=== PATIENT | male | born 1970 | race Caucasian/White ===

== ENCOUNTER 2017-09-30 17:05 | Emergency (ER) | payer BC, SELFPAY ==
--- NOTE | 2017-09-30 11:28 | EKG12_ITS ---
Test Reason : Blood Pressure : / mmHG Vent. Rate : 060 BPM Atrial Rate : 060 BPM P-R Int : 142 ms QRS Dur : 078 ms QT Int : 396 ms P-R-T Axes : 020 042 045 degrees QTc Int : 396 ms Normal sinus rhythm Normal ECG Confirmed by JUAN RAMON CRISTINA, GABRIELLE ([id number]), assistant film editor DELORIS HERNDON ([id number]) on 10/08/2017 6:18:41 PM Referred By: Tomeka Prasad Confirmed By:GABRIELLE DELATORRE MD
--- NOTE | 2017-09-30 13:28 | RAD_ITS ---
STUDY: X-RAY - ABDOMEN/PELVIS REASON FOR EXAM: Male, 47 years old. Epigastric pain TECHNIQUE: 6 views COMPARISON: None. FINDINGS: Normal visualized lung bases. There is an unremarkable bowel gas pattern. There is no demonstrated free abdominal air. The visualized liver, spleen and kidneys are grossly normal in size and morphology. Normal soft tissue structures. Degenerative vertebral changes. RAD/Abd Inc Decub and/or Erect IMPRESSION: Normal x-ray examination of the abdomen and pelvis. Electronically Signed: Davian Mosquera DO at 23:00 EDT Tel [phone], Service support ,
--- NOTE | 2017-09-30 17:05 | DT_ITS ---
This patient was seen during an EMR downtime September 29, 2017 - October 06, 2017. This patient may have a combination of paper and electronic documentation or all paper documentation. All documentation is viewable within the e-chart portion of [facility] for each patient visit.
--- NOTE | 2017-09-30 19:55 | CT_ITS ---
STUDY: CT ABDOMEN AND PELVIS WITHOUT CONTRAST REASON FOR EXAM: Male, 47 years old. Right upper quadrant pain radiating to back RADIATION DOSAGE (If Supplied By Facility): CTDIvol = ( 23.45 ) mGy, DLP = ( 1329.91 ) mGycm TECHNIQUE: Transaxial images were obtained from the dome of the diaphragm to the symphysis pubis without oral contrast, and without intravenous contrast. Sagittal and coronal images were reconstructed. Individualized dose optimization techniques were used for this CT. COMPARISON: None. FINDINGS: The study is technically limited, being performed without oral and intravenous contrast. The visualized lung bases are unremarkable. The visualized portions of the heart are within normal limits. Normal liver. The gallbladder is mildly distended. Gallstones and calcified gravel are seen in the gallbladder. Normal spleen. Normal pancreas. Normal bilateral adrenal glands. Normal right kidney. Normal left kidney. Normal visualized stomach. Normal small intestine. There are scattered colonic diverticuli with no evidence of diverticulitis. The appendix is visualized and appears normal. There are calcified plaques of the abdominal aorta. Normal inferior vena cava. Normal retroperitoneum. Normal urinary bladder. The prostate, seminal vesicles, and seminal vesicle angles appear normal. There is a small umbilical hernia containing fat. There are diffuse degenerative changes of the visualized thoracolumbar spine. CT/Abdomen/Pelvis without Cont IMPRESSION: Cholelithiasis. The gallbladder is mildly distended. Gallbladder ultrasound may be helpful for further evaluation at this time. Scattered colonic diverticuli with no evidence of diverticulitis. Diffuse degenerative changes of the visualized thoracolumbar spine. There is no evidence of free intra-abdominal or intrapelvic air or fluid. Electronically Signed: Germán Todd MD at 21:41 EDT , Service support ,
--- NOTE | 2017-09-30 21:10 | US_ITS ---
STUDY: ABDOMINAL ULTRASOUND - RIGHT UPPER QUADRANT REASON FOR VISIT: Male, 47 years old. Epigastric pain TECHNIQUE: Ultrasound evaluation of the right upper quadrant was performed with real-time and static painter-scale imaging. TECHNICAL QUALITY: Adequate. COMPARISON: None. FINDINGS: Liver: The liver measures 18.3 cm. There is fatty echogenicity of the liver. The bile ducts are within normal limits. There is hepatic color flow. The direction of portal flow is hepatopetal. There is no demonstrated mass lesion. Gallbladder: Normal distended gallbladder. The gallbladder wall measures 3 mm. There is a negative sonographic Mota's sign. There is trace pericholecystic fluid. There are multiple gallstones. Common Bile Duct (C.B.D.): The common bile duct measures 4 mm. Pancreas: Limited visualization of the pancreas. Right Kidney: Normal size of the right kidney. The right kidney measures 11.8 x 5.7 x 4.9 cm. Normal renal cortex. The right cortex measures 1.3 cm. There is no demonstrated renal mass or cyst. There is no right hydronephrosis. US/Abdomen Limited IMPRESSION: Fatty liver. Cholelithiasis with borderline gallbladder wall thickness. Trace pericholecystic fluid. Electronically Signed: Davian Mosquera DO at 18:57 EDT Tel [phone], Service support ,
[2017-10-05 09:53] LABS: Absolute Lymphocyte Count 2.41 X10^3/ul (0.83-4.51); Absolute Neutrophil Count 3.3 X10^3/uL (2.0-7.7); Basophil# 0.03 X10^3/uL; Basophil% 0.5 % (0-1); Eosinophil# 0.12 X10^3/uL; Eosinophils% 1.9 % (0-5); Hemoglobin 13.8 g/dl (13.0-16.5); Lymphocyte # 2.41 X10^3/ul (4.0); Mean Corp Hgb Conc 33.7 g/gl (32-36); Mean Corpuscular Hgb 29.4 pg (27.0-32.0); Mean Corpuscular Volume 87.4 fL (80-94); Mean Platelet Vol. 9.4 fl (6.2-12.0); Monocyte% 7.9 % (0-10); Neutrophil # 3.26 X10^3/uL (2.7-7.7); Neutrophil % 51.4 % (47-70); POSITIVE COUNT NO; POSITIVE DIFFERENTIAL NO; POSITIVE MORPHOLOGY NO; Platelet Count 369 K/mm3 (150-450); RBC Distribution Width CV 13.6 % (11.6-14.6); Red Blood Count 4.69 M/mm3 (4.6-6.2); White Blood Count 6.3 K/mm3 (4.4-11.0)
[2017-10-05 09:54] LABS: BUN 13 mg/dL (7-18); BUN/Creat Ratio 11.7 RATIO (10-20); Creatinine, Serum 1.11 mg/dL (0.70-1.30); EST Glomerular Filtration Rate 75 mL/min (>60); Est Glom Filt Rate - Afr Amer 91 mL/min (>60); Glucose 110 mg/dL (74-106)
[2017-10-05 09:55] LABS: ALB/GLOB Ratio 1.1 RATIO (0.9-2.4); AST(SGOT) 41 U/L (15-37); Alanine Aminotransfer ALT/SGPT 77 U/L (16-61); Albumin, Serum 4.1 g/dL (3.2-5.0); Alkaline Phosphatase 62 U/L (45-117); Amylase 50 U/L (25-115); Anion Gap 9 (5-15); Calcium,Total 11.3 mg/dL (8.5-10.1); Chloride 102 mmol/L (98-107); Globulin 3.6 g/dL (2.2-4.2); Lipase 184 U/L (73-393); Potassium 4.1 mmol/L (3.5-5.1); Protein, Total 7.7 g/dL (6.4-8.2); Sodium Level 140 mmol/L (136-145)
== END 2017-09-30 22:45 | disposition home or self-care (01) ==
LOC: ED 10-02 08:31
PROVIDERS: Emergency Provider Emergency Medicine; Family Provider Family Medicine; PCP Family Medicine
DX: K80.80 Other cholelithiasis without obstruction (principal); K76.0 Fatty (change of) liver, not elsewhere classified; K42.9 Umbilical hernia without obstruction or gangrene
CPT/HCPCS: 36415; 74019; 74176; 76705; 80053; 82150; 83690; 84484; 85025; 93005; 96361; 96374; 96375; 96376; 99284; J7030; A4216; J2405

== ENCOUNTER 2017-10-02 05:56 | Day surgery (SDC) | payer BC, SELFPAY ==
--- NOTE | 2017-10-02 05:56 | DT_ITS ---
This patient was seen during an EMR downtime September 29, 2017 - October 06, 2017. This patient may have a combination of paper and electronic documentation or all paper documentation. All documentation is viewable within the e-chart portion of [facility] for each patient visit.
--- NOTE | 2017-10-02 07:38 | GALL_PTH ---
PATIENT: KENYA GORE LOC: [facility] – [place] U#:[id number] AGE/SX: 47/M ROOM: RE10/02/[address]: Dr. Sedrick Espinoza MD : 1970 BED: DIS: 10/02/2017 SPEC #: [id number] RECD: 10/02/17 11:04 STATUS: LUIZ LATANYA #: [id number] SHELBY: 10/02/17 07:[address]: Sedrick Espinoza DEPT: SURGICAL PATHOLOGY RECD BY: Cristian Cruz ENTERED: 10/03/17 08:50 SP TYPE: YESENIA GRANADOS DR: Dr. Scooter Ramirez MD Tissues: Gallbladder, NOS Procedures: Surgery Specimen Level III HEADER OPERATION: Laparoscopic cholecystectomy with intraoperative cholangiograms PRE-OP DIAGNOSIS: Acute cholecystitis TISSUE SUBMITTED: Gallbladder MICROSCOPIC DIAGNOSIS Gallbladder: Acute and chronic, ulcerated and hemorrhagic cholecystitis and cholelithiasis. SJ:yaron 6/8/18 MICROSCOPIC DESCRIPTION Slides are reviewed. GROSS DESCRIPTION Received is one container labeled with the patient's name and designated gallbladder. The specimen consists of a gallbladder measuring 10 cm in length and 4 cm in diameter. The external surface is pink-chowdhury, smooth and glistening for the most part. Focally it is granular, hemorrhagic and contains cautery artifact. The gallbladder contains multiple, multifaceted to irregular bile and stones measuring in aggregate 6 x 6 x 2 cm and 0.2 to 0.5 cm in greatest dimension. Bile is not present. The mucosa shows extensive ulceration and is congested. The gallbladder wall measures up to 1 cm in thickness. Increased segment of submucosal fat is noted. Clerical Adjuster sections from the gallbladder and the cystic duct are submitted in two cassettes. / SJ:yaron 10/02/17 TC:2 [facility]: [id number]
--- NOTE | 2017-10-02 12:02 | EKG12_ITS ---
Test Reason : PRE OP Blood Pressure : / mmHG Vent. Rate : 058 BPM Atrial Rate : 058 BPM P-R Int : 134 ms QRS Dur : 076 ms QT Int : 408 ms P-R-T Axes : 015 005 034 degrees QTc Int : 400 ms Sinus bradycardia Otherwise normal ECG No previous ECGs available Confirmed by JUAN RAMON CRISTINA, GABRIELLE ([id number]), desk editor DELORIS HERNDON ([id number]) on 10/09/2017 4:35:14 PM Referred By: Sedrick Espinoza Confirmed By:GABRIELLE DELATORRE MD
[2017-10-04 13:42] LABS: Anion Gap 8 (5-15); BUN 14 mg/dL (7-18); BUN/Creat Ratio 11.7 RATIO (10-20); Calcium,Total 8.7 mg/dL (8.5-10.1); Chloride 102 mmol/L (98-107); EST Glomerular Filtration Rate 69 mL/min (>60); Est Glom Filt Rate - Afr Amer 84 mL/min (>60); Glucose 155 mg/dL (74-106); Potassium 3.9 mmol/L (3.5-5.1); Sodium Level 138 mmol/L (136-145)
[2017-10-04 15:17] LABS: Hematocrit 40.8 % (40-54); Hemoglobin 13.7 g/dl (13.0-16.5); Mean Corp Hgb Conc 33.6 g/gl (32-36); Mean Corpuscular Hgb 29.4 pg (27.0-32.0); Mean Corpuscular Volume 87.6 fL (80-94); Mean Platelet Vol. 9.5 fl (6.2-12.0); Platelet Count 237 K/mm3 (150-450); RBC Distribution Width CV 13.7 % (11.6-14.6); RBC Distribution Width SD 43.9 fl (35.1-43.9); Red Blood Count 4.66 M/mm3 (4.6-6.2); Scan Indicated on CBC? Y/N NO; White Blood Count 8.2 K/mm3 (4.4-11.0)
--- NOTE | 2017-12-22 14:25 | PCM.OPRPT ---
Problem List (1) Acute cholecystitis Status: Acute Report of Operation Date of Procedure: 10/02/17 Pre-Operative Diagnosis: Acute cholecystitis Post-Operative Diagnosis: Same Surgery/Procedure Performed:: Laparoscopic cholecystectomy Type of Anesthesia:: General Anesthesiologist: Jayro Monet Description of Procedure: Patient was brought into the operating room placed in the supine position. Under excellent general endotracheal summation the abdomen was sterilely prepped and draped in the usual fashion. Local was injected infraumbilically. Dissection was carried down to the fascia. Fascia was grasped with Demond. Varies needle was placed inside the abdomen. The abdomen was insufflated to 15 torr. A 10/12 trocar was placed without difficulty. A subxiphoid #5 trocar was placed, inferior to this another #5 trocar was placed, laterally a #5 trocar was placed. All of these under direct visualization without injury to underlying structures. Fundus of the gallbladder was grasped and retracted in cephalad direction. I dissected out the cystic duct grabbing the infundibulum retracting it laterally. I placed hemoclips proximally and distally on the duct. I ligated the duct. Identified the cystic artery placed hemoclips proximally distally and ligated the artery. I deliver the gallbladder from the gallbladder bed with use of electrocautery. Placed a specimen a specimen bag and delivered through the umbilical port. Reinflated the abdomen inspected the gallbladder bed. Use electrocautery for good hemostasis. Once this was achieved I removed the trochars under direct visualization good hemostasis was noted. Close the fascia the umbilical port with [id number] stitch of 0 Vicryl. Skin incisions were closed with subtalar stitches of 4-0 Monocryl. Steri-Strips are applied. Sterile dressings were applied. The patient tolerated the procedure well. - Admit VTE Documentation VTE Present on Admission: No VTE Mechan Device Prophylaxis: SCD's VTE Pharm Prophylaxis ordered?: No Reason prophylaxis not ordered:: Treatment Not Indicated
== END 2017-10-02 10:50 | disposition home or self-care (01) ==
LOC: SDC 05:57 → AC 06:00
PROVIDERS: Family Provider Family Medicine; PCP Family Medicine; Visit Provider Surgery
PROC: (CPT 47610; principal; 2017-10-02 07:10)
DX: K80.12 Calculus of gallbladder with acute and chronic cholecystitis without obstruction (principal); G47.30 Sleep apnea, unspecified
CPT/HCPCS: 47562; 36415; 80048; 85027; 88304; 93005; J7120; J1610; J2405

== ENCOUNTER → 2018-07-16 08:03 | Outpatient (CLI) | payer BC, SELFPAY ==
[2018-07-16 10:09] LABS: ALB/GLOB Ratio 1.4 RATIO (0.9-2.4); AST(SGOT) 38 U/L (15-37); Alanine Aminotransfer ALT/SGPT 83 U/L (16-61); Albumin, Serum 4.2 g/dL (3.2-5.0); Alkaline Phosphatase 63 U/L (45-117); Anion Gap 6 (5-15); BUN 17 mg/dL (7-18); BUN/Creat Ratio 15.7 RATIO (10-20); Calcium,Total 8.6 mg/dL (8.5-10.1); Chloride 106 mmol/L (98-107); Cholesterol 212 mg/dL (200); Creatinine, Serum 1.08 mg/dL (0.70-1.30); EST Glomerular Filtration Rate 78 mL/min (>60); Est Glom Filt Rate - Afr Amer 94 mL/min (>60); Glucose 154 mg/dL (74-106); High Density Lipoprotein 38 mg/dL; Potassium 4.4 mmol/L (3.5-5.1); Protein, Total 7.2 g/dL (6.4-8.2); Sodium Level 137 mmol/L (136-145); Triglycerides 210 mg/dL; Very Low Density Lipoprotein 42 mg/dL (5-40)
== END ==
PROVIDERS: Family Provider Family Medicine; PCP Family Medicine; Referring Provider Family Medicine; Visit Provider Family Medicine
DX: R07.9 Chest pain, unspecified (principal)
CPT/HCPCS: 36415; 80053; 80061

== ENCOUNTER → 2018-07-28 06:04 | Outpatient (CLI) | payer BC, SELFPAY ==
--- NOTE | 2018-07-28 09:46 | STRESSREP_ITS ---
Stress Test Report Date: 07-28-18 Procedure: Exercise tolerance test/imaging study Indications: Chest pain; diaphoresis Consent: Per the patient Procedure: The patient exercised on a Derick protocol for 9 minutes completing Stage III achieving a peak heart rate of 150 bpm (86 % predicted maximal heart rate) with a peak blood pressure 190/80 mmHg and a peak MET capacity of 10 METs. The baseline ECG demonstrated sinus bradycardia. The peak exercise ECG demonstrated no obvious ECG changes. There were no cardiac dysrhythmias pretest, during exercise, or recovery. The functional capacity was considered good. There was no complaint of chest discomfort during exercise or recovery. The examination was discontinued secondary to dyspnea. Impression: 1. Technically adequate (percent predicted maximal heart rate greater than 85%) exercise tolerance test 2. Peak exercise ECG with no obvious ECG changes 3. There were no cardiac dysrhythmias pretest, during exercise, or recovery 4. Nuclear images pending Myocardial perfusion imaging study: Technique: The patient was injected with 14.8 mCi of technetium 99m Cardiolite and subsequently rest SPECT Cardiolite nuclear imaging was obtained in the horizontal long, vertical long, and short axis views. The patient exercised on a Derick protocol for 9 minutes completing Stage III achieving a peak heart rate of 150 bpm (86 % predicted maximal heart rate) with a peak blood pressure 190/80 mmHg and a peak MET capacity of 10 METs. The patient was injected with 45 mCi of technetium 99m Cardiolite and subsequently stress SPECT Cardiolite nuclear imaging was obtained in the horizontal long, vertical long, and short axis views. A gated Cardiolite study at peak stress was obtained. Interpretation: Rest and stress SPECT Cardiolite nuclear imaging status post realignment, normalization, and attenuation correction, demonstrates at rest the appearance of subtle decreased tracer uptake in portions of the basal lateral and mid to distal lateral/lateral apical and inferior apical segments which appeared to improve and/or normalize following stress. There is end systolic thickening and brightening. The gated Cardiolite study demonstrates myocardial thickening and inward wall motion. The reported LVEF is 53 %. Impression: 1. Rest and stress SPECT Cardiolite nuclear imaging demonstrate resting myocardial perfusion changes which appear to improve and/or normalize following stress appearing compatible with a combination of shifting soft tissue attenuation/artifact be more prominent at rest as opposed to stress as well as potentially an area compatible with physiologic apical thinning with no myocardial perfusion changes considered diagnostic for stress-induced myocardial ischemia. 2. The gated Cardiolite study reports an LVEF of 53 %. This note was generated with [employer] software. It may contain incorrect words, spelling, and punctuation that were not noted in checking the note before signing.
== END ==
PROVIDERS: Family Provider Family Medicine; PCP Family Medicine; Referring Provider Family Medicine; Visit Provider Family Medicine
DX: R07.9 Chest pain, unspecified (principal)
CPT/HCPCS: 78452; 93017; A9500; A4216

== ENCOUNTER → 2018-09-15 13:59 | Outpatient (CLI) | payer BC, SELFPAY ==
--- NOTE | 2018-09-15 14:03 | RAD_ITS ---
STUDY: X-RAY - CERVICAL SPINE REASON FOR EXAM: Male, 48 years old. Neck pain. Numbness and tingling right arm when patient turns head to right. TECHNIQUE: 6 view(s) of the cervical spine were obtained. COMPARISON: None FINDINGS: Normal anterior atlantoaxial articulation. Normal odontoid process. Normal cervical lordosis compatible with muscle spasm or patient positioning. No fracture identified. Normal vertebral bodies. Disc space narrowing with small marginal osteophytes C5-C6. Neural foraminal narrowing bilaterally at C5-6 and C6-7. The soft tissue structures are unremarkable. RAD/Cerv Spine 4 or 5 Views IMPRESSION: Degenerative changes C5-C6. Bilateral neural foraminal narrowing C5-6 and C6-7. Straightening of normal cervical lordosis. Electronically Signed: Flaco Murillo MD at 7:44 EDT , Service support ,
== END ==
PROVIDERS: Family Provider Family Medicine; PCP Family Medicine; Referring Provider Family Medicine; Visit Provider Family Medicine
DX: M54.2 Cervicalgia (principal)
CPT/HCPCS: 72050

== ENCOUNTER 2018-10-12 08:00 | Outpatient (RCR) | payer BC, SELFPAY ==
--- NOTE | 2018-09-28 08:02 | HP.PTEVAL_ITS ---
Patient's Visit Information KENYA GORE is a 48 year old M referred to Physical Therapy by Georges Ramirez MD with a diagnosis of cervicalgia. Date of Evaluation: 09/28/18 Physical Therapist: Jayro Montaño, RAMONT, OCS, CSCS - Visit Plan Frequency: 3x /Week Duration: 4-6 Weeks Plan: 3x/week for 3-6 weeks: c/s ret and ext mobs adn ROM progression of forces, ICT as needed, Postural correction, pec stretches, focus lower cervical ext adn eveuntual postural strength. MH as needed. - Subjective Findings: My stupid neck hurts. Woke up about 6 weeks ago and felt like he slept wrong. Got worse and radiate into R shoulder . Prednisone did not help. Did x rays and may be c5/6 problem. Sometimes arm tingles. Sitting slumped is worse. Back and to the right sets off R shoulder. Up and about not bad. Worsening at home not improving. 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 Worse at end of day. Can't focus end of day. Readjustments don't seem to help. R arm is out on mouse all day. sleep was not great at firt but Ok now flat with towel under neck. Hobbies: Plays darts competitively but throwing can hurt. Basic ADLs are OK, just does things with pain. - Pain R necka dn arm Pain Intensity (Out of 10): 3 Pain Intensity Range: 0, 6 Comment: sitting in car is worse - Objective Obvious forward head flexed lower cervical posture adn tightness in pecs when tryin to correct. L rotation 60, R rotation 55 and pinful, retraction is painful, ext hurts adn 29. reflexes B bi and tri 2/3. Sensation UE WNL to gross light touch B. Strength 4+/5 B without myotomal problems. Baseline 2/10 R UT. Tingling to hand. c/s protruision.: B arm , NE. c/s retraction: W neck during, Worse 4/10 neck. c/s retraction ext: deviates R and produces more pain during. After 410 neck, slight tingling. B motion afte rmovement, less tingling. + c/s compression test. - Goals Goal 1:: Full c/s AROM without pain70 rotationa dn 50 ext Goal Time Frame: 4-6 Weeks Goal 2:: Patient feel arm symptoms abolished and neck pain 1/10 at worst and 90% improved. Goal Time Frame: 4-6 Weeks Goal 3:: Patient sit at desk without increasing pain. Goal Time Frame: 2-4 Weeks Goal 4:: Pt I in approp ex to minimize future problems. Goal Time Frame: 4-6 Weeks - Rehabilitation Potential Physical Therapy Diagnosis: cervical pain and radiculopathy likely discal in nature. Rehabilitation Potential: Fair - Anticipated Interventions Patient/Client Instruction: Educate patient on: Condition, Plan of Care For the Purpose of:: To decrease pain, To increase ROM Therapeutic Exercise to Include: Strength training, Postural training, Flexibilty training, Passive ROM, Active ROM, Dorys Exercises For the Purpose of:: To decrease pain, To increase ROM, To improve gait and locomotor functions Manual Therapy Techniques to Include: Mobilization For the Purpose of:: To decrease pain, To increase tolerance to activity/condition/position, To improve ability of physical actions for home/community/work/leisure Thermo therapy (hot pack): Yes For the Purpose of:: To decrease pain, To increase ROM Thank you for the opportunity to evaluate your patient. For Medicare and Medicare HMO plans, please review the plan of care and approve it. It will need to be FAXED BACK to us at [phone] for Medicare purposes. For Medicare only, by signing this I certify the plan of care. Please let me know if there are questions or concerns regarding this plan of care. Physician Signature: Date:
--- NOTE | 2018-10-12 08:43 | HP.PTDCSUM ---
HP - PT D/C Summary It has been my pleasure to treat KENYA GORE under orders from Georges Ramirez MD, for the diagnosis of cervicalgia for a total of 8 visit(s). Discharge Date: 10/12/18 Please see the following information for a summary of their discharge status. - Subjective Subjective: Tingling a little bit R UE but pain is way down. Pain over weekend was slight if he manages his posture. Activities at home and work are pretty normal. HEP daily. No f/u with doctor James right now. Tingling will go away with change of head position/posture. - Pain R necka dn arm Pain Intensity (Out of 10): 0 - Overall Improvement % Improvement: 75 - Objective Objective/Function: 55 ext c/s , 70 B rotation only slight transient pain with L rotation. 5/5 strength UE without myotomal problems. Posture is good with focus but tends toward forward head. - Goals Goal 1:: Full c/s AROM without pain70 rotationa dn 50 ext Goal Progress: Goal Met Goal 2:: Patient feel arm symptoms abolished and neck pain 1/10 at worst and 90% improved. Goal Progress: Progressing Goal 3:: Patient sit at desk without increasing pain. Goal Progress: with good posture. Goal 4:: Pt I in approp ex to minimize future problems. Goal Progress: Goal Met - Plan Plan: D/C - D/C Information Discharge Comments: Will cotninue via HEP and contact doctor if symptoms return. Doing very well right now with minimal symptoms manageable with postural focus and head position. If there are questions or concerns regarding this patient's physical therapy, please feel free to call me at [phone]. Thank you for the referral of this patient. Sincerely, Jayro Montaño, DPT, OCS, CSCS
== END 2018-10-12 19:00 | disposition home or self-care (01) ==
LOC: PT 08:00
PROVIDERS: Family Provider Family Medicine; PCP Family Medicine; Visit Provider Family Medicine
DX: M54.2 Cervicalgia (principal); M25.511 Pain in right shoulder
CPT/HCPCS: 97012; 97110; 97124; 97140; 97162; 97530

== ENCOUNTER → 2018-12-10 14:17 | Outpatient (CLI) | payer BC, SELFPAY ==
[2018-12-10 08:32] VITALS: BMI 37.0
== END ==
PROVIDERS: Family Provider Family Medicine; PCP Family Medicine; Referring Provider Physician Assistant; Visit Provider Physician Assistant
DX: J02.9 Acute pharyngitis, unspecified (principal)
CPT/HCPCS: 87081

== ENCOUNTER → 2020-06-26 14:23 | Outpatient (CLI) | payer BC, SELFPAY ==
[2018-12-10 08:32] VITALS: BMI 37.0
--- NOTE | 2020-06-26 14:28 | RAD_ITS ---
STUDY: X-RAY CHEST REASON FOR EXAM: Male, 49 years old. Atypical chest pain intermittently since January. Pain is becoming more frequent. TECHNIQUE: PA and lateral views of the chest. COMPARISON: None. FINDINGS: The lungs are clear and expanded. There is no demonstrated pleural abnormality. Normal size heart. Normal mediastinum and madonna. Normal visualized pulmonary arteries. Normal visualized aortic arch and descending thoracic aorta. There are diffuse degenerative changes of the visualized thoracic spine. Normal visualized ribs, clavicles, and shoulders. There is no demonstrated abnormality of the visualized soft tissue structures of the upper abdomen. RAD/Chest PA and Lateral IMPRESSION: No acute cardiopulmonary disease. Electronically Signed: Jony Membreno DO at 16:48 EST Tel [phone], Service support ,
== END ==
PROVIDERS: PCP Family Medicine; Referring Provider Family Medicine; Visit Provider Family Medicine
DX: R07.89 Other chest pain (principal)
CPT/HCPCS: 71046

== ENCOUNTER 2021-02-13 12:23 | Day surgery (SDC) | payer BC, SELFPAY ==
[2021-02-13 12:46] VITALS: BP 130/85; PULSE 50; RESP 16; TEMP 36.2; O2SAT 98; BMI 37.5
[2021-02-13] MEDS: Lactated Ringers 1,000 ML 100 ML IV (12:51)
--- NOTE | 2021-02-13 14:07 | PCM.HP.BLA ---
History and Physical Date of Admission: 02/13/21 50-year-old gentleman arrives here for screening colonoscopy. He has no specific past medical history. He only takes ibuprofen as needed. He has had no surgeries in the past. He is not have any nausea, vomiting or diarrhea. He has no family history colon cancer. Overall is in very good health. [facility] Medical History (Updated 12/10/18 @ 08:29 by KAREN Morelos) Arthritis (Acute) Chest pain (Acute) Loss of consciousness (Acute) Shoulder pain (Acute) history of pilon ankle fracture (Acute) Surgical History (Updated 12/10/18 @ 07:57 by Estela Scherer) History of cholecystectomy (Acute) History of tonsillectomy (Acute) History of total ankle replacement (Acute) Social History (Updated 12/10/18 @ 08:32 by KAREN Morelos) Smoking Status: Never smoker alcohol intake: current alcohol intake frequency: holidays/special occasions only HPI HPI Chief Complaint: sore throat Details: KENYA GORE, is a 48 M who presents to the office today for initial evaluation approximately 1 week history of progressively worsening sore throat. No complaints of fever, chills, sweats, rash, chest pressure/shortness of breath/wheeze, difficulty swallowing/drooling though he does note mild severe tenderness with swallowing. Patient is here at the request of his to be assessed for streptococcal pharyngitis. He has taken no [id number] products to assist with symptoms, though notes he does take ibuprofen on a regular basis for chronic sore feet as he describes. He notes no other members in household with similar complaints. He notes no other associated symptoms and no other alleviating or aggravating factors. ROS Const Constitutional: No other (ROS negative x10 other than as noted above) Exam Const General: cooperative, healthy appearing, comfortable, no acute distress Nutritional Appearance: well nourished Orientation: alert, awake, oriented x3 HENMT Head: normal to inspection Ears: hearing grossly normal bilaterally, external ears normal, TM's normal bilaterally, EAC's normal Nose: external nose normal, nares normal, septum normal, no nasal discharge Face and sinus: normal facial exam, sinuses nontender, face symmetric Mouth: oral mucosae normal, lip normal, tongue normal, oropharynx normal Teeth and gingiva: dentition normal, gingiva normal Throat: posterior oropharynx normal, uvula midline, abnormal tonsil bilaterally erythema (Rapid strep test today was negative), no postnasal drainage Eyes General: appearance normal, both eyes and all related structures Neck Neck: normal visual inspection, full ROM, no lymphadenopathy, no meningeal signs, supple Neck mass: No Thyroid: thyroid normal Lymphatic: no lymphadenopathy noted Chest Chest palpation & inspection: normal inspection of the chest Resp Effort & Inspection: normal respiratory effort, able to speak in complete sentences, symmetric chest movement, no cough Auscultation: Bilateral: Clear to Auscultation Cardio Palpation: normal PMI Rate: regular rate Rhythm: regular rhythm Heart Sounds: S1 normal, S2 normal, no gallops, no murmurs, no rubs Pulses: radial pulses present GI Inspection: normal to inspection Palpation: soft, no hepatosplenomegaly Skin General: no rashes or lesions noted Neuro General: alert, awake, oriented x3, gait normal Cognition: normal cognition Speech: speech normal Gait: normal gait Motor: muscle tone normal throughout Sensory Exam: no sensory deficits noted Psych Appearance: grossly normal Mental Status: mental status grossly normal Mood: congruent mood Affect: normal affect Speech and Movement: speech and movement normal Attitude: cooperative Thought Process: normal Thought Content: normal Judgment: judgment good Assessment and plan is a screening colonoscopy. He was explained alternatives, risk, benefits including outstanding bleeding, infection, sepsis, perforation, need for emergent urgent . He will have an ASA of 1.
[2021-02-13 14:45] VITALS: BP 120/87; BP 130/85; PULSE 60; RESP 16; TEMP 36.2; O2SAT 96
--- NOTE | 2021-02-13 14:47 | OP.COLON_ITS ---
Patient Name: Darwin Garcia Procedure Date: 02/13/2021 2:11 PM Date of : 1970 Age: 50 Procedure: Colonoscopy Indications: This is the patient's first colonoscopy Providers: Mook Wolf DO Medicines: Propofol per Anesthesia Patient Profile: This is a 50 year old male. Refer to note in patient chart for documentation of history and physical. Last Colonoscopy: none. The patient's first colonoscopy is today. Complications: No immediate complications. Procedure: Pre-Anesthesia Assessment: - Prior to the procedure, a History and Physical was performed, and patient medications and allergies were reviewed. The patient is competent. The risks and benefits of the procedure and the sedation options and risks were discussed with the patient. All questions were answered and informed consent was obtained. Patient identification and proposed procedure were verified by the physician in the pre-procedure area. Mental Status Examination: alert and oriented. Airway Examination: normal oropharyngeal airway and neck mobility. Respiratory Examination: clear to auscultation. CV Examination: normal. Prophylactic Antibiotics: The patient does not require prophylactic antibiotics. Prior Anticoagulants: The patient has taken no previous anticoagulant or antiplatelet agents. ASA Grade Assessment: II - A patient with mild systemic disease. After reviewing the risks and benefits, the patient was deemed in satisfactory condition to undergo the procedure. The anesthesia plan was to use moderate sedation / analgesia (conscious sedation). Immediately prior to administration of medications, the patient was re-assessed for adequacy to receive sedatives. The heart rate, respiratory rate, oxygen saturations, blood pressure, adequacy of pulmonary ventilation, and response to care were monitored throughout the procedure. The physical status of the patient was re-assessed after the procedure. After I obtained informed consent, the scope was passed under direct vision. Throughout the procedure, the patient's blood pressure, pulse, and oxygen saturations were monitored continuously. The colonoscope was introduced through the anus and advanced to the cecum, identified by the appendiceal orifice, ileocecal valve and palpation. The terminal ileum, ileocecal valve, appendiceal orifice, and rectum were photographed. Moderate Sedation: Moderate (conscious) sedation was administered by the endoscopy nurse and supervised by the endoscopist. The patient's oxygen saturation, heart rate, blood pressure and response to care were monitored. Total physician intraservice time was 15 minutes. Scope In: 2:23:21 PM Scope Withdrawal Time 0 hours 10 minutes 15 seconds Scope Out: 2:39:54 PM Total Procedure Duration Time 0 hours 16 minutes 33 seconds Findings: The perianal and digital rectal examinations were normal. The entire examined colon appeared normal on direct and retroflexion views. Impression: - The entire examined colon is normal on direct and retroflexion views. - No specimens collected. Recommendation: - Discharge patient to home. - Resume previous diet. - Continue present medications. - Await pathology results. - Repeat colonoscopy in 10 years for screening purposes. Procedure Code(s): --- Professional --- 84554, Colonoscopy, flexible; diagnostic, including collection of specimen(s) by brushing or washing, when performed (separate procedure) G0500, Moderate sedation services provided by the same physician or other qualified health critical care educator performing a gastrointestinal endoscopic service that sedation supports, requiring the presence of an independent trained observer to assist in the monitoring of the patient's level of consciousness and physiological status; initial 15 minutes of intra-service time; patient age 5 years or older (additional time may be reported with 82641, as appropriate) CPT copyright 2017 [employer]. All rights reserved. The codes documented in this report are preliminary and upon region manager review may be revised to meet current compliance requirements. Mook Wolf DO 02/13/2021 2:47:01 PM This report has been signed electronically. Number of Addenda: 1 Note Initiated On: 02/13/2021 2:11 PM Addendum Number: 1 Addendum Date: 12/27/2021 4:35:52 PM MAC was used instead of moderate sedation for this patient. Mook Wolf DO 12/27/2021 4:35:57 PM This report has been signed electronically.
--- NOTE | 2021-02-13 14:48 | OP.CCLET_ITS ---
12/27/2021 Georges Ramirez [address] [place] [address] Re : Colonoscopy procedure for Darwin Garcia Dear Dr. Ramirez This procedure was performed on Saturday, February 13, 2021. My impressions and recommendations are as follows: Impressions : - The entire examined colon is normal on direct and retroflexion views. - No specimens collected. Recommendations : - Discharge patient to home. - Resume previous diet. - Continue present medications. - Await pathology results. - Repeat colonoscopy in 10 years for screening purposes. My findings are described in the full procedure note, which is enclosed. If I can be of further assistance, please feel free to contact me at . Sincerely, Mook Wolf, 02/13/2021 2:47:01 PM This report has been signed electronically.
[2021-02-13 14:50] VITALS: BP 120/93; BP 130/85; PULSE 46; RESP 16; O2SAT 96
[2021-02-13 14:55] VITALS: BP 125/86; BP 130/85; PULSE 47; RESP 16; O2SAT 97
[2021-02-13 15:00] VITALS: BP 122/92; BP 130/85; PULSE 50; RESP 16; TEMP 36.2; O2SAT 97
[2021-02-13 15:12] VITALS: BP 130/85
== END 2021-02-13 15:26 ==
LOC: EN 12:24 → AC 12:25
PROVIDERS: PCP Family Medicine; Referring Provider Family Medicine; Visit Provider Internal Medicine Gastroenterology
PROC: 0DJD8ZZ Inspection of Lower Intestinal Tract, Via Natural or Artificial Opening Endoscopic (ICD-10-PCS; CPT 45378; principal; 2021-02-13 13:25)
DX: Z12.11 Encounter for screening for malignant neoplasm of colon (principal); Z20.822 Contact with and (suspected) exposure to COVID-19; M19.90 Unspecified osteoarthritis, unspecified site; Z90.49 Acquired absence of other specified parts of digestive tract
CPT/HCPCS: 45378; 87426; C9803; J7120; J2405

== ENCOUNTER 2024-01-14 21:59 | Inpatient (IN) | payer BC, SELFPAY ==
[2024-01-14 22:00] VITALS: BP 134/90; PULSE 85; RESP 18; TEMP 35.8; O2SAT 98; BMI 35.9
--- NOTE | 2024-01-14 22:05 | EKG12_ITS ---
Test Reason : CP Blood Pressure : / mmHG Vent. Rate : 070 BPM Atrial Rate : 070 BPM P-R Int : 148 ms QRS Dur : 080 ms QT Int : 396 ms P-R-T Axes : 010 021 020 degrees QTc Int : 427 ms Normal sinus rhythm Normal ECG Confirmed by Gino Muir ([id number]), editor farm journal TERESA GORE ([id number]) on 01/19/2024 10:22:59 AM Referred By: CONCHA Confirmed By:Gino Muir
[2024-01-14 22:27] LABS: Absolute Lymphocyte Count 2.42 X10^3/uL (0.83-4.51); Absolute Neutrophil Count 5.7 X10^3/uL (2.0-7.7); Basophil# 0.06 X10^3/uL; Basophil% 0.7 % (0-1); Eosinophil# 0.12 X10^3/uL; Eosinophils% 1.4 % (0-5); Hematocrit 40.3 % (40-54); Hemoglobin 13.5 g/dL (13.0-16.5); Lymphocyte # 2.42 X10^3/ul (0.83-4.51); Lymphocyte % 27.4 % (19-41); Mean Corp Hgb Conc 33.5 g/dL (32-36); Mean Corpuscular Hgb 29.7 pg (27.0-32.0); Mean Corpuscular Volume 88.8 fL (80-94); Mean Platelet Vol. 9.2 fl (6.2-12.0); Monocyte# 0.56 X10^3/uL; Monocyte% 6.3 % (0-10); NRBC Flagged by Analyzer 0 % (0-5); Neutrophil # 5.65 X10^3/uL (2.7-7.7); Neutrophil % 63.9 % (47-70); Platelet Count 216 K/mm3 (150-450); RBC Distribution Width CV 13.6 % (11.6-14.6); RBC Distribution Width SD 44.4 fl (35.1-43.9); Red Blood Count 4.54 M/mm3 (4.6-6.2); White Blood Count 8.8 K/mm3 (4.4-11.0)
--- NOTE | 2024-01-14 22:43 | RAD_ITS ---
STUDY: X-RAY CHEST REASON FOR EXAM: Male, 53 years old. chest pain TECHNIQUE: Single frontal view of the chest. COMPARISON: June 26, 2020 FINDINGS: The lungs are clear and expanded. There is no demonstrated pleural abnormality. Normal size heart. Normal mediastinum and madonna. Normal visualized pulmonary arteries. Normal visualized aortic arch and descending thoracic aorta. Normal visualized thoracic spine. Normal visualized ribs, clavicles, and shoulders. There is no demonstrated abnormality of the visualized soft tissue structures of the upper abdomen. RAD/Chest 1 View (Portable) IMPRESSION: Normal x-ray examination of the chest. Electronically Signed: Camron Perez MD at 23:16 EDT ,
[2024-01-14 22:47] LABS: Anion Gap 11 (5-15); BUN 21 mg/dL (7-18); Calcium,Total 9.4 mg/dL (8.5-10.1); Chloride 106 mmol/L (98-107); EST Glomerular Filtration Rate 83 mL/min (>60); Est Glom Filt Rate - Afr Amer 100 mL/min (>60); Estimated Creatinine Clearance 101.42 ml/min; Glucose 138 mg/dL (74-106); Potassium 3.7 mmol/L (3.5-5.1); Sodium Level 139 mmol/L (136-145); Troponin-I HS (w/2H Reflex) 132 pg/mL (3.0-78.0)
[2024-01-14 23:00] VITALS: BP 137/79; PULSE 69; RESP 16; O2SAT 96
--- NOTE | 2024-01-14 23:17 | ED.VIS.CHEST ---
HPI History of Present Illness Chief Complaint: Chest Pain Informant: patient Narrative Narrative: 53-year-old male presenting to the emergency department with chief complaint of chest pain. Patient states around 6 1930 hrs. tonight he was throwing darts when he developed a pressure like a fist in the center of his chest. States it lasted about 1/2-hour. Progressively got worse to felt like he was going to have indigestion and needed to belch but could not. At 1 point he states he felt like he needed taken me and his friends told him he looked pale. Symptoms started to improve and they told him to call his who is a [employer] nurse here at this institution. He spoke with her about custodial home and then he needed to stop off and do an errand. He states he just did not feel right but not to the point that he was at before so he decided to come to emergency. Currently he is denying any chest pain or shortness of breath. He denies any sweating nausea vomiting or arm pain. States he has not felt quite right for couple weeks and schedule appoint with his primary care doctor but nothing that he could specifically say was definitely bothering him. He states that he had a stress test 3 to 4 years ago but was felt that he did not need a heart cath at that time. He states his dad had a heart attack at age 57 and at age 59. [facility] Medical History Acute sinusitis Swollen gland Coughing Congestion of nasal sinus Acute sinusitis Head congestion Wears contact lenses Alcohol use Injury of head and neck Non-smoker CPAP (continuous positive airway pressure) dependence Sleep apnea History of pain when walking History of edema History of stress test Pharyngitis history of pilon ankle fracture Chest pain Shoulder pain Loss of consciousness Arthritis Acute cholecystitis Home Medications ?Medication ?Instructions ?Recorded ?Last Taken ?Type ibuprofen 200 mg capsule 200 mg PO PRN PRN Pain 12/10/18 Unknown History Allergy/AdvReac Type Severity Reaction Status Date / Time Fish Containing Products Allergy Severe Anaphylaxis Verified 01/14/24 22:00 shellfish derived Allergy Severe Anaphylaxis Verified 01/14/24 22:00 Surgical History History of total ankle replacement History of cholecystectomy History of tonsillectomy Social History Smoking Status: Never smoker alcohol intake: current alcohol intake frequency: holidays/special occasions only ROS ROS ED Constitutional Constitutional ED: Denies chills, fever(s) or weight loss Eyes Eyes: Denies change in vision or diplopia ENT ENT ED: Denies ear pain, rhinorrhea or sore throat Cardiovascular Cardiovascular: Reports chest pain; Denies orthopnea, palpitations or racing heartbeat Respiratory/Chest Respiratory/Chest: Denies cough, dyspnea or orthopnea Gastrointestinal Gastrointestinal: Denies abdominal pain, diarrhea, nausea or vomiting Genitourinary Genitourinary ED: Denies dysuria, hematuria or urinary frequency Musculoskeletal Musculoskeletal: Denies arthralgias or myalgias Integumentary Denies abscess or rash Neurologic Neurologic: Denies headache(s) or weakness Psychiatric Psychiatric: Denies anxiety, depression, suicidal ideation or suicidal thoughts Endocrine Endocrinology: Denies polydipsia, polyphagia or polyuria Allergic/Immunologic Allergic/Immunologic ED: Denies mouth swelling, tongue swelling or urticaria EXAM Physical Exam Const Vital Signs: 01/14/24 22:00 01/14/24 22:55 01/14/24 22:55 Temperature 96.4 F L Temperature Source Temporal Pulse Rate 85 Respiratory Rate 18 Respiratory Effort Normal Non-Labored Blood Pressure 134/90 H Blood Pressure Mean 104 Pulse Ox 98 Oxygen Delivery Method Room Air Room Air 01/14/24 23:00 Temperature Temperature Source Pulse Rate 69 Respiratory Rate 16 Respiratory Effort Blood Pressure 137/79 H Blood Pressure Mean 98 Pulse Ox 96 Oxygen Delivery Method Room Air Positive well nourished and well developed General Appearance ED: well developed HEENT Reports normocephalic, head/scalp atraumatic and moist mucous membranes Eyes PERRL and EOMs intact bilaterally Neck no lymphadenopathy, supple and no JVD Resp normal respiratory effort and clear to auscultation bilaterally Cardio regular rate, regular rhythm and no murmurs GI normal to inspection, nondistended, normoactive bowel sounds and non-tender Palpation: soft Back/Spine no CVA tenderness and normal ROM Extremity normal to inspection General Extremety ED: Negative for edema General Extremity: Negative for edema Neuro oriented x3 and CN's II-XII intact bilaterally Sensorium / Orientation: alert Motor Exam: strength 5/5 throughout Psych mental status grossly normal Mood & Affect: Negative for depressed or tearful Skin no rashes or lesions noted and no wounds Heart Score History: Highly Suspicious ECG: Normal Age: >45 - <65 years Risk Factors: 1 or 2 Risk Factors Troponin: >1 - <3 Normal Limit Score: 5 MDM MDM MDM Narrative Medical decision making narrative: Differential diagnosis includes but not limited to cardiac dysrhythmia acute coronary syndrome aortic dissection pneumothorax esophagitis/gastritis/GERD Initial EKG shows a normal sinus rhythm with a ventricular rate of 70 bpm. Initial troponin is elevated at 132 white count 8.8 hemoglobin 13.5 platelet count is 216. Creatinine 1 BUN of 21. My independent interpretation of the chest x-ray is no acute process. Patient received a dose of aspirin. I spoke with cardiology Dr. Negrete. Plan will be admission History & Record Review Discussion w/independent historian: Patient Lab Data Attestation: I reviewed the patient's lab results. Labs: Laboratory Results - last 24 hr 01/14/24 22:20 WBC 8.8 RBC 4.54 L Hgb 13.5 Hct 40.3 MCV 88.8 MCH 29.7 MCHC 33.5 RDW Std Deviation 44.4 H RDW Coeff of [place] 13.6 Plt Count 216 MPV 9.2 Immature Gran % (Auto) 0.300 Neut % (Auto) 63.9 Lymph % (Auto) 27.4 [place] % (Auto) 6.3 Eos % (Auto) 1.4 Baso % (Auto) 0.7 Absolute Neuts (auto) 5.7 Absolute Lymphs (auto) 2.42 Nucleated RBC % 0 Sodium 139 Potassium 3.7 Chloride 106 Carbon Dioxide 22.0 Anion Gap 11 BUN 21 H Creatinine 1.00 Estim Creat Clear Calc 101.42 Est GFR (MDRD) Af Amer 100 Est GFR (MDRD) Non-Af 83 BUN/Creatinine Ratio 21.0 H Glucose 138 H Calcium 9.4 Troponin I High Sens 132 H* Radiography Diagnostic Testing: Clinical Impression(s) from Imaging Studies Chest X-Ray 01/14/24 22:43 IMPRESSION: Normal x-ray examination of the chest. Electronically Signed: Camron Perez MD at 23:16 EDT Reading Location ID and State: [facility] / [place] Tel , Service support , Management Discussion w/another healthcare provider: Hospitalist (Dr Lynne) and Residential Mental Health Worker (Dr Negrete) Discharge Plan Triage Chief Complaint: Chest Pain ED Provider: Sedrick Larose Dx/Rx/DC Orders Prescriptions: No Action ibuprofen 200 mg capsule 200 mg PO PRN PRN (Reason: Pain) Primary Care Provider: Scooter Ramirez Referrals: Scooter Ramirez MD [Primary Care Provider] - Print Language: Indonesian
--- NOTE | 2024-01-14 23:26 | HP.PCM.HOS_ITS ---
HPI - General General Date of Admission: 01/14/24 Date of Service: 01/14/24 Chief Complaint: Chest pain. HPI Narrative The patient is a 53 y/o M w/ PMHx: Obesity, BARRON on CPAP, Hx prior trauma with BL ankle surgeries required and eventual L total ankle replacement, Family Cardiac history with father with CAD s/p CABG x 4 at age 57 and eventually dying secondary to cardiac complications at 59 who presents to the [facility] [place] ED on 01/14/24 with history of onset of midsternal chest discomfort described as pressure-like in sensation and heaviness lasting approximately an hour with initial onset while he was with friends with sensation of indigestion and feeling as though he needed to belch but was unable with friends reporting that he looked like he was nauseated although he did not feel like this, pale and diaphoretic although he does not recall being this way but just felt abnormal with dizziness with no specific radiation prompting eventual ED evaluation to be cautious. He does report that he is felt off and possibly dyspneic with exertion for the last several weeks and had plan to discuss this with his primary care physician in the morning. He does report that he had a stress test approximately 3 to 4 years prior and did not proceed at that point to a cardiac catheterization as it was normal. Workup in the ED included T96.4, heart rate 85, BP 134/90, respiratory rate 18, 98% on room air with most recent repeat vitals BP 129/84, respiratory rate 18, 100% on room air, heart rate 64, temperature 98.3, CBC with WC 8.8, hemoglobin 13.5, platelet 216 without marked shift, unremarkable coags, BMP with BUN/creatinine 21/1.0, GFR currently 83 reported, glucose 138, EKG with sinus rhythm with no acute evidence of ischemia, chest x-ray with no acute cardiopulmonary findings, initial troponin 132. In the ED patient ministered full-strength aspirin therapy. ED discussed case with on-call cardiology Dr. Negrete. [facility] Medical History CKD (chronic kidney disease), stage II Obesity BARRON on CPAP Wears contact lenses Injury of head and neck History of stress test history of pilon ankle fracture Arthritis Home Medications ?Medication ?Instructions ?Recorded ?Last Taken ?Type ibuprofen 200 mg capsule 200 mg PO PRN PRN Pain 12/10/18 Unknown History Allergy/AdvReac Type Severity Reaction Status Date / Time Fish Containing Products Allergy Severe Anaphylaxis Verified 01/14/24 22:00 shellfish derived Allergy Severe Anaphylaxis Verified 01/14/24 22:00 Family History (Updated 01/15/24 @ 01:[address] Yancy Lynne MD) Father Heart disease CAD (coronary artery disease) Hypertension Myocardial infarction Mother Colon cancer Surgical History History of ankle surgery History of total ankle replacement History of cholecystectomy History of tonsillectomy Social History (Updated 01/15/24 @ 01:[address] Yancy Lynne MD) household members: spouse Smoking Status: Never smoker alcohol intake: current alcohol intake frequency: holidays/special occasions only substance use type: does not use ROS ROS Narrative Admission Review of Systems: CONSTITUTIONAL: No weight loss, fever, chills, + weakness or fatigue. HEENT: Eyes: No visual loss, blurred vision, double vision or yellow sclerae. Ears, Nose, Throat: No hearing loss, sneezing, congestion, runny nose or sore throat. SKIN: No rash or itching, lesions, wounds. CARDIOVASCULAR: + Chest pain. No palpitations, edema, orthopnea, syncopal events. RESPIRATORY: No shortness of breath, cough or sputum, wheezing, hemoptysis. GASTROINTESTINAL: + Anorexia, nausea. No vomiting or diarrhea, abdominal pain, melena, BRBPR. GENITOURINARY: No dysuria, frequency, urgency or retention. NEUROLOGICAL: No headache, dizziness, syncope, paralysis, ataxia, numbness or tingling in the extremities, focal weakness, change in bowel or bladder control, seizure. MUSCULOSKELETAL: + muscle, back pain, joint pain or stiffness. HEMATOLOGIC: No anemia, bleeding or bruising. LYMPHATICS: No enlarged nodes. No history of splenectomy. PSYCHIATRIC: No history of depression or anxiety. ENDOCRINOLOGIC: + reports of sweating, cold or heat intolerance. No polyuria or polydipsia. ALLERGIES: + History of anaphylaxis. Vital Signs Vital Signs Vital Signs: 01/14/24 22:00 01/14/24 22:55 01/14/24 22:55 Temperature 96.4 F L Temperature Source Temporal Pulse Rate 85 Respiratory Rate 18 Respiratory Effort Normal Non-Labored Blood Pressure 134/90 H Blood Pressure Mean 104 Pulse Ox 98 Oxygen Delivery Method Room Air Room Air 01/14/24 23:00 Temperature Temperature Source Pulse Rate 69 Respiratory Rate 16 Respiratory Effort Blood Pressure 137/79 H Blood Pressure Mean 98 Pulse Ox 96 Oxygen Delivery Method Room Air Weight Weight: 236 lb 6.4 oz Body Mass Index (BMI) 35.9 Physical Exam Narrative Physical Examination: General: Awake, alert, oriented x 3 and cooperative, seated upright in the ED bed, denies any current chest discomfort. Skin: Normal color, normal turgor, no icterus, no cyanosis. HEENT: AT/NC, EOMI, PERRLA, mildly dry MM, no carotid bruits or JVD noted. Lungs: Mildly diminished, greater bases, appropriate effort, no rales, ronchi or wheezing. Heart: Regular rate and rhythm; no gallop, rub audible. Abdomen: Soft, obese, NTTP, ND, mildly hyperactive BS, no appreciated HSM. Extremities: No cyanosis, no clubbing, chronic ankle swelling secondary previous history of trauma and surgical intervention, stable and nonpitting. Neurological: Patient awake, alert, oriented as noted, cognitive function intact; pupils equally reactive to light and accommodation, cranial nerves grossly normal, moving all 4 extremities, no focal deficits, strength mildly to moderately global decrease secondary to acute presentation. Psychiatric: Affect appears fatigued, no acute evidence of depressive or anxiety feelings. Results Lab / Micro Data 01/14/24 22:20 01/14/24 22:20 Labs: Laboratory Results - last 24 hr 01/14/24 22:20: WBC 8.8, RBC 4.54 L, Hgb 13.5, Hct 40.3, MCV 88.8, MCH 29.7, MCHC 33.5, RDW Std Deviation 44.4 H, RDW Coeff of [place] 13.6, Plt Count 216, MPV 9.2, Immature Gran % (Auto) 0.300, Neut % (Auto) 63.9, Lymph % (Auto) 27.4, [place] % (Auto) 6.3, Eos % (Auto) 1.4, Baso % (Auto) 0.7, Absolute Neuts (auto) 5.7, Absolute Lymphs (auto) 2.42, Nucleated RBC % 0, Sodium 139, Potassium 3.7, Chloride 106, Carbon Dioxide 22.0, Anion Gap 11, BUN 21 H, Creatinine 1.00, Estim Creat Clear Calc 101.42, Est GFR (MDRD) Af Amer 100, Est GFR (MDRD) Non-Af 83, BUN/Creatinine Ratio 21.0 H, Glucose 138 H, Calcium 9.4, Troponin I High Sens 132 H* Imaging Radiology Impression Chest X-Ray 01/14/24 22:43 IMPRESSION: Normal x-ray examination of the chest. Electronically Signed: Camron Perez MD at 23:16 EDT , Assessment & Plan Assessment/Plan (1) NSTEMI, initial episode of care: PLAN: Plan The patient is a 53 y/o M w/ PMHx: Obesity, BARRON on CPAP, Hx prior trauma with BL ankle surgeries required and eventual L total ankle replacement, Family Cardiac history with father with CAD s/p CABG x 4 at age 57 and eventually dying secondary to cardiac complications at 59 who presents to the [facility] [place] ED on 01/14/24 with history of onset of midsternal chest discomfort. #1. Chest Pain w/ Acute NSTEMI: EKG in ED w/ sinus rhythm with no acute evidence of ischemia, CXR w/ no acute cardiopulmonary finding. Trop elevated, initial 132. Will admit to PCU, maintain on a monitored bed, continue serial cardiac enzymes and EKGs. Obtain magnesium level upon admission. Start Heparin drip until further enzyme trending performed. Continue medical management w/ asa, initiate low-dose BB, initiate high-dose statin w/ AM FLP. ECHO requested. Cardiology consulted, will prep for potential plan for cardiac catheterization with ongoing judicious hydration. Maintain NPO after midnight. ASA, NG, morphine. #2. Chronic Kidney Disease Stage II per GFR trending as far back as 2013: Admission BUN/Cr 21/1.0, GFR 83, baseline renal function 1.0-1.1 but again in review of labs patient consistently has had GFR in the stage II range, will repeat BMP in AM. May benefit from establishing with nephrology early given his young age. #3. Obesity: Weight loss and lifestyle changes encouraged. #4. BARRON: CPAP nightly. #5. DVT prophylaxis: Heparin drip. #6 CODE STATUS: Full code. Charges/Coding Visit Charges Inpatient E&M: 96646 Init Hosp L3
[2024-01-14] MEDS: Aspirin 81 MG TAB.CHEW 324 MG PO (23:27)
--- NOTE | 2024-01-14 23:30 | EKG12_ITS ---
Test Reason : post pci Blood Pressure : / mmHG Vent. Rate : 049 BPM Atrial Rate : 049 BPM P-R Int : 162 ms QRS Dur : 078 ms QT Int : 432 ms P-R-T Axes : 016 018 054 degrees QTc Int : 390 ms Sinus bradycardia Otherwise normal ECG When compared with ECG of 14-JAN-2024 23:52, MANUAL COMPARISON REQUIRED, DATA IS UNCONFIRMED Confirmed by Gino Muir ([id number]), pictures editor TERESA GORE ([id number]) on 01/19/2024 1:21:03 PM Referred By: Caden Confirmed By:Gino Muir
[2024-01-14 23:52] LABS: Prothrombin Time (Protime)PT. 13.2 SECONDS (11.7-14.9)
[2024-01-14 23:53] LABS: Partial Thromboplast Time 25.6 Seconds (24.1-36.2)
[2024-01-14 23:54] LABS: Magnesium 1.8 mg/dL (1.6-2.6)
[2024-01-15] VITALS (27 sets, daily range): BP systolic 123–152; BP diastolic 51–100; PULSE 49–77; RESP 11–21; TEMP 35.9–36.8; O2SAT 94–100; BMI 34.0
--- NOTE | 2024-01-15 00:23 | EKG12_ITS ---
Test Reason : CP ADMISSION Blood Pressure : / mmHG Vent. Rate : 063 BPM Atrial Rate : 063 BPM P-R Int : 150 ms QRS Dur : 078 ms QT Int : 404 ms P-R-T Axes : 052 009 026 degrees QTc Int : 413 ms Normal sinus rhythm Normal ECG When compared with ECG of 14-JAN-2024 22:08, MANUAL COMPARISON REQUIRED, DATA IS UNCONFIRMED Confirmed by Gino Muir ([id number]), editorial clerk TERESA GORE ([id number]) on 01/19/2024 10:51:32 AM Referred By: AMADO Confirmed By:Gino Muir
--- NOTE | 2024-01-15 00:23 | ECHOD_ITS ---
Reason For Study: Chest pain, NSETMI Procedure This was a 2D Doppler, Color Flow transthoracic echocardiogram. Myocardial strain analysis was performed in this exam to aid in the assessment of cardiac function. Exam performed portable in ICU/CCU. Left Ventricle Normal LV size. The estimated ejection fraction is 55 %. The global longitudinal strain = -19.1 % (normal). No evidence for diastolic dysfunction. No regional wall motion abnormalities noted. Right Ventricle Normal RV size. Normal systolic function. Atria The left and right atria are normal. Mitral Valve The mitral valve is structurally normal. No prolapse or stenosis seen. Trivial mitral valve insufficiency. Tricuspid Valve Normal tricuspid valve. Unable to estimate RV systolic pressure due to insufficient tricuspid regurgitant envelope. Trivial tricuspid valve insufficiency. Aortic Valve Trisinus/trileaflet aortic valve. Pulmonic Valve Normal pulmonic valve. Mild (1+) pulmonic valve insufficiency. Great Vessels Normal aortic root. Pericardium/Pleural No pericardial effusion. MMode/2D Measurements & Calculations LVIDd: 5.2 cm IVSd: 1.1 cm Ao root diam: 3.9 cm LVIDs: 3.5 cm LVPWd: 0.96 cm RVDd: 3.9 cm FS: 33.2 % LAV(MOD-bp): 51.7 ml LVAd ap4: 33.1 cm2 LVAd ap2: 36.8 cm2 LAV(MOD-bp) Indexed: 23.6 ml/m2 LVLd ap4: 8.8 cm LVLd ap2: 9.0 cm LAV(MOD-sp2): 55.2 ml EDV(MOD-sp4): 105.3 ml EDV(MOD-sp2): 130.9 ml LAV(MOD-sp4): 46.9 ml EDV(sp4-el): 105.0 ml EDV(sp2-el): 128.5 ml LVAs ap4: 20.9 cm2 LVAs ap2: 22.7 cm2 LVLs ap4: 7.7 cm LVLs ap2: 7.9 cm ESV(MOD-sp4): 50.4 ml ESV(MOD-sp2): 57.6 ml ESV(sp4-el): 48.1 ml ESV(sp2-el): 55.6 ml EF(MOD-sp4): 52.1 % EF(MOD-sp2): 56.0 % EF(sp4-el): 54.2 % SV(MOD-sp4): 54.8 ml SV(MOD-sp2): 73.3 ml SV(sp4-el): 56.9 ml LA dimension(2D): 4.2 cm LA A4 area: 17.0 cm2 RA A4 area: 12.3 cm2 TAPSE: 2.1 cm Time Measurements MV dec time: 0.20 sec Doppler Measurements & Calculations MV E max amadou: 70.0 cm/sec Lat Peak E' Amadou: 13.6 cm/sec Med Peak E' Amadou: 8.7 cm/sec MV A max amadou: 70.0 cm/sec E/E' lat: 5.2 E/E' med: 8.0 MV E/A: 1.0 MV dec slope: 345.5 cm/sec2 Ao V2 max: 131.9 cm/sec LV V1 max: 113.8 cm/sec Ao max P.0 mmHg LV V1 max P.2 mmHg PA V2 max: 96.7 cm/sec ECHO/Echo Complete Interpretation Summary The estimated ejection fraction is 55 %. No evidence for diastolic dysfunction. Structurally normal valves. Ordering Physician: Yancy Lynne Referring Physician: Scooter Ramirez MD Performed By: Raegan Trujillo RDCS
[2024-01-15 00:25] LABS: Reflex Troponin-HS? (from REC) Y
[2024-01-15] MEDS: Heparin Injection (Vial) 5,000 UNIT/ML VIAL 4000 UNIT IV (01:08)
[2024-01-15] MEDS: Famotidine 20 MG Tablet PO ×2 (01:09→20:00)
[2024-01-15] MEDS: HEPARIN/D5w 25,000 UNITS 25,000 UNITS/250 ML IV.SOLN. 10 UNITS CONT INF (01:09)
[2024-01-15] MEDS: 0.9% Normal Saline (1000mL) 1,000 ML 100 ML IV (01:10)
[2024-01-15 01:20] LABS: Troponin-I HS 274 pg/mL (3.0-78.0)
[2024-01-15 04:48] LABS: Absolute Lymphocyte Count 3.45 X10^3/uL (0.83-4.51); Absolute Neutrophil Count 3.2 X10^3/uL (2.0-7.7); Basophil# 0.05 X10^3/uL; Basophil% 0.7 % (0-1); Eosinophil# 0.17 X10^3/uL; Eosinophils% 2.4 % (0-5); Hematocrit 38.2 % (40-54); Hemoglobin 12.8 g/dL (13.0-16.5); Lymphocyte # 3.45 X10^3/ul (0.83-4.51); Lymphocyte % 47.8 % (19-41); Mean Corp Hgb Conc 33.5 g/dL (32-36); Mean Corpuscular Hgb 29.7 pg (27.0-32.0); Mean Corpuscular Volume 88.6 fL (80-94); Mean Platelet Vol. 9.5 fl (6.2-12.0); Monocyte# 0.38 X10^3/uL; Monocyte% 5.3 % (0-10); NRBC Flagged by Analyzer 0 % (0-5); Neutrophil # 3.15 X10^3/uL (2.7-7.7); Neutrophil % 43.5 % (47-70); Platelet Count 211 K/mm3 (150-450); RBC Distribution Width CV 13.9 % (11.6-14.6); RBC Distribution Width SD 45.1 fl (35.1-43.9); Red Blood Count 4.31 M/mm3 (4.6-6.2); White Blood Count 7.2 K/mm3 (4.4-11.0)
[2024-01-15 05:14] LABS: Troponin-I HS 353 pg/mL (3.0-78.0)
[2024-01-15 05:23] LABS: ALB/GLOB Ratio 1.2 RATIO (0.9-2.4); AST(SGOT) 35 U/L (15-37); Alanine Aminotransfer ALT/SGPT 76 U/L (16-61); Albumin, Serum 3.7 g/dL (3.2-5.0); Alkaline Phosphatase 79 U/L (45-117); Anion Gap 6 (5-15); BUN 16 mg/dL (7-18); BUN/Creat Ratio 20.5 RATIO (10-20); Chloride 109 mmol/L (98-107); Cholesterol 231 mg/dL (200); Creatinine, Serum 0.78 mg/dL (0.70-1.30); EST Glomerular Filtration Rate 110 mL/min (>60); Est Glom Filt Rate - Afr Amer 133 mL/min (>60); Estimated Creatinine Clearance 130.53 ml/min; Globulin 3.2 g/dL (2.2-4.2); Glucose 120 mg/dL (74-106); High Density Lipoprotein 59 mg/dL; Potassium 3.7 mmol/L (3.5-5.1); Protein, Total 6.9 g/dL (6.4-8.2); Sodium Level 138 mmol/L (136-145); Triglycerides 133 mg/dL; Very Low Density Lipoprotein 27 mg/dL (5-40)
[2024-01-15 07:31] LABS: Partial Thromboplast Time 27.3 Seconds (24.1-36.2)
[2024-01-15] MEDS: Heparin Injection (Vial) 5,000 UNIT/ML VIAL IV (07:49)
[2024-01-15] MEDS: Aspirin E.C. 81 MG Tablet PO (07:50)
[2024-01-15 09:06] LABS: Ferritin 372 ng/mL (26-388); Iron 57 ug/dL (65-175); Iron Binding Capacity,Total 264 ug/dL (250-450); PERCENT IRON SATURATION 21.6 % (15.0-55.0)
--- NOTE | 2024-01-15 10:12 | CON.PCM.CA_ITS ---
Assessment & Plan Assessment/Plan (1) NSTEMI, initial episode of care: PLAN: Started on aspirin. DC metoprolol secondary to sinus bradycardia. Recommend coronary angiography with possible revascularization. Risks benefits and alternatives explained. He understands these and wishes to proceed. (2) Dyslipidemia: PLAN: Statins. (3) BARRON on CPAP: PLAN: As per sleep medicine. (4) Obesity (BMI 30.0-34.9): PLAN: Lose weight. HPI Consult Data Date of Consult: 01/15/24 HPI Narrative Reason for Consultation: NSTEMI HPI Narrative: 53-year-old gentleman with past medical history significant for obstructive sleep apnea. Developed an episode of chest discomfort yesterday. Per him, it felt like heaviness across his anterior chest. No radiation to the arm neck or jaw. Lasted about 1 hour total. In the emergency room, workup revealed elevated troponin, ruling him in for NSTEMI. Patient denies any previous history of heart disease. [facility] Medical History (Updated 01/15/24 @ 10:[address] Georges Negrete MD) CKD (chronic kidney disease), stage II Obesity BARRON on CPAP Wears contact lenses Injury of head and neck History of stress test history of pilon ankle fracture Arthritis Home Medications ?Medication ?Instructions ?Recorded ?Last Taken ?Type ibuprofen 200 mg capsule 200 mg PO PRN PRN Pain 12/10/18 Unknown History Allergy/AdvReac Type Severity Reaction Status Date / Time Fish Containing Products Allergy Severe Anaphylaxis Verified 01/14/24 22:00 shellfish derived Allergy Severe Anaphylaxis Verified 01/14/24 22:00 Family History (Updated 01/15/24 @ 01:[address] Yancy Lynne MD) Father Heart disease CAD (coronary artery disease) Hypertension Myocardial infarction Mother Colon cancer Surgical History History of ankle surgery History of total ankle replacement History of cholecystectomy History of tonsillectomy Social History (Updated 01/15/24 @ 01:[address] Yancy Lynne MD) household members: spouse Smoking Status: Never smoker alcohol intake: current alcohol intake frequency: holidays/special occasions only substance use type: does not use Physical Exam Narrative Comfortable. No apparent distress. Heart sounds 1 and 2 are normal. No murmurs or rubs. Chest clear to auscultation bilaterally. Alert oriented x 3. No ankle edema noted. Risk Stratification Risk Stratification Applicable: No Objective Data Vital Signs: Vital Signs Temp Pulse Resp BP Pulse Ox O2 Del Method 97.8 F 56 L 13 152/86 H 98 Room Air 01/15/24 08:00 01/15/24 08:00 01/15/24 08:00 01/15/24 08:00 01/15/24 08:13 01/15/24 08:13 Oxygen Delivery Method Room Air Weight: 230 lb 9.656 oz Body Mass Index (BMI) 34.0 Intake & Output: Intake and Output for Last 24 Hours 01/13/24 01/14/24 01/15/24 23:59 23:59 23:59 Intake Total 66.67 / 66.67 Balance 66.67 / 66.67 Lab / Micro Data Attestation: I reviewed the patient's lab results. 01/15/24 04:30 01/15/24 04:30 Labs: Laboratory Results - last 24 hr 01/14/24 22:20: WBC 8.8, RBC 4.54 L, Hgb 13.5, Hct 40.3, MCV 88.8, MCH 29.7, MCHC 33.5, RDW Std Deviation 44.4 H, RDW Coeff of [place] 13.6, Plt Count 216, MPV 9.2, Immature Gran % (Auto) 0.300, Neut % (Auto) 63.9, Lymph % (Auto) 27.4, Bucks % (Auto) 6.3, Eos % (Auto) 1.4, Baso % (Auto) 0.7, Absolute Neuts (auto) 5.7, Absolute Lymphs (auto) 2.42, Nucleated RBC % 0, PT 13.2, INR 1.0, APTT 25.6, Sodium 139, Potassium 3.7, Chloride 106, Carbon Dioxide 22.0, Anion Gap 11, BUN 21 H, Creatinine 1.00, Estim Creat Clear Calc 101.42, Est GFR (MDRD) Af Amer 100, Est GFR (MDRD) Non-Af 83, BUN/Creatinine Ratio 21.0 H, Glucose 138 H, Calcium 9.4, Magnesium 1.8, Troponin I High Sens 132 H* 01/15/24 00:45: Troponin I High Sens 274 H* 01/15/24 04:30: WBC 7.2, RBC 4.31 L, Hgb 12.8 L, Hct 38.2 L, MCV 88.6, MCH 29.7, MCHC 33.5, RDW Std Deviation 45.1 H, RDW Coeff of [place] 13.9, Plt Count 211, MPV 9.5, Immature Gran % (Auto) 0.300, Neut % (Auto) 43.5 L, Lymph % (Auto) 47.8 H, Bucks % (Auto) 5.3, Eos % (Auto) 2.4, Baso % (Auto) 0.7, Absolute Neuts (auto) 3.2, Absolute Lymphs (auto) 3.45, Nucleated RBC % 0, Sodium 138, Potassium 3.7, Chloride 109 H, Carbon Dioxide 23.0, Anion Gap 6, BUN 16, Creatinine 0.78, Estim Creat Clear Calc 130.53, Est GFR (MDRD) Af Amer 133, Est GFR (MDRD) Non-Af 110, BUN/Creatinine Ratio 20.5 H, Glucose 120 H, Calcium 9.0, Iron 57 L, TIBC 264, Iron Saturation 21.6, Ferritin 372, Total Bilirubin 0.30, AST 35, ALT 76 H, Alkaline Phosphatase 79, Troponin I High Sens 353 H*, Total Protein 6.9, Albumin 3.7, Globulin 3.2, Albumin/Globulin Ratio 1.2, Triglycerides 133, Cholesterol 231 H, LDL Cholesterol 145 H, VLDL Cholesterol 27, HDL Cholesterol 59, Folate 18.00 01/15/24 07:00: APTT 27.3 Rhythm Strip Rhythm Strip: Sinus Rhythm Cardiology Labs/Tests 01/14/24 22:20: WBC 8.8, RBC 4.54 L, Hgb 13.5, Hct 40.3, MCV 88.8, MCH 29.7, MCHC 33.5, Plt Count 216, MPV 9.2, Immature Gran % (Auto) 0.300, Neut % (Auto) 63.9, Lymph % (Auto) 27.4, Bucks % (Auto) 6.3, Eos % (Auto) 1.4, Baso % (Auto) 0.7, Absolute Neuts (auto) 5.7, Nucleated RBC % 0, PT 13.2, INR 1.0, APTT 25.6, Sodium 139, Potassium 3.7, Chloride 106, Carbon Dioxide 22.0, Anion Gap 11, BUN 21 H, Creatinine 1.00, Est GFR (MDRD) Af Amer 100, Est GFR (MDRD) Non-Af 83, B UN/Creatinine Ratio 21.0 H, Glucose 138 H, Calcium 9.4, Magnesium 1.8 01/15/24 04:30: WBC 7.2, RBC 4.31 L, Hgb 12.8 L, Hct 38.2 L, MCV 88.6, MCH 29.7, MCHC 33.5, Plt Count 211, MPV 9.5, Immature Gran % (Auto) 0.300, Neut % (Auto) 43.5 L, Lymph % (Auto) 47.8 H, Bucks % (Auto) 5.3, Eos % (Auto) 2.4, Baso % (Auto) 0.7, Absolute Neuts (auto) 3.2, Nucleated RBC % 0, Sodium 138, Potassium 3.7, Chloride 109 H, Carbon Dioxide 23.0, Anion Gap 6, BUN 16, Creatinine 0.78, Est GFR (MDRD) Af Amer 133, Est GFR (MDRD) Non-Af 110, BUN/Creatinine Ratio 20.5 H, Glucose 120 H, Calcium 9.0, Iron 57 L, TIBC 264, Iron Saturation 21.6, Ferritin 372, Total Bilirubin 0.30, Triglycerides 133, Cholesterol 231 H, LDL Cholesterol 145 H, VLDL Cholesterol 27, HDL Cholesterol 59 01/15/24 07:00: APTT 27.3 Rhythm: Sinus bradycardia EKG: Normal sinus rhythm. ECHO: Stress Test: Cardiac Cath: PCI: CT Surgery: Holter monitor: EPS: PPM: CXR: Chest CT Scan: Radiography Diagnostic Testing: Radiology Impression Chest X-Ray 01/14/24 22:43 IMPRESSION: Normal x-ray examination of the chest. Electronically Signed: Camron Perez MD at 23:16 EDT ,
--- NOTE | 2024-01-15 10:23 | CASEMGMT ---
Insurance review for hospitals In-network with [place] [employer] insurance if transfer is recommended is as follows: [facility], Junior, JANETTE, Ashutosh, [facility], [facility], [facility], [facility], [place], [facility]), and . Samantha Rodney, Discharge Planning Asst.
--- NOTE | 2024-01-15 11:54 | CL.I_ITS ---
Patient Name: KENYA GORE Study Date: 01/15/2024 Performing: Georges Negrete MD Ht: 69 inches 175.26 cm : 1970 Wt: 230.6 lbs 104.6 kg Age: 53 Gender: male BSA: 2.19 PROCEDURE(S) PERFORMED DC02-(40904)LHC/COR IC12-(81964/C9600)DEYA W/WO PTCA, SINGLE CORONARY ARTERY CLINICAL PROFILE AND CO-MORBIDITIES Indications: ACS <= 24 hrs Heart Failure: None CAD Presentations: Non-STEMI. Symptom onset Date/Time: 01/14/2024 Time Not Available CONCLUSIONS 90% Prox LAD complex lesion with thrombus 70% Mid RCA Successful DEYA prox LAD using Coby Frederic 3.5x18 mm, post-dilated using 4.0 mm balloon RECOMMENDATIONS ASA Indefinitley P2Y12 inhibitors for atleast 6 months Staged PCI to RCA DESCRIPTION OF PROCEDURE The patient arrived to the procedure lab. The risks and benefits of the procedure as well as a full description of our services here and lack of surgical backup were fully explained to the patient and/or their significant other prior to the catheterization. The Timeout was completed, verifying the correct patient and procedure. The patient's procedural site was prepped and draped in the usual fashion. Local anesthetic was given subcutaneously to right radial region with Lidocaine 2%. Using a modified Seldinger technique, arterial access was obtained via the right radial artery, a 6Fr sheath was inserted.. Right Coronary Artery selective angiography was then performed in multiple views using a 5 Fr. 4.0 [place] catheter. Left Coronary Artery selective angiography was performed in multiple views using a 5 Fr. 4.0 [place] catheterThe images were reviewed and options discussed. A decision was then made to proceed with an Intervention, IVUS or other adjunct procedure. XB3 Guide catheter was inserted and engaged into the LCA. RUNTHROUGH NS Guide wire was advanced to the LAD. COBY FRONTIER 3.5 X 18 Drug Eluting stent was inserted. Angiogram performed pre stent deployment. Drug Eluting stent was advanced across the lesion in the LAD, proximal. Angiogram performed post stent deployment. NC EMERGE 4.0 X 15 Balloon catheter was inserted. Balloon catheter was inserted post stent. Angiogram performed post balloon dilatation. Angiogram performed post balloon dilatation. The arterial sheath was pulled and a TR Band was applied for hemostasis 13 ML OF AIR CORONARY ANGIOGRAPHY DOMINANCE: Right Dominant LEFT MAIN: Angiographically normal LEFT ANTERIOR DESCENDING ARTERY: LAD: Tubular 40% Mid lesion in LAD Complex 90% Proximal lesion in LAD CIRCUMFLEX ARTERY: Angiographically normal RAMUS: Angiographically normal RIGHT CORONARY ARTERY: RCA: Tubular 70% Mid lesion in RCA INTERVENTION INFORMATION LESION SITE: LAD (Proximal) Lesion Complexity: High/C, thrombus present: Yes, lesion length: 16 mm, culprit lesion: Yes Pre Stenosis: 90 % Pre intervention CHANDRIKA flow: 3 PROCEDURE: Drug Eluting Stent with post dilatation Post Stenosis: 0 % Post intervention CHANDRIKA flow: 3 Lesion Devices: Cordis 6 Fr XB3.0 100cm Guide Catheter Terumo .014 180cm Runthrough Extra Floppy straight Medtronic 3.5 x 18 COBY FRONTIER DEYA Jalil Sci NC EMERGE MR 4.00x15 BALLOON COMPLICATIONS No Complications PROCEDURE MEDICATIONS Fentanyl 50 mcg IV Versed 1 mg IV Oxygen: 2 L/min via nasal cannula Benadryl 50 mg IV 01/15/2024 10:34:16 Brilinta 180 mg PO @ 01/15/2024 11:07:26 Heparin given IA 01/15/2024 10:48:45 Heparin 7000 unit(s) IV 01/15/2024 11:06:30 Heparin 2000 unit(s) IV 01/15/2024 11:37:29 Heparin 1000 unit(s) IV 01/15/2024 11:39:41 Nitro 200 mcg IC 01/15/2024 11:20:40 Solu-medrol 125 mg IV 01/15/2024 10:34:07 IV Bolus: .9 NaCl 250 ml total 01/15/2024 11:01:46 SUMMARY OF HEMODYNAMIC DATA Time AIR REST ECG 10:36:58 AO 143/78 (104) SA 11:02:02 AO 145/74 (100) 11:10:53 AO 149/79 (107) 11:20:17 11:49:43 Signed By Georges Negrete MD On 01/15/2024 11:53:20 Georges Negrete MD
[2024-01-15] MEDS: 0.9% Normal Saline (1000mL) 1,000 ML 150 ML IV (12:15)
--- NOTE | 2024-01-15 12:30 | CASEMGMT ---
RN CM OPTIMIZATION SPECIALIST CM?to room to meet with patient for initial transition planning/care coordination assessment. RN CM?introduced self and role at [facility]. Pt voices understanding and consents to assessment?at this time. Pt resting in bed in no distress at this time. Jaimie, @ bedside. Pt is A/O at this time and answers all questions appropriately. Care providers, pharmacy, and demographics verified/updated at this time. Strata:?2 PCP: Dr Ramirez Specialists: Dr Patel-elder Preferred Pharmacy: [facility] Retail @ [address] Insurance:[place] Prescription Benefit: yes. Aware he will be discharging home on Brilinta. Made aware 30-day savings card will be applied @ the pharmacy and to f/u with solution design engineer if refills are not affordable. Living Will/HPOA: Pt does not currently have LW/HCPOA. Pt made aware that he can contact as an out-pt and make appt in the future if he decides he would like to talk with someone about this or would like to utilize [facility] social work for advanced directive completion. LNOK: Jaimie Living Arrangements: Lives w/. 2 steps to enter home. Independent. Transportation:?Pt states drives self and states no transportation concerns at this time. also drives. DME: States has the following DME: CPAP. No home O2. Functioning glucometer w/supplies. Checks BS's about every week. HHC/SNF: Hx [facility] RU in 2013. Pt wishes to return home and states has no concerns with going home at time of discharge. CM?to follow for any further discharge planning/needs. Pt and voice no further concerns/needs at this time. PLAN: Home Benny JACK RN, CM
--- NOTE | 2024-01-15 12:30 | CRPHASE1 ---
Patient Communication Patient Information PHII Cardiac Rehab Discussed with Patient:: Yes Guide to Cardiac Rehab Given to Patient:: Yes Cardiac Rehab Facility Choice List Given to Patient:: Yes Communication to Cardiac Rehab Choice Program [facility] CR PHII:: Communication Given to CR School Treasurer:: Georges Negrete Phase II Cardiac Rehab:: Yes Sessions:: 36 sessions - 3 days/wk, 12 weeks Cardiac Rehabilitation Info Program Information Cardiac Rehabilitation Program Information: Cardiac Rehab The cardiac rehab team at [facility] consists of highly skilled exercise physiologists, nurses, respiratory therapists and physicians working together with you. Our purpose is to help you have a full recovery and achieve the goals you set for yourself. Over the years many of our patients have returned to activities they assumed they would never do again! We can help restore your confidence and motivation to make lifestyle changes that can have a significant impact on your health and quality of life! We can help answer questions and concerns you may have about exercise, lifestyle, medications, diet, stress and anxiety which are common following a hospitalization. WE monitor ECG and vital signs during exercise and discuss your progress with you and report to your physician(s). Cardiac Rehab is proven to help reduce readmissions, improve functional capacity and lower recurrence of problems with your heart. Our Cardiac Rehab program is Certified by the [place] [employer] Cardio-Vascular and Pulmonary Rehabilitation (AACVPR) and Accredited by the [place] [employer] through our [facility]. You can contact us at . We invite you to call us with your questions or to get started in our program. If you have other questions or concerns be sure to ask your physician/provider during your follow-up visit. WE look forward to seeing you!
--- NOTE | 2024-01-15 12:32 | CRPH1.INSTRU ---
General Education Discussed with Patient CAD and cardiac anatomy and function:: Patient communicates acknowledgment Explanation of diagnoses and procedures:: Patient communicates acknowledgment Sign/Symptoms of NM:: Patient communicates acknowledgment Antiplatelet therapy: Patient communicates acknowledgment Proper use of NTG-SL: Patient communicates acknowledgment Emergency procedures and activation of EMS: Patient communicates acknowledgment Compliance of all prescribed medications: Patient communicates acknowledgment Smoking Risk Factors Patient Nicotine/Smoking Risk Factors Are:: Never smoked Dyslipidemia Risk Factors Patient Dyslipidemia Risk Factors Are:: Total Cholesterol, Triglycerides, HDL and LDL Recommendations Recommendations Include:: Lipid profile provided, Reviewed NCEP/ATP guidelines and Therapeutic Lifestyle Change dietary guidelines Response Code Dyslipidemia Response Code:: Patient communicates acknowledgment Overweight/Obesity Risk Factors Patient Overweight/Obesity Risk Factors Are:: Obesity - > or = 30 Recommendations Recommendations Include:: Weight loss of 5-10%, Reduced calorie diet and Exercise 5-7 times/week Response Code Overweight/Obesity:: Patient communicates acknowledgment Hypertension Risk Factors Patient Hypertension Risk Factors Are:: No documented hx of HTN Diabetes Risk Factors Patient Diabetes Risk Factors Are:: No documented hx of diabetes Metabolic Syndrome Risk Factors Patient Metabolic Syndrome Risk Factors Are [3 of 5]:: Fasting blood sugar > 100 mg/dL, Waist circumference > 35 [female] or 40 [male], High triglyceride >150 and Low HDL <40 [male] or < 50 [female] Recommendations Recommendations Include:: Reinforce compliance to risk factor modifications Response Code Metabolic Syndrome Response Code:: Patient communicates acknowledgment Sedentary Risk Factors Patient Sedentary Risk Factors Are:: Lack of regular exercise Recommendations Recommendations Include:: Aerobic exercise 5-7 times/week for 20-30 minutes continuously, Benefits of regular exercise, Discussed home walking program and Monitored Outpatient Cardiac Rehab Response Code Sedentary Response Code:: Patient communicates acknowledgment Stress Recommendations Recommendations Include:: Identification of stressors, and assessment of coping skills and Stress management techniques Response Code Stress Response Code:: Patient communicates acknowledgment
--- NOTE | 2024-01-15 12:39 | PCM.PN.HOSP ---
Reason for Visit Reason for Visit: Diagnoses Obesity, unspecified (01/14/24) Hyperlipidemia, unspecified (01/14/24) Obstructive sleep apnea (adult) (pediatric) (01/14/24) Non-ST elevation (NSTEMI) myocardial infarction (01/14/24) Atherosclerotic heart disease of [place] coronary artery without angina pectoris (01/14/24) Subjective Subjective Saw patient at bedside this morning prior to left heart cath. Patient was sitting up comfortably in bed, in no acute distress. He reported very mild chest discomfort currently but otherwise was feeling much improved from admission. Denies any other acute concerns this morning. Objective Data Objective Data Vital Signs: Vital Signs Temp Pulse Resp BP Pulse Ox O2 Del Method 96.8 F L 52 L 19 H 127/85 H 96 Room Air 01/15/24 12:00 01/15/24 12:15 01/15/24 12:15 01/15/24 12:15 01/15/24 12:15 01/15/24 12:15 Oxygen Delivery Method Room Air Weight: 104.6 kg Body Mass Index (BMI) 34.0 Intake & Output: Intake and Output for Last 24 Hours 01/13/24 01/14/24 01/15/24 23:59 23:59 23:59 Intake Total 1159.94 / 1159.94 Balance 1159.94 / 1159.94 Lab / Micro Data 01/15/24 04:30 01/15/24 04:30 Labs: Laboratory Results - last 24 hr 01/14/24 22:20: WBC 8.8, RBC 4.54 L, Hgb 13.5, Hct 40.3, MCV 88.8, MCH 29.7, MCHC 33.5, RDW Std Deviation 44.4 H, RDW Coeff of [place] 13.6, Plt Count 216, MPV 9.2, Immature Gran % (Auto) 0.300, Neut % (Auto) 63.9, Lymph % (Auto) 27.4, [place] % (Auto) 6.3, Eos % (Auto) 1.4, Baso % (Auto) 0.7, Absolute Neuts (auto) 5.7, Absolute Lymphs (auto) 2.42, Nucleated RBC % 0, PT 13.2, INR 1.0, APTT 25.6, Sodium 139, Potassium 3.7, Chloride 106, Carbon Dioxide 22.0, Anion Gap 11, BUN 21 H, Creatinine 1.00, Estim Creat Clear Calc 101.42, Est GFR (MDRD) Af Amer 100, Est GFR (MDRD) Non-Af 83, BUN/Creatinine Ratio 21.0 H, Glucose 138 H, Calcium 9.4, Magnesium 1.8, Troponin I High Sens 132 H* 01/15/24 00:45: Troponin I High Sens 274 H* 01/15/24 04:30: WBC 7.2, RBC 4.31 L, Hgb 12.8 L, Hct 38.2 L, MCV 88.6, MCH 29.7, MCHC 33.5, RDW Std Deviation 45.1 H, RDW Coeff of [place] 13.9, Plt Count 211, MPV 9.5, Immature Gran % (Auto) 0.300, Neut % (Auto) 43.5 L, Lymph % (Auto) 47.8 H, [place] % (Auto) 5.3, Eos % (Auto) 2.4, Baso % (Auto) 0.7, Absolute Neuts (auto) 3.2, Absolute Lymphs (auto) 3.45, Nucleated RBC % 0, Sodium 138, Potassium 3.7, Chloride 109 H, Carbon Dioxide 23.0, Anion Gap 6, BUN 16, Creatinine 0.78, Estim Creat Clear Calc 130.53, Est GFR (MDRD) Af Amer 133, Est GFR (MDRD) Non-Af 110, BUN/Creatinine Ratio 20.5 H, Glucose 120 H, Calcium 9.0, Iron 57 L, TIBC 264, Iron Saturation 21.6, Ferritin 372, Total Bilirubin 0.30, AST 35, ALT 76 H, Alkaline Phosphatase 79, Troponin I High Sens 353 H*, Total Protein 6.9, Albumin 3.7, Globulin 3.2, Albumin/Globulin Ratio 1.2, Triglycerides 133, Cholesterol 231 H, LDL Cholesterol 145 H, VLDL Cholesterol 27, HDL Cholesterol 59, Folate 18.00 01/15/24 07:00: APTT 27.3 Radiography Diagnostic Testing: Radiology Impression Chest X-Ray 01/14/24 22:43 IMPRESSION: Normal x-ray examination of the chest. Electronically Signed: Camron Perez MD at 23:16 EDT , Rhythm Strip Rhythm Strip: Sinus Rhythm Physical Exam Const alert, oriented x3 and no apparent distress Constitutional Narrative: Pleasant middle-age male, obese, sitting up comfortably in bed, conversing normally, in no acute distress. General Appearance: cooperative and comfortable HEENT normocephalic, head/scalp atraumatic, hearing grossly normal bilaterally, nasal mucous membranes and turbinates normal and moist oral mucous membranes Eyes PERRL, EOMs intact bilaterally and conjunctivae normal Neck full ROM Chest inspection of chest normal Resp normal respiratory effort, normal air movement, no use of accessory muscles and clear to auscultation bilaterally Cardio regular rate, regular rhythm, no murmurs and peripheral pulses 2+ throughout GI normal to inspection, nondistended, normoactive bowel sounds, soft to palpation, non-tender and non-distended Back/Spine normal ROM Extremity normal to inspection, full ROM and no pedal edema Skin no rashes or lesions noted Neuro no focal motor deficits and no sensory deficits noted Speech: speech normal Psych mental status grossly normal Assessment & Plan Assessment/Plan (1) NSTEMI, initial episode of care: PLAN: Plan Patient is a 53-year-old male who presented [facility] ED on 01/14/2024 with chest pain. 1. NSTEMI type I ? Cardiology following. Troponin trend on admit 132 > 274 > 353. No ischemic EKG findings. Family history of father with CABG x 4 at age 57. S/p left heart cath on 01/14 with 90% proximal LAD complex lesion with thrombus s/p successful drug-eluting stent placement and 70% mid RCA lesion. Echo 01/14 showed EF 55%, no diastolic dysfunction, no other abnormalities. Lipid panel with total cholesterol 231, LDL 145, HDL 59. Per cardiology, planning for staged PCI to RCA. Medical treatment with aspirin, Brilinta and high intensity atorvastatin. Beta-leslie discontinued on 01/14 due to sinus bradycardia as noted below. Will add MICHEL inhibitor as able. 2. Sinus bradycardia ? Patient with sinus bradycardia to the 40s on beta-leslie on 01/14. Beta-leslie discontinued. Will continue to monitor telemetry. 3. Mild anemia ? Hemoglobin 13.5 on admit, slightly decreased to 12.8 on hospital day 2. Iron studies, B12 and folate unremarkable. Monitor. 4. Obesity ? BMI 34 on admit. Encouraged lifestyle modifications. Complicates hospital course, care and prognosis. 5. BARRON ? Continue home nocturnal CPAP. DVT prophylaxis: Low risk, ambulate CODE STATUS: Full code, verified Expected disposition: Home, 1 to 2 days Total clinical time spent by myself addressing the patient's medical issues, reviewing all the data, and collaborating with patient's care team: 35 minutes. Charges/Coding Visit Charges Inpatient E&M: 63936 Subs Hosp L2
[2024-01-15 12:50] LABS: ACT Activated Clotting Time 238 sec (74-137)
[2024-01-15 12:50] LABS: ACT Activated Clotting Time 281 sec (74-137)
[2024-01-15 13:36] LABS: Vitamin B12 686 pg/mL (211-911)
[2024-01-15] MEDS: Atorvastatin Calcium 80 MG Tablet PO (19:59)
[2024-01-15] MEDS: TICAGRELOR 90 MG TABLET PO (19:59)
[2024-01-16 02:00] VITALS: BP 112/72; PULSE 57; RESP 17; TEMP 36.3; O2SAT 96; O2SAT 97
[2024-01-16 02:45] VITALS: PULSE 44; RESP 20; O2SAT 96
[2024-01-16 05:30] VITALS: BMI 34.2
[2024-01-16 06:00] VITALS: O2SAT 100
[2024-01-16 06:56] LABS: Hematocrit 40.8 % (40-54); Hemoglobin 13.4 g/dL (13.0-16.5); Mean Corp Hgb Conc 32.8 g/dL (32-36); Mean Corpuscular Hgb 29.7 pg (27.0-32.0); Mean Corpuscular Volume 90.5 fL (80-94); Mean Platelet Vol. 9.6 fl (6.2-12.0); Platelet Count 229 K/mm3 (150-450); RBC Distribution Width CV 13.8 % (11.6-14.6); RBC Distribution Width SD 46.5 fl (35.1-43.9); Red Blood Count 4.51 M/mm3 (4.6-6.2); White Blood Count 8.8 K/mm3 (4.4-11.0)
[2024-01-16 07:00] VITALS: PULSE 47
[2024-01-16 07:13] LABS: ALB/GLOB Ratio 1.2 RATIO (0.9-2.4); AST(SGOT) 31 U/L (15-37); Alanine Aminotransfer ALT/SGPT 80 U/L (16-61); Albumin, Serum 3.7 g/dL (3.2-5.0); Alkaline Phosphatase 82 U/L (45-117); Anion Gap 7 (5-15); BUN 14 mg/dL (7-18); BUN/Creat Ratio 16.7 RATIO (10-20); Calcium,Total 9.2 mg/dL (8.5-10.1); Chloride 109 mmol/L (98-107); Creatinine, Serum 0.84 mg/dL (0.70-1.30); EST Glomerular Filtration Rate 102 mL/min (>60); Est Glom Filt Rate - Afr Amer 123 mL/min (>60); Estimated Creatinine Clearance 121.55 ml/min; Globulin 3.2 g/dL (2.2-4.2); Glucose 145 mg/dL (74-106); Protein, Total 6.9 g/dL (6.4-8.2); Sodium Level 139 mmol/L (136-145)
[2024-01-16 07:41] VITALS: O2SAT 98
[2024-01-16 08:00] VITALS: BP 141/87; PULSE 50; RESP 12; TEMP 36.8; O2SAT 99
--- NOTE | 2024-01-16 09:28 | DCINST_ITS ---
Discharge Instructions Diet Discharge Diet: Carb Control Diet Activity Discharge Activity: No Restrictions Return to work on:: 01/19/24 Follow Up Care Test Results: Test results from this visit will be discussed in further detail at your follow- up appointment, if applicable. Discharge Plan Admission Admit Date/Time: 01/14/24 23:26 Primary Reason for Your Visit: chest pain Attending Provider: Bryon Torres Primary Care Provider: Scooter Ramirez Consulting Providers: Georges Negrete; Yancy Lynne Instructions Additional Instructions / Restrictions: Please start taking the medications below at home. The amlodipine was started to help control your blood pressure better. The cardiology office will call soon to schedule your follow up appointment. Discharge Orders/Prescriptions Prescriptions: New atorvastatin 80 mg Tablet 80 mg PO QHS 90 Days Qty: 90 0RF aspirin 81 mg Tablet,Delayed Release (Dr/Ec) 81 mg PO BREAKFAST 90 Days Qty: 90 0RF Brilinta 90 mg Tablet 90 mg PO BID 30 Days Qty: 60 2RF amlodipine 5 mg tablet 5 mg PO DAILY Qty: 30 2RF Discontinued ibuprofen 200 mg capsule 200 mg PO PRN PRN (Reason: Pain) Referrals / Follow Up: Scooter Ramirez MD [Primary Care Provider] - Disposition Disposition (needs filled in before D/C Order can be placed): Home, Self Care
--- NOTE | 2024-01-16 09:32 | PCM.DC.SUM ---
Providers Date of Admission: 01/14/24 Date of Discharge: 01/16/24 Primary Care Physician: Dr. Scooter Ramirez MD Consultations 01/15/24 00:23 Consult: Cardiology Routine Consulting Provider: Georges Negrete Reason for Consult: Chest Pain, NSTEMI EMERGENT Consult: No MD Notified: Yes Date Notified: 01/14/24 Time Notified: 23:27 Method of Notification: ED Physician Initiated Reason For Visit: CHEST PAIN NSTEMI Diagnosis Discharge Diagnosis (1) NSTEMI, initial episode of care: Status: Acute Code(s): I21.4 - Non-ST elevation (NSTEMI) myocardial infarction Medications at Discharge Home Medications amlodipine 5 mg tablet 5 mg PO DAILY #30 tabs 01/16/24 aspirin 81 mg tablet,delayed release 81 mg PO BREAKFAST 90 days #90 tabs 01/16/24 atorvastatin 80 mg tablet 80 mg PO QHS 90 days #90 tabs 01/16/24 ticagrelor 90 mg tablet (Brilinta) 90 mg PO BID 30 days #60 tabs 01/16/24 Hospital Course Operations None Procedures Cardiac catheterization, EKG, Transthoracic echo and - (Chest x-ray) Summary of Care Provided Minutes Spent on Discharge: 35 Hospital Course: Patient is a 53-year-old male who presented [facility] ED on 01/14/2024 with chest pain. Hospital course as noted below. Patient discharged home in stable condition on 01/15. 1. NSTEMI type I ? Cardiology followed. Troponin trend on admit 132 > 274 > 353. No ischemic EKG findings. Family history of father with CABG x 4 at age 57. S/p left heart cath on 01/14 with 90% proximal LAD complex lesion with thrombus s/p successful drug-eluting stent placement and 70% mid RCA lesion. Echo 01/14 showed EF 55%, no diastolic dysfunction, no other abnormalities. Lipid panel with total cholesterol 231, LDL 145, HDL 59. Per cardiology, planning for staged PCI to RCA in the next few weeks. Medical treatment with aspirin, Brilinta, atorvastatin and amlodipine on discharge. Beta-nitza discontinued on 01/14 due to sinus bradycardia as noted below. 2. Sinus bradycardia ? Patient with sinus bradycardia to the 40s on beta-nitza on 01/14. Beta-nitza discontinued and heart rate remained stable in the 50s after that. Patient noted he has been told in the past that his heart rate is mildly slow at baseline; suspect he is at baseline. 3. Mild anemia ? Hemoglobin 13.5 on admit, slightly decreased to 12.8 on hospital day 2. Iron studies, B12 and folate unremarkable. Hemoglobin stable around 13 on discharge. 4. Obesity ? BMI 34 on admit. Encouraged lifestyle modifications. Complicated hospital course, care and prognosis. 5. BARRON ? Continue home nocturnal CPAP. Total clinical time spent by myself addressing the patient's medical issues, reviewing all the data, and collaborating with patient's care team: 35 minutes. Physical Exam Const alert, oriented x3 and no apparent distress Constitutional Narrative: Pleasant middle-age male, obese, sitting up comfortably in bed, conversing normally, in no acute distress. Stable. General Appearance: cooperative and comfortable HEENT normocephalic, head/scalp atraumatic, hearing grossly normal bilaterally, nasal mucous membranes and turbinates normal and moist oral mucous membranes Eyes PERRL, EOMs intact bilaterally and conjunctivae normal Neck full ROM Chest inspection of chest normal Resp normal respiratory effort, normal air movement, no use of accessory muscles and clear to auscultation bilaterally Cardio regular rate, regular rhythm, no murmurs and peripheral pulses 2+ throughout GI normal to inspection, nondistended, normoactive bowel sounds, soft to palpation, non-tender and non-distended Back/Spine normal ROM Extremity normal to inspection, full ROM and no pedal edema Skin no rashes or lesions noted Neuro no focal motor deficits and no sensory deficits noted Speech: speech normal Psych mental status grossly normal Weight / BMI Weight Weight: 105.2 kg Body Mass Index (BMI) 34.2 ABG / Lab / Microbiology Data 01/16/24 06:26 01/16/24 06:26 Laboratory: Laboratory Results - last 24 hr 01/15/24 11:10: Activated Clotting Time 281 H 01/15/24 11:32: Activated Clotting Time 238 H 01/15/24 12:44: Vitamin B12 686 01/16/24 06:26: WBC 8.8, RBC 4.51 L, Hgb 13.4, Hct 40.8, MCV 90.5, MCH 29.7, MCHC 32.8, RDW Std Deviation 46.5 H, RDW Coeff of [place] 13.8, Plt Count 229, MPV 9.6, Sodium 139, Potassium 4.0, Chloride 109 H, Carbon Dioxide 23.0, Anion Gap 7, BUN 14, Creatinine 0.84, Estim Creat Clear Calc 121.55, Est GFR (MDRD) Af Amer 123, Est GFR (MDRD) Non-Af 102, BUN/Creatinine Ratio 16.7, Glucose 145 H, Calcium 9.2, Total Bilirubin 0.50, AST 31, ALT 80 H, Alkaline Phosphatase 82, Total Protein 6.9, Albumin 3.7, Globulin 3.2, Albumin/Globulin Ratio 1.2 Radiography Diagnostic Testing: Radiology Impression Echocardiogram 01/15/24 00:23 Interpretation Summary The estimated ejection fraction is 55 %. No evidence for diastolic dysfunction. Structurally normal valves. Ordering Physician: Yancy Lynne Referring Physician: Scooter Ramirez MD Performed By: Raegan Trujillo RDCS D/C Instructions Discharge Diet: Carb Control Diet Return to work on: 01/19/24 Meaningful Use Info Meaningful Use Meaningful Use Diagnoses (Choose all that apply): AMI AMI/Post PCI/Angioplasty Aspirin given w/in 24hrs of arrival?: Yes ASA at discharge?: Yes Statins at discharge?: Yes Chalino/ARB at discharge?: No Reason Chalino/ARB not ordered:: Not indicated Beta Nitza at discharge?: No Reason Beta Nitza not ordered:: Hypotension (Sinus bradycardia) Done w/ Acute [place] measure.: Yes Ischemic Stroke Statin Dosing Therapy Reference: STATIN DOSE THERAPY REFERENCE: * Patients > 75 years receive moderate or high dose statin therapy. * Patients 75 years or YOUNGER should receive HIGH intensity statin dose unless contraindicated. You will be required to document reason for non-treatment if statin daily dose does not meet guidelines. HIGH DOSE STATIN THERAPY DAILY Atorvastatin > than or = to 40 mg Rosuvastatin > than or = to 20 mg Amlodipine + Atorvastatin > than or = to 2.5/40 mg Ezetimibe + Simvastatin 10/80 mg Simvastatin 80mg Discharge Plan Admission Admit Date/Time: 01/14/24 23:26 Primary Reason for Your Visit: chest pain Attending Provider: Bryon Torres Primary Care Provider: Scooter Ramirez Consulting Providers: Georges Negrete; Yancy Lynne Instructions Additional Instructions / Restrictions: Please start taking the medications below at home. The amlodipine was started to help control your blood pressure better. The cardiology office will call soon to schedule your follow up appointment. Discharge Orders/Prescriptions Prescriptions: New atorvastatin 80 mg Tablet 80 mg PO QHS 90 Days Qty: 90 0RF aspirin 81 mg Tablet,Delayed Release (Dr/Ec) 81 mg PO BREAKFAST 90 Days Qty: 90 0RF Brilinta 90 mg Tablet 90 mg PO BID 30 Days Qty: 60 2RF amlodipine 5 mg tablet 5 mg PO DAILY Qty: 30 2RF Discontinued ibuprofen 200 mg capsule 200 mg PO PRN PRN (Reason: Pain) Referrals / Follow Up: Scooter Ramirez MD [Primary Care Provider] - Disposition Disposition (needs filled in before D/C Order can be placed): Home, Self Care Charges/Coding Visit Charges Inpatient E&M: 06153 Disch Hosp >30min
[2024-01-16] MEDS: TICAGRELOR 90 MG TABLET PO (09:42)
[2024-01-16] MEDS: Famotidine 20 MG Tablet PO (09:42)
[2024-01-16] MEDS: Aspirin E.C. 81 MG Tablet PO (09:42)
== END 2024-01-16 11:08 | disposition home or self-care (01) | DRG 322 ==
LOC: ED 23:58 → ICU 01-15 00:03
PROVIDERS: Internal Medicine Cardiovascular Disease; Admitting Provider Family Medicine; Emergency Provider Emergency Medicine; PCP Family Medicine; Visit Provider Hospitalist
DX: I21.4 Non-ST elevation (NSTEMI) myocardial infarction (principal); D64.9 Anemia, unspecified; E66.9 Obesity, unspecified; G47.33 Obstructive sleep apnea (adult) (pediatric); I25.10 Atherosclerotic heart disease of native coronary artery without angina pectoris; N18.2 Chronic kidney disease, stage 2 (mild); E78.5 Hyperlipidemia, unspecified; R00.1 Bradycardia, unspecified; Z68.34 Body mass index [BMI] 34.0-34.9, adult; Z80.0 Family history of malignant neoplasm of digestive organs; Z82.49 Family history of ischemic heart disease and other diseases of the circulatory system; Z99.89 Dependence on other enabling machines and devices
CPT/HCPCS: 36415; 71045; 80048; 80053; 80061; 82607; 82728; 82746; 83540; 83550; 83735; 84484; 85025; 85027; 85347; 85610; 85730; 92928; 93005; 93306; 93454; 94003; 94668; 99152; 99153; 99284; J7030; J7040; Q9967; A4216; C1725; C1769; C1874; C1887; C1894; C9600

== ENCOUNTER 2024-01-30 01:23 | Emergency (ER) | payer BC, SELFPAY ==
[2024-01-30 01:23] VITALS: BP 146/89; PULSE 63; RESP 16; TEMP 36.6; O2SAT 97; BMI 33.7
--- NOTE | 2024-01-30 01:45 | EKG12_ITS ---
Test Reason : CP Blood Pressure : / mmHG Vent. Rate : 062 BPM Atrial Rate : 062 BPM P-R Int : 160 ms QRS Dur : 076 ms QT Int : 410 ms P-R-T Axes : 017 021 014 degrees QTc Int : 416 ms Normal sinus rhythm Normal ECG Confirmed by GABRIELLE DELATORRE MD ([id number]), magazine editor MIQUEL DOSS ([id number]) on 01/30/2024 2:07:48 PM Referred By: BREANNA Confirmed By:GABRIELLE DELATORRE MD
[2024-01-30 01:58] LABS: Absolute Lymphocyte Count 2.89 X10^3/uL (0.83-4.51); Absolute Neutrophil Count 4.5 X10^3/uL (2.0-7.7); Basophil# 0.03 X10^3/uL; Basophil% 0.4 % (0-1); Eosinophil# 0.26 X10^3/uL; Eosinophils% 3.1 % (0-5); Hematocrit 37.9 % (40-54); Hemoglobin 12.8 g/dL (13.0-16.5); Lymphocyte # 2.89 X10^3/ul (0.83-4.51); Lymphocyte % 34.7 % (19-41); Mean Corp Hgb Conc 33.8 g/dL (32-36); Mean Corpuscular Hgb 29.7 pg (27.0-32.0); Mean Corpuscular Volume 87.9 fL (80-94); Mean Platelet Vol. 9.2 fl (6.2-12.0); Monocyte# 0.59 X10^3/uL; Monocyte% 7.1 % (0-10); NRBC Flagged by Analyzer 0 % (0-5); Neutrophil # 4.54 X10^3/uL (2.7-7.7); Neutrophil % 54.5 % (47-70); Platelet Count 219 K/mm3 (150-450); RBC Distribution Width CV 13.2 % (11.6-14.6); RBC Distribution Width SD 42.5 fl (35.1-43.9); Red Blood Count 4.31 M/mm3 (4.6-6.2); White Blood Count 8.3 K/mm3 (4.4-11.0)
[2024-01-30 02:05] LABS: D-Dimer Quantitative (DVT/PE) < 0.27 FEU/ug/m (0.27-0.49)
--- NOTE | 2024-01-30 02:05 | RAD_ITS ---
INDICATION: CHEST PAIN EXAMINATION/TECHNIQUE: X-RAY - XR Chest 2 Views COMPARISON: Prior study dated: 01/14/24 FINDINGS: LINES/DEVICES: None. LUNGS: The lungs are well expanded. No consolidation, edema or effusion. No pneumothorax. MEDIASTINUM AND CARDIOVASCULAR STRUCTURES: Cardiac silhouette not enlarged. Central airways and mediastinal contour are unremarkable. BONES AND SOFT TISSUES: No acute abnormality. Mild degenerative changes of the spine. RAD/Chest PA and Lateral IMPRESSION: No acute pulmonary finding. Electronically Signed: Gunner Zavala MD at 2:40 EDT ,
[2024-01-30 02:14] LABS: AST(SGOT) 28 U/L (15-37); Alanine Aminotransfer ALT/SGPT 59 U/L (16-61); Albumin, Serum 3.7 g/dL (3.2-5.0); Alkaline Phosphatase 110 U/L (45-117); Anion Gap 5 (5-15); BUN 18 mg/dL (7-18); BUN/Creat Ratio 17.5 RATIO (10-20); Bilirubin, Direct 0.12 mg/dL (0.00-0.30); Calcium,Total 9.5 mg/dL (8.5-10.1); Chloride 106 mmol/L (98-107); Creatinine, Serum 1.03 mg/dL (0.70-1.30); EST Glomerular Filtration Rate 80 mL/min (>60); Est Glom Filt Rate - Afr Amer 97 mL/min (>60); Estimated Creatinine Clearance 98.33 ml/min; Globulin 3.3 g/dL (2.2-4.2); Glucose 168 mg/dL (74-106); Magnesium 1.9 mg/dL (1.6-2.6); Potassium 3.6 mmol/L (3.5-5.1); Sodium Level 137 mmol/L (136-145); Troponin-I HS 82 pg/mL (3.0-78.0)
[2024-01-30 02:29] VITALS: BP 136/76; PULSE 50; RESP 11; O2SAT 97
[2024-01-30] MEDS: Orphenadrine 60 MG/2 ML Ampul IV (02:43)
--- NOTE | 2024-01-30 03:11 | EX.ED.DYSGE1 ---
HPI History of Present Illness Chief Complaint: Chest Pain Informant: patient and spouse/S.O. Narrative Narrative: Patient is a 53-year-old male with past medical history of chronic kidney disease as well as hyperlipidemia and CAD. He presented to the hospital on January 14 with chest pain and was found to elevations of his troponin and he went for a heart catheterization. This revealed a 90% blockage of his LAD which was stented and a 70% blockage of his mid RCA. Patient states that he is scheduled to have a another stent placed in this vessel in approximately 1 week. He states throughout the day today he has been getting sharp intermittent right chest pain. He states it only lasts a few seconds and then resolves. He reports there is no associated nausea vomiting or diaphoresis. He reports this feels much different than his recent heart attack. However with his known blockages and persistent and recurrent symptoms he presents for evaluation [facility] Medical History (Updated 01/30/24 @ 05:[address] Cosme Monahan DO) Obesity (BMI 30.0-34.9) Dyslipidemia CKD (chronic kidney disease), stage II Obesity BARRON on CPAP Wears contact lenses Injury of head and neck History of stress test history of pilon ankle fracture Arthritis Home Medications ?Medication ?Instructions ?Recorded ?Last Taken ?Type amlodipine 5 mg tablet 5 mg PO DAILY #30 tabs 01/16/24 Unknown Rx aspirin 81 mg tablet,delayed 81 mg PO BREAKFAST 90 days #90 tabs 01/16/24 Unknown Rx release ticagrelor 90 mg tablet (Brilinta) 90 mg PO BID 30 days #60 tabs 01/16/24 Unknown Rx pravastatin 40 mg tablet 40 mg PO QDAY #90 tabs 01/29/24 Unknown Rx methocarbamol 500 mg tablet 1,000 mg (2 x 500 mg) PO 4X/DAY 01/30/24 Unknown Rx PRN Muscle pain/spasm #56 tabs Allergy/AdvReac Type Severity Reaction Status Date / Time Fish Containing Products Allergy Severe Anaphylaxis Verified 01/14/24 22:00 shellfish derived Allergy Severe Anaphylaxis Verified 01/14/24 22:00 atorvastatin AdvReac Mild Diarrhea Verified 01/30/24 01:30 Family History (Updated 01/15/24 @ 01:[address] Yancy Lynne MD) Father Heart disease CAD (coronary artery disease) Hypertension Myocardial infarction Mother Colon cancer Surgical History (Updated 01/16/24 @ 17:36 by Samantha Kahn) Stented coronary artery (01/14/24) History of ankle surgery History of total ankle replacement History of cholecystectomy History of tonsillectomy Social History (Updated 01/15/24 @ 01:[address] Yancy Lynne MD) household members: spouse Smoking Status: Never smoker alcohol intake: current alcohol intake frequency: holidays/special occasions only substance use type: does not use ROS ROS ED Constitutional Constitutional ED: Denies chills or fever(s) Eyes Eyes: Denies blurry vision or change in vision ENT ENT ED: Denies sore throat Cardiovascular Cardiovascular: Reports chest pain; Denies palpitations or racing heartbeat Respiratory/Chest Respiratory/Chest: Denies cough or dyspnea Gastrointestinal Gastrointestinal: Denies abdominal pain, diarrhea, nausea or vomiting Genitourinary Genitourinary ED: Denies dysuria Musculoskeletal Musculoskeletal: Reports back pain Integumentary Denies rash Neurologic Neurologic: Denies headache(s) Hematologic/Lymphatic Hematologic/Lymphatic: Reports easy bleeding and easy bruising EXAM Physical Exam Const Vital Signs: 01/30/24 01:23 01/30/24 01:28 01/30/24 02:29 Temperature 97.8 F Temperature Source Oral Pulse Rate 63 50 L Respiratory Rate 16 11 L Respiratory Effort Normal Non-Labored Blood Pressure 146/89 H 136/76 H Blood Pressure Mean 108 96 Pulse Ox 97 97 Oxygen Delivery Method Room Air Room Air 01/30/24 04:00 01/30/24 04:32 Temperature 98.0 F Temperature Source Pulse Rate 50 L 47 L Respiratory Rate 18 16 Respiratory Effort Blood Pressure 127/67 H 114/74 Blood Pressure Mean 87 87 Pulse Ox 98 98 Oxygen Delivery Method Room Air Positive well nourished and well developed General Appearance ED: well developed; Negative for pallor HEENT HEENT Narrative: Normocephalic atraumatic Eyes PERRL and EOMs intact bilaterally General Eye ED: Negative for scleral icterus Neck supple and no JVD Chest Wall palpation of chest normal Chest Narrative: No bony deformity or crepitance of the chest wall noted Resp normal respiratory effort and clear to auscultation bilaterally Cardio regular rate and regular rhythm Rate: other Other Details: Heart is regular rate and rhythm Radial and carotid pulses are equal and symmetric No carotid bruit noted GI normal to inspection, nondistended, normoactive bowel sounds, non-tender, non-distended and no masses GI Narrative: No voluntary guarding or rigidity or pulsatile mass Negative Mota sign Auscultation: normoactive bowel sounds Palpation: soft Extremity normal to inspection Extremity Narrative: No asymmetric edema no pitting edema negative Homans' sign bilaterally Neuro oriented x3, CN's II-XII intact bilaterally and no sensory deficits noted Sensorium / Orientation: alert Motor Exam: strength 5/5 throughout Psych mental status grossly normal Skin no rashes or lesions noted General Skin Exam: Negative for jaundice or pallor MDM MDM MDM Narrative Medical decision making narrative: Patient arrived to the ER with stable vitals. His report of chest pain is atypical and the patient even stated that this chest discomfort feels much different than his recent heart attack. However there is concern that as he has a known CAD that this is acute coronary syndrome. There is potential for dissection or PE or even lung pathology such as pneumonia or pneumothorax. Patient could also be having atypical biliary colic or acute cholecystitis. Secondary to this basic labs were obtained. The patient's D-dimer is normal going against PE or dissection. Chest x-ray reveals no acute lung pathology such as pneumonia or pneumothorax. The patient's liver enzymes are normal going against biliary colic or acute cholecystitis. The patient's troponins were 82 with a delta of 84. As the patient is approximately 14 days out from his heart cath and this is a high-sensitivity troponin this value should be in a normal range although it is much better than the approximate 400 value he had at that time. The case was discussed with cardiology on-call Dr. Adames. He feels that as the patient's EKG shows no ischemic or STEMI changes his troponins are not fluctuating and that he has had improvement of his anterior chest pain that there is no need for readmission to the hospital or emergent catheterization. He recommends patient stay on his medication that was prescribed after his heart cath and that he keep his appointment for stent placement secondary to his known RCA lesion. However he does not feel needs to be done emergently as there is no ischemic changes on the EKG and his troponins are not fluctuating. This plan of care was discussed with patient and and they are agreeable to it and otherwise he is safe for discharge History & Record Review Discussion w/independent historian: Patient and Significant other Lab Data Attestation: I reviewed the patient's lab results. Labs: Laboratory Results - last 24 hr 01/30/24 01/30/24 01:41 03:37 WBC 8.3 RBC 4.31 L Hgb 12.8 L Hct 37.9 L MCV 87.9 MCH 29.7 MCHC 33.8 RDW Std Deviation 42.5 RDW Coeff of [place] 13.2 Plt Count 219 MPV 9.2 Immature Gran % (Auto) 0.200 Neut % (Auto) 54.5 Lymph % (Auto) 34.7 [place] % (Auto) 7.1 Eos % (Auto) 3.1 Baso % (Auto) 0.4 Absolute Neuts (auto) 4.5 Absolute Lymphs (auto) 2.89 Nucleated RBC % 0 D-Dimer Quant (PE/DVT) < 0.27 L Sodium 137 Potassium 3.6 Chloride 106 Carbon Dioxide 27.0 Anion Gap 5 BUN 18 Creatinine 1.03 Estim Creat Clear Calc 98.33 Est GFR (MDRD) Af Amer 97 Est GFR (MDRD) Non-Af 80 BUN/Creatinine Ratio 17.5 Glucose 168 H Calcium 9.5 Magnesium 1.9 Total Bilirubin 0.20 Direct Bilirubin 0.12 AST 28 ALT 59 Alkaline Phosphatase 110 Troponin I High Sens 82 H 84 H Total Protein 7.0 Albumin 3.7 Globulin 3.3 Radiography Diagnostic Testin view chest x-ray as interpreted by the emergency medicine physician reveals no acute infiltrate pneumothorax pleural effusion or widening mediastinum Management Discussion w/another healthcare provider: Material Man Discharge Plan Triage Chief Complaint: Chest Pain ED Provider: Cosme Monahan Dx/Rx/DC Orders Clinical Impression: CAD (coronary artery disease), Chronic kidney disease Instructions: CAD Prescriptions: New methocarbamol 500 mg tablet 1,000 mg PO 4X/DAY PRN (Reason: Muscle pain/spasm) Qty: 56 0RF No Action aspirin 81 mg Tablet,Delayed Release (Dr/Ec) 81 mg PO BREAKFAST 90 Days Qty: 90 0RF Brilinta 90 mg Tablet 90 mg PO BID 30 Days Qty: 60 2RF amlodipine 5 mg tablet 5 mg PO DAILY Qty: 30 2RF pravastatin 40 mg tablet 40 mg PO QDAY Qty: 90 3RF Primary Care Provider: Scooter Ramirez Referrals: Georges Negrete MD [Med Staff - Active Staff] - Scooter Ramirez MD [Primary Care Provider] - Activity Restrictions/Additional Instructions: Your troponins today were 82 and 84. These are slightly elevated and do correlate with the fact you have known 70% blockage in your RCA. However your EKG does not show signs of decreased blood flow or heart attack. Please continue all of your home medications as directed by your doctor and make sure you discuss your symptoms with your creosoting engineer as they may need to move up your outpatient scheduled heart cath and stent placement. If your symptoms worsen or you have any further concerns please return to the ER for repeat evaluation Print Language: Vietnamese Disposition Disposition: Home, Self Care Discharge Date/Time: 01/30/24 04:48
[2024-01-30 04:00] VITALS: BP 127/67; PULSE 50; RESP 18; O2SAT 98
[2024-01-30 04:00] LABS: Troponin-I HS 84 pg/mL (3.0-78.0)
[2024-01-30 04:32] VITALS: BP 114/74; PULSE 47; RESP 16; TEMP 36.7; O2SAT 98
== END 2024-01-30 04:48 | disposition home or self-care (01) ==
PROVIDERS: Emergency Provider Emergency Medicine; PCP Family Medicine; Visit Provider Emergency Medicine
DX: I25.10 Atherosclerotic heart disease of native coronary artery without angina pectoris (principal); Z95.5 Presence of coronary angioplasty implant and graft; E78.5 Hyperlipidemia, unspecified; N18.2 Chronic kidney disease, stage 2 (mild); M54.9 Dorsalgia, unspecified; R23.3 Spontaneous ecchymoses; Z90.49 Acquired absence of other specified parts of digestive tract; Z79.82 Long term (current) use of aspirin; G47.33 Obstructive sleep apnea (adult) (pediatric); Z99.89 Dependence on other enabling machines and devices
CPT/HCPCS: 71046; 80048; 80076; 83735; 84484; 85025; 85379; 93005; 96374; 99283; A4216

== ENCOUNTER 2024-02-03 06:44 | Day surgery (SDC) | payer BC, SELFPAY ==
[2024-02-02 08:31] VITALS: BMI 34.1
--- NOTE | 2024-02-03 06:45 | HP_ITS ---
Assessment & Plan Assessment/Plan (1) NSTEMI, initial episode of care: PLAN: Started on aspirin. DC metoprolol secondary to sinus bradycardia. Recommend coronary angiography with possible revascularization. Risks benefits and alternatives explained. He understands these and wishes to proceed. (2) Dyslipidemia: PLAN: Statins. (3) BARRON on CPAP: PLAN: As per sleep medicine. (4) Obesity (BMI 30.0-34.9): PLAN: Lose weight. HPI Consult Data Date of Consult: 01/15/24 HPI Narrative Reason for Consultation: NSTEMI HPI Narrative: 53-year-old gentleman with past medical history significant for obstructive sleep apnea. Developed an episode of chest discomfort yesterday. Per him, it felt like heaviness across his anterior chest. No radiation to the arm neck or jaw. Lasted about 1 hour total. In the emergency room, workup revealed elevated troponin, ruling him in for NSTEMI. Patient denies any previous history of heart disease. [facility] Medical History (Updated 01/15/24 @ 10:[address] Georges Negrete MD) CKD (chronic kidney disease), stage II Obesity BARRON on CPAP Wears contact lenses Injury of head and neck History of stress test history of pilon ankle fracture Arthritis Home Medications ?Medication ?Instructions ?Recorded ?Last Taken ?Type ibuprofen 200 mg capsule 200 mg PO PRN PRN Pain 12/10/18 Unknown History Allergy/AdvReac Type Severity Reaction Status Date / Time Fish Containing Products Allergy Severe Anaphylaxis Verified 01/14/24 22:00 shellfish derived Allergy Severe Anaphylaxis Verified 01/14/24 22:00 Family History (Updated 01/15/24 @ 01:[address] Yancy Lynne MD) Father Heart disease CAD (coronary artery disease) Hypertension Myocardial infarctionMother Colon cancer Surgical History History of ankle surgery History of total ankle replacement History of cholecystectomy History of tonsillectomy Social History (Updated 01/15/24 @ 01:[address] Yancy Lynne MD) household members: spouse Smoking Status: Never smoker alcohol intake: current alcohol intake frequency: holidays/special occasions only substance use type: does not use Physical Exam Narrative Comfortable. No apparent distress. Heart sounds 1 and 2 are normal. No murmurs or rubs. Chest clear to auscultation bilaterally. Alert oriented x 3. No ankle edema noted. Risk Stratification Risk Stratification Applicable: No Objective Data Vital Signs: Vital Signs Temp Pulse Resp BP Pulse Ox O2 Del Method 97.8 F 56 L 13 152/86 H 98 Room Air 01/15/24 08:00 01/15/24 08:00 01/15/24 08:00 01/15/24 08:00 01/15/24 08:13 01/15/24 08:13 Oxygen Delivery Method Room Air Weight: 230 lb 9.656 oz Body Mass Index (BMI) 34.0 Intake & Output: Intake and Output for Last 24 Hours 01/13/24 01/14/24 01/15/24 23:59 23:59 23:59 Intake Total 66.67 / 66.67 Balance 66.67 / 66.67 Lab / Micro Data Attestation: I reviewed the patient's lab results. 01/15/24 04:30 01/15/24 04:30 Labs: Laboratory Results - last 24 hr 01/14/24 22:20: WBC 8.8, RBC 4.54 L, Hgb 13.5, Hct 40.3, MCV 88.8, MCH 29.7, MCHC 33.5, RDW Std Deviation 44.4 H, RDW Coeff of [place] 13.6, Plt Count 216, MPV 9.2, Immature Gran % (Auto) 0.300, Neut % (Auto) 63.9, Lymph % (Auto) 27.4, [place] % (Auto) 6.3, Eos % (Auto) 1.4, Baso % (Auto) 0.7, Absolute Neuts (auto) 5.7, Absolute Lymphs (auto) 2.42, Nucleated RBC % 0, PT 13.2, INR 1.0, APTT 25.6, Sodium 139, Potassium 3.7, Chloride 106, Carbon Dioxide 22.0, Anion Gap 11, BUN 21 H, Creatinine 1.00, Estim Creat Clear Calc 101.42, Est GFR (MDRD) Af Amer 100, Est GFR (MDRD) Non-Af 83, BUN/Creatinine Ratio 21.0 H, Glucose 138 H, Calcium 9.4, Magnesium 1.8, Troponin I High Sens 132 H* 01/15/24 00:45: Troponin I High Sens 274 H* 01/15/24 04:30: WBC 7.2, RBC 4.31 L, Hgb 12.8 L, Hct 38.2 L, MCV 88.6, MCH 29.7, MCHC 33.5, RDW Std Deviation 45.1 H, RDW Coeff of [place] 13.9, Plt Count 211, MPV 9.5, Immature Gran % (Auto) 0.300, Neut % (Auto) 43.5 L, Lymph % (Auto) 47.8 H, [place] % (Auto) 5.3, Eos % (Auto) 2.4, Baso % (Auto) 0.7, Absolute Neuts (auto) 3.2, Absolute Lymphs (auto) 3.45, Nucleated RBC % 0, Sodium 138, Potassium 3.7, Chloride 109 H, Carbon Dioxide 23.0, Anion Gap 6, BUN 16, Creatinine 0.78, Estim Creat Clear Calc 130.53, Est GFR (MDRD) Af Amer 133, Est GFR (MDRD) Non-Af 110, BUN/Creatinine Ratio 20.5 H, Glucose 120 H, Calcium 9.0, Iron 57 L, TIBC 264, Iron Saturation 21.6, Ferritin 372, Total Bilirubin 0.30, AST 35, ALT 76 H, Alkaline Phosphatase 79, Troponin I High Sens 353 H*, Total Protein 6.9, Albumin 3.7, Globulin 3.2, Albumin/Globulin Ratio 1.2, Triglycerides 133, Cholesterol 231 H, LDL Cholesterol 145 H, VLDL Cholesterol 27, HDL Cholesterol 59, Folate 18.00 01/15/24 07:00: APTT 27.3 Rhythm Strip Rhythm Strip: Sinus Rhythm Cardiology Labs/Tests 01/14/24 22:20: WBC 8.8, RBC 4.54 L, Hgb 13.5, Hct 40.3, MCV 88.8, MCH 29.7, MCHC 33.5, Plt Count 216, MPV 9.2, Immature Gran % (Auto) 0.300, Neut % (Auto) 63.9, Lymph % (Auto) 27.4, [place] % (Auto) 6.3, Eos % (Auto) 1.4, Baso % (Auto) 0.7, Absolute Neuts (auto) 5.7, Nucleated RBC % 0, PT 13.2, INR 1.0, APTT 25.6, Sodium 139, Potassium 3.7, Chloride 106, Carbon Dioxide 22.0, Anion Gap 11, BUN 21 H, Creatinine 1.00, Est GFR (MDRD) Af Amer 100, Est GFR (MDRD) Non-Af 83, BUN/Creatinine Ratio 21.0 H, Glucose 138 H, Calcium 9.4, Magnesium 1.8 01/15/24 04:30: WBC 7.2, RBC 4.31 L, Hgb 12.8 L, Hct 38.2 L, MCV 88.6, MCH 29.7, MCHC 33.5, Plt Count 211, MPV 9.5, Immature Gran % (Auto) 0.300, Neut % (Auto) 43.5 L, Lymph % (Auto) 47.8 H, [place] % (Auto) 5.3, Eos % (Auto) 2.4, Baso % (Auto) 0.7, Absolute Neuts (auto) 3.2, Nucleated RBC % 0, Sodium 138, Potassium 3.7, Chloride 109 H, Carbon Dioxide 23.0, Anion Gap 6, BUN 16, Creatinine 0.78, Est GFR (MDRD) Af Amer 133, Est GFR (MDRD) Non-Af 110, BUN/Creatinine Ratio 20.5 H, Glucose 120 H, Calcium 9.0, Iron 57 L, TIBC 264, Iron Saturation 21.6, Ferritin 372, Total Bilirubin 0.30, Triglycerides 133, Cholesterol 231 H, LDL Cholesterol 145 H, VLDL Cholesterol 27, HDL Cholesterol 59 01/15/24 07:00: APTT 27.3 Rhythm: Sinus bradycardia EKG: Normal sinus rhythm. ECHO: Stress Test: Cardiac Cath: PCI: CT Surgery: Holter monitor: EPS: PPM: CXR: Chest CT Scan: Radiography Diagnostic Testing: Radiology Impression Chest X-Ray 01/14/24 22:43 IMPRESSION: Normal x-ray examination of the chest. Electronically Signed: Camron Perez MD at 23:16 EDT , [facility]
--- NOTE | 2024-02-03 09:23 | CL.I_ITS ---
Patient Name: KENYA GORE Study Date: 02/03/2024 Performing: Georges Negrete MD Ht: 69 inches 175.26 cm : 1970 Wt: 231 lbs 104.78 kg Age: 53 Gender: male BSA: 2.2 PROCEDURE(S) PERFORMED IC12-(90410/C9600)DEYA W/WO PTCA, SINGLE CORONARY ARTERY CLINICAL PROFILE AND CO-MORBIDITIES Indications: Staged PCI Heart Failure: None Angina Classification Anginal Classification w/in 2 Weeks: No symptoms CONCLUSIONS Successful DEYA Mid RCA using Coby Barry 3.0x18 mm, post-dilated using 3.5 mm balloon, optimized proximally using 3.75 mm balloon RECOMMENDATIONS ASA Indefinitley P2Y12 inhibitors for atleast 6 months DESCRIPTION OF PROCEDURE The patient arrived to the procedure lab. The risks and benefits of the procedure as well as a full description of our services here and current unavailability of surgical backup were fully explained to the patient and/or their significant other prior to the catheterization. The Timeout was completed, verifying the correct patient and procedure. The patient's procedural site was prepped and draped in the usual fashion. Local anesthetic was given subcutaneously to right radial region with Lidocaine 2%. Using a modified Seldinger technique, arterial access was obtained via the right radial artery, a 6Fr sheath was inserted.. AL 0.75 Guide catheter was inserted and engaged into the RCA. Runthrough Guide wire was advanced to the RCA. 3.0 x 18 Barry Drug Eluting stent was inserted. Drug Eluting stent was advanced across the lesion in the right coronary, mid. Angiogram performed post stent deployment. 3.5 x 12 NC Euphora Balloon catheter was inserted post stent. 3.75 x 6 NC Euphora Balloon catheter was inserted post stent. Angiogram performed post balloon dilatation. The arterial sheath was pulled and a TR Band was applied for hemostasis. 13 cc air INTERVENTION INFORMATION LESION SITE: RCA (Mid) Lesion Complexity: Non-High/Non-C, lesion length: 16 mm, culprit lesion: No Pre Stenosis: 70 % Pre intervention CHANDRIKA flow: 3 PROCEDURE: Drug Eluting Stent with post dilatation Post Stenosis: 0 % Post intervention CHANDRIKA flow: 3 Lesion Devices: Terumo .014 180cm Runthrough Extra Floppy straight Cordis 6 Fr AL.75 100cm Guide Catheter Medtronic 3.0 x 18 COBY FRONTIER DEYA Medtronic NC EUPHORA RX 3.5x12 BALLOON Medtronic NC EUPHORA RX 3.75x06 BALLOON COMPLICATIONS No Complications PROCEDURE MEDICATIONS Fentanyl 50 mcg IV Versed 1 mg IV Oxygen: 2 L/min via nasal cannula Benadryl 50 mg IV @ 02/03/2024 08:34:33 Heparin given IA 02/03/2024 08:48:03 Heparin 5000 unit(s) IV 02/03/2024 08:50:13 Heparin 1000 unit(s) IV 02/03/2024 09:18:38 Nitro 100 mcg IC 02/03/2024 08:59:06 Nitro 100 mcg IC 02/03/2024 08:59:06 Solu-medrol 125 mg IV 02/03/2024 08:34:26 IV Bolus: .9 NaCl 250 ml total 02/03/2024 08:53:23 SUMMARY OF HEMODYNAMIC DATA Time AIR REST ECG 07:10:51 AO 133/79 (102) SA 08:52:14 Signed By Georges Negrete MD On 02/03/2024 09:22:47 Georges Negrete MD
[2024-02-03 10:18] LABS: ACT Activated Clotting Time 250 sec (74-137)
[2024-02-03 10:18] LABS: ACT Activated Clotting Time 305 sec (74-137)
--- NOTE | 2024-02-03 10:22 | CRPHASE1_ITS ---
Patient Communication Patient Information Former Patient:: Phase I PHII Cardiac Rehab Discussed with Patient:: Yes Guide to Cardiac Rehab Given to Patient:: Yes Cardiac Rehab Facility Choice List Given to Patient:: Yes Communication to Cardiac Rehab Choice Program [facility] CR PHII:: Communication Given to CR Sessions:: 36 sessions - 3 days/wk, 12 weeks Cardiac Rehabilitation Info Program Information Cardiac Rehabilitation Program Information: Cardiac Rehab The cardiac rehab team at [facility] consists of highly skilled exercise physiologists, nurses, respiratory therapists and physicians working together with you. Our purpose is to help you have a full recovery and achieve the goals you set for yourself. Over the years many of our patients have returned to activities they assumed they would never do again! We can help restore your confidence and motivation to make lifestyle changes that can have a significant impact on your health and quality of life! We can help answer questions and concerns you may have about exercise, lifestyle, medications, diet, stress and anxiety which are common following a hospitalization. WE monitor ECG and vital signs during exercise and discuss your progress with you and report to your physician(s). Cardiac Rehab is proven to help reduce readmissions, improve functional capacity and lower recurrence of problems with your heart. Our Cardiac Rehab program is Certified by the [place] [employer] Pulmonary [employer] (AACVPR) and Accredited by the [place] [employer] through our [facility]. You can contact us at . We invite you to call us with your questions or to get started in our program. If you have other questions or concerns be sure to ask your physician/provider during your follow-up visit. WE look forward to seeing you!
--- NOTE | 2024-02-03 10:23 | CRPH1.INSTRU ---
General Education Discussed with Patient CAD and cardiac anatomy and function:: Patient communicates acknowledgment Explanation of diagnoses and procedures:: Patient communicates acknowledgment Sign/Symptoms of [place]:: Patient communicates acknowledgment Antiplatelet therapy: Patient communicates acknowledgment Proper use of NTG-SL: Patient communicates acknowledgment Emergency procedures and activation of EMS: Patient communicates acknowledgment Compliance of all prescribed medications: Patient communicates acknowledgment Smoking Risk Factors Patient Nicotine/Smoking Risk Factors Are:: Cigarettes, Smokeless tobacco and Second-hand smoke Recommendations Recommendations Include:: Previous smoker; encourage continued cessation Response Code Nicotine/Smoking Response Code:: Patient communicates acknowledgment Dyslipidemia Risk Factors Patient Dyslipidemia Risk Factors Are:: Total Cholesterol, Triglycerides, HDL and LDL Recommendations Recommendations Include:: Lipid profile not available, Reviewed NCEP/ATP guidelines and Therapeutic Lifestyle Change dietary guidelines Response Code Dyslipidemia Response Code:: Patient communicates acknowledgment Overweight/Obesity Risk Factors Patient Overweight/Obesity Risk Factors Are:: Overweight = 26-29 Recommendations Recommendations Include:: Weight loss of 5-10%, Reduced calorie diet and Exercise 5-7 times/week Response Code Overweight/Obesity:: Patient communicates acknowledgment Hypertension Risk Factors Patient Hypertension Risk Factors Are:: No documented hx of HTN Recommendations Recommendations Include:: Maintain BP <130/85, DASH dietary guidelines, Decrease/maintain normal body weight and Moderation of ETOH Response Code Hypertension:: Patient communicates acknowledgment Heart Disease Risk Factors Patient Heart Disease Risk Factors Are:: Family history of heart disease < 65 years old and Previous cardiac event Recommendations Recommendations Include:: Educated family members of their risk and Educated family members of importance of prevention of heart disease Response Code Heart Disease Response Code:: Patient communicates acknowledgment Diabetes Risk Factors Patient Diabetes Risk Factors Are:: No documented hx of diabetes Recommendations Recommendations Include:: Maintain fasting blood sugars 70-110 md/dL, Maintain HgbA1c of 6% or less, Monitor blood sugar as prescribed, Diabetic dietary guidelines and Decrease/maintain body weight Response Code Diabetes:: Patient communicates acknowledgment Metabolic Syndrome Risk Factors Patient Metabolic Syndrome Risk Factors Are [3 of 5]:: Fasting blood sugar > 100 mg/dL, Waist circumference > 35 [female] or 40 [male], High triglyceride >150 and Low HDL <40 [male] or < 50 [female] Recommendations Recommendations Include:: Reinforce compliance to risk factor modifications and Encouraged follow-up with Primary Care Physician Response Code Metabolic Syndrome Response Code:: Patient communicates acknowledgment Sedentary Risk Factors Patient Sedentary Risk Factors Are:: Lack of regular exercise Recommendations Recommendations Include:: Aerobic exercise 5-7 times/week for 20-30 minutes continuously, Benefits of regular exercise, Discussed home walking program and Monitored Outpatient Cardiac Rehab Response Code Sedentary Response Code:: Patient communicates acknowledgment Stress Risk Factors Patient Stress Risk Factors Are:: Patient denies stress as a risk factor Recommendations Recommendations Include:: Identification of stressors, and assessment of coping skills and Stress management techniques Response Code Stress Response Code:: Patient communicates acknowledgment
--- NOTE | 2024-02-03 10:45 | EKG12_ITS ---
Test Reason : POST PCI Blood Pressure : / mmHG Vent. Rate : 051 BPM Atrial Rate : 051 BPM P-R Int : 174 ms QRS Dur : 080 ms QT Int : 430 ms P-R-T Axes : 026 021 036 degrees QTc Int : 396 ms Sinus bradycardia Otherwise normal ECG When compared with ECG of 30-JAN-2024 01:23, No significant change was found Confirmed by JUAN RAMON CRISTINA, GABRIELLE ([id number]), photo editor MIQUEL DOSS ([id number]) on 02/04/2024 6:05:50 AM Referred By: Georges Negrete Confirmed By:GABRIELLE DELATORRE MD
[2024-02-03 13:38] VITALS: BP 134/57; PULSE 68; RESP 16; TEMP 36.6; O2SAT 98
--- NOTE | 2024-02-03 13:46 | NURSING ---
Brilinta prescription card given to patient at discharge, patient noted to have prescription with pills with him upon discharge
== END 2024-02-03 15:29 | disposition home or self-care (01) ==
PROVIDERS: PCP Family Medicine; Referring Provider Internal Medicine Cardiovascular Disease; Visit Provider Internal Medicine Cardiovascular Disease
DX: I21.4 Non-ST elevation (NSTEMI) myocardial infarction (principal); N18.2 Chronic kidney disease, stage 2 (mild); E78.5 Hyperlipidemia, unspecified; G47.33 Obstructive sleep apnea (adult) (pediatric); Z99.89 Dependence on other enabling machines and devices; E66.9 Obesity, unspecified; Z68.34 Body mass index [BMI] 34.0-34.9, adult; R07.89 Other chest pain; Z82.49 Family history of ischemic heart disease and other diseases of the circulatory system; Z90.49 Acquired absence of other specified parts of digestive tract; R00.1 Bradycardia, unspecified; T44.7X5A Adverse effect of beta-adrenoreceptor antagonists, initial encounter
CPT/HCPCS: 85347; 92928; 93005; 99152; 99153; C1725; J7040; Q9967; C1769; C1874; C1887; C1894; C9600

== ENCOUNTER → 2024-02-10 | Outpatient (CLI) | payer BC, SELFPAY ==
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
--- NOTE | 2024-02-10 08:03 | CR.ITP_ITS ---
Diagnosis General Information Admitting Diagnosis: PCI with stent, [place] NonSTEMI<12 months Personal Learning Style:: Audio/Visual Barriers to Learning: No Barriers Stage of change r/t lifestyle modifications:: Contemplation Gave educational material for:: Treating Heart Disease, How The Heart Works, What it means to have Heart Disease, How Coronary Artery Disease is Diagnosed, Heart Procedures, What Heart Medications Do, Risk Factors & Modifications, Living an Active Life, Nutrition, Emotions & Heart Disease, Stress Management & Relaxation and Sleep Disorders & Heart Disease Education/Goals Cardiac Rehabilitation Goals Personal Goals: Initial Assessment: Improve energy level, Participate in home exercise program, Improve knowledge of cardiac disease, Improve muscle strength and endurance, Improve diet and eating habits (eat healthier) and Control risk factors (learn risk factor modification) Scale for measuring improvement of personal goals Diagnosis & Disease Process Outcomes/Goals: Pt IDs own risk factors & lifestyle modifications by Session 10, Verbalizes symptoms of angina & response by session 3., Pt independently manages and Other Additional Outcomes/Goals: Plan/Interventions: Assist Pt to ID & engage in lifestyle modification to reduce CVD risk, Instruct on individual risk factors, Review symptoms of angina & emergency actions, Review secondary diagnosis & identify educational needs. and Other see comment 30 day Reassessments:: Not Met 30 day Reassessments:: Not Met 30 day Reassessments:: Not Met 30 day Reassessments:: Not Met Safety Referral to Physical Therapy: No Referral to [facility] Case Management: No Fall Risk Assessed:: Yes Assistive Devices:: None Exercise - Initial Assessment Visit Date of Eval: 02/10/24 (initial eval ) Mets: Pre-: >3 METS for 30 minutes by discharge, >5 METS for 30 minutes by discharge, >7 METS for 30 minutes by discharge and Unable to meet goal due to: (see comment below) Physician Prescribed Exercise Modalities: Treadmill, Rower, Schwinn Airdyne AD-7, SciFit Stepper, SciFit Pro- II Ergometer and SciFit Lateral Social Service Technician Frequency: 2x/week for 18 weeks [36 sessions] and 3x/week for 12 weeks [36 sessions] Intensity: 60-80% of age predicted maximum heart rate reserve Duration: 30 - 45 minutes Current METSs:: 3 Target Heart Rate:: 100-125 Resting Blood Pressure: 118/80 EKG Type: SB Outcomes & Goals Goals:: Verbalizes understanding of THR, RPE & goal METS by session 6, Documents in home exercise log/reports 30 min aerobic 5 day/wk by DC, Demonstrates accurate pulse taking by DC and Other additional outcome/goals: see below Intervention & Plan Exercise Program Goals: Instruct on personal THR & RPE, Instruct on MET level & personal MET goal, Show patient to take own pulse /validate performance until accurate, Instruct on home exercise and Other additional plan/int Physical Activity Home Exercise Physical Activity - Home Exercise: Safe Exercise, Warm-up, Self-monitoring, Cool-Down, Home Exercise > 30 min Daily and Sitting Time <3 hours/daily Outcomes & Goals Outcomes/Goals: Demonstrates correct Warm-up/exercise Cool-Down (S3) if = 2.5 METs, Verbalizes symptoms of exercise intolerance by Session 3 (S3), Demonstrate safe equipment use (S3) & follows exercise prescrition (6) and Other: See below Intervention & Plan Plan/Intervention: Instruct warm-up & cool-down if exercising at > 2 METs, Instruct on symptoms of exercise intolerance & actions to take, Instruct & monitor on saf, Assess intial functional capacity & safety risk and Other See below Nutrition - Initial Assessment Program Goals Nutrition Program Goals Patient has diagnosis of Hyperlipidemia (ICD E78)?: Yes Visit Date of Eval: 02/10/24 (initial eval ) Cholesterol/Lipids (Other Core Measures) Determine presence & major risk factors that modify LDL goal: Hypertension or hypertensive medication, Low HDL cholesterol <40 mg/dL*, Family history of premature CHD in Male < 55 years: female <65 yearsFa and Age men > 45 years; women >/= 55 years Outcomes/Goals: Pt IDs own risk factors & lifestyle modifications by Session 10, Verbalizes symptoms of angina & response by session 3., Pt independently manages and Other Additional Outcomes/Goals: Intervention/Plan: Advocate for lipid panel cholesterol medication if applicable, Instruct on personal lipid levels & lipid goals/NCEP guidelines, Instruct on cholesterol and Other additional plan/int Referral to dietitian:: No Diabetes (Other Core Measures) Diabetes Type: Not Applicable Weight Mgt (Other Care) Height: 5 ft 9 in Weight:: 215 lb BMI: 31.7 Diagnosis Overweight/Obesity BMI> 30% ICD-10 E66: Yes Diagnosis High BMI/Morbid Obesity BMI> 35% ICD-10 Z68: No Outcomes/Goals: Pt sets, maintains & shows weight loss goal & trend during rehab and Other additional outcomes/goals Intervention/Plan: Instruct on ideal BMI & set weight loss goal w/patient, Assist pt to ID & incorporate diet changes for weight loss by S9, Refer to Structured Weight Loss program as appropriate, Encourage goal of using 250- 300dcal per session for weight loss and Other additional plan/interventions Healthy Eating Habits Will attend diet classes:: Yes Outcomes/Goals:: Consume diet rich in vegs,fruits,whole grain/high fiber,fish,lean meat, Limit sat/trans fats,cholesterol & added salts & sugars and Other additional outcome/goals: Intervention/Plan:: Assess current eating habits and Other Additional plan/interventions Education Gave educational materials for:: Signs & symptoms of hypoglycemia, Signs & symptoms of hyperglycemia, Relate diabetes to coronary artery disease and Healthy eating Core - Initial Assessment Visit Date of Eval: 02/10/24 (initial eval ) Medication Compliance Preventative Medication(s):: Aspirin, Ticagrelor/P2Y12 inhibitor and Statin/lipid H/O mental health issues: depression, anxiety, or addiction?: No Doesn?t believe in the benefits of treatment?: No Believes medications are unnecessary or harmful?: No Has a concern about medication side effects?: No Expresses concern over the cost of medications?: No Outcomes/Goals: Verbalizes medications,desired effect & common side effects @ DC, Pt self-reports following medication regimen, Keeps card in wallet w/medications listed by DC and Other additional outcome/goals: Interventions/plans: Instruct on medication effects & side effects, Review medication list w/patient every two weeks, Instruct importance of taking meds as ordered & assist problem solving and Other additional Tobacco Use Tobacco Use: Non-smoker Hypertension Resting Blood Pressure:: 118/80 [place] [employer] Hypertension Guidelines Outcomes/Goals: Able to verbalize/achieve optimal blood pressure <130/80, Incorporates diet changes & exercise for blood pressure control by DC and Other additional outcomes/goals Interventions/plan: Instruct on optimal blood pressure, hypertension & medications, Instruct on effects of sodium, alcohol, stress, exercise &hypertension and Other additional plan/interventions Tobacco Cessation Referral Smoking Cessation Referral:: No Individual Education/Counseling:: No Education Schedule Given:: Yes Psychosocial - Initial Assess VIsit Date of Eval: 02/10/24 (initial eval ) History of previous Mental disease:: No Target Goals Target Goals Psychosocial Test Tool Used:: [employer] QOL Cardiac and PHQ-9 Questionnaire phq-9 Severity Referral to Behavioral Health PS - Interventions: Yes: Attend Stress Management Classes Outcomes/Goals: See list Psychosocial Outcomes/Goals:: ID's personal stressors & 2 strategies to manage stress by discharge and Other Additional outcome/goals: Intervention/Plan: See List Interventions/Plan:: Assess stressors,coping strategies & signs of derpression on admission, Instruct/assist pt to develop coping & personal stress Mgt strategies, Refer to Behavioral Health if appropriate, Refer to Physician if appropriate, Instruct patient to recognize signs & symptoms of depression, Instruct patient to recog and Other additional plan/intervention Patient Health Questionnaire PHQ-9 Screening Initial Assessment: 1. Little interest or pleasure in doing things: Nearly every day 2. Feeling down, depressed, or hopeless: Several days 3. Trouble falling or staying asleep, or sleeping too much: More than half the days 4. Feeling tired or having little energy: More than half the days 5. Poor appetite or overeating: Several days 6. Feeling bad about yourself -- or that you are a failure or have let y ourself or your family down: Several days 7. Trouble concentrating on things, such as reading the newspaper or watching television: More than half the days 8. Moving or speaking so slowly that other people could have noticed. Or the opposite - being so fidgety or restless that you have been moving around a lot more than usual: More than half the days 9. Thoughts that you would be better off , or of hurting yourself in some way: Not at all How difficult have these problems made it for you to do your work, take care of things at home, or get along with other people?: Somewhat difficult Total Score: 14 UCHE-Q SV Test Statements CAD is a disease of the arteries in the heart: False Examples of risk factors for heart disease: True Angina is chest pain or discomfort: I Don't Know The benefits of resistance training include: True Eating more meat and dairy products: False Anti-platelet medications such as aspirin are important: I Don't Know The only effective way to manage stress: False An exercise warm-up slowly increases heart rate: I Don't Know Prepared, processed foods usually have high sodium: True Depression is common after a heart attack: I Don't Know The statin medications lower cholesterol: True To control blood pressure, lower the amount of sodium: I Don't Know If someone gets chest discomfort during walking: False Transfats are partially hydrogenated vegetable oils: I Don't Know Sleep apnea that is not treated increases the risk: False To control cholesterol, one should become a vegetarian: False Someone knows if he/she is exercising at the right level: I Don't Know Diabetes cannot be prevented with exercise & health eating: I Don't Know Stress is a large risk for heart attack: I Don't Know A diet that can help lower blood pressure is rich in: I Don't Know Total Score Total Correct Responses: 10 Self-Efficacy 6-Item Scale Initial Assessment: We would like to know how confident you are in doing certain activities. Please select your confidence level for: Fatigue Select Number: 7 Physical Discomfort or Pain Select Number: 7 Emotional Distress Select Number: 7 Other Symptoms or Health Problems Select Number: 4 Different Tasks and Activities Select Number: 6 Medication Select Number: 8 Total Score:: 6 Nutrition Survey Nutrition Survey Instructions Scoring Instructions Nutrition Survey Initial: Have you lost >10 lbs over the past 2 months without trying?: Yes Are you following a special diet at home for diabetes, low fat, or low salt?: No Are you interested in meeting with a dietitian for help understanding your diet?: Yes Do you eat less than 3 meals a day?: No Do you eat fatty meats (fine, sausage, ribs, etc), fried foods, desserts, large amounts of salad dressings, margarine, butter, or cheese most days?: Yes Do you have food allergies? [Enter types in comment field]: Yes Do you eat in restaurants more than 3 times a week?: Yes Do you season food with salt, seasoning salt, or garlic salt?: No Do you used canned, boxed, frozen meals, or soups, seasoning packets?: Yes Total Score:: 6 Exercise - 30-day Assessment Physician Prescribed Exercise Modalities: Treadmill, Rower, Sasha Gomezne AD-7, SciFit Stepper, SciFit Pro- II Ergometer and SciFit Lateral [place] Exercise - 60-day Assessment Physician Prescribed Exercise Modalities: Treadmill, Rower, Schwinn Airdyne AD-7, SciFit Stepper, SciFit Pro- II Ergometer and SciFit Lateral Social Service Technician Exercise - 90-day Assessment Physician Prescribed Exercise Modalities: Treadmill, Rower, Schwinn Airdyne AD-7, SciFit Stepper, SciFit Pro- II Ergometer and SciFit Lateral [place] Exercise - Final/Discharge Physician Prescribed Exercise Modalities: Treadmill, Rower, Schwinn Airdyne AD-7, SciFit Stepper, SciFit Pro- II Ergometer and SciFit Lateral [place] Frequency: 2x/week for 18 weeks [36 sessions] and 3x/week for 12 weeks [36 sessions] Intensity: 60-80% of age predicted maximum heart rate reserve Current METSs:: 3 Target Heart Rate:: 100-125 Nutrition - 30-Day Assessment Weight Mgt (Other Care) Height: 5 ft 9 in Weight:: 215 lb BMI: 31.7 Nutrition - 60-Day Assessment Weight Mgt (Other Care) Height: 5 ft 9 in Weight:: 215 lb BMI: 31.7 Core - Final Assessment Hypertension Resting Blood Pressure:: 118/80 [place] [employer] Hypertension Guidelines Core - 60-Day Assessment Hypertension Resting Blood Pressure:: 118/80 [place] [employer] Hypertension Guidelines Psychosocial - 30-Day Assess Target Goals Target Goals Referral to Behavioral Health PS - Interventions: Yes: Attend Stress Management Classes Psychosocial - 60-Day Assess Target Goals Target Goals Referral to Behavioral Health PS - Interventions: Yes: Attend Stress Management Classes Psychosocial - 90-Day Assess Target Goals Target Goals Referral to Behavioral Health PS - Interventions: Yes: Attend Stress Management Classes Psychosocial - Final Assessmen Target Goals Target Goals Referral to Behavioral Health PS - Interventions: Yes: Attend Stress Management Classes Nutrition - 90-Day Assessment Weight Mgt (Other Care) Height: 5 ft 9 in Weight:: 215 lb BMI: 31.7 Nutrition - Final Assessment Program Goals Patient has diagnosis of Hyperlipidemia (ICD E78)?: Yes Weight Mgt (Other Care) Height: 5 ft 9 in Weight:: 215 lb BMI: 31.7
[2024-02-10 08:16] VITALS: PULSE 65; O2SAT 97
[2024-02-10 08:18] VITALS: BP 118/80
[2024-02-10 08:50] VITALS: BP 118/80; BMI 31.7
[2024-02-10 08:51] VITALS: BMI 31.7
== END | disposition home or self-care (01) ==
LOC: CR 07:51
PROVIDERS: PCP Family Medicine; Referring Provider Internal Medicine Cardiovascular Disease; Visit Provider Internal Medicine Cardiovascular Disease
DX: Z95.5 Presence of coronary angioplasty implant and graft (principal); I21.4 Non-ST elevation (NSTEMI) myocardial infarction; I25.10 Atherosclerotic heart disease of native coronary artery without angina pectoris

== ENCOUNTER → 2024-02-19 | Outpatient (CLI) | payer BC, SELFPAY ==
[2024-02-10 08:50] VITALS: BMI 31.7
--- NOTE | 2024-02-19 09:56 | RAD_ITS ---
INDICATION: DDD EXAMINATION/TECHNIQUE: X-RAY - XR Spine Cervical 6 or More Views COMPARISON: Prior study dated: 06/19/2010 FINDINGS: VERTEBRAE: Preserved vertebral body height. No fracture. No spondylolisthesis. Straightening of the cervical spine. Alignment is unremarkable and is stable on the flexion and extension views. No significant facet arthropathy. DISCS: Narrowing of C5-C6 disc space. Endplate spondylosis. Small posterior lateral degenerative spurs bilaterally with mild narrowing of the neural foramina. NECK SOFT TISSUES: No prevertebral soft tissue widening. LUNG APICES: Clear. RAD/Cerv Spine Obl/Flex/Ext Comp IMPRESSION: 1. Degenerative changes at the level of C5-C6. 2. No evidence of spondylolisthesis. Electronically Signed: Lucas Johnson MD at 14:24 EDT ,
== END | disposition home or self-care (01) ==
LOC: MTRAD 09:54
PROVIDERS: PCP Family Medicine; Referring Provider Family Medicine; Visit Provider Family Medicine
DX: M50.30 Other cervical disc degeneration, unspecified cervical region (principal)
CPT/HCPCS: 72052

== ENCOUNTER 2024-02-25 08:00 | Outpatient (RCR) | payer BC, SELFPAY ==
[2024-02-10 08:50] VITALS: BMI 31.7
== END 2024-02-26 23:59 ==
LOC: CR 08:00
PROVIDERS: PCP Family Medicine; Referring Provider Internal Medicine Cardiovascular Disease; Visit Provider Internal Medicine Cardiovascular Disease
DX: I25.10 Atherosclerotic heart disease of native coronary artery without angina pectoris (principal); I21.4 Non-ST elevation (NSTEMI) myocardial infarction; Z95.5 Presence of coronary angioplasty implant and graft
CPT/HCPCS: 93798

== ENCOUNTER → 2024-03-08 | Outpatient (CLI) | payer BC, SELFPAY ==
[2024-02-10 08:50] VITALS: BMI 31.7
== END | disposition home or self-care (01) ==
PROVIDERS: PCP Family Medicine; Referring Provider Family Medicine; Visit Provider Family Medicine
DX: M50.30 Other cervical disc degeneration, unspecified cervical region (principal)
CPT/HCPCS: 72141; A9575; A4216

== ENCOUNTER 2024-03-24 08:00 | Outpatient (RCR) | payer BC, SELFPAY ==
[2024-02-10 08:50] VITALS: BMI 31.7
--- NOTE | 2024-03-12 07:07 | PCM.CR.ITP ---
Exercise - Initial Assessment Visit Session #:: 12 Physician Prescribed Exercise Modalities: Treadmill, Schwinn Airdyne AD-7 and SciFit Stepper Nutrition - Initial Assessment Weight Mgt (Other Care) Height: 5 ft 9 in Weight:: 225 lb BMI: 33.2 Psychosocial - Initial Assess Target Goals Target Goals Referral to Behavioral Health PS - Interventions: Yes: Attend Stress Management Classes Patient Health Questionnaire PHQ-9 Screening 30-Day Re-eval Assessment: 1. Little interest or pleasure in doing things: Nearly every day 2. Feeling down, depressed, or hopeless: Several days 3. Trouble falling or staying asleep, or sleeping too much: More than half the days 4. Feeling tired or having little energy: More than half the days 5. Poor appetite or overeating: Several days 6. Feeling bad about yourself -- or that you are a failure or have let yourself or your family down: Several days 7. Trouble concentrating on things, such as reading the newspaper or watching television: More than half the days 8. Moving or speaking so slowly that other people could have noticed. Or the opposite - being so fidgety or restless that you have been moving around a lot more than usual: More than half the days 9. Thoughts that you would be better off , or of hurting yourself in some way: Not at all How difficult have these problems made it for you to do your work, take care of things at home, or get along with other people?: Somewhat difficult Total Score: 14 Self-Efficacy 6-Item Scale 30-Day Re-eval Assessment: We would like to know how confident you are in doing certain activities. Please select your confidence level for: Fatigue Select Number: 7 Physical Discomfort or Pain Select Number: 7 Emotional Distress Select Number: 7 Other Symptoms or Health Problems Select Number: 4 Different Tasks and Activities Select Number: 6 Medication Select Number: 8 Total Score:: 6 Nutrition Survey Nutrition Survey Instructions Scoring Instructions Exercise - 30-day Assessment Visit Date of Eval: 03/12/24 Session #:: 12 Physician Prescribed Exercise Modalities: Treadmill, Schwinn Airdyne AD-7 and SciFit Stepper Frequency: 3x/week for 12 weeks [36 sessions] Intensity: 60-80% of age predicted maximum heart rate reserve Duration: 30 - 45 minutes Current METSs:: 5.4 Target Heart Rate:: 100-125 Current RPE:: 11-14 Maximum Excercise HR:: 133 Resting Blood Pressure: 126/72 Maximum Exercise Blood Pressure: 140/72 EKG Type: NSR/ST rare PVC Outcomes & Goals Goals:: Verbalizes understanding of THR, RPE & goal METS by session 6, Documents in home exercise log/reports 30 min aerobic 5 day/wk by DC, Demonstrates accurate pulse taking by DC and Other additional outcome/goals: see below Intervention & Plan Exercise Program Goals: Instruct on personal THR & RPE, Instruct on MET level & personal MET goal, Show patient to take own pulse /validate performance until accurate, Instruct on home exercise and Other additional plan/int 30-day Reassessments 30 day Reassessments:: Progressing Reassessment Notes & Comments:: RPE explained to pt. Pt is able to return understanding. Physical Activity Home Exercise Physical Activity - Home Exercise: Safe Exercise, Warm-up, Self-monitoring, Cool-Down, Home Exercise > 30 min Daily and Sitting Time <3 hours/daily Outcomes & Goals Outcomes/Goals: Demonstrates correct Warm-up/exercise Cool-Down (S3) if = 2.5 METs, Verbalizes symptoms of exercise intolerance by Session 3 (S3), Demonstrate safe equipment use (S3) & follows exercise prescrition (6) and Other: See below Intervention & Plan Plan/Intervention: Instruct warm-up & cool-down if exercising at > 2 METs, Instruct on symptoms of exercise intolerance & actions to take, Instruct & monitor on saf, Assess intial functional capacity & safety risk and Other See below 30-day Reassessments 30 day Reassessments:: Progressing Reassessment Notes & Comments:: Slow warm up demonstrated tp pt. Pt is able to return demonstration. Exercise - 60-day Assessment Physician Prescribed Exercise Modalities: Treadmill, Schwinn Airdyne AD-7 and SciFit Stepper Exercise - 90-day Assessment Physician Prescribed Exercise Modalities: Treadmill, Schwinn Airdyne AD-7 and SciFit Stepper Exercise - Final/Discharge Physician Prescribed Exercise Modalities: Treadmill, Schwinn Airdyne AD-7 and SciFit Stepper Nutrition - 30-Day Assessment Program Goals Nutrition Program Goals Patient has diagnosis of Hyperlipidemia (ICD E78)?: Yes Visit Date of Eval: 03/12/24 Session #:: 12 Cholesterol/Lipids (Other Core Measures) Determine presence & major risk factors that modify LDL goal: Hypertension or hypertensive medication, Low HDL cholesterol <40 mg/dL*, Family history of premature CHD in Male < 55 years: female <65 yearsFa and Age men > 45 years; women >/= 55 years Outcomes/Goals: Pt IDs own risk factors & lifestyle modifications by Session 10, Verbalizes symptoms of angina & response by session 3., Pt independently manages and Other Additional Outcomes/Goals: Intervention/Plan: Advocate for lipid panel cholesterol medication if applicable, Instruct on personal lipid levels & lipid goals/NCEP guidelines, Instruct on cholesterol and Other additional plan/int 30-day Reassessments:: Progressing Reassessment Notes & Comments:: Risk factors discussed. Pt understands his risk factors and how to minimize them Diabetes (Other Core Measures) Diabetes Type: Not Applicable Weight Mgt (Other Care) Height: 5 ft 9 in Weight:: 225 lb BMI: 33.2 Diagnosis Overweight/Obesity BMI> 30% ICD-10 E66: Yes Diagnosis High BMI/Morbid Obesity BMI> 35% ICD-10 Z68: No Outcomes/Goals: Pt sets, maintains & shows weight loss goal & trend during rehab and Other additional outcomes/goals Intervention/Plan: Instruct on ideal BMI & set weight loss goal w/patient, Assist pt to ID & incorporate diet changes for weight loss by S9, Refer to Structured Weight Loss program as appropriate, Encourage goal of using 250-300dcal per session for weight loss and Other additional plan/interventions 30 day Reassessments:: Progressing Reassessment Notes & Comments:: Pt is attending nutrition class this week. Pt is encouraged to keep a food log. Healthy Eating Habits Will attend diet classes:: Yes Outcomes/Goals:: Consume diet rich in vegs,fruits,whole grain/high fiber,fish,lean meat, Limit sat/trans fats,cholesterol & added salts & sugars and Other additional outcome/goals: Intervention/Plan:: Assess current eating habits and Other Additional plan/interventions 30-day Reassessments:: Progressing Reassessment Notes & Comments:: Pt is attending nutrition class this week. Pt encouraged to keep a food log. Education Gave educational materials for:: Signs & symptoms of hypoglycemia, Signs & symptoms of hyperglycemia, Relate diabetes to coronary artery disease and Healthy eating Nutrition - 60-Day Assessment Weight Mgt (Other Care) Height: 5 ft 9 in Weight:: 225 lb BMI: 33.2 Core - 30-Day Assessment Visit Date of Eval: 03/12/24 Session #:: 12 Medication Compliance Preventative Medication(s):: Aspirin, Ticagrelor/P2Y12 inhibitor and Statin/lipid H/O mental health issues: depression, anxiety, or addiction?: No Doesn?t believe in the benefits of treatment?: No Believes medications are unnecessary or harmful?: No Has a concern about medication side effects?: No Expresses concern over the cost of medications?: No Outcomes/Goals: Verbalizes medications,desired effect & common side effects @ DC, Pt self-reports following medication regimen, Keeps card in wallet w/medications listed by DC and Other additional outcome/goals: Interventions/plans: Instruct on medication effects & side effects, Review medication list w/patient every two weeks, Instruct importance of taking meds as ordered & assist problem solving and Other additional 30-day Reassessments:: Progressing Reassessment Notes & Comments:: Pt is taking his meds as prescribed. No med changes at this time. Will continue to monitor. Tobacco Use Tobacco Use: Non-smoker Hypertension Hypertension Diagnosis:: Hypertension ICD-10 I10 Resting Blood Pressure:: 126/72 [place] [employer] Hypertension Guidelines Peak Exercise Blood Pressure:: 140/72 Outcomes/Goals: Able to verbalize/achieve optimal blood pressure <130/80, Incorporates diet changes & exercise for blood pressure control by DC and Other additional outcomes/goals Interventions/plan: Instruct on optimal blood pressure, hypertension & medications, Instruct on effects of sodium, alcohol, stress, exercise &hypertension and Other additional plan/interventions 30 day Reassessments:: Progressing Reassessment Notes & Comments:: Pts BP's are within AHA normal limits. Will continue to monitor and notify physician if necessary. Tobacco Cessation Referral Smoking Cessation Referral:: No Individual Education/Counseling:: No Education Schedule Given:: Yes Psychosocial - 30-Day Assess VIsit Date of Eval: 03/12/24 Session #:: 12 History of previous Mental disease:: No Target Goals Target Goals Psychosocial Test Tool Used:: [employer] QOL Cardiac and PHQ-9 Questionnaire phq-9 Severity Referral to Behavioral Health PS - Interventions: Yes: Attend Stress Management Classes Outcomes/Goals: See list Psychosocial Outcomes/Goals:: ID's personal stressors & 2 strategies to manage stress by discharge and Other Additional outcome/goals: Intervention/Plan: See List Interventions/Plan:: Assess stressors,coping strategies & signs of derpression on admission, Instruct/assist pt to develop coping & personal stress Mgt strategies, Refer to Behavioral Health if appropriate, Refer to Physician if appropriate, Instruct patient to recognize signs & symptoms of depression, Instruct patient to recog and Other additional plan/intervention 30-day Reassessments: 30 day Reassessments:: Met Reassessment Notes & Comments:: Pt denies any psychosocial issues at this time. Will continue to monitor. Psychosocial - 60-Day Assess Target Goals Target Goals Referral to Behavioral Health PS - Interventions: Yes: Attend Stress Management Classes Outcomes/Goals: See list Psychosocial Outcomes/Goals:: ID's personal stressors & 2 strategies to manage stress by discharge and Other Additional outcome/goals: Psychosocial - 90-Day Assess Target Goals Target Goals Referral to Behavioral Health PS - Interventions: Yes: Attend Stress Management Classes Psychosocial - Final Assessmen Target Goals Target Goals Referral to Behavioral Health PS - Interventions: Yes: Attend Stress Management Classes Nutrition - 90-Day Assessment Weight Mgt (Other Care) Height: 5 ft 9 in Weight:: 225 lb BMI: 33.2 Nutrition - Final Assessment Weight Mgt (Other Care) Height: 5 ft 9 in Weight:: 225 lb BMI: 33.2
[2024-03-12 07:20] VITALS: BP 126/72; BMI 33.2
== END 2024-03-27 23:59 ==
LOC: CR 08:00
PROVIDERS: PCP Family Medicine; Referring Provider Internal Medicine Cardiovascular Disease; Visit Provider Internal Medicine Cardiovascular Disease
DX: Z95.5 Presence of coronary angioplasty implant and graft (principal); I25.10 Atherosclerotic heart disease of native coronary artery without angina pectoris; I24.1 Dressler's syndrome
CPT/HCPCS: 93798

== ENCOUNTER 2024-04-23 08:00 | Outpatient (RCR) | payer BC, SELFPAY ==
[2024-03-12 07:20] VITALS: BMI 33.2
[2024-03-28 00:44] VITALS: BP 126/72
--- NOTE | 2024-04-09 07:04 | PCM.CR.ITP ---
Exercise - Initial Assessment Physician Prescribed Exercise Modalities: Treadmill, Schwinn Airdyne AD-7 and SciFit Stepper Nutrition - Initial Assessment Weight Mgt (Other Care) Height: 5 ft 9 in Weight:: 221 lb BMI: 32.6 Core - Initial Assessment Hypertension Resting Blood Pressure:: 116/70 [place] [employer] Hypertension Guidelines Psychosocial - Initial Assess Target Goals Target Goals Referral to Behavioral Health PS - Interventions: Yes: Attend Stress Management Classes Patient Health Questionnaire PHQ-9 Screening 60-Day Re-eval Assessment: 1. Little interest or pleasure in doing things: Nearly every day 2. Feeling down, depressed, or hopeless: Several days 3. Trouble falling or staying asleep, or sleeping too much: More than half the days 4. Feeling tired or having little energy: More than half the days 5. Poor appetite or overeating: Several days 6. Feeling bad about yourself -- or that you are a failure or have let yourself or your family down: Several days 7. Trouble concentrating on things, such as reading the newspaper or watching television: Several days 8. Moving or speaking so slowly that other people could have noticed. Or the opposite - being so fidgety or restless that you have been moving around a lot more than usual: Several days 9. Thoughts that you would be better off , or of hurting yourself in some way: Not at all How difficult have these problems made it for you to do your work, take care of things at home, or get along with other people?: Somewhat difficult Total Score: 12 Self-Efficacy 6-Item Scale 60-Day Re-eval Assessment: We would like to know how confident you are in doing certain activities. Please select your confidence level for: Fatigue Select Number: 7 Physical Discomfort or Pain Select Number: 7 Emotional Distress Select Number: 7 Other Symptoms or Health Problems Select Number: 4 Different Tasks and Activities Select Number: 6 Medication Select Number: 8 Total Score:: 6 Nutrition Survey Nutrition Survey Instructions Scoring Instructions Exercise - 30-day Assessment Physician Prescribed Exercise Modalities: Treadmill, Schwinn Airdyne AD-7 and SciFit Stepper Exercise - 60-day Assessment Visit Date of Eval: 04/09/24 Session #:: 22 Physician Prescribed Exercise Modalities: Treadmill, Schwinn Airdyne AD-7 and SciFit Stepper Frequency: 3x/week for 12 weeks [36 sessions] Intensity: 60-80% of age predicted maximum heart rate reserve Duration: 30 - 45 minutes Current METSs:: 7.5 Target Heart Rate:: 100-144 Current RPE:: 12-13 Maximum Excercise HR:: 138 Resting Blood Pressure: 124/76 Maximum Exercise Blood Pressure: 148/80 EKG Type: SB to ST with rare PVC and PAC Outcomes & Goals Goals:: Verbalizes understanding of THR, RPE & goal METS by session 6, Documents in home exercise log/reports 30 min aerobic 5 day/wk by DC, Demonstrates accurate pulse taking by DC and Other additional outcome/goals: see below Intervention & Plan Exercise Program Goals: Instruct on personal THR & RPE, Instruct on MET level & personal MET goal, Show patient to take own pulse /validate performance until accurate, Instruct on home exercise and Other additional plan/int 30-day Reassessments Reassessment Notes & Comments:: MET's explained in exercise class. Pt demonstrates understanding of MET's and when to increase Physical Activity Home Exercise Physical Activity - Home Exercise: Safe Exercise, Warm-up, Self-monitoring, Cool-Down, Home Exercise > 30 min Daily and Sitting Time <3 hours/daily Outcomes & Goals Outcomes/Goals: Demonstrates correct Warm-up/exercise Cool-Down (S3) if = 2.5 METs, Verbalizes symptoms of exercise intolerance by Session 3 (S3), Demonstrate safe equipment use (S3) & follows exercise prescrition (6) and Other: See below Intervention & Plan Plan/Intervention: Instruct warm-up & cool-down if exercising at > 2 METs, Instruct on symptoms of exercise intolerance & actions to take, Instruct & monitor on saf, Assess intial functional capacity & safety risk and Other See below 30-day Reassessments 30 day Reassessments:: Progressing Reassessment Notes & Comments:: MET's explained in exercise class. Pt demonstrates understanding of MET's and when to increase. Exercise - 90-day Assessment Physician Prescribed Exercise Modalities: Treadmill, Schwinn Airdyne AD-7 and SciFit Stepper Exercise - Final/Discharge Physician Prescribed Exercise Modalities: Treadmill, Schwinn Airdyne AD-7 and SciFit Stepper Nutrition - 30-Day Assessment Weight Mgt (Other Care) Height: 5 ft 9 in Weight:: 221 lb BMI: 32.6 Nutrition - 60-Day Assessment Program Goals Nutrition Program Goals Patient has diagnosis of Hyperlipidemia (ICD E78)?: Yes Visit Date of Eval: 04/09/24 Session #:: 22 Cholesterol/Lipids (Other Core Measures) Determine presence & major risk factors that modify LDL goal: Hypertension or hypertensive medication, Low HDL cholesterol <40 mg/dL*, Family history of premature CHD in Male < 55 years: female <65 yearsFa and Age men > 45 years; women >/= 55 years Outcomes/Goals: Pt IDs own risk factors & lifestyle modifications by Session 10, Verbalizes symptoms of angina & response by session 3., Pt independently manages and Other Additional Outcomes/Goals: Intervention/Plan: Advocate for lipid panel cholesterol medication if applicable, Instruct on personal lipid levels & lipid goals/NCEP guidelines, Instruct on cholesterol and Other additional plan/int Diabetes (Other Core Measures) Diabetes Type: Not Applicable Weight Mgt (Other Care) Height: 5 ft 9 in Weight:: 221 lb BMI: 32.6 Diagnosis Overweight/Obesity BMI> 30% ICD-10 E66: Yes Diagnosis High BMI/Morbid Obesity BMI> 35% ICD-10 Z68: No Outcomes/Goals: Pt sets, maintains & shows weight loss goal & trend during rehab and Other additional outcomes/goals Intervention/Plan: Instruct on ideal BMI & set weight loss goal w/patient, Assist pt to ID & incorporate diet changes for weight loss by S9, Refer to Structured Weight Loss program as appropriate, Encourage goal of using 250-300dcal per session for weight loss and Other additional plan/interventions Healthy Eating Habits Will attend diet classes:: Yes Outcomes/Goals:: Consume diet rich in vegs,fruits,whole grain/high fiber,fish,lean meat, Limit sat/trans fats,cholesterol & added salts & sugars and Other additional outcome/goals: Intervention/Plan:: Assess current eating habits and Other Additional plan/interventions 30-day Reassessments:: Progressing Reassessment Notes & Comments:: Pt has lost 4 lbs since attending nutrition class. Pt understands the importance of a heart healthy diet and the importance of keeping a food log. Education Gave educational materials for:: Signs & symptoms of hypoglycemia, Signs & symptoms of hyperglycemia, Relate diabetes to coronary artery disease and Healthy eating Core - Final Assessment Hypertension Resting Blood Pressure:: 116/70 [place] [employer] Hypertension Guidelines Core - 60-Day Assessment Visit Date of Eval: 04/09/24 Medication Compliance Preventative Medication(s):: Aspirin, Ticagrelor/P2Y12 inhibitor and Statin/lipid H/O mental health issues: depression, anxiety, or addiction?: No Doesn?t believe in the benefits of treatment?: No Believes medications are unnecessary or harmful?: No Has a concern about medication side effects?: No Expresses concern over the cost of medications?: No Outcomes/Goals: Verbalizes medications,desired effect & common side effects @ DC, Pt self-reports following medication regimen, Keeps card in wallet w/medications listed by DC and Other additional outcome/goals: Interventions/plans: Instruct on medication effects & side effects, Review medication list w/patient every two weeks, Instruct importance of taking meds as ordered & assist problem solving and Other additional Tobacco Use Tobacco Use: Non-smoker Hypertension Hypertension Diagnosis:: Hypertension ICD-10 I10 Resting Blood Pressure:: 124/76 Resting Blood Pressure:: 116/70 [place] [employer] Hypertension Guidelines Peak Exercise Blood Pressure:: 148/80 Outcomes/Goals: Able to verbalize/achieve optimal blood pressure <130/80, Incorporates diet changes & exercise for blood pressure control by DC and Other additional outcomes/goals Interventions/plan: Instruct on optimal blood pressure, hypertension & medications, Instruct on effects of sodium, alcohol, stress, exercise &hypertension and Other additional plan/interventions 30 day Reassessments:: Progressing Reassessment Notes & Comments:: Pt's BP's are within AHA's normal limits on most days. Stress to the pt the importance of taking meds as prescribed, weight loss, and a low sodium diet in order to keep BP's within AHA requirements. Tobacco Cessation Referral Smoking Cessation Referral:: No Individual Education/Counseling:: No Education Schedule Given:: Yes Psychosocial - 30-Day Assess Target Goals Target Goals Referral to Behavioral Health PS - Interventions: Yes: Attend Stress Management Classes Outcomes/Goals: See list Psychosocial Outcomes/Goals:: ID's personal stressors & 2 strategies to manage stress by discharge and Other Additional outcome/goals: Psychosocial - 60-Day Assess VIsit Date of Eval: 04/09/24 Session #:: 22 History of previous Mental disease:: No Target Goals Target Goals Psychosocial Test Tool Used:: [employer] QOL Cardiac and PHQ-9 Questionnaire phq-9 Severity Referral to Behavioral Health PS - Interventions: Yes: Attend Stress Management Classes Outcomes/Goals: See list Psychosocial Outcomes/Goals:: ID's personal stressors & 2 strategies to manage stress by discharge and Other Additional outcome/goals: Intervention/Plan: See List Interventions/Plan:: Assess stressors,coping strategies & signs of derpression on admission, Instruct/assist pt to develop coping & personal stress Mgt strategies, Refer to Behavioral Health if appropriate, Refer to Physician if appropriate, Instruct patient to recognize signs & symptoms of depression, Instruct patient to recog and Other additional plan/intervention 30-day Reassessments: 30 day Reassessments:: Met Reassessment Notes & Comments:: Pt denies any psychosocial issues at this time. Continue to stress the importance of reducing stress through exercise, meditation, and getting plenty of rest. Psychosocial - 90-Day Assess Target Goals Target Goals Referral to Behavioral Health PS - Interventions: Yes: Attend Stress Management Classes Psychosocial - Final Assessmen Target Goals Target Goals Referral to Behavioral Health PS - Interventions: Yes: Attend Stress Management Classes Nutrition - 90-Day Assessment Weight Mgt (Other Care) Height: 5 ft 9 in Weight:: 221 lb BMI: 32.6 Nutrition - Final Assessment Weight Mgt (Other Care) Height: 5 ft 9 in Weight:: 221 lb BMI: 32.6
[2024-04-09 07:19] VITALS: BP 116/70; BP 124/76; BMI 32.6
== END 2024-04-27 23:59 ==
LOC: CR 08:00
PROVIDERS: PCP Family Medicine; Referring Provider Internal Medicine Cardiovascular Disease; Visit Provider Internal Medicine Cardiovascular Disease
DX: Z95.5 Presence of coronary angioplasty implant and graft (principal); I25.10 Atherosclerotic heart disease of native coronary artery without angina pectoris; I21.4 Non-ST elevation (NSTEMI) myocardial infarction
CPT/HCPCS: 93798

== ENCOUNTER 2024-04-30 06:02 | Outpatient (RCR) | payer BC, SELFPAY ==
[2024-04-09 07:19] VITALS: BMI 32.6
[2024-04-28 00:44] VITALS: BP 116/70; BP 124/76; BP 126/72
== END 2024-05-28 23:59 ==
LOC: CR 06:02
PROVIDERS: PCP Family Medicine; Referring Provider Internal Medicine Cardiovascular Disease; Visit Provider Internal Medicine Cardiovascular Disease
DX: Z95.5 Presence of coronary angioplasty implant and graft (principal); I25.10 Atherosclerotic heart disease of native coronary artery without angina pectoris; I21.4 Non-ST elevation (NSTEMI) myocardial infarction

== ENCOUNTER → 2024-06-29 | Outpatient (CLI) | payer BC, SELFPAY ==
[2024-04-09 07:19] VITALS: BMI 32.6
[2024-06-29 18:35] LABS: ALB/GLOB Ratio 1.6 RATIO (0.9-2.4); AST(SGOT) 30 U/L (<=37); Alanine Aminotransfer ALT/SGPT 53 U/L (<=46); Albumin, Serum 4.5 g/dL (3.5-5.0); Alkaline Phosphatase 82 U/L (40-129); Anion Gap 11 (5-15); BUN 15 mg/dL (4-19); BUN/Creat Ratio 16.6 RATIO (10-20); Carbon Dioxide 24.6 mmol/L (21.0-32.0); Chloride 101 mmol/L (98-108); Creatinine, Serum 0.89 mg/dL (0.70-1.20); EST Glomerular Filtration Rate 103 (>60); Globulin 2.8 g/dL (2.2-4.2); Glucose 134 mg/dL (70-99); PSA,Total - Annual Screen 0.86 ng/mL (0.02-4.00); Potassium 4.3 mmol/L (3.3-5.1); Protein, Total 7.3 g/dL (5.9-8.4); Sodium Level 137 mmol/L (133-145); Total Bilirubin 0.43 mg/dL (0.00-1.30)
[2024-06-29 19:20] LABS: Cholesterol 165 mg/dL (<=200); High Density Lipoprotein 64 mg/dL; Low Density Lipoprotein Calc. 83 mg/dL; Triglycerides 89 mg/dL; Very Low Density Lipoprotein 18 mg/dL (5-40); cholesterol:hdl ratio screen 2.57
== END | disposition home or self-care (01) ==
LOC: MTLAB 11:11
PROVIDERS: PCP Family Medicine; Referring Provider Family Medicine; Visit Provider Family Medicine
DX: E78.5 Hyperlipidemia, unspecified (principal); E11.9 Type 2 diabetes mellitus without complications; Z12.5 Encounter for screening for malignant neoplasm of prostate
CPT/HCPCS: 36415; 80053; 80061; 84153; 84443; G0103

== ENCOUNTER → 2024-08-13 | Outpatient (CLI) | payer BC, SELFPAY ==
[2024-04-09 07:19] VITALS: BMI 32.6
[2024-08-13 10:50] LABS: Cholesterol 163 mg/dL (<=200); High Density Lipoprotein 55 mg/dL; Low Density Lipoprotein Calc. 92 mg/dL; Triglycerides 80 mg/dL; Very Low Density Lipoprotein 16 mg/dL (5-40); cholesterol:hdl ratio screen 2.96
[2024-08-13 10:59] LABS: Hemoglobin A1c 7.2 % (<=5.6)
== END | disposition home or self-care (01) ==
LOC: LAB 09:17
PROVIDERS: PCP Family Medicine; Referring Provider Internal Medicine Cardiovascular Disease; Visit Provider Internal Medicine Cardiovascular Disease
DX: I10 Essential (primary) hypertension (principal); E78.5 Hyperlipidemia, unspecified
CPT/HCPCS: 36415; 80061; 83036

== ENCOUNTER 2024-08-20 08:00 | Outpatient (RCR) | payer BC, SELFPAY ==
[2024-04-09 07:19] VITALS: BMI 32.6
--- NOTE | 2024-05-05 09:35 | HP.PTEVAL ---
Patient's Visit Information Visit Information Visit Information: KENYA GORE is a 53 year old M referred to Physical Therapy by Dr. Saravanan Ibrahim MD with a diagnosis of RADICULOPATHY ,CERVICAL. Date of Evaluation: 05/05/24 Physical Therapist: Vu Quintero PT, Cert MDT, OCS Visit Plan Frequency: 2x /Week Duration: 4 Weeks Plan: PATIENT NEEDS CERVICAL SURGERY BUT ON HOLD DUE TO MO AND ON BLOOD THINNER PT INTERVENTIONS CERVICAL ROM INITIALLY AVOID LEFT ,POSTURAL EX'S ,STRENGTHENING ,MANUAL THERAPY( CERVICAL TRACTION) , AND MODALTIES Subjective Subjective: This 53 y/o male presents to physical therapy with cervical radiculopathy . Patient has cervical radiculopathy with many years . Seen Dr Ibrahim reviewed MRI showed Moderately pronounced stenosis of the right C5-C6 intervertebral neuroforamen and moderate stenosis of the left C5-C6 intervertebral neuroforamen due to osteophytes arising from the uncovertebral joints, right greater than left. Dr Ibrahim recommended surgery. Patient had MO and stents in widowmaker . recommended pain management Thus at this point needs cervical surgery. Patient located in cervical left radicular symptoms left arm. Patient aggravating turning to left ,look up ,lifting. Alleviating factors rest. Denies BAXTER /nausea/tinnitus. Patient symptoms affects sleeping. Patient condition affects QOL and function. 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 Special Tests C/S Radiculapathy - Left Upper limb tension test: Negative C/S Radiculapathy - Right Upper limb tension test: Negative C/S Radiculapathy - Left Spurlings: Positive C/S Radiculapathy - Right Spurlings: Negative C/S Radiculapathy - Left Cervical distraction: Negative C/S Radiculapathy - Right Cervical distraction: Negative C/S Radiculapathy - Left Relief test: Negative C/S Radiculapathy - Right Relief test: Negative Sharp Andie: Negative Vertebral Artery Test: Negative Alar Ligament Test: Negative Balance/Special Test Scores Oswestry Neck Score: 25 Goals Goal 1:: Patient to be I with HEP Goal Time Frame: 4-6 Weeks Goal 2:: Patient to improve cervical ROM for function of recovery for driving Goal Time Frame: 4-6 Weeks Goal 3:: Patient to demonstrate 40% improvement with less pain and improved function Goal Time Frame: 4-6 Weeks Goal 4:: Patient to improve 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 strength dynamometer by 5 #to improve function Goal Time Frame: 4-6 Weeks Goal 5:: Patient to improve neck oswestry score by 5 points to improve QOL Goal Time Frame: 4-6 Weeks Rehabilitation Potential Physical Therapy Diagnosis: Patient has cervical radiculopathy with stenosis with pain with positioning and motion testing with weakness 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 ,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 due to recent MO and on blood thinner thus benefit from skilled PT Rehabilitation Potential: Good Anticipated Interventions Patient/Client Instruction: Educate patient on: Condition and Plan of Care For the Purpose of:: To decrease pain, To increase ROM, To improve muscle performance and motor function, To improve ability to perform ADL's, To increase tolerance to activity/condition/position, To improve ability of physical actions for home/community/work/leisure, To improve health of tissue, To decrease soft tissue restriction and To increase flexibility/ROM Therapeutic Exercise to Include: Strength training, Balance training, Postural training, Flexibilty training and Dynamic Lumbar Stabilization For the Purpose of:: To decrease pain, To increase ROM, To improve nutrient delivery to tissue, To increase oxygenation perfusion, To improve muscle performance and motor function, To improve ability to perform ADL's, To increase tolerance to activity/condition/position, To improve ability of physical actions for home/community/work/leisure, To improve health of tissue, To decrease soft tissue restriction, To increase flexibility/ROM and To improve tolerance to ADL's Manual Therapy Techniques to Include: Mobilization Comment: CERVICAL TRACTION For the Purpose of:: To decrease pain, To increase ROM, To improve nutrient delivery to tissue, To increase oxygenation perfusion, To improve health of tissue and To decrease soft tissue restriction TENS: Yes IF ES: Yes Cryotherapy (ice pack, ice massage): Yes Thermo therapy (hot pack): Yes Ultrasound (thermal/non thermal): Yes For the Purpose of:: To decrease pain, To increase ROM, To improve nutrient delivery to tissue, To increase oxygenation perfusion, To improve health of tissue and To decrease soft tissue restriction Text: Thank you for the opportunity to evaluate your patient. For Medicare and Medicare HMO plans, please review the plan of care and approve it. It will need to be FAXED BACK to us at [phone] for Medicare purposes. For Medicare only, by signing this I certify the plan of care. Please let me know if there are questions or concerns regarding this plan of care. Physician Signature: Date:
--- NOTE | 2024-12-07 12:22 | HP.PTDCSUM ---
Discharge Summary D/C summary: It has been my pleasure to treat KENYA GORE referred by Dr. Saravanan Ibrahim MD, with the diagnosis of RADICULOPATHY ,CERVICAL for a total of 21 visit(s). Discharge Date: Please see the following information for a summary of their discharge status. Subjective Subjective: Doing okay stiff I have a date September 13 Pain Bilateral Neck: Pain Intensity (Out of 10): 2 Overall Improvement % Improvement: 20 Objective Objective/Function: POSTURE: forward posture head forward PALPATION: tender UT/levator/paraspinals NEURO: denies paresthesia/tingling reflexes C5-6-7 / AROM: BUE WFL MMT: BUE 4/5 grossly CERVICAL ROM: flexion min loss ,lateral flexion mod left pain ,rotation mod pain left ,mod right lateral/flexion ,extension mod/extension loss pain Goals Goal 1:: Patient to be I with HEP Goal Progress: Progressing Goal 2:: Patient to improve cervical ROM for function of recovery for driving Goal Progress: Progressing Goal 3:: Patient to demonstrate 40% improvement with less pain and improved function Goal Progress: Progressing Goal 4:: 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 Thank you for the referral of this patient. Sincerely, Vu Quintero, PT, Cert MDT, OCS Balance/Gait/Functional tests Balance/Special Test Scores Oswestry Neck Score: 25 Improvement % Improvement: 20
--- NOTE | 2024-12-07 12:22 | HP.PTDCSUM ---
Discharge Summary D/C summary: It has been my pleasure to treat KENYA GORE referred by Dr. Saravanan Ibrahim MD, with the diagnosis of RADICULOPATHY ,CERVICAL for a total of 21 visit(s). Discharge Date: Please see the following information for a summary of their discharge status. Subjective Subjective: Doing okay stiff I have a date September 13 Pain Bilateral Neck: Pain Intensity (Out of 10): 2 Overall Improvement % Improvement: 20 Objective Objective/Function: POSTURE: forward posture head forward PALPATION: tender UT/levator/paraspinals NEURO: denies paresthesia/tingling reflexes C5-6-7 / AROM: BUE WFL MMT: BUE 4/5 grossly CERVICAL ROM: flexion min loss ,lateral flexion mod left pain ,rotation mod pain left ,mod right lateral/flexion ,extension mod/extension loss pain Goals Goal 1:: Patient to be I with HEP Goal Progress: Progressing Goal 2:: Patient to improve cervical ROM for function of recovery for driving Goal Progress: Progressing Goal 3:: Patient to demonstrate 40% improvement with less pain and improved function Goal Progress: Progressing Goal 4:: 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 Thank you for the referral of this patient. Sincerely, Vu Quintero, PT, Cert MDT, OCS Balance/Gait/Functional tests Balance/Special Test Scores Oswestry Neck Score: 25 Improvement % Improvement: 20
== END 2024-08-20 19:00 | disposition home or self-care (01) ==
LOC: PT 08:00
PROVIDERS: PCP Family Medicine; Referring Provider Orthopaedic Surgery Orthopaedic Surgery of the Spine; Visit Provider Orthopaedic Surgery Orthopaedic Surgery of the Spine
DX: M54.12 Radiculopathy, cervical region (principal)
CPT/HCPCS: 97110; 97140; 97162; 97530

== ENCOUNTER 2024-09-13 06:10 | Day surgery (SDC) | payer BC, SELFPAY ==
[2024-04-09 07:19] VITALS: BMI 32.6
--- NOTE | 2024-09-10 08:46 | PAT.ANE_ITS ---
Pre-Assessment Diagnosis/Proposed Procedure Planned Operative Procedure(s): LEFT C4 C5 C6 C7 FACETS STEROID INJECTION UNDER FLUOROSCOPY Anesthesia History Anesthesia History - advertising sales associate: Anesthesia History - advertising sales associate Hx Hospitalization Yes: [place] 12/202309/10/24 08:15 Any Problems With Anesthesia Yes: SLOW TO AWAKEN 09/10/24 08:15 Cholinesterase deficiency No 09/10/24 08:15 You/Your Family Experience No 09/10/24 08:15 fever (hyperthermia) with Relationship Recent Exposure to Contagious No 02/13/21 12:46 Disease Does patient have nerve No 09/10/24 08:15 stimulator Patient instructed to have device shut off --Does patient have Pacemaker or ICD? When Was Last Pacemaker Check QUESTION #4 FULL TEXT: You/Your Family Experience fever (hyperthermia) with Anesthesia Last Oral Intake Last Oral intake: Last Oral Intake NPO since Meds taken in AM with sips of water? 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 - advertising sales associate: PONV - advertising sales associate Female No 09/10/24 08:15 HX of Motion Sickness No 09/10/24 08:15 HX of N/V After Surgery No 09/10/24 08:15 Non-Smoker Yes 09/10/24 08:15 Duration of Surgery greater Yes 09/10/24 08:15 than 60 minutes Number of Risk Factors 2 09/10/24 08:15 PONV Score Moderate Risk 09/10/24 08:15 Height & Weight Height & Weight: Anesthesia: Height & Weight Height 5 ft 9 in 08/11/24 08:49 Respiratory Assessment Respiratory Assessment - advertising sales associate: Respiratory Tract Infection Hx - advertising sales associate Hx Respiratory Tract Infection No 09/10/24 08:15 STOP Sleep Apnea STOP Sleep Apnea - advertising sales associate: STOP Sleep Apnea - advertising sales associate Hx Hypertension Yes: CONTROLLED WITH MED 09/10/24 08:15 Hx Sleep Apnea Yes 09/10/24 08:15 CPAP Yes 09/10/24 08:15 BIPAP No 09/10/24 08:15 Do you snore loudly (louder than talking or can be heard Do you often feel tired/ fatigued/ sleepy during daytime? Has anyone observed you stop breathing during sleep? STOP Results Positive 09/10/24 08:15 QUESTION #5 FULL TEXT : Do you snore loudly (louder than talking or can be heard through closed doors)? 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 Specify any problems Hx of Preganancy in last 3 N/A 09/10/24 08:15 Months Nurse Filling Out Transfusion DSCHRIBER 09/10/24 08:15 & Questions: Date: 09/10/24 09/10/24 08:15 Time: 08:17 09/10/24 08:15 Patient unable to answer at this time (ie. confused, unrespo /Reproduction History /Reproductive History - advertising sales associate: /Reproductive Hx- advertising sales associate Hx Now No 09/10/24 08:15 Gestational Age (in weeks): EDC: Hx Hx Para Hx Section SAB No 09/10/24 08:15 PFSH Medical History Wears glasses Alcohol use Diabetes Low iron High cholesterol Back pain Asthma Non-smoker CPAP (continuous positive airway pressure) dependence Hypertension History of pain when walking History of edema History of echocardiogram Cardiology follow-up encounter History of heart attack Obesity (BMI 30.0-34.9) Dyslipidemia CKD (chronic kidney disease), stage II Wears contact lenses Injury of head and neck History of stress test history of pilon ankle fracture Arthritis Home Medications ?Medication ?Instructions ?Recorded ?Last Taken ?Type aspirin 81 mg tablet,delayed 81 mg PO BREAKFAST 90 day s #90 tabs 01/16/24 Unknown Rx release multivitamin 1 tab PO QAM 02/23/24 Unknow n History amlodipine 5 mg tablet 5 mg PO DAILY #90 tabs 04/14 Unknown Rx ticagrelor 90 mg tablet (Brilinta) 90 mg PO BID #180 t abs 04/19/24 09/07/24 Rx rosuvastatin 20 mg tablet 20 mg PO QHS 09/10/24 Unknow n History Allergy/AdvReac Type Severity Reaction Status Date / Time Fish Containing Products Allergy Severe Anaphylaxis Verified 08/11/24 14:59 shellfish derived Allergy Severe Anaphylaxis Verified 08/11/24 14:59 atorvastatin AdvReac Mild Diarrhea Verified 08/11/24 14:59 Family History Father Heart disease CAD (coronary artery disease) Hypertension Myocardial infarction Mother Colon cancer Surgical History (Updated 09/10/24 @ 08:24 by Felicitas Young) History of cardiac catheterization Hx of colonoscopy Stented coronary artery History of ankle surgery History of total ankle replacement History of cholecystectomy History of tonsillectomy Social History household members: spouse Smoking Status: Never smoker alcohol intake: current alcohol intake frequency: holidays/special occasions only substance use type: does not use Audit: Pertinent Findings Pertinent Findings EKG Perinent findings: Sinus bradycardia Echo (EF%) pertinent findings: The estimated ejection fraction is 55 %. No evidence for diastolic dysfunction. Structurally normal valves. Heart catheterization pertinent findings: Successful DEYA Mid RCA using [place] 3.0x18 mm, post-dilated using 3.5 mm balloon, optimized proximally using 3.75 mm balloon Current Visit Impressions Current Visit Impressions: It is noted that the patient has been having C-spine issues. He may need to undergo local injection therapy. He is almost 6 months since his last percutaneous intervention. I think if it is decided to proceed with either surgical or injection therapy for his C-spine issues, we can safely discontinue the ticagrelor 3 to 4 days prior to the procedure and resume thereafter. Continue aspirin uninterrupted. In my opinion, he is an acceptable risk for either surgery or injection therapy from a cardiac standpoint. Recommendation Anesthesia Recommendation Anesthesia recommendation: OPTIMIZED for anesthesia
[2024-09-13] VITALS (8 sets, daily range): BP systolic 111–131; BP diastolic 71–98; PULSE 53–56; RESP 16–18; TEMP 36.3–36.6; O2SAT 96–98; BMI 34.4
[2024-09-13] MEDS: Lactated Ringers 1,000 ML 15 ML IV (06:30)
--- NOTE | 2024-09-13 06:30 | RAD_ITS ---
PROCEDURE: CERV SPINE 4 OR 5 VIEWS 09/13/2024 REASON FOR EXAM: BLOCK C4 C5 C6 C7 TECHNIQUE: Fluoroscopy with 4 spot images during cervical spine block/injection FINDINGS: Fluoroscopy time 8.5 seconds Cumulative dose 1.50 mGy 4 spot images show unilateral multilevel needle localization. Please see procedure report for further detail. RAD/Cerv Spine 4 or 5 Views IMPRESSION: Fluoroscopy as above. Reading Location: [id number]
--- NOTE | 2024-09-13 07:15 | PCM.PRE.AN2 ---
ASA Classification* ASA Classification ASA Classification: 2 Assessment & Plan Anesthesia* Anesthesia Assessment Anesthesia Assessment: Discussed sedation and/or anesthesia options, risks, benefits, and alternatives with patient/parents/legal guardian/POA. Questions invited. The patient/parents/legal guardian/POA seems to understand and agrees to proceed with anesthesia plan. Reviewed the physical assessment, medical history, allergy history and patient home medications list prior to surgery/procedure/anesthetic and documented any changes. Performed airway and anesthesia risk assessments. Anesthesia Type Anesthesia Type: MAC Anesthesia Focused Assessment* Temperature: 97.4 F Pulse Rate: 53 Blood Pressure: 117/75 Respiratory Rate: 18 Pulse Ox: 97 Airway Assessment Mouth opens: >3 cm Mallampati Score: II Focused Labs Anesthesia Preop lab: CBC WBC 8.3 K/mm3 (4.4-11.0) 01/30/24 01:41 01/30/24 RBC 4.31 M/mm3 (4.6-6.2) L 01/30/24 01:41 01/30/24 Hgb 12.8 g/dL (13.0-16.5) L 01/30/24 01:41 01/30/24 Hct 37.9 % (40-54) L 01/30/24 01:41 01/30/24 Plt Count 219 K/mm3 (150-450) 01/30/24 01:41 01/30/24 CHEMISTRY Potassium 4.3 mmol/L (3.3-5.1) 06/29/24 11:14 06/29/24 Sodium 137 mmol/L (133-145) 06/29/24 11:14 06/29/24 Magnesium 1.9 mg/dL (1.6-2.6) 01/30/24 01:41 01/30/24 BUN 15 mg/dL (4-19) 06/29/24 11:14 06/29/24 Creatinine 0.89 mg/dL (0.70-1.20) 06/29/24 11:14 06/29/24 Glucose 134 mg/dL (70-99) H 06/29/24 11:14 06/29/24 TSH 1.980 uIU/mL (0.300-4.200) 06/29/24 11:14 06/29/24 COAG PT 13.2 SECONDS (11.7-14.9) 01/14/24 22:20 01/14/24 Pre-Assessment Diagnosis/Proposed Procedure Planned Operative Procedure(s): LEFT C4 C5 C6 C7 FACETS STEROID INJECTION UNDER FLUOROSCOPY Anesthesia History Anesthesia History - manager sharepoint: Anesthesia History - manager sharepoint Hx Hospitalization Yes: [place] 12/202309/10/24 08:15 Any Problems With Anesthesia Yes: SLOW TO AWAKEN 09/10/24 08:15 Cholinesterase deficiency No 09/10/24 08:15 You/Your Family Experience No 09/10/24 08:15 fever (hyperthermia) with Relationship Recent Exposure to Contagious No 09/13/24 06:33 Disease Does patient have nerve No 09/10/24 08:15 stimulator Patient instructed to have device shut off --Does patient have Pacemaker No 09/13/24 06:33 or ICD? When Was Last Pacemaker Check QUESTION #4 FULL TEXT: You/Your Family Experience fever (hyperthermia) with Anesthesia Last Oral Intake Last Oral intake: Last Oral Intake NPO since 20:00 09/13/24 06:33 Meds taken in AM with sips of Yes 09/13/24 06:33 water? 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 - manager sharepoint: PONV - manager sharepoint Female No 09/10/24 08:15 HX of Motion Sickness No 09/10/24 08:15 HX of N/V After Surgery No 09/10/24 08:15 Non-Smoker Yes 09/10/24 08:15 Duration of Surgery greater Yes 09/10/24 08:15 than 60 minutes Number of Risk Factors 2 09/10/24 08:15 PONV Score Moderate Risk 09/10/24 08:15 Height & Weight Height & Weight: Anesthesia: Height & Weight Height 5 ft 9 in 09/13/24 06:33 Weight: 106 kg 09/13/24 06:33 Body Mass Index (BMI) 34.4 09/13/24 06:33 Respiratory Assessment Respiratory Assessment - manager sharepoint: Respiratory Tract Infection Hx - manager sharepoint Hx Respiratory Tract Infection No 09/10/24 08:15 STOP Sleep Apnea STOP Sleep Apnea - manager sharepoint: STOP Sleep Apnea - manager sharepoint Hx Hypertension Yes: CONTROLLED WITH MED 09/10/24 08:15 Hx Sleep Apnea Yes 09/10/24 08:15 CPAP Yes 09/10/24 08:15 BIPAP No 09/10/24 08:15 Do you snore loudly (louder than talking or can be heard Do you often feel tired/ fatigued/ sleepy during daytime? Has anyone observed you stop breathing during sleep? STOP Results Positive 09/10/24 08:15 QUESTION #5 FULL TEXT : Do you snore loudly (louder than talking or can be heard through closed doors)? 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 Specify any problems Hx of Preganancy in last 3 N/A 09/10/24 08:15 Months Nurse Filling Out Transfusion DSCHRIBER 09/10/24 08:15 & Questions: Date: 09/10/24 09/10/24 08:15 Time: 08:17 09/10/24 08:15 Patient unable to answer at this time (ie. confused, unrespo /Reproduction History /Reproductive History - manager sharepoint: /Reproductive Hx- manager sharepoint Hx Now No 09/10/24 08:15 Gestational Age (in weeks): EDC: Hx Hx Para Hx Section SAB No 09/10/24 08:15 Active Medications Active Medications: Current Medications Generic Name Dose Route Start Last Admin Trade Name Freq PRN Reason Stop Dose Admin Lactated Ringer's 1,000 mls @ 15 mls/hr 09/13/24 06:30 09/13/24 06:30 IV 15 mls/hr .Q48H ROSEANNE Administration PFSH Medical History Wears glasses Alcohol use Diabetes Low iron High cholesterol Back pain Asthma Non-smoker CPAP (continuous positive airway pressure) dependence Hypertension History of pain when walking History of edema History of echocardiogram Cardiology follow-up encounter History of heart attack Obesity (BMI 30.0-34.9) Dyslipidemia CKD (chronic kidney disease), stage II Wears contact lenses Injury of head and neck History of stress test history of pilon ankle fracture Arthritis Home Medications ?Medication ?Instructions ?Recorded ?Last Taken ?Type aspirin 81 mg tablet,delayed 81 mg PO BREAKFAST 90 days #90 tabs 01/16/24 09/12/24 Rx release multivitamin 1 tab PO QAM 02/23/24 09/11/24 History amlodipine 5 mg tablet 5 mg PO DAILY #90 tabs 04/14/24 09/13/24 Rx ticagrelor 90 mg tablet (Brilinta) 90 mg PO BID #180 tabs 04/19/24 09/07/24 Rx rosuvastatin 20 mg tablet 20 mg PO QHS 09/10/24 09/12/24 History Allergy/AdvReac Type Severity Reaction Status Date / Time Fish Containing Products Allergy Severe Anaphylaxis Verified 09/13/24 06:31 shellfish derived Allergy Severe Anaphylaxis Verified 09/13/24 06:31 atorvastatin AdvReac Mild Diarrhea Verified 09/13/24 06:31 Family History Father Heart disease CAD (coronary artery disease) Hypertension Myocardial infarction Mother Colon cancer Surgical History History of cardiac catheterization Hx of colonoscopy Stented coronary artery History of ankle surgery History of total ankle replacement History of cholecystectomy History of tonsillectomy Social History household members: spouse Smoking Status: Never smoker alcohol intake: current alcohol intake frequency: holidays/special occasions only substance use type: does not use Review of Systems (Anesthesia) ROS Narrative System reviewed and no additional complaints, except as documented.
[2024-09-13] MEDS: MethylPREDNISolone Acetate 80 MG/ML Vial (08:00)
[2024-09-13] MEDS: Bupivacaine 0.25% 30 ML Vial (08:00)
--- NOTE | 2024-09-13 08:20 | OP.PCM_ITS ---
Operative Report (Standard) Operative Information Date of Procedure: 09/13/24 Pre-Operative Diagnosis: Cervical spondylosis, cervical degenerative disc disease, cervical facet arthropathy Post-Operative Diagnosis: Cervical spondylosis, cervical degenerative disc disease, cervical facet arthropathy Surgery/Procedure Performed: Left-sided cervical facet steroid injection, C4, C5, C6, and C7. creative writing professor: No Type of Anesthesia: Local MAC RN Documented Start/Stop Times: Operation Date: 09/13/24 07:50 Case Time Into Pre-Op 09/13/24 06:18 Out of Pre-Op 09/13/24 07:42 Anesthesia Start 09/13/24 07:55 Into Room 09/13/24 07:55 Procedure Start 09/13/24 07:59 Procedure End 09/13/24 08:02 Anesthesia End 09/13/24 08:05 Out of Room 09/13/24 08:05 Into Recovery 09/13/24 08:07 Procedure Start Time: 08:23 Procedure Stop Time: 08:23 Select all DRAINS/GRAFTS/IMPLANTS that apply: None Estimated Blood Loss: 1 Specimen collected: No Description of surgery: PROCEDURE PERFORMED: Left-sided cervical facet steroid injection, C4, C5, C6, and C7. ANESTHESIA: MAC. BLOOD LOSS: Minimal. COMPLICATIONS: None. DESCRIPTION OF PROCEDURE: History and physical of today was reviewed. Risks and benefits of the procedure were explained. The patient understood and agreed to proceed. Informed consent was obtained. IV inserted per routine protocol. The patient was taken to the operating room and placed in the prone position with a pillow positioned underneath the chest. The neck area was prepped and draped in a sterile fashion using iodine x3. Under fluoroscopy guidance on an AP view, the C4 through C7 vertebral bodies were visualized at approximately 10- degree angle, starting on the left C4, ending on the left C7, passing through the C5 and C6. Using a 25-gauge 3-1/2-inch spinal needle, the needle was advanced via the skin. The tip of the needle was maneuvered and directed towards the epiphyseal junction of each corresponding vertebra. Once the tip of the needle was at the vicinity of the medial branch, the needle was pulled approximately 2 mm off the bone. After negative aspiration of blood or CSF and confirmation on AP, oblique as well as lateral view, a total of 4 mL of preservative-free 0.25% Marcaine with 80 mg of Depo-Medrol was injected in divided doses between those four levels. The needles were then removed intact. The patient experienced no sign or symptoms of intrathecal or intravascular injection. The patient experienced no paresthesia. The procedure was completed without any apparent difficulty or any complications. The patient appeared to tolerate it well. ASSESSMENT AND PLAN: This is a 54-year-old male with cervical spondylosis, cervical facet arthropathy, cervical degenerative disc disease, status post left-sided cervical facet steroid injection C4-C7 under fluoroscopic guidance, patient will continue with their current medications, patient will follow-up in approximately 1 to 2 weeks for reevaluation. Surgical Findings: 1 Complications Complications: No Admit VTE Documentation VTE Present on Admission: No VTE Mechan Device Prophylaxis: None VTE Pharm Prophylaxis ordered?: No
--- NOTE | 2024-09-13 08:58 | PCM.POST.ANE ---
Anesthesia: Postop Eval I Current Vital Signs Temperature: 97.6 F Pulse Rate: 53 Blood Pressure: 129/80 Respiratory Rate: 16 Pulse Ox: 98 Oxygen Delivery Method: Room Air Assessment Airway patent: Yes Spontaneous unlabored respirations: Yes Mental status: Awake and Calm nausea: No Vomiting: No Anesthesia Complication: No Fluid Hydration Crystalloid volume administer (ml): 200 Total IV fluid infused: 200 Progress Note Anesthesia document: Postop Eval 1 completed: Yes
--- NOTE | 2024-09-13 09:09 | POSTOPAN2_ITS ---
Anesthesia Postop Eval I Sum Postop Eval Completion status Anesthesia document: Postop Eval 1 completed: Yes Anesthesia Postop Eval I Summary Anesthesia Postop Eval I Summary: Anesthesia Postop Eval I: Assessment Summary Airway patent Yes 09/13/24 08:59 [email or web address] Spontaneous unlabored Yes 09/13/24 08:59 [email or web address] respirations Mental status Awake,Calm 09/13/24 08:59 [email or web address] nausea No 09/13/24 08:59 [email or web address] Vomiting No 09/13/24 08:59 [email or web address] Anesthesia Postop Eval I: Fluid Summary Crystalloid volume administer 200 09/13/24 08:59 [email or web address] (ml) Colloids volume administered ( ml) Blood Product volume administered (ml) Total IV fluid infused 200 09/13/24 08:59 [email or web address] Anesthesia Postop Eval I: Summary Notes Anesthesia Complication No 09/13/24 08:59 [email or web address] Anesthesia Complication Comment: Post-operative progress note Anesthesia: Postop Eval II Evaluation Mental status: Awake Pain Level: 0 nausea: No Vomiting: No
--- NOTE | 2024-09-13 09:09 | PCM.POSTANE2 ---
Anesthesia Postop Eval I Sum Postop Eval Completion status Anesthesia document: Postop Eval 1 completed: Yes Anesthesia Postop Eval I Summary Anesthesia Postop Eval I Summary: Anesthesia Postop Eval I: Assessment Summary Airway patent Yes 09/13/24 08:59 [email or web address] Spontaneous unlabored Yes 09/13/24 08:59 [email or web address] respirations Mental status Awake,Calm 09/13/24 08:59 [email or web address] nausea No 09/13/24 08:59 [email or web address] Vomiting No 09/13/24 08:59 [email or web address] Anesthesia Postop Eval I: Fluid Summary Crystalloid volume administer 200 09/13/24 08:59 [email or web address] (ml) Colloids volume administered ( ml) Blood Product volume administered (ml) Total IV fluid infused 200 09/13/24 08:59 [email or web address] Anesthesia Postop Eval I: Summary Notes Anesthesia Complication No 09/13/24 08:59 [email or web address] Anesthesia Complication Comment: Post-operative progress note Anesthesia: Postop Eval II Evaluation Mental status: Awake Pain Level: 0 nausea: No Vomiting: No
== END 2024-09-13 08:37 | disposition home or self-care (01) ==
LOC: SDC 06:10 → AC 06:12
PROVIDERS: PCP Family Medicine; Referring Provider Anesthesiology Pain Medicine; Visit Provider Anesthesiology Pain Medicine
PROC: 3E0U3BZ Introduction of Anesthetic Agent into Joints, Percutaneous Approach (ICD-10-PCS; CPT 64490; principal; 2024-09-13 07:45)
DX: M47.812 Spondylosis without myelopathy or radiculopathy, cervical region (principal); M50.30 Other cervical disc degeneration, unspecified cervical region; Z79.899 Other long term (current) drug therapy; Z90.49 Acquired absence of other specified parts of digestive tract; Z95.5 Presence of coronary angioplasty implant and graft; I25.2 Old myocardial infarction; G47.33 Obstructive sleep apnea (adult) (pediatric); E78.5 Hyperlipidemia, unspecified; M54.12 Radiculopathy, cervical region; Z79.82 Long term (current) use of aspirin; R20.0 Anesthesia of skin
CPT/HCPCS: 64491; 64492; 64490; 72050

== ENCOUNTER → 2025-01-26 | Outpatient (CLI) | payer BC, SELFPAY ==
[2024-04-09 07:19] VITALS: BMI 32.6
[2025-01-26 11:46] LABS: AST(SGOT) 31 U/L (<=37); Alanine Aminotransfer ALT/SGPT 48 U/L (<=46); Albumin, Serum 4.6 g/dL (3.5-5.0); Alkaline Phosphatase 62 U/L (40-129); Anion Gap 13 (5-15); BUN 24 mg/dL (4-19); BUN/Creat Ratio 26.3 RATIO (10-20); Calcium,Total 9.5 mg/dL (7.6-11.0); Carbon Dioxide 19.4 mmol/L (21.0-32.0); Chloride 105 mmol/L (98-108); Cholesterol 158 mg/dL (<=200); Globulin 2.7 g/dL (2.2-4.2); Glucose 128 mg/dL (70-99); Low Density Lipoprotein Calc. 80 mg/dL; Potassium 4.3 mmol/L (3.3-5.1); Triglycerides 105 mg/dL; Very Low Density Lipoprotein 21 mg/dL (5-40); cholesterol:hdl ratio screen 2.77
== END | disposition home or self-care (01) ==
PROVIDERS: PCP Family Medicine; Referring Provider Internal Medicine Cardiovascular Disease; Visit Provider Internal Medicine Cardiovascular Disease
DX: I25.10 Atherosclerotic heart disease of native coronary artery without angina pectoris (principal); E78.5 Hyperlipidemia, unspecified; I10 Essential (primary) hypertension
CPT/HCPCS: 36415; 80053; 80061; 84403

== ENCOUNTER → 2025-02-04 | Outpatient (CLI) | payer BC, SELFPAY ==
[2024-04-09 07:19] VITALS: BMI 32.6
--- NOTE | 2025-02-04 06:49 | ECHOD_ITS ---
Reason For Study Reason For Study: CAD, chest pain, Pre-op Procedure This was a 2D Doppler, Color Flow transthoracic echocardiogram. Exam performed in department. Left Ventricle Normal size and thickness. The left ventricular ejection fraction is 50 %. Normal diastololic function. Right Ventricle Normal right ventricle. Atria The left and right atria are normal. Mitral Valve The mitral valve is structurally normal. No prolapse or stenosis seen. Tricuspid Valve Normal tricuspid valve. Aortic Valve Trisinus/trileaflet aortic valve. Pulmonic Valve Trivial pulmonic valve insufficiency. Great Vessels Mildly dilated aortic root. Pericardium/Pleural No pericardial effusion. MMode/2D Measurements & Calculations LVIDd: 5.0 cm IVSd: 1.1 cm Ao root diam: 4.1 cm LVIDs: 3.3 cm LVPWd: 1.0 cm RVDd: 3.3 cm FS: 32.6 % LAV(MOD-bp): 31.5 ml LVAd ap4: 32.1 cm2 LVAd ap2: 28.8 cm2 LAV(MOD-bp) Indexed: 16.1 ml/m2 LVLd ap4: 8.5 cm LVLd ap2: 8.7 cm LAV(MOD-sp2): 36.1 ml EDV(MOD-sp4): 101.8 ml EDV(MOD-sp2): 77.9 ml LAV(MOD-sp4): 28.2 ml EDV(sp4-el): 102.7 ml EDV(sp2-el): 81.1 ml LVAs ap4: 20.7 cm2 LVAs ap2: 18.4 cm2 LVLs ap4: 7.4 cm LVLs ap2: 7.6 cm ESV(MOD-sp4): 49.7 ml ESV(MOD-sp2): 38.3 ml ESV(sp4-el): 48.9 ml ESV(sp2-el): 37.8 ml EF(MOD-sp4): 51.2 % EF(MOD-sp2): 50.8 % EF(sp4-el): 52.4 % SV(MOD-sp4): 52.1 ml SV(MOD-sp2): 39.6 ml SV(sp4-el): 53.8 ml SI(MOD-sp4): 26.6 ml/m2 SI(MOD-sp2): 20.2 ml/m2 LA A4 area: 12.6 cm2 RA A4 area: 12.4 cm2 Time Measurements MV dec time: 0.20 sec Doppler Measurements & Calculations MV E max amadou: 63.2 cm/sec Lat Peak E' Amadou: 10.7 cm/sec Med Peak E' Amadou: 6.5 cm/sec MV A max amadou: 69.3 cm/sec E/E' lat: 5.9 E/E' med: 9.7 MV E/A: 0.91 Ao V2 max: 123.0 cm/sec LV V1 max: 100.7 cm/sec MV dec slope: 308.7 cm/sec2 Ao max P.1 mmHg LV V1 max P.1 mmHg Ao V2 mean: 87.8 cm/sec LV V1 mean P.0 mmHg Ao mean P.4 mmHg LV V1 mean: 66.1 cm/sec Ao V2 VTI: 27.1 cm LV V1 VTI: 22.3 cm AV (velocity ratio): 0.82 PA V2 max: 100.9 cm/sec ECHO/Echo Complete Interpretation Summary The left ventricular ejection fraction is 50 %. Mildly dilated aortic root. Ordering Physician: Georges Negrete Referring Physician: Georges Negrete Performed By: Raegan Trujillo RDCS
--- NOTE | 2025-02-04 10:20 | STRESSREP_ITS ---
Stress Test Report Date: 02/04/2025 Procedure: Pharmacologic stress nuclear imaging study Indications: Coronary artery disease Consent: Per the patient Procedure: The patient underwent pharmacologic (Regadenoson 0.4mg ) evaluation with a peak heart rate of 77 beats per minute (46%predicted maximal heart rate) and a peak blood pressure of 138/90 mmHg. The baseline ECG demonstrated sinus rhythm. The peak pharmacologic ECG did not show any ischemic changes. There were no cardiac dysrhythmias pretest, during pharmacologic infusion, or recovery. There was no complaint of chest discomfort during pharmacologic infusion or recovery. The patient was injected with 14.1 millicuries of technetium 99m Cardiolite and subsequently rest SPECT Cardiolite nuclear imaging was obtained in the horizontal long, vertical long, and short axis views. The patient underwent pharmacologic (Regadenoson) evaluation. The patient was injected with 44.1 millicuries of technetium 99m Cardiolite and subsequently stress SPECT Cardiolite nuclear imaging was obtained in the horizontal long, vertical long, and short axis views. A gated Cardiolite study at peak stress was obtained. The examination was stopped secondary to completion of protocol. Rest and stress SPECT Cardiolite nuclear imaging status post realignment, normalization, and attenuation correction demonstrate mildly reduced perfusion of the anterior wall status post pharmacological stress. There is end systolic thickening and brightening. The gated Cardiolite study demonstrates myocardial thickening and inward wall motion. The reported LVEF is 52%. Impression: 1. Pharmacologic (Regadenoson) evaluation 2. Peak pharmacologic ECG with no ischemic changes. 3. There were no cardiac dysrhythmias pretest, during pharmacologic infusion, or recovery. 5. Mildly reduced perfusion of the anterior wall status post pharmacological stress, suggestive of mild ischemia of the anterior wall. 6. The gated Cardiolite study reports an LVEF of 52%. This note was generated with [employer] software. It may contain incorrect words, spelling, and punctuation that were not noted in checking the note before signing.
== END | disposition home or self-care (01) ==
LOC: CVS 06:48
PROVIDERS: PCP Family Medicine; Referring Provider Internal Medicine Cardiovascular Disease; Visit Provider Internal Medicine Cardiovascular Disease
DX: R07.9 Chest pain, unspecified (principal); I25.10 Atherosclerotic heart disease of native coronary artery without angina pectoris; I10 Essential (primary) hypertension; Z95.5 Presence of coronary angioplasty implant and graft; E78.5 Hyperlipidemia, unspecified
CPT/HCPCS: 78452; 93017; 93306; A9500; A4216; J2785

== ENCOUNTER 2025-02-07 06:24 | Day surgery (SDC) | payer BC, SELFPAY ==
[2024-04-09 07:19] VITALS: BMI 32.6
[2025-02-07 07:02] VITALS: BMI 34.0
[2025-02-08 16:45] LABS: ACT Activated Clotting Time 239 sec (74-137)
--- NOTE | 2025-02-10 15:49 | CL.D_ITS ---
Patient Name: KENYA GORE Study Date: 02/07/2025 Performing: Georges Negrete MD Ht: 69 inches 175.26 cm : 1970 Wt: 230.01 lbs 104.33 kg Age: 54 Gender: male BSA: 2.19 PROCEDURE(S) PERFORMED DC02-(88636)LHC/COR IC10-(14035)FFR, CORONARY OR GRAFT, INITIAL VESSEL CLINICAL PROFILE AND INDICATIONS Indications: Stable Known CAD Heart Failure: None Stress/Imaging Stress Test w/SPECT MPI: Yes Result: Positive Intermediate RiskStress Test with SPECT MPI: Positive Intermediate Risk CAD Presentations: Symptom unlikely to be ischemic. CONCLUSIONS Stent to ositial/Prox LAD patent; Mid LAD 40% (iFR 0.95, FFR 0.92) Stent to Mid RCA patent RECOMMENDATIONS Medical therapy DESCRIPTION OF PROCEDURE The patient arrived to the procedure lab. The risks and benefits of the procedure as well as a full description of our services here and current unavailability of surgical backup were fully explained to the patient and/or their significant other prior to the catheterization. The Timeout was completed, verifying the correct patient and procedure. The patient's procedural site was prepped and draped in the usual fashion. Local anesthetic was given subcutaneously to right radial region with Lidocaine 2%. Using a modified Seldinger technique, arterial access was obtained via the right radial artery, a 6Fr sheath was inserted. Left Coronary Artery selective angiography was performed in multiple views using a 5 Fr. 4.0 [place] catheter. Right Coronary Artery selective angiography was then performed in multiple views using a 5 Fr. 4.0 [place] catheter.The arterial sheath was pulled and a TR Band was applied for hemostasis CORONARY ANGIOGRAPHY LEFT MAIN: Tubular 20% Ostial lesion in LMCA LEFT ANTERIOR DESCENDING ARTERY: LAD: Tubular Calcified 40% Mid lesion in LAD CIRCUMFLEX ARTERY: Angiographically normal RAMUS: Mild luminal irregularities COMPLICATIONS No Complications PROCEDURE MEDICATIONS Versed 1 mg IV Fentanyl 50 mcg IV Oxygen: 2 L/min via nasal cannula Benadryl 50 mg IV @ 02/07/2025 07:24:40 Heparin given IA 02/07/2025 07:25:37 Heparin 7000 unit(s) IV 02/07/2025 07:40:10 Solu-medrol 125 mg IV 02/07/2025 07:24:49 SUMMARY OF HEMODYNAMIC DATA Time AIR REST ECG 07:06:28 AO 121/76 (96) SA 07:30:52 AIR REST 08:16:42 Signed By Georges Negrete MD On 02/10/2025 15:48:21 Georges Negrete MD
== END 2025-02-07 10:10 | disposition home or self-care (01) ==
PROVIDERS: PCP Family Medicine; Referring Provider Internal Medicine Cardiovascular Disease; Visit Provider Internal Medicine Cardiovascular Disease
DX: I25.10 Atherosclerotic heart disease of native coronary artery without angina pectoris (principal); E11.22 Type 2 diabetes mellitus with diabetic chronic kidney disease; Z79.82 Long term (current) use of aspirin; Z79.02 Long term (current) use of antithrombotics/antiplatelets; Z79.899 Other long term (current) drug therapy; E78.00 Pure hypercholesterolemia, unspecified; J45.909 Unspecified asthma, uncomplicated; N18.2 Chronic kidney disease, stage 2 (mild); Z95.5 Presence of coronary angioplasty implant and graft
CPT/HCPCS: 85347; 93454; 93571; 99152; 99153; C1887; C1894; J0153; Q9967; A4216; C1769

== ENCOUNTER 2025-02-17 09:57 | Observation (INO) | payer BC, SELFPAY ==
[2024-04-09 07:19] VITALS: BMI 32.6
--- NOTE | 2025-02-03 12:33 | PAT.ANE_ITS ---
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 When Was Last Pacemaker Check QUESTION #4 FULL TEXT: You/Your Family Experience fever (hyperthermia) with Anesthesia Last Oral Intake Last Oral intake: Last Oral Intake NPO since Meds taken in AM with sips of water? 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 - senior engineering manager: PONV - senior engineering manager Female No 02/01/25 14:07 HX of Motion Sickness No 02/01/25 14:07 HX of N/V After Surgery No 02/01/25 14:07 Non-Smoker Yes 02/01/25 14:07 Duration of Surgery greater Yes 02/01/25 14:07 than 60 minutes Number of Risk Factors 2 02/01/25 14:07 PONV Score Moderate Risk 02/01/25 14:07 Height & Weight Height & Weight: Anesthesia: Height & Weight Height 5 ft 9 in 09/13/24 06:33 Respiratory Assessment Respiratory Assessment - senior engineering manager: Respiratory Tract Infection Hx - senior engineering manager Hx Respiratory Tract Infection No 02/01/25 14:07 STOP Sleep Apnea STOP Sleep Apnea - senior engineering manager: STOP Sleep Apnea - senior engineering manager Hx Hypertension Yes: CONTROLLED WITH MED 02/01/25 14:07 Hx Sleep Apnea Yes 02/01/25 14:07 CPAP Yes 02/01/25 14:07 BIPAP No 02/01/25 14:07 Do you snore loudly (louder than talking or can be heard Do you often feel tired/ fatigued/ sleepy during daytime? Has anyone observed you stop breathing during sleep? STOP Results Positive 02/01/25 14:07 QUESTION #5 FULL TEXT : Do you snore loudly (louder than talking or can be heard through closed doors)? 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 Specify any problems Hx of Preganancy in last 3 N/A 02/01/25 14:07 Months Nurse Filling Out Transfusion [email or web address] 02/01/25 14:07 & Questions: Date: 02/01/25 02/01/25 14:07 Time: 14:11 02/01/25 14:07 Patient unable to answer at this time (ie. confused, unrespo /Reproduction History /Reproductive History - senior engineering manager: /Reproductive Hx- senior engineering manager Hx Now Gestational Age (in weeks): EDC: Hx Hx Para Hx Section SAB No 02/01/25 14:07 [facility] Medical History (Updated 02/01/25 @ 14:16 by Eduard Sanders) Chest pain Cervical disc herniation Obesity (BMI 30-39.9) Wears glasses Alcohol use Diabetes Low iron High cholesterol Back pain Asthma Non-smoker CPAP (continuous positive airway pressure) dependence Hypertension History of pain when walking History of edema History of echocardiogram Cardiology follow-up encounter History of heart attack Obesity (BMI 30.0-34.9) Dyslipidemia CKD (chronic kidney disease), stage II Wears contact lenses Injury of head and neck History of stress test history of pilon ankle fracture Arthritis Home Medications Medication Instructions Recorded Last Taken Type aspirin 81 mg tablet,delayed 81 mg PO BREAKFAST 90 day s #90 tabs 01/16/24 09/12/24 Rx release multivitamin 1 tab PO QAM 02/23/24 History amlodipine 5 mg tablet 5 mg PO DAILY #90 tabs 04/1409/13/24 Rx ticagrelor 90 mg tablet (Brilinta) 90 mg PO BID #180 t abs 04/19/24 09/07/24 Rx rosuvastatin 20 mg tablet 20 mg PO QHS 09/10/24 History dapagliflozin propanediol 10 mg 10 mg PO DAILY #90 tab s 10/14/24 Unknown Rx tablet (Farxiga) gabapentin 100 mg capsule 100 mg PO TID PRN sleep 05/22 Unknown History Allergy/AdvReac Type Severity Reaction Status Date / Time Fish Containing Products Allergy Severe Anaphylaxis Verified 02/01/25 14:02 shellfish derived Allergy Severe Anaphylaxis Verified 02/01/25 14:02 Family History Father Heart disease CAD (coronary artery disease) Hypertension Myocardial infarction Mother Colon cancer Surgical History History of cardiac catheterization Hx of colonoscopy Stented coronary artery History of ankle surgery History of total ankle replacement History of cholecystectomy History of tonsillectomy Social History household members: spouse Smoking Status: Never smoker alcohol intake: current alcohol intake frequency: holidays/special occasions only substance use type: does not use Audit: Pertinent Findings Pertinent Findings EKG Perinent findings: 02/03/2024. Sinus bradycardia 51 bpm. Otherwise normal EKG. Echo (EF%) pertinent findings: 01/15/2024. EF 55%. Structurally normal valves. Consult pertinent findings: Cardiology 01/26/2025. Coronary artery disease. Chronic. Status post LAD and mid RCA stents. Chronic hypertension. Preoperative cardiovascular exam. For C-spine surgery. Check Lexiscan stress Myoview. Recommendation Anesthesia Recommendation Anesthesia recommendation: Anesthesia NOT approved Reason NOT optimized for anesthesia: Await stress test results. As described in 01/26/2025 cardiology note.
[2025-02-04 10:46] LABS: Hematocrit 43.6 % (40-54); Hemoglobin 14.6 g/dL (13.0-16.5); Immature Granulocytes Count 0.030 X10^3/uL (0.0-0.0); Mean Corp Hgb Conc 33.5 g/dL (32-36); Mean Corpuscular Volume 88.4 fL (80-94); Mean Platelet Vol. 9.1 fl (6.2-12.0); NRBC Flagged by Analyzer 0 % (0-5); Platelet Count 212 K/mm3 (150-450); RBC Distribution Width CV 14.1 % (11.6-14.6); RBC Distribution Width SD 45.5 fl (35.1-43.9); Red Blood Count 4.93 M/mm3 (4.6-6.2); White Blood Count 7.4 K/mm3 (4.4-11.0)
[2025-02-04 11:37] LABS: Anion Gap 11 (5-15); BUN 19 mg/dL (4-19); BUN/Creat Ratio 20.4 RATIO (10-20); Calcium,Total 9.6 mg/dL (7.6-11.0); Carbon Dioxide 23.1 mmol/L (21.0-32.0); Chloride 103 mmol/L (98-108); Glucose 158 mg/dL (70-99); Potassium 4.5 mmol/L (3.3-5.1)
[2025-02-04 12:02] LABS: Magnesium 2.5 mg/dL (1.5-2.2)
--- NOTE | 2025-02-07 10:43 | PAT.ANE_ITS ---
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 When Was Last Pacemaker Check QUESTION #4 FULL TEXT: You/Your Family Experience fever (hyperthermia) with Anesthesia Last Oral Intake Last Oral intake: Last Oral Intake NPO since Meds taken in AM with sips of water? 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 - explosives operator: PONV - explosives operator Female No 02/01/25 14:07 HX of Motion Sickness No 02/01/25 14:07 HX of N/V After Surgery No 02/01/25 14:07 Non-Smoker Yes 02/01/25 14:07 Duration of Surgery greater Yes 02/01/25 14:07 than 60 minutes Number of Risk Factors 2 02/01/25 14:07 PONV Score Moderate Risk 02/01/25 14:07 Height & Weight Height & Weight: Anesthesia: Height & Weight Height 5 ft 9 in 09/13/24 06:33 Respiratory Assessment Respiratory Assessment - explosives operator: Respiratory Tract Infection Hx - explosives operator Hx Respiratory Tract Infection No 02/01/25 14:07 STOP Sleep Apnea STOP Sleep Apnea - explosives operator: STOP Sleep Apnea - explosives operator Hx Hypertension Yes: CONTROLLED WITH MED 02/01/25 14:07 Hx Sleep Apnea Yes 02/01/25 14:07 CPAP Yes 02/01/25 14:07 BIPAP No 02/01/25 14:07 Do you snore loudly (louder than talking or can be heard Do you often feel tired/ fatigued/ sleepy during daytime? Has anyone observed you stop breathing during sleep? STOP Results Positive 02/01/25 14:07 QUESTION #5 FULL TEXT : Do you snore loudly (louder than talking or can be heard through closed doors)? 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 Specify any problems Hx of Preganancy in last 3 N/A 02/01/25 14:07 Months Nurse Filling Out Transfusion [email or web address] 02/01/25 14:07 & Questions: Date: 02/01/25 02/01/25 14:07 Time: 14:11 02/01/25 14:07 Patient unable to answer at this time (ie. confused, unrespo /Reproduction History /Reproductive History - explosives operator: /Reproductive Hx- explosives operator Hx Now Gestational Age (in weeks): EDC: Hx Hx Para Hx Section SAB No 02/01/25 14:07 [facility] Medical History (Updated 02/01/25 @ 14:16 by Eduard Sanders) Chest pain Cervical disc herniation Obesity (BMI 30-39.9) Wears glasses Alcohol use Diabetes Low iron High cholesterol Back pain Asthma Non-smoker CPAP (continuous positive airway pressure) dependence Hypertension History of pain when walking History of edema History of echocardiogram Cardiology follow-up encounter History of heart attack Obesity (BMI 30.0-34.9) Dyslipidemia CKD (chronic kidney disease), stage II Wears contact lenses Injury of head and neck History of stress test history of pilon ankle fracture Arthritis Home Medications Medication Instructions Recorded Last Taken Type aspirin 81 mg tablet,delayed 81 mg PO BREAKFAST 90 day s #90 tabs 01/16/24 02/07/25 Rx release multivitamin 1 tab PO QAM 02/23/24 History amlodipine 5 mg tablet 5 mg PO DAILY #90 tabs 04/1402/07/25 Rx ticagrelor 90 mg tablet (Brilinta) 90 mg PO BID #180 t abs 04/19/24 02/07/25 Rx rosuvastatin 20 mg tablet 20 mg PO QHS 09/10/24 History dapagliflozin propanediol 10 mg 10 mg PO DAILY #90 tab s 10/14/24 Unknown Rx tablet (Farxiga) gabapentin 100 mg capsule 100 mg PO TID PRN sleep 05/22 Unknown History Allergy/AdvReac Type Severity Reaction Status Date / Time Fish Containing Products Allergy Severe Anaphylaxis Verified 02/01/25 14:02 shellfish derived Allergy Severe Anaphylaxis Verified 02/01/25 14:02 Family History Father Heart disease CAD (coronary artery disease) Hypertension Myocardial infarction Mother Colon cancer Surgical History History of cardiac catheterization Hx of colonoscopy Stented coronary artery History of ankle surgery History of total ankle replacement History of cholecystectomy History of tonsillectomy Social History household members: spouse Smoking Status: Never smoker alcohol intake: current alcohol intake frequency: holidays/special occasions only substance use type: does not use Audit: Pertinent Findings HISTORY of Pertinent Findings History of Pertinent Findings: EKG Pertinent Findings EKG Perinent findings 02/03/2024. Sinus 02/03/25 12:36 bradycardia 51 bpm. Otherwise normal EKG. Echo Pertinent Findings Echo (EF%) pertinent findings 01/15/2024. EF 55%. 02/03/25 12:36 Structurally normal valves. Consult Pertinent Findings Consult pertinent findings Cardiology 01/26/2025. 02/03/25 12:36 Coronary artery disease. Chronic. Status post LAD and mid RCA stents. Chronic hypertension. Preoperative cardiovascular exam. For C -spine surgery. Check Lexiscan stress Myoview. Pertinent Findings Stress test pertinent findings: 02/04/2025. No ischemic changes. Mildly reduced perfusion anterior wall. Status post pharmacological stress. Suggestive of mild ischemia of the anterior wall. EF 52%. Echo (EF%) pertinent findings: 02/04/2025. EF 50%. Mildly dilated aortic root. Recommendation Anesthesia Recommendation Anesthesia recommendation: F/U recommended (Appears to have abnormal stress on 02/04/2025. Need to find out what cardiology recommends prior to the surgery.)
--- NOTE | 2025-02-09 16:01 | PAT.ANESEVAL ---
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 When Was Last Pacemaker Check QUESTION #4 FULL TEXT: You/Your Family Experience fever (hyperthermia) with Anesthesia Last Oral Intake Last Oral intake: Last Oral Intake NPO since Meds taken in AM with sips of water? 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 - supervisor hard candy: PONV - supervisor hard candy Female No 02/01/25 14:07 HX of Motion Sickness No 02/01/25 14:07 HX of N/V After Surgery No 02/01/25 14:07 Non-Smoker Yes 02/01/25 14:07 Duration of Surgery greater Yes 02/01/25 14:07 than 60 minutes Number of Risk Factors 2 02/01/25 14:07 PONV Score Moderate Risk 02/01/25 14:07 Height & Weight Height & Weight: Anesthesia: Height & Weight Height 5 ft 9 in 09/13/24 06:33 Respiratory Assessment Respiratory Assessment - supervisor hard candy: Respiratory Tract Infection Hx - supervisor hard candy Hx Respiratory Tract Infection No 02/01/25 14:07 STOP Sleep Apnea STOP Sleep Apnea - supervisor hard candy: STOP Sleep Apnea - supervisor hard candy Hx Hypertension Yes: CONTROLLED WITH MED 02/01/25 14:07 Hx Sleep Apnea Yes 02/01/25 14:07 CPAP Yes 02/01/25 14:07 BIPAP No 02/01/25 14:07 Do you snore loudly (louder than talking or can be heard Do you often feel tired/ fatigued/ sleepy during daytime? Has anyone observed you stop breathing during sleep? STOP Results Positive 02/01/25 14:07 QUESTION #5 FULL TEXT : Do you snore loudly (louder than talking or can be heard through closed doors)? 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 Specify any problems Hx of Preganancy in last 3 N/A 02/01/25 14:07 Months Nurse Filling Out Transfusion [email or web address] 02/01/25 14:07 & Questions: Date: 02/01/25 02/01/25 14:07 Time: 14:11 02/01/25 14:07 Patient unable to answer at this time (ie. confused, unrespo /Reproduction History /Reproductive History - supervisor hard candy: /Reproductive Hx- supervisor hard candy Hx Now Gestational Age (in weeks): EDC: Hx Hx Para Hx Section SAB No 02/01/25 14:07 [facility] Medical History (Updated 02/01/25 @ 14:16 by Eduard Sanders) Chest pain Cervical disc herniation Obesity (BMI 30-39.9) Wears glasses Alcohol use Diabetes Low iron High cholesterol Back pain Asthma Non-smoker CPAP (continuous positive airway pressure) dependence Hypertension History of pain when walking History of edema History of echocardiogram Cardiology follow-up encounter History of heart attack Obesity (BMI 30.0-34.9) Dyslipidemia CKD (chronic kidney disease), stage II Wears contact lenses Injury of head and neck History of stress test history of pilon ankle fracture Arthritis Home Medications Medication Instructions Recorded Last Taken Type aspirin 81 mg tablet,delayed 81 mg PO BREAKFAST 90 days #90 tabs 01/16/24 02/07/25 Rx release multivitamin 1 tab PO QAM 02/23/24 02/07/25 History amlodipine 5 mg tablet 5 mg PO DAILY #90 tabs 04/14/24 02/07/25 Rx ticagrelor 90 mg tablet (Brilinta) 90 mg PO BID #180 tabs 04/19/24 02/07/25 Rx rosuvastatin 20 mg tablet 20 mg PO QHS 09/10/24 09/12/24 History dapagliflozin propanediol 10 mg 10 mg PO DAILY #90 tabs 10/14/24 Unknown Rx tablet (Farxiga) gabapentin 100 mg capsule 100 mg PO TID PRN sleep 01/26/25 Unknown History Allergy/AdvReac Type Severity Reaction Status Date / Time Fish Containing Products Allergy Severe Anaphylaxis Verified 02/01/25 14:02 shellfish derived Allergy Severe Anaphylaxis Verified 02/01/25 14:02 Family History Father Heart disease CAD (coronary artery disease) Hypertension Myocardial infarction Mother Colon cancer Surgical History History of cardiac catheterization Hx of colonoscopy Stented coronary artery History of ankle surgery History of total ankle replacement History of cholecystectomy History of tonsillectomy Social History household members: spouse Smoking Status: Never smoker alcohol intake: current alcohol intake frequency: holidays/special occasions only substance use type: does not use Audit: Pertinent Findings HISTORY of Pertinent Findings History of Pertinent Findings: EKG Pertinent Findings EKG Perinent findings 02/03/2024. Sinus 02/03/25 12:36 bradycardia 51 bpm. Otherwise normal EKG. Stress Test Pertinent Findings Stress test pertinent findings 02/04/2025. No ischemic 02/07/25 10:45 changes. Mildly reduced perfusion anterior wall. Status post pharmacological stress. Suggestive of mild ischemia of the anterior wall. EF 52%. Echo Pertinent Findings Echo (EF%) pertinent findings 02/04/2025. EF 50%. Mildly 02/07/25 10:45 dilated aortic root. Echo (EF%) pertinent findings 01/15/2024. EF 55%. 02/03/25 12:36 Structurally normal valves. Consult Pertinent Findings Consult pertinent findings Cardiology 01/26/2025. 02/03/25 12:36 Coronary artery disease. Chronic. Status post LAD and mid RCA stents. Chronic hypertension. Preoperative cardiovascular exam. For C -spine surgery. Check Lexiscan stress Myoview. Recommendation Anesthesia Recommendation Anesthesia recommendation: F/U recommended (Waiting on the results of heart cath done on 02/07/2025)
--- NOTE | 2025-02-10 17:02 | PAT.ANE_ITS ---
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 When Was Last Pacemaker Check QUESTION #4 FULL TEXT: You/Your Family Experience fever (hyperthermia) with Anesthesia Last Oral Intake Last Oral intake: Last Oral Intake NPO since Meds taken in AM with sips of water? 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 Has anyone observed you stop breathing during sleep? STOP Results Positive 02/01/25 14:07 QUESTION #5 FULL TEXT : Do you snore loudly (louder than talking or can be heard through closed doors)? 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 Specify any problems Hx of Preganancy in last 3 N/A 02/01/25 14:07 Months Nurse Filling Out Transfusion [email or web address] 02/01/25 14:07 & Questions: Date: 02/01/25 02/01/25 14:07 Time: 14:11 02/01/25 14:07 Patient unable to answer at this time (ie. 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 Hx Now Gestational Age (in weeks): EDC: Hx Hx Para Hx Section SAB No 02/01/25 14:07 PFSH Medical History Chest pain Cervical disc herniation Obesity (BMI 30-39.9) Wears glasses Alcohol use Diabetes Low iron High cholesterol Back pain Asthma Non-smoker CPAP (continuous positive airway pressure) dependence Hypertension History of pain when walking History of edema History of echocardiogram Cardiology follow-up encounter History of heart attack Obesity (BMI 30.0-34.9) Dyslipidemia CKD (chronic kidney disease), stage II Wears contact lenses Injury of head and neck History of stress test history of pilon ankle fracture Arthritis Home Medications Medication Instructions Recorded Last Taken Type aspirin 81 mg tablet,delayed 81 mg PO BREAKFAST 90 day s #90 tabs 01/16/24 02/07/25 Rx release multivitamin 1 tab PO QAM 02/23/24 History amlodipine 5 mg tablet 5 mg PO DAILY #90 tabs 04/1402/07/25 Rx ticagrelor 90 mg tablet (Brilinta) 90 mg PO BID #180 t abs 04/19/24 02/07/25 Rx rosuvastatin 20 mg tablet 20 mg PO QHS 09/10/24 History dapagliflozin propanediol 10 mg 10 mg PO DAILY #90 tab s 10/14/24 Unknown Rx tablet (Farxiga) gabapentin 100 mg capsule 100 mg PO TID PRN sleep 05/22 Unknown History Allergy/AdvReac Type Severity Reaction Status Date / Time Fish Containing Products Allergy Severe Anaphylaxis Verified 02/10/25 08:05 shellfish derived Allergy Severe Anaphylaxis Verified 02/10/25 08:05 Family History Father Heart disease CAD (coronary artery disease) Hypertension Myocardial infarction Mother Colon cancer Surgical History History of cardiac catheterization Hx of colonoscopy Stented coronary artery History of ankle surgery History of total ankle replacement History of cholecystectomy History of tonsillectomy Social History household members: spouse Smoking Status: Never smoker alcohol intake: current alcohol intake frequency: holidays/special occasions only substance use type: does not use Audit: Pertinent Findings HISTORY of Pertinent Findings History of Pertinent Findings: EKG Pertinent Findings EKG Perinent findings 02/03/2024. Sinus 02/03/25 12:36 bradycardia 51 bpm. Otherwise normal EKG. Stress Test Pertinent Findings Stress test pertinent findings 02/04/2025. No ischemic 02/07/25 10:45 changes. Mildly reduced perfusion anterior wall. Status post pharmacological stress. Suggestive of mild ischemia of the anterior wall. EF 52%. Echo Pertinent Findings Echo (EF%) pertinent findings 02/04/2025. EF 50%. Mildly 02/07/25 10:45 dilated aortic root. Echo (EF%) pertinent findings 01/15/2024. EF 55%. 02/03/25 12:36 Structurally normal valves. Consult Pertinent Findings Consult pertinent findings Cardiology 01/26/2025. 02/03/25 12:36 Coronary artery disease. Chronic. Status post LAD and mid RCA stents. Chronic hypertension. Preoperative cardiovascular exam. For C -spine surgery. Check Lexiscan stress Myoview. Pertinent Findings Heart catheterization pertinent findings: Heart cath 02/07/2025. Stent to ostial/proximal LAD patent, mid LAD 40% stent to mid RCA patent recommendations medical therapy Recommendation Anesthesia Recommendation Anesthesia recommendation: OPTIMIZED for anesthesia
[2025-02-17] VITALS (19 sets, daily range): BP systolic 123–165; BP diastolic 65–105; PULSE 55–97; RESP 12–18; TEMP 36.2–37; O2SAT 80–97; BMI 36.1; BMI 36.2
--- OUTSIDE RECORDS SUMMARY | 2025-02-17 05:31 | XMS RPT_ITS | CCD ---
Author Organization [facility] Care Team Providers Care Rest Room Attendant Name Role Phone James CRISTINA, Dr. Helms Primary Care Provider Caden CRISTINA, Dr. Su Attending Provider Caden CRISTINA, Dr. Su Referring Provider James CRISTINA, Dr. Helms Referring Provider [phone] Patrice CRISTINA, Dr. Coe Attending Provider James CRISTINA, Dr. Helms Attending Provider Patrice CRISTINA, Dr. Coe Referring Provider James CRISTINA, Dr. Helms Primary Care Provider Caden CRISTINA, Dr. Su Attending Provider Caden CRISTINA, Dr. Su Referring Provider James CRISTINA, Dr. Helms Referring Provider Patrice CRISTINA, Dr. Coe Attending Provider Patrice CRISTINA, Dr. Coe Referring Provider James CRISTINA, Dr. Helms Primary Care Provider Caden CRISTINA, Dr. Su Attending Provider Caden CRISTINA, Dr. Su Referring Provider Patrice CRISTINA, Dr. Coe Attending Provider Patrice CRISTINA, Dr. Coe Referring Provider Josep CRISTINA, Dr. Thorne Attending Provider Josep CRISTINA, Dr. Thorne Referring Provider James CRISTINA, Dr. Helms Primary Care Provider James CRISTINA, Dr. Helms Referring Provider [phone] James CRISTINA, Dr. Helms Primary Care Provider James CRISTINA, Dr. Helms Referring Provider [phone] Patrice CRISTINA, Dr. Coe Attending Provider Alexus CRISTINA, Dr. Nunez Attending Provider James CRISTINA, Dr. Helms Primary Care Physicia n Patrice CRISTINA, Dr. Coe Attending Physician Alexus CRISTINA, Dr. Nunez Attending Physician Caden CRISTINA, Dr. Su Attending Physician Caden CRISTINA, Dr. Su Referring Provider Ranney, Christopher Primary Care Unavailable Ranney, Christopher Referring Unavailable Caden, Georges Attending Unavailable Ranney, Christopher Primary Care Unavailable Caden, Georges Referring Unavailable Caden, Georges Attending Unavailable Ranney, Christopher Primary Care Unavailable Caden, Georges Referring Unavailable Caden, Georges Attending Unavailable Ranney, Christopher Primary Care Unavailable Mati Patel Referring Unavailable Mati Patel Attending Unavailable Caden, Georges Attending Unavailable Ranney, Christopher Primary Care Unavailable Caden, Georges Referring Unavailable Saravanan Ibrahim Referring Unavailable Saravanan Ibrahim Attending Unavailable Ranney, Christopher Primary Care Unavailable Ranney, Christopher Attending Unavailable Ranney, Christopher Primary Care Unavailable Ranney, Christopher Referring Unavailable Enrique Vaughan Attending Unavailable Ranney, Christopher Primary Care Unavailable Ranney, Christopher Primary Care Unavailable Mati Car Attending Unavailable Caden, Georges Attending Unavailable Ranney, Christopher Primary Care Unavailable Caden, Georges Referring Unavailable Ranney, Christopher Primary Care Unavailable Caden, Georges Referring Unavailable Caden, Georges Attending Unavailable Ranney, Christopher Primary Care Unavailable Caden, Georges Referring Unavailable Caden, Georges Attending Unavailable Caden, Georges Attending Unavailable [facility] Primary Care Unavailable Caden, Georges Referring Unavailable [place], [facility] Primary Care Unavailable JosepMati Referring Unavailable Josep, Mati Attending Unavailable [place], [facility] Primary Care Unavailable Caden, Georges Referring Unavailable Caden, Georges Attending Unavailable Ranney, Christopher Attending Unavailable Ranney, Christopher Referring Unavailable [place], [facility] Primary Care Unavailable Ranney, [facility] Primary Care Unavailable Ibrahim, Saravanan Referring Unavailable Ibrahim, Saravanan Attending Unavailable [place], [facility] Primary Care Unavailable Ranney, Christopher Referring Unavailable Ranney, Christopher Attending Unavailable [place], [facility] Primary Care Unavailable Caden, Georges Attending Unavailable Caden, Georges Referring Unavailable Ibrahim, Saravanan Attending Unavailable [place], [facility] Primary Care Unavailable Ranney, Christopher Referring Unavailable [place], [facility] Primary Care Unavailable Alber GROOVING MACHINE OPERATOR, Audrey Attending Unavailable [place], [facility] Primary Care Unavailable Caden, Georges Consulting Unavailable Caden, Georges Referring Unavailable Caden, Georges Attending Unavailable Caden, Georges Attending Unavailable [place], [facility] Primary Care Unavailable Ranney, Christopher Referring Unavailable Ranney, Christopher Referring Unavailable Ibrahim, Saravanan Attending Unavailable [place], [facility] Primary Care Unavailable [place], [facility] Primary Care Unavailable Ranney, Christopher Referring Unavailable Ibrahim, Saravanan Attending Unavailable [place], [facility] Primary Care Unavailable Ranney, Christopher Referring Unavailable Caden, Georges Attending Unavailable Allergies Allergy Classification Reported Allergen(s) Allergy Type Date of Onset Reaction(s) Facility (6 sources) atorvastatin Drug Allergy [address] [facility] (8 sources) Shellfish; Translations: [shellfish derived] Allergy to substance [address] [facility] Comment on above: FROM SEAFOOD ALLERGY (7 sources) Fish Containing Products Allergy to substance [address] [facility] Comment on above: FROM SEAFOOD ALLERGY (1 source) atorvastatin Drug Allergy [address] [facility] Repository (1 source) Fish Containing Products Drug allergy (disorder) [address] [facility] Medications Current Medications Medication Drug Class(es) Dates Sig (Normalized) Sig (Original) amLODIPine 5 mg oral tablet (14 sources) Dihydropyridine Calcium Channel Nitza Start: 01-16-2024 End: 04-14-2024 take 1 tablet by mouth once daily aspirin 81 mg delayed release oral tablet (7 sources) Platelet Aggregation Inhibitor, Nonsteroidal Anti-inflammatory Drug Start: 01-16-2024 take 1 tablet by mouth at breakfast dapagliflozin 10 mg oral tablet (8 sources) Sodium-Glucose Cotransporter 2 Inhibitor Start: 09-30-2024 End: 10-14-2024 take 1 tablet by mouth once daily gabapentin 100 mg oral capsule (4 sources) Anti-epileptic Agent Start: 01-26-2025 take 1 capsule by mouth three times daily as needed Start: 12-24-2024 End: 01-26-2025 take 1 capsule by mouth once daily Gabapentin 100 mg capsule Discontinued 100 mg PO daily December 24, 2024 12:00am January 26, 2025 9:57am Multivitamin tablet (7 sources) Start: 02-23-2024 Start: 02-23-2024 Multivitamin t ablet Active 1 {tbl} PO EVERY MORNING February 23, 2024 12:00am rosuvastatin calcium 20 mg oral tablet (11 sources) HMG-CoA Reductase Inhibitor Start: 08-17-2024 End: 09-10-2024 take 1 tablet by mouth at bedtime ticagrelor 90 mg oral tablet (14 sources) Start: 01-16-2024 End: 04-19-2024 take 1 tablet by mouth twice daily Completed/Discontinued Medications Medication Drug Class(es) Dates Sig (Normalized) Sig (Original) acetaminophen 300 mg / HYDROcodone bitartrate 5 mg oral tablet (7 sources) Opioid Agonist Start: 09-15-2015 End: 12-10-2018 Hydrocodone-Acetam inophen 1 EACH tablet Discontinued 1 - 2 {tbl} PO EVERY 6 HOURS NEEDED as needed for Pain September 15, 2015 12:00am December 10, 2018 7:54am acetaminophen 325 mg / oxyCODONE hydrochloride 5 mg oral tablet (7 sources) Opioid Agonist Start: 05-06-2013 End: 05-13-2013 Oxycodone-Acetamin ophen 1 TABLET tablet Discontinued 1 - 2 {tbl} PO EVERY 6 HOURS NEEDED as needed for Mild/Moderate Pain May 06, 2013 1:00am May 13, 2013 4:02pm amoxicillin 875 mg / clavulanate 125 mg oral tablet (7 sources) Penicillin-class Antibacterial Start: 07-09-2022 End: 09-22-2022 Amoxicillin-Pot Clavulanate 875-125 mg tablet Discontinued 1 {tbl} PO Q12H 14 0 July 09, 2022 12:00am September 22, 2022 10:16am atorvastatin 80 mg oral tablet (7 sources) HMG-CoA Reductase Inhibitor Start: 01-16-2024 End: 01-29-2024 take 1 tablet by mouth at bedtime Atorvastatin 80 mg Tablet Discontinued 80 mg PO AT BEDTIME 90 90 0 January 16, 2024 12:00am January 29, 2024 12:58pm docusate sodium 100 mg oral capsule (7 sources) Start: 05-06-2013 End: 05-13-2013 take 1 capsule by mouth twice daily Docusate Sodium (Colace) 100 MG capsule Discontinued 100 mg PO TWICE A DAY May 06, 2013 1:00am May 13, 2013 4:01pm doxycycline hyclate 100 mg oral capsule (7 sources) Tetracycline-class Drug Start: 09-22-2022 End: 10-06-2022 take 1 capsule by mouth twice daily Doxycycline Hyclate 100 mg capsule Discontinued 100 mg PO TWICE A DAY 28 14 0 September 22, 2022 12:00am October 05, 2022 12:00am October 06, 2022 12:04am ibuprofen 200 mg oral capsule (7 sources) Nonsteroidal Anti-inflammatory Drug Start: 12-10-2018 End: 01-16-2024 Ibuprofen 200 mg capsule Discontinued 200 mg PO NEEDED as needed for Pain December 10, 2018 12:00am January 16, 2024 9:29am methocarbamol 500 mg oral tablet (7 sources) Muscle Relaxant Start: 01-30-2024 End: 02-03-2024 take 2 tablets by mouth four times daily as needed for pain Methocarbamol 500 mg tablet Discontinued 1000 mg PO 4 TIMES DAILY as needed for Muscle pain/spasm 56 0 January 30, 2024 4:32am February 03, 2024 6:59am mupirocin 0.02 mg/mg topical ointment (7 sources) RNA Synthetase Inhibitor Antibacterial Start: 09-22-2022 End: 01-14-2024 Mupirocin 2 % ointment Discontinued 1 NMA TOPICAL TWICE A DAY 22 0 September 22, 2022 12:00am January 14, 2024 10:59pm oxyCODONE hydrochloride 5 mg oral tablet (7 sources) Opioid Agonist Start: 05-06-2013 End: 05-13-2013 take 5-10 mg by mouth every six hours as needed for pain Oxycodone 5 MG tablet Discontinued 5 - 10 mg PO EVERY 6 HOURS NEEDED as needed for Mild/Moderate Pain May 06, 2013 1:00am May 13, 2013 4:01pm polyethylene glycol 3350 60229 mg powder for oral solution (7 sources) Osmotic Laxative Start: 05-06-2013 End: 05-13-2013 take 17 g by mouth once daily Polyethylene Glycol 3350 17 GM Packet Discontinued 17 g PO DAILY May 06, 2013 1:00am May 13, 2013 4:02pm pravastatin sodium 80 mg oral tablet (13 sources) HMG-CoA Reductase Inhibitor Start: 08-11-2024 End: 09-10-2024 take 1 tablet by mouth once daily Pravastatin 80 mg tablet Discontinued 80 mg PO daily 90 3 August 11, 2024 12:00am September 10, 2024 8:14am Start: 01-29-2024 End: 08-11-2024 take 1 tablet by mouth once daily Pravastatin 40 mg tablet Discontinued 40 mg PO daily 90 3 January 29, 2024 12:00am August 11, 2024 3:19pm Semaglutide (4 sources) Start: 09-30-2024 End: 10-14-2024 Semaglutide (Ozempic) 0.25 m g or 0.5 mg (2 mg/3 mL) pen injector Discontinued 0.25 mg SC EVERY WEEK 3 0 September 30, 2024 12:00am October 27, 2024 12:00am October 14, 2024 4:53pm for 4 weeks Problems Active Problems Problem Classification Problem Date Documented Da te Episodic/Chronic Acute myocardial infarction (7 sources) Myocardial infarction; Translations: [Non-ST elevation (NSTEMI) myocardial infarction] Onset: 01-14-2024 01-22-2024 Chronic Biliary tract disease (7 sources) Acute cholecystitis; Translations: [Acute cholecystitis] 01-15-2024 Episodic Chronic kidney disease (7 sources) Chronic kidney disease; Translations: [Chronic kidney disease, unspecified] 02-07-2024 Chronic Coronary atherosclerosis and other heart disease (13 sources) Coronary arteriosclerosis; Translations: [Atherosclerotic heart disease of [place] coronary artery without angina pectoris] Onset: 02-04-2025 02-23-2024 Chronic Coronary atherosclerosis and other heart disease (13 sources) Stented coronary artery; Translations: [Presence of coronary angioplasty implant and graft] Onset: 08-11-2024 02-23-2024 Episodic Comment on above: Disorders of lipid metabolism (13 sources) Dyslipidemia; Translations: [Hyperlipidemia, unspecified] Onset: 08-11-2024 02-23-2024 Chronic Essential hypertension (13 sources) Hypertensive disorder; Translations: [Essential (primary) hypertension] Onset: 08-18-2024 02-23-2024 Chronic Lymphadenitis (7 sources) Lymphadenopathy; Translations: [Enlarged lymph nodes, unspecified] 01-15-2024 Episodic Comment on above: Left side of neck Osteoarthritis (1 source) Primary osteoarthritis, left ankle and foot; Translations: [Primary osteoarthritis, left ankle and foot] Onset: 06-24-2024 Chronic Other lower respiratory disease (7 sources) Cough; Translations: [Cough] 01-15-2024 Episodic Other nutritional; endocrine; and metabolic disorders (7 sources) Obese class I; Translations: [Class 1 obesity] 01-22-2024 Chronic Other nutritional; endocrine; and metabolic disorders (4 sources) Body mass index 30+ - obesity; Translations: [Obesity, unspecified] 12-24-2024 Chronic Other upper respiratory disease (7 sources) Congestion of nasal sinus; Translations: [Nasal congestion] 01-15-2024 Episodic Other upper respiratory disease (7 sources) Respiratory tract congestion; Translations: [Nasal congestion] 01-15-2024 Episodic Other upper respiratory infections (20 sources) Acute sinusitis; Translations: [Acute sinusitis, unspecified] 01-15-2024 Episodic Residual codes; unclassified (11 sources) Obstructive sleep apnea syndrome; Translations: [Obstructive sleep apnea (adult) (pediatric)] 02-23-2024 Chronic Residual codes; unclassified (1 source) Obstructive sleep apnea (adult) (pediatric); Translations: [Obstructive sleep apnea (adult) (pediatric)] Onset: 08-11-2024 Chronic Skin and subcutaneous tissue infections (7 sources) Infected thumb; Translations: [Local infection of the skin and subcutaneous tissue, unspecified] 09-22-2022 Episodic Spondylosis; intervertebral disc disorders; other back problems (6 sources) Displacement of cervical intervertebral disc; Translations: [Other cervical disc displacement, unspecified cervical region] Onset: 04-05-2024 12-24-2024 Chronic Spondylosis; intervertebral disc disorders; other back problems (12 sources) Cervical radiculopathy; Translations: [Radiculopathy, cervical region] Onset: 12-07-2024 04-09-2024 Episodic Past or Other Problems Problem Classification Problem Date Documented Da te Episodic/Chronic Other non-traumatic joint disorders (1 source) Pain in left ankle and joints of left foot; Translations: [Pain in left ankle and joints of left foot] Onset: 06-24-2024 Episodic Unclassified (7 sources) history of pilon ankle fracture 11-16-2021 Results Test Name Value Interpretation Reference Range Facility Cardiac Cath Diagnosticon Cardiac Cath Diagnostic [facility] Imaging Services [address] [place] [id number] Cardiac Cath Diagnostic MR#: [id number] Acct: [id number] Name: DARWIN GORE Rep #: [id number] : 1970 54 From: Georges Negrete MD PCP: Dr. Scooter Ramirez MD Status:[facility] Patient Name: DARWIN GORE Study Date: 02/07/2025 Performing: Georges Negrete MD Ht: 69 inches 175.26 cm : 1970 Wt: 230.01 lbs 104.33 kg Age: 54 Gender: male BSA: 2.19 PROCEDURE(S) PERFORMED DC02-(22169)C/COR IC10-(01831)FFR, CORONARY OR GRAFT, INITIAL VESSEL CLINICAL PROFILE AND INDICATIONS Indications: Stable Known CAD Heart Failure: None Stress/Imaging Stress Test w/SPECT MPI: Yes Result: Positive Intermediate RiskStress Test with SPECT MPI: Positive Intermediate Risk CAD Presentations: Symptom unlikely to be ischemic. CONCLUSIONS Stent to ositial/Prox LAD patent; Mid LAD 40% (iFR 0.95, FFR 0.92) Stent to Mid RCA patent RECOMMENDATIONS Medical therapy DESCRIPTION OF PROCEDURE The patient arrived to the procedure lab. The risks and benefits of the procedure as well as a full description of our services here and current unavailability of surgical backup were fully explained to the patient and/or their significant other prior to the catheterization. The Timeout was completed, verifying the correct patient and procedure. The patient's procedural site was prepped and draped in the usual fashion. Local anesthetic was given subcutaneously to right radial region with Lidocaine 2%. Using a modified Seldinger technique, arterial access was obtained via the right radial artery, a 6Fr sheath was inserted. Left Coronary Artery selective angiography was performed in multiple views using a 5 Fr. 4.0 Carson catheter. Right Coronary Artery selective angiography was then performed in multiple views using a 5 Fr. 4.0 Carson catheter.The arterial sheath was pulled and a TR Band was applied for hemostasis CORONARY ANGIOGRAPHY LEFT MAIN: Tubular 20% Ostial lesion in LMCA LEFT ANTERIOR DESCENDING ARTERY: LAD: Tubular Calcified 40% Mid lesion in LAD CIRCUMFLEX ARTERY: Angiographically normal RAMUS: Mild luminal irregularities COMPLICATIONS No Complications PROCEDURE MEDICATIONS Versed 1 mg IV Fentanyl 50 mcg IV Oxygen: 2 L/min via nasal cannula Benadryl 50 mg IV @ 02/07/2025 07:24:40 Heparin given IA 02/07/2025 07:25:37 Heparin 7000 unit(s) IV 02/07/2025 07:40:10 Solu-medrol 125 mg IV 02/07/2025 07:24:49 SUMMARY OF HEMODYNAMIC DATA Time AIR REST ECG 07:06:28 AO 121/76 (96) SA 07:30:52 AIR REST 08:16:42 Signed By Georges Negrete MD On 02/10/2025 15:48:21 Georges Negrete MD 02/10/25 1549 Date Georges Negrete MD Cosigner Signature: Date (if indicated) CC: Dr. Georges Negrete MD; Dr. Scooter Ramirez MD Date Dictated: 02/07/25724 Date Transcribed: 02/10/25 154 Commercial Decorator: YUSUF [facility] MR/PATLVon 02-10-2025 MR/PAT.[facility] Medical Records Department [address] [place] [address] PAT - Anesthesia 02/10/25 1702 MR#: [id number] Acct: [id number] Name: DARWIN GORE Rep #: [id number] : 1970 54 From: Hubert Sharma MD PCP: Dr. Scooter Ramirez MD [place] [facility] [place] [facility] [place]Ass[place] Diagnosis/Proposed Procedure Planned Operative Procedure(s): ANTERIOR CERVICAL FUSION C5-6, C6-7 Anesthesia History Anesthesia History - cancer registry manager: Anesthesia History - cancer registry manager Hx Hospitalization No: [place] 12/202302/01/25 14:07 Any Problems With Anesthesia Yes: SLOW TO AWAKEN 02/01/25 14:07 Cholinesterase deficiency No 02/01/25 14:07 You/Your Family Experience No 02/01/25 14:07 fever (hyperthermia) with Relationship Recent Exposure to Contagious No 09/13/24 06:33 Disease Does patient have nerve No 02/01/25 14:07 stimulator Patient instructed to have device shut off --Does patient have Pacemaker or ICD? When Was Last Pacemaker Check QUESTION #4 FULL TEXT: You/Your Family Experience fever (hyperthermia) with Anesthesia Last Oral Intake Last Oral intake: Last Oral Intake NPO since Meds taken in AM with sips of water? 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 - cancer registry manager: PONV - cancer registry manager Female No 02/01/25 14:07 HX of Motion Sickness No 02/01/25 14:07 HX of N/V After Surgery No 02/01/25 14:07 Non-Smoker Yes 02/01/25 14:07 Duration of Surgery greater Yes 02/01/25 14:07 than 60 minutes Number of Risk Factors 2 02/01/25 14:07 PONV Score Moderate Risk 02/01/25 14:07 Height Weight Height Weight: Anesthesia: Height Weight Height 5 ft 9 in 09/13/24 06:33 Respiratory Assessment Respiratory Assessment - cancer registry manager: Respiratory Tract Infection Hx - cancer registry manager Hx Respiratory Tract Infection No 02/01/25 14:07 STOP Sleep Apnea STOP Sleep Apnea - cancer registry manager: STOP Sleep Apnea - cancer registry manager Hx Hypertension Yes: CONTROLLED WITH MED 02/01/25 14:07 Hx Sleep Apnea Yes 02/01/25 14:07 CPAP Yes 02/01/25 14:07 BIPAP No 02/01/25 14:07 Do you snore loudly (louder than talking or can be heard Do you often feel tired/ fatigued/ sleepy during daytime? Has anyone observed you stop breathing during sleep? STOP Results Positive 02/01/25 14:07 QUESTION #5 FULL TEXT : Do you snore loudly (louder than talking or can be heard through closed doors)? Tobacco Use History Tobacco Use History - cancer registry manager: Tobacco Use History - cancer registry manager Tobacco Use Smoking Status Never smoker 02/01/25 14:07 Hx Tobacco Use No 02/01/25 14:07 Years Smoking Packs Smoked per Day Smoking Cessation Date was within the last 15 years Hx Smoking Cessation Date Hx Smoking Cessation No 02/01/25 14:07 Counseling Hematologic Medial History Hematologic Hx - cancer registry manager: Hematologic Medical Hx - documentation nurse Hx of Blood Transfusion No 02/01/25 14:07 Hx of Transfusion in last 3 No 02/01/25 14:07 Months Date of Last Transfusion (if within last 3 months) Ever experience any problems No 02/01/25 14:07 with transfusion(s)? Specify any problems Hx of Preganancy in last 3 N/A 02/01/25 14:07 Months Nurse Filling Out Transfusion [id number] 02/01/25 14:07 Questions: Date: 02/01/25 02/01/25 14:07 Time: 14:11 02/01/25 14:07 Patient unable to answer at this time (ie. confused, unrespo /Reproductio n History /Reproductiv e History - cancer registry manager: /Reproductiv e Hx- cancer registry manager Hx Now Gestational Age (in weeks): EDC: Hx Hx Para Hx Section SAB No 02/01/25 14:07 [facility] Medical History Chest pain Cervical disc herniation Obesity (BMI 30-39.9) Wears glasses Alcohol use Diabetes Low iron High cholesterol Back pain Asthma Non-smoker CPAP (continuous positive airway pressure) dependence Hypertension History of pain when walking History of edema History of echocardiogram Cardiology follow-up encounter History of heart attack Obesity (BMI 30.0-34.9) Dyslipidemia CKD (chronic kidney disease), stage II Wears contact lenses Injury of head and neck History of stress test history of pilon ankle fracture Arthritis Home Medications ???Medication ???Instructions ???Recorded ???Last Taken ???Type aspirin 81 mg tablet,delayed 81 mg PO BREAKFAST 90 days #90 tab s 01/16/24 02/07/25 Rx release multivitamin 1 tab PO QAM 02/23/24 02/07/25 His tory amlodipine 5 mg tablet 5 m (more content not included)... Normal [facility] Orthopedic Visit Reporton Orthopedic Visit Report [facility] [address] [place] [address] OFFICE VISIT Date of Service: 02/10/25 MR#: [id number] Acct: [id number] Name: DARWIN GORE Rep #: [id number] : 1970 Provider: Dr. Saravanan Ibrahim MD Age/Sex: 54/M Location: [facility] [place] Status: Signed Intake Vital Signs 09/13/24 06:33 02/07/25 07:03 02/10/25 07:59 Height 5 ft 9 in 5 ft 9 in 5 ft 9 in Weight: 230 lb BMI 34.0 Intake Visit Reasons: cervical spine Chief Complaint: cervical spine pre op Accompanied by: Self Is patient in pain?: Yes Pain scale (1-10): 3 Allergies Fish Containing Products Allergy (Severe, Verified 02/10/25 08:05) Anaphylaxis shellfish derived Allergy (Severe, Verified 02/10/25 08:05) Anaphylaxis Medications ???Medication ???Instructions ???Recorded ???Confirmed ???Type aspirin 81 mg tablet,delayed 81 mg PO BREAKFAST 90 days #90 tab s 01/16/24 02/10/25 Rx release multivitamin 1 tab PO QAM 02/23/24 02/10/25 His tory amlodipine 5 mg tablet 5 mg PO DAILY #90 tabs 04/14/24 Rx ticagrelor 90 mg tablet (Brilinta) 90 mg PO BID #180 tabs 04/19/24 02/10/25 Rx rosuvastatin 20 mg tablet 20 mg PO QHS 09/10/24 02/10/25 His tory dapagliflozin propanediol 10 mg 10 mg PO DAILY #90 tabs 10/14/24 1 Rx tablet (Farxiga) gabapentin 100 mg capsule 100 mg PO TID PRN sleep 01/26/25 1 History Have you fallen in the past year?: Yes PFSH Medical History Chest pain Cervical disc herniation Obesity (BMI 30-39.9) Wears glasses Alcohol use Diabetes Low iron High cholesterol Back pain Asthma Non-smoker CPAP (continuous positive airway pressure) dependence Hypertension History of pain when walking History of edema History of echocardiogram Cardiology follow-up encounter History of heart attack Obesity (BMI 30.0-34.9) Dyslipidemia CKD (chronic kidney disease), stage II Wears contact lenses Injury of head and neck History of stress test history of pilon ankle fracture Arthritis Surgical History History of cardiac catheterization Hx of colonoscopy Stented coronary artery History of ankle surgery History of total ankle replacement History of cholecystectomy History of tonsillectomy Family History Father Heart disease CAD (coronary artery disease) Hypertension Myocardial infarction Mother Colon cancer Social History household members: spouse Smoking Status: Never smoker alcohol intake: current alcohol intake frequency: holidays/special occasions only substance use type: does not use HPI cervical spine Details: This documentation accurately reflects the service provided and the decisions made by me, Dr. Saravanan Ibrahim MD 02/10/25 0759. Part of today???s visit was documented by Nicki Valentin MA, acting as scribe. DARWIN GORE is a 54 year old M here today for cervical spine pre op for C5-7 ACDF scheduled on 02-17-25. Patient states that his pain is a 3 today. He would like to go over the surgery, and dis cuss about after surgery. The patient is a 54-year-old male presenting with preoperative concerns for cervical spine surgery. The patient has a history of cervical spondylosis, which has been causing neck stiffness, particularly in the mornings. The condition has been persistent, and the patient is scheduled for surgery involving C5-6 and C6-7 levels. The patient also has a history of coronary artery disease, having suffered a myocardial infarction last year, which required the placement of two stents. He is currently on Brilinta as a blood thinner and has been advised to stop it five days before surgery and restart three days after. Additionally, the patient has type 2 diabetes mellitus, managed with Farxiga, which he is advised to stop three days before surgery. His recent HbA1c was 6.9%, indicating good control of his diabetes. The patient has been colonized with Staphylococcus aureus, for which he has been given a topical gel to apply for five days before surgery to reduce bacterial load. - Musculoskeletal: Reports neck stiffness, particularly in the mornings. - Cardiovascular: Denies new symptoms related to coronary artery disease. - Endocrine: Denies new symptoms related to diabetes mellitus. Attestation: Documentation on this patient encounter was supported using ambient scribe technology/ voice AI technology. The patient consented to recording for the purpose of documenting the encounter. Provider reviewed content of the generated note prior to signature. 12/24/24: BLU (more content not included)... Normal [facility] MR/PAT.ANEon 02-09-2025 MR/PAT.[facility] Medical Records Department [address] [place] [address] PAT - Anesthesia 02/09/25 1601 MR#: [id number] Acct: [id number] Name: DARWIN GORE Rep #: [id number] : 1970 54 From: Hubert Sharma MD PCP: Dr. Scooter Ramirez MD [place] [facility] [place] [facility] [place]Assessment Diagnosis/Proposed Procedure Planned Operative Procedure(s): ANTERIOR CERVICAL FUSION C5-6, C6-7 Anesthesia History Anesthesia History - cancer registry manager: Anesthesia History - cancer registry manager [place]x [place]ization No[place] 12[place]202302/01/25 14:07 Any Problems With Anesthesia Yes: SLOW TO AWAKEN 02/01/25 14:07 Cholinesterase deficiency No 02/01/25 14:07 You/Your Family Experience No 02/01/25 14:07 fever (hyperthermia) with Relationship Recent Exposure to Contagious No 09/13/24 06:33 Disease Does patient have nerve No 02/01/25 14:07 stimulator Patient instructed to have device shut off --Does patient have Pacemaker or ICD? When Was Last Pacemaker Check QUESTION #4 FULL TEXT: You/Your Family Experience fever (hyperthermia) with Anesthesia Last Oral Intake Last Oral intake: Last Oral Intake NPO since Meds taken in AM with sips of water? 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 - cancer registry manager: PONV - cancer registry manager Female No 02/01/25 14:07 HX of Motion Sickness No 02/01/25 14:07 HX of N/V After Surgery No 02/01/25 14:07 Non-Smoker Yes 02/01/25 14:07 Duration of Surgery greater Yes 02/01/25 14:07 than 60 minutes Number of Risk Factors 2 02/01/25 14:07 PONV Score Moderate Risk 02/01/25 14:07 Height Weight Height Weight: Anesthesia: Height Weight Height 5 ft 9 in 09/13/24 06:33 Respiratory Assessment Respiratory Assessment - cancer registry manager: Respiratory Tract Infection Hx - cancer registry manager Hx Respiratory Tract Infection No 02/01/25 14:07 STOP Sleep Apnea STOP Sleep Apnea - cancer registry manager: STOP Sleep Apnea - cancer registry manager Hx Hypertension Yes: CONTROLLED WITH MED 02/01/25 14:07 Hx Sleep Apnea Yes 02/01/25 14:07 CPAP Yes 02/01/25 14:07 BIPAP No 02/01/25 14:07 Do you snore loudly (louder than talking or can be heard Do you often feel tired/ fatigued/ sleepy during daytime? Has anyone observed you stop breathing during sleep? STOP Results Positive 02/01/25 14:07 QUESTION #5 FULL TEXT : Do you snore loudly (louder than talking or can be heard through closed doors)? Tobacco Use History Tobacco Use History - cancer registry manager: Tobacco Use History - cancer registry manager Tobacco Use Smoking Status Never smoker 02/01/25 14:07 Hx Tobacco Use No 02/01/25 14:07 Years Smoking Packs Smoked per Day Smoking Cessation Date was within the last 15 years Hx Smoking Cessation Date Hx Smoking Cessation No 02/01/25 14:07 Counseling Hematologic Medial History Hematologic Hx - cancer registry manager: Hematologic Medical Hx - documentation nurse Hx of Blood Transfusion No 02/01/25 14:07 Hx of Transfusion in last 3 No 02/01/25 14:07 Months Date of Last Transfusion (if within last 3 months) Ever experience any problems No 02/01/25 14:07 with transfusion(s)? Specify any problems Hx of Preganancy in last 3 N/A 02/01/25 14:07 Months Nurse Filling Out Transfusion [email or web address] 02/01/25 14:07 Questions: Date: 02/01/25 02/01/25 14:07 Time: 14:11 02/01/25 14:07 Patient unable to answer at this time (ie. confused, unrespo /Reproductio n History /Reproductiv e History - cancer registry manager: /Reproductiv e Hx- cancer registry manager Hx Now Gestational Age (in weeks): EDC: Hx Hx Para Hx Section SAB No 02/01/25 14:07 PFSH Medical History (Updated 02/01/25 @ 14:16 by Eduard Sanders) Chest pain Cervical disc herniation Obesity (BMI 30-39.9) Wears glasses Alcohol use Diabetes Low iron High cholesterol Back pain Asthma Non-smoker CPAP (continuous positive airway pressure) dependence Hypertension History of pain when walking History of edema History of echocardiogram Cardiology follow-up encounter History of heart attack Obesity (BMI 30.0-34.9) Dyslipidemia CKD (chronic kidney disease), stage II Wears contact lenses Injury of head and neck History of stress test history of pilon ankle fracture Arthritis Home Medications ???Medication ???Instructions ???Recorded ???Last Taken ???Type aspirin 81 mg tablet,delayed 81 mg PO BREAKFAST 90 days #90 tab s 01/16/24 02/07/25 Rx release multivitamin 1 tab PO QAM 02/23/24 02/07/25 His tory amlodipine 5 mg tablet 5 mg PO DAILY #90 t (more content not included)... Normal [facility] ACT Activated Clotting Timeo n 02-08-2025 ACTk CLOT TIME 239 sec High 74-[address] [facility] Comment on above: Performed By: #### L 9100.0100 ####[facility] [address] [place], [address] MR/PAT.DONNELLon 02-07-2025 MR/PAT.[facility] Medical Records Department [address] [place] [address] PAT - Anesthesia 02/07/25 1043 MR#: [id number] Acct: [id number] Name: DARWIN GORE Rep #: [id number] : 1970 54 From: Perez Preciado MD PCP: Dr. Scooter Ramirez MD Status[place] [facility] [place] [facility] [place]Assessment Diagnosis/Proposed Procedure Planned Operative Procedure(s): ANTERIOR CERVICAL FUSION C5-6, C6-7 Anesthesia History Anesthesia History - cancer registry manager: Anesthesia History - cancer registry manager Hx [place]ization No: [place]2302/01/25 14:07 Any Problems With Anesthesia Yes: SLOW TO AWAKEN 02/01/25 14:07 Cholinesterase deficiency No 02/01/25 14:07 You/Your Family Experience No 02/01/25 14:07 fever (hyperthermia) with Relationship Recent Exposure to Contagious No 09/13/24 06:33 Disease Does patient have nerve No 02/01/25 14:07 stimulator Patient instructed to have device shut off --Does patient have Pacemaker or ICD? When Was Last Pacemaker Check QUESTION #4 FULL TEXT: You/Your Family Experience fever (hyperthermia) with Anesthesia Last Oral Intake Last Oral intake: Last Oral Intake NPO since Meds taken in AM with sips of water? 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 - cancer registry manager: PONV - cancer registry manager Female No 02/01/25 14:07 HX of Motion Sickness No 02/01/25 14:07 HX of N/V After Surgery No 02/01/25 14:07 Non-Smoker Yes 02/01/25 14:07 Duration of Surgery greater Yes 02/01/25 14:07 than 60 minutes Number of Risk Factors 2 02/01/25 14:07 PONV Score Moderate Risk 02/01/25 14:07 Height Weight Height Weight: Anesthesia: Height Weight Height 5 ft 9 in 09/13/24 06:33 Respiratory Assessment Respiratory Assessment - cancer registry manager: Respiratory Tract Infection Hx - cancer registry manager Hx Respiratory Tract Infection No 02/01/25 14:07 STOP Sleep Apnea STOP Sleep Apnea - cancer registry manager: STOP Sleep Apnea - cancer registry manager Hx Hypertension Yes: CONTROLLED WITH MED 02/01/25 14:07 Hx Sleep Apnea Yes 02/01/25 14:07 CPAP Yes 02/01/25 14:07 BIPAP No 02/01/25 14:07 Do you snore loudly (louder than talking or can be heard Do you often feel tired/ fatigued/ sleepy during daytime? Has anyone observed you stop breathing during sleep? STOP Results Positive 02/01/25 14:07 QUESTION #5 FULL TEXT : Do you snore loudly (louder than talking or can be heard through closed doors)? Tobacco Use History Tobacco Use History - cancer registry manager: Tobacco Use History - cancer registry manager Tobacco Use Smoking Status Never smoker 02/01/25 14:07 Hx Tobacco Use No 02/01/25 14:07 Years Smoking Packs Smoked per Day Smoking Cessation Date was within the last 15 years Hx Smoking Cessation Date Hx Smoking Cessation No 02/01/25 14:07 Counseling Hematologic Medial History Hematologic Hx - cancer registry manager: Hematologic Medical Hx - documentation nurse Hx of Blood Transfusion No 02/01/25 14:07 Hx of Transfusion in last 3 No 02/01/25 14:07 Months Date of Last Transfusion (if within last 3 months) Ever experience any problems No 02/01/25 14:07 with transfusion(s)? Specify any problems Hx of Preganancy in last 3 N/A 02/01/25 14:07 Months Nurse Filling Out Transfusion [email or web address] 02/01/25 14:07 Questions: Date: 02/01/25 02/01/25 14:07 Time: 14:11 02/01/25 14:07 Patient unable to answer at this time (ie. confused, unrespo /Reproductio n History /Reproductiv e History - cancer registry manager: /Reproductiv e Hx- cancer registry manager Hx Now Gestational Age (in weeks): EDC: Hx Hx Para Hx Section SAB No 02/01/25 14:07 [facility] Medical History (Updated 02/01/25 @ 14:16 by Eduard Sanders) Chest pain Cervical disc herniation Obesity (BMI 30-39.9) Wears glasses Alcohol use Diabetes Low iron High cholesterol Back pain Asthma Non-smoker CPAP (continuous positive airway pressure) dependence Hypertension History of pain when walking History of edema History of echocardiogram Cardiology follow-up encounter History of heart attack Obesity (BMI 30.0-34.9) Dyslipidemia CKD (chronic kidney disease), stage II Wears contact lenses Injury of head and neck History of stress test history of pilon ankle fracture Arthritis Home Medications ???Medication ???Instructions ???Recorded ???Last Taken ???Type aspirin 81 mg tablet,delayed 81 mg PO BREAKFAST 90 days #90 tab s 01/16/24 02/07/25 Rx release multivitamin 1 tab PO QAM 02/23/24 02/07/25 His tory amlodipine 5 mg tablet 5 mg PO DAILY #90 tabs (more content not included)... Normal [facility] MRSA/SAID NASAL SCREENon MRSA+SAID SCRN Reason for Exam: Surgery Copy of report sent to Infection Control Printer [id number] 02/05/25 1414 MARIO. MRSA MRSA Negative S. AUREUS S. aureus PositiveA Normal [facility] Comment on above: Performed By: #### L 501.9985, BTSPAT, M100.651, L100.0100, L500.2500 #### [facility] Laboratory [address] [place], [place], [id number] Basic Metabolic Profile (BMP )on 02-04-2025 BUN/CRE 20.4 RATIO High 02-[address] [facility] Comment on above: Performed By: #### L 501.9985, BTSPAT, M100.651, L100.0100, L500.2500 #### [facility] [address] [place], [address] Calcium [Mass/Vol] 9.6 mg/dL Normal 7.6-11.0 [facility] Comment on above: Performed By: #### L 501.9985, BTSPAT, M100.651, L100.0100, L500.2500 #### [facility] [address] [place], [address] Chloride [Moles/Vol] 103 mmol/L Normal 98-108 [facility] Comment on above: Performed By: #### L 501.9985, BTSPAT, M100.651, L100.0100, L500.2500 #### [facility] [address] [place], [address] CO2 [Moles/Vol] 23.1 mmol/L Normal 21.0-32.[address] [facility] Comment on above: Performed By: #### L 501.9985, BTSPAT, M100.651, L100.0100, L500.2500 #### [facility] [address] [place], [address] Creatinine [Mass/Vol] 0.94 mg/dL Normal 0.70-1.20 [facility] Comment on above: Performed By: #### L 501.9985, BTSPAT, M100.651, L100.0100, L500.2500 #### [facility] [address] [place], [address] GAP 11 Normal 5-[address] [facility] Comment on above: Performed By: #### L 501.9985, BTSPAT, M100.651, L100.0100, L500.2500 #### [facility] [address] [place], [address] GFR/1.73 sq M.predicted among non-blacks MDRD (S/P/Bld) [Vol rate/Area] 96 mL/min/{1.73_m2} Normal >[address] [facility] Comment on above: Result Comment: mL/m in/1.73m2 CKD-EPI Creatinine Equation (2020) Performed By: #### L 501.9985, BTSPAT, M100.651, L100.0100, L500.2500 #### [facility] [address] [place], [address] Glucose [Mass/Vol] 158 mg/dL High 70-99 [facility] Comment on above: Performed By: #### L 501.9985, BTSPAT, M100.651, L100.0100, L500.2500 #### [facility] [address] [place], [address] Potassium [Moles/Vol] 4.5 mmol/L Normal 3.3-5.1 [facility] Comment on above: Result Comment: Hemo lysis present, Results??could be affected. ?? Performed By: #### L 501.9985, BTSPAT, M100.651, L100.0100, L500.2500 #### [facility] [address] [place], [address] Sodium [Moles/Vol] 137 mmol/L Normal 133-145 [facility] Comment on above: Performed By: #### L 501.9985, BTSPAT, M100.651, L100.0100, L500.2500 #### [facility] [address] [place], [address] Urea nitrogen [Mass/Vol] 19 mg/dL Normal 4-[address] [facility] Comment on above: Performed By: #### L 501.9985, BTSPAT, M100.651, L100.0100, L500.2500 #### [facility] [address] [place], [address] CBC W/Diff, Automatedon 10-1 0-2024 Absolute Lymph 2.86 X10 3/uL Normal 0.83-4.[address] [facility] Comment on above: Performed By: #### L 501.9985, BTSPAT, M100.651, L100.0100, L500.2500 #### [facility] [address] [place], [address] Absolute Neut 3.8 X10 3/uL Normal 2.0-7.[address] [facility] Comment on above: Performed By: #### L 501.9985, BTSPAT, M100.651, L100.0100, L500.2500 #### [facility] [address] [place], [address] Basophils/100 WBC (Bld) 0.7 % Normal 0-1 [facility] Comment on above: Performed By: #### L 501.9985, BTSPAT, M100.651, L100.0100, L500.2500 #### [facility] [address] [place], [address] Eosinophils/100 WBC (Bld) 1.6 % Normal 0-[address] [facility] Comment on above: Performed By: #### L 501.9985, BTSPAT, M100.651, L100.0100, L500.2500 #### [facility] [address] [place], [address] Erythrocyte distribution width (RBC) [Ratio] 14.1 % Normal 11.6-14.[address] [facility] Comment on above: Performed By: #### L 501.9985, BTSPAT, M100.651, L100.0100, L500.2500 #### [facility] [address] [place], [address] Hematocrit (Bld) [Volume fraction] 43.6 % Normal 40-[address] [facility] Comment on above: Performed By: #### L 501.9985, BTSPAT, M100.651, L100.0100, L500.2500 #### [facility] [address] [place], [address] Hemoglobin (Bld) [Mass/Vol] 14.6 g/dL Normal 13.0-16.[address] [facility] Comment on above: Performed By: #### L 501.9985, BTSPAT, M100.651, L100.0100, L500.2500 #### [facility] [address] [place], [address] IG% 0.400 Normal 0.0-0.[address] [facility] Comment on above: Result Comment: IG% - Immature Granulocytes (promyelocytes, myelocytes and metamyelocytes) > 1% indicates that a LEFT SHIFT is Present. Performed By: #### L 501.9985, BTSPAT, M100.651, L100.0100, L500.2500 #### [facility] [address] [place], [address] Lymphocytes/100 WBC (Bld) 38.8 % Normal 19-[address] [facility] Comment on above: Performed By: #### L 501.9985, BTSPAT, M100.651, L100.0100, L500.2500 #### [facility] [address] [place], [address] MCH (RBC) [Entitic mass] 29.6 pg Normal 27.0-32.[address] [facility] Comment on above: Performed By: #### L 501.9985, BTSPAT, M100.651, L100.0100, L500.2500 #### [facility] [address] [place], [address] MCHC (RBC) [Mass/Vol] 33.5 g/dL Normal 32-36 [facility] Comment on above: Performed By: #### L 501.9985, BTSPAT, M100.651, L100.0100, L500.2500 #### [facility] [address] [place], [address] MCV (RBC) [Entitic vol] 88.4 fL Normal 80-94 [facility] Comment on above: Performed By: #### L 501.9985, BTSPAT, M100.651, L100.0100, L500.2500 #### [facility] [address] [place], [address] Monocytes/100 WBC (Bld) 7.7 % Normal 0-10 [facility] Comment on above: Performed By: #### L 501.9985, BTSPAT, M100.651, L100.0100, L500.2500 #### [facility] [address] [place], [address] Neutrophils/100 WBC (Bld) 50.8 % Normal 47-[address] [facility] Comment on above: Performed By: #### L 501.9985, BTSPAT, M100.651, L100.0100, L500.2500 #### [facility] [address] [place], [address] Nucleated RBC (Bld) [#/Vol] 0 10*3/uL Normal 0-[address] [facility] Comment on above: Performed By: #### L 501.9985, BTSPAT, M100.651, L100.0100, L500.2500 #### [facility] [address] [place], [address] Platelet mean volume (Bld) [Entitic vol] 9.1 fL Normal 6.2-12.[address] [facility] Comment on above: Performed By: #### L 501.9985, BTSPAT, M100.651, L100.0100, L500.2500 #### [facility] [address] [place], [address] Platelets (Bld) [#/Vol] 212 10*3/uL Normal 150-[address] [facility] Comment on above: Performed By: #### L 501.9985, BTSPAT, M100.651, L100.0100, L500.2500 #### [facility] [address] [place], [address] RBC (Bld) [#/Vol] 4.93 10*6/uL Normal 4.6-6.2 [facility] Comment on above: Performed By: #### L 501.9985, BTSPAT, M100.651, L100.0100, L500.2500 #### [facility] [address] [place], [address] RDW SD 45.5 fl High 35.1-43.[address] [facility] Comment on above: Performed By: #### L 501.9985, BTSPAT, M100.651, L100.0100, L500.2500 #### [facility] [address] [place], [address] WBC (Bld) [#/Vol] 7.4 10*3/uL Normal 4.4-11.0 [facility] Comment on above: Performed By: #### L 501.9985, BTSPAT, M100.651, L100.0100, L500.2500 #### [facility] [address] [place], [address] Echo Completeon 02-04-2025 Echo Complete [facility] [address] [place] [address] Echo Complete 02/04/25 1050 MR#: [id number] Acct: [id number] Name: DARWIN GORE Rep #: [id number] : 1970 54 From: Georges Negrete MD Attending Dr: Dr. Georges Negrete MD Status: REG CLI Ordering Dr: Georges Negrete MD Date: 02/04/25 Location: CVS Sex: M C Admitted: Reason For Study Reason For Study: CAD, chest pain, Pre-op Procedure This was a 2D Doppler, Color Flow transthoracic echocardiogram. Exam performed in department. Left Ventricle Normal size and thickness. The left ventricular ejection fraction is 50 %. Normal diastololic function. Right Ventricle Normal right ventricle. Atria The left and right atria are normal. Mitral Valve The mitral valve is structurally normal. No prolapse or stenosis seen. Tricuspid Valve Normal tricuspid valve. Aortic Valve Trisinus/trileaflet aortic valve. Pulmonic Valve Trivial pulmonic valve insufficiency. Great Vessels Mildly dilated aortic root. Pericardium/Pleural No pericardial effusion. MMode/2D Measurements Calculations LVIDd: 5.0 cm IVSd: 1.1 cm Ao root diam: 4.1 cm LVIDs: 3.3 cm LVPWd: 1.0 cm RVDd: 3.3 cm FS: 32.6 % LAV(MOD-bp): 31.5 ml LVAd ap4: 32.1 cm2 LVAd ap2: 28.8 cm2 LAV(MOD-bp) Indexed: 16.1 ml/m2 LVLd ap4: 8.5 cm LVLd ap2: 8.7 cm LAV(MOD-sp2): 36.1 ml EDV(MOD-sp4): 101.8 ml EDV(MOD-sp2): 77.9 ml LAV(MOD-sp4): 28.2 ml EDV(sp4-el): 102.7 ml EDV(sp2-el): 81.1 ml LVAs ap4: 20.7 cm2 LVAs ap2: 18.4 cm2 LVLs ap4: 7.4 cm LVLs ap2: 7.6 cm ESV(MOD-sp4): 49.7 ml ESV(MOD-sp2): 38.3 ml ESV(sp4-el): 48.9 ml ESV(sp2-el): 37.8 ml EF(MOD-sp4): 51.2 % EF(MOD-sp2): 50.8 % EF(sp4-el): 52.4 % SV(MOD-sp4): 52.1 ml SV(MOD-sp2): 39.6 ml SV(sp4-el): 53.8 ml SI(MOD-sp4): 26.6 ml/m2 SI(MOD-sp2): 20.2 ml/m2 LA A4 area: 12.6 cm2 RA A4 area: 12.4 cm2 Time Measurements MV dec time: 0.20 sec Doppler Measurements Calculations MV E max meena: 63.2 cm/sec Lat Peak E' Meena: 10.7 cm/sec Med Peak E' Meena: 6.5 cm/sec MV A max meena: 69.3 cm/sec E/E' lat: 5.9 E/E' med: 9.7 MV E/A: 0.91 Ao V2 max: 123.0 cm/sec LV V1 max: 100.7 cm/sec MV dec slope: 308.7 cm/sec2 Ao max P.1 mmHg LV V1 max P.1 mmHg Ao V2 mean: 87.8 cm/sec LV V1 mean P.0 mmHg Ao mean P.4 mmHg LV V1 mean: 66.1 cm/sec Ao V2 VTI: 27.1 cm LV V1 VTI: 22.3 cm AV (velocity ratio): 0.82 PA V2 max: 100.9 cm/sec ECHO/Echo Complete Interpretation Summary The left ventricular ejection fraction is 50 %. Mildly dilated aortic root. Ordering Physician: Georges Negrete Referring Physician: Georges Negrete Performed By: Raegan Trujillo, [facility] 02/04/25 1235 Date Georges Negrete MD CC: Dr. Georges Negrete MD; Dr. Scooter Ramirez MD Date Dictated: 02/04/25 1050 Date Transcribed: 02/04/25 1235 [employer]: Signed Normal [facility] Hemoglobin A1con 02-04-2025 HbA1c (Bld) [Mass fraction] 6.9 % High <=5.[address] [facility] Comment on above: Result Comment: Norm al < 5.7 % Prediabetic 5.7 - 6.4 % Diabetic >or= 6.5 % Please note range changes. Performed By: #### L 501.9985, BTSPAT, M100.651, L100.0100, L500.2500 #### [facility] [address] [place], [place], [id number] Magnesiumon 02-04-2025 Magnesium [Mass/Vol] 2.5 mg/dL High 1.5-2.2 [facility] Comment on above: Performed By: #### L 501.5200 #### [facility] Laboratory [address] [place], [address] Stress Reporton 02-04-2025 Stress Report [facility] Cardiovascular Services [address] [place] [address] MR#: [id number] Acct: [id number] Name: DARWIN GORE Rep #: [id number] : 1970 54 From: Georges Negrete MD Primary Care: Dr. Scooter Ramirez MD Status: REG I Referring Dr: Georges Negrete MD Sex: M C Stress Test Report Date: 02/04/2025 Procedure: Pharmacologic stress nuclear imaging study Indications: Coronary artery disease Consent: Per the patient Procedure: The patient underwent pharmacologic (Regadenoson 0.4mg ) evaluation with a peak heart rate of 77 beats per minute (46%predicted maximal heart rate) and a peak blood pressure of 138/90 mmHg. The baseline ECG demonstrated sinus rhythm. The peak pharmacologic ECG did not show any ischemic changes. There were no cardiac dysrhythmias pretest, during pharmacologic infusion, or recovery. There was no complaint of chest discomfort during pharmacologic infusion or recovery. The patient was injected with 14.1 millicuries of technetium 99m Cardiolite and subsequently rest SPECT Cardiolite nuclear imaging was obtained in the horizontal long, vertical long, and short axis views. The patient underwent pharmacologic (Regadenoson) evaluation. The patient was injected with 44.1 millicuries of technetium 99m Cardiolite and subsequently stress SPECT Cardiolite nuclear imaging was obtained in the horizontal long, vertical long, and short axis views. A gated Cardiolite study at peak stress was obtained. The examination was stopped secondary to completion of protocol. Rest and stress SPECT Cardiolite nuclear imaging status post realignment, normalization, and attenuation correction demonstrate mildly reduced perfusion of the anterior wall status post pharmacological stress. There is end systolic thickening and brightening. The gated Cardiolite study demonstrates myocardial thickening and inward wall motion. The reported LVEF is 52%. Impression: 1. Pharmacologic (Regadenoson) evaluation 2. Peak pharmacologic ECG with no ischemic changes. 3. There were no cardiac dysrhythmias pretest, during pharmacologic infusion, or recovery. 5. Mildly reduced perfusion of the anterior wall status post pharmacological stress, suggestive of mild ischemia of the anterior wall. 6. The gated Cardiolite study reports an LVEF of 52%. This note was generated with Relevance Mediaation software. It may contain incorrect words, spelling, and punctuation that were not noted in checking the note before signing. 02/04/25 1027 Date Georges Negrete MD CC: Dr. Georges Negrete MD; Dr. Scooter Ramirez MD Date Dictated: 02/04/25 1020 Date Transcribed: 02/04/25 1020 Commercial Decorator: AR Signed Normal [facility] Type AND Screen - PAT ONLYon 02-04-2025 ABO and Rh group Nom (Bld) Blood group A Rh(D) positive Normal [facility] Comment on above: Order Comment: Surge ry Date: 02/17/25 Reason for Laboratory Test SURGERY [id number] No N N S CERVICAL FUSION Performed By: #### L 501.9985, BTSPAT, M100.651, L100.0100, L500.2500 #### [facility] Laboratory [address] [place], [address] MR/PATPastor 02-03-2025 MR/PAT.[facility] Medical Records Department [address] [place] [address] PAT - Anesthesia 02/03/25 1233 MR#: [id number] Acct: [id number] Name: DARWIN GORE Rep #: [id number] : 1970 54 From: Perez Preciado MD PCP: Dr. Scooter Ramirez MD [place] [facility] [place] [facility] [place]Ass[place] Diagnosis/Proposed Procedure Planned Operative Procedure(s): ANTERIOR CERVICAL FUSION C5-6, C6-7 Anesthesia History Anesthesia History - cancer registry manager: Anesthesia History - cancer registry manager Hx [place]ization No: [place] 12/202302/01/25 14:07 Any Problems With Anesthesia Yes: SLOW TO AWAKEN 02/01/25 14:07 Cholinesterase deficiency No 02/01/25 14:07 You/Your Family Experience No 02/01/25 14:07 fever (hyperthermia) with Relationship Recent Exposure to Contagious No 09/13/24 06:33 Disease Does patient have nerve No 02/01/25 14:07 stimulator Patient instructed to have device shut off --Does patient have Pacemaker or ICD? When Was Last Pacemaker Check QUESTION #4 FULL TEXT: You/Your Family Experience fever (hyperthermia) with Anesthesia Last Oral Intake Last Oral intake: Last Oral Intake NPO since Meds taken in AM with sips of water? 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 - cancer registry manager: PONV - cancer registry manager Female No 02/01/25 14:07 HX of Motion Sickness No 02/01/25 14:07 HX of N/V After Surgery No 02/01/25 14:07 Non-Smoker Yes 02/01/25 14:07 Duration of Surgery greater Yes 02/01/25 14:07 than 60 minutes Number of Risk Factors 2 02/01/25 14:07 PONV Score Moderate Risk 02/01/25 14:07 Height Weight Height Weight: Anesthesia: Height Weight Height 5 ft 9 in 09/13/24 06:33 Respiratory Assessment Respiratory Assessment - cancer registry manager: Respiratory Tract Infection Hx - cancer registry manager Hx Respiratory Tract Infection No 02/01/25 14:07 STOP Sleep Apnea STOP Sleep Apnea - cancer registry manager: STOP Sleep Apnea - cancer registry manager Hx Hypertension Yes: CONTROLLED WITH MED 02/01/25 14:07 Hx Sleep Apnea Yes 02/01/25 14:07 CPAP Yes 02/01/25 14:07 BIPAP No 02/01/25 14:07 Do you snore loudly (louder than talking or can be heard Do you often feel tired/ fatigued/ sleepy during daytime? Has anyone observed you stop breathing during sleep? STOP Results Positive 02/01/25 14:07 QUESTION #5 FULL TEXT : Do you snore loudly (louder than talking or can be heard through closed doors)? Tobacco Use History Tobacco Use History - cancer registry manager: Tobacco Use History - cancer registry manager Tobacco Use Smoking Status Never smoker 02/01/25 14:07 Hx Tobacco Use No 02/01/25 14:07 Years Smoking Packs Smoked per Day Smoking Cessation Date was within the last 15 years Hx Smoking Cessation Date Hx Smoking Cessation No 02/01/25 14:07 Counseling Hematologic Medial History Hematologic Hx - cancer registry manager: Hematologic Medical Hx - documentation nurse Hx of Blood Transfusion No 02/01/25 14:07 Hx of Transfusion in last 3 No 02/01/25 14:07 Months Date of Last Transfusion (if within last 3 months) Ever experience any problems No 02/01/25 14:07 with transfusion(s)? Specify any problems Hx of Preganancy in last 3 N/A 02/01/25 14:07 Months Nurse Filling Out Transfusion [email or web address] 02/01/25 14:07 Questions: Date: 02/01/25 02/01/25 14:07 Time: 14:11 02/01/25 14:07 Patient unable to answer at this time (ie. confused, unrespo /Reproductio n History /Reproductiv e History - cancer registry manager: /Reproductiv e Hx- cancer registry manager Hx Now Gestational Age (in weeks): EDC: Hx Hx Para Hx Section SAB No 02/01/25 14:07 PFSH Medical History (Updated 02/01/25 @ 14:16 by Eduard Sanders) Chest pain Cervical disc herniation Obesity (BMI 30-39.9) Wears glasses Alcohol use Diabetes Low iron High cholesterol Back pain Asthma Non-smoker CPAP (continuous positive airway pressure) dependence Hypertension History of pain when walking History of edema History of echocardiogram Cardiology follow-up encounter History of heart attack Obesity (BMI 30.0-34.9) Dyslipidemia CKD (chronic kidney disease), stage II Wears contact lenses Injury of head and neck History of stress test history of pilon ankle fracture Arthritis Home Medications ???Medication ???Instructions ???Recorded ???Last Taken ???Type aspirin 81 mg tablet,delayed 81 mg PO BREAKFAST 90 days #90 tab s 01/16/24 09/12/24 Rx release multivitamin 1 tab PO QAM 02/23/24 09/11/24 His tory amlodipine 5 mg tablet 5 mg PO DAILY #90 tabs (more content not included)... Normal [facility] Anion gap in Serum or Plasma Ordered By: Georges Negrete on 01-26-2025 Anion gap [Moles/Vol] 13 mmol/L -15 [facility] BUN/creatinine ratioOrdered By: Georges Negrete on 01-26-2025 Urea nitrogen/Creatinine [Mass ratio] 26.3 mg/mg High - [facility] Bilirubin, totalOrdered By: Georges Negrete on 01-26-2025 Bilirubin [Mass/Vol] 0.36 mg/dL 0.00-1.30 [facility] Calculated very low density lipoprotein (VLDL) cholesterol measurementOrdered By: Georges Negrete on 01-26-2025 Calculated very low density lipoprotein (VLDL) cholesterol measurement 21 mg/dL - [facility] Carbon dioxide, total [Moles /volume] in Central venous bloodOrdered By: Georges Negrete on 01-26-2025 CO2 [Moles/Vol] 19.4 mmol/L Low 21.0-32.[address] [facility] Cardiology Visit Reporton Cardiology Visit Report [facility] [address] [place] [address]. [address] [place] [address] OFFICE VISIT Date of Service: 01/26/25 MR#: [id number] Acct: [id number] Name: DARWIN GORE Rep #: [id number] : 1970 Provider: Dr. Georges Negrete MD Age/Sex: 54/M [place] [facility] [place]: Signed HPI HPI History of Present Illness Details: Darwin is here for follow-up visit. Complains of occasional chest discomfort. Nonspecific about it. Unable to describe the quality. Not related to exertion. Denies shortness of breath. No orthopnea PND. No ankle edema. Patient has been having C-spine problems and is being contemplated for surgery. Tolerating rosuvastatin well and denies any muscle aches or pains. 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 Required: No Accompanied by: Self Is patient in pain?: No Allergies Fish Containing Products Allergy (Severe, Verified 01/26/25 10:02) Anaphylaxis shellfish derived Allergy (Severe, Verified 01/26/25 10:02) Anaphylaxis Medications ???Medication ???Instructions ???Recorded ???Confirmed ???Type aspirin 81 mg tablet,delayed 81 mg PO BREAKFAST 90 days #90 tab s 01/16/24 01/26/25 Rx release multivitamin 1 tab PO QAM 02/23/24 01/26/25 His tory amlodipine 5 mg tablet 5 mg PO DAILY #90 tabs 04/14/24 Rx ticagrelor 90 mg tablet (Brilinta) 90 mg PO BID #180 tabs 04/19/24 01/26/25 Rx rosuvastatin 20 mg tablet 20 mg PO QHS 09/10/24 01/26/25 His tory dapagliflozin propanediol 10 mg 10 mg PO DAILY #90 tabs 10/14/24 1 Rx tablet (Farxiga) gabapentin 100 mg capsule 100 mg PO TID PRN 01/26/25 5 History Ejection fraction %: 55 Have you fallen in the past year?: No (tripped a couple times) PFSH Medical History Cervical disc herniation Obesity (BMI 30-39.9) Wears glasses Alcohol use Diabetes Low iron High cholesterol Back pain Asthma Non-smoker CPAP (continuous positive airway pressure) dependence Hypertension History of pain when walking History of edema History of echocardiogram Cardiology follow-up encounter History of heart attack Obesity (BMI 30.0-34.9) Dyslipidemia CKD (chronic kidney disease), stage II Wears contact lenses Injury of head and neck History of stress test history of pilon ankle fracture Arthritis Surgical History History of cardiac catheterization Hx of colonoscopy Stented coronary artery History of ankle surgery History of total ankle replacement History of cholecystectomy History of tonsillectomy Family History Father Heart disease CAD (coronary artery disease) Hypertension Myocardial infarction Mother Colon cancer Social History household members: spouse Smoking Status: Never smoker alcohol intake: current alcohol intake frequency: holidays/special occasions only substance use type: does not use ROS Const Const: Negative for fatigue or weakness Eyes Eyes: Negative for change in vision ENT ENT: Negative for dizziness or balance problems Cardio Chest Pain: Yes (discomfort) Frequency: weekly Character: sharp and other ("tension") Location: left chest Duration: minutes and brief Palpitations: No Edema: Bilateral (worse on left but r/t arthritis and injury) Resp Respiratory: Negative for SOB with activity, SOB at rest or SOB orthopnea SOB lying down GI GI: Negative nausea or heartburn Musc Musc: Negative for balance problems Neuro Neuro: Negative for dizziness, lightheadedness, near syncope, syncope or weakness Endo Endo: Negative for fatigue Cardiology Exam Const Appearance: comfortable and no acute distress Nutritional Appearance: well nourished Neck Neck: no JVD Carotids: Negative bruit Chest Auscultation: Bilateral: Clear to Auscultation Cardio Rate: regular rate Rhythm: regular rhythm Heart sounds: S1 normal and S2 normal Neuro General: patient alert, patient awake and patient oriented x3 Extremities Lower Extremity Edema: None: Bilateral Supplemental Info Supplemental Information Labs: HDL Cholesterol, (40-) 55 mg/dL Cholesterol, (<=200) 163 mg/dL Triglycerides, (-199) 80 mg/dL Diagnostics: Electrocardiogram Echocardiogram Stress Test Stress Test Nuclear Medicine Cardiac Catheterization Chest X-Ray Abdomen Ultrasound Abdomen/Pelvis (more content not included)... Normal [facility] Chloride assayOrdered By: Yusuf Negrete on 01-26-2025 Chloride [Moles/Vol] 105 mmol/L 98-108 [facility] Comprehensive Metabolic Prof ilon 01-26-2025 Albumin [Mass/Vol] 4.6 g/dL Normal 3.5-5.0 [facility] Comment on above: Performed By: #### L 500.4050, L500.4100 ####[facility] [address] [place], [address] Albumin/Globulin [Mass ratio] 1.7 {ratio} Normal 0.9-2.[address] [facility] Comment on above: Performed By: #### L 500.4050, L500.4100 ####[facility] [address] [place], [address] ALK PHOS 62 U/L Normal 40-[address] [facility] Comment on above: Performed By: #### L 500.4050, L500.4100 ####[facility] [address] [place], [address] ALT [Catalytic activity/Vol] 48 U/L High <=[address] [facility] Comment on above: Performed By: #### L 500.4050, L500.4100 ####[facility] [address] [place], [address] AST [Catalytic activity/Vol] 31 U/L Normal <=[address] [facility] Comment on above: Performed By: #### L 500.4050, L500.4100 ####[facility] [address] [place], [address] Bilirubin [Mass/Vol] 0.36 mg/dL Normal 0.00-1.30 [facility] Comment on above: Performed By: #### L 500.4050, L500.4100 ####[facility] [address] [place], [address] BUN/CRE 26.3 RATIO High 10-[address] [facility] Comment on above: Performed By: #### L 500.4050, L500.4100 ####[facility] [address] [place], [address] Calcium [Mass/Vol] 9.5 mg/dL Normal 7.6-11.0 [facility] Comment on above: Performed By: #### L 500.4050, L500.4100 ####[facility] [address] [place], [address] Chloride [Moles/Vol] 105 mmol/L Normal 98-108 [facility] Comment on above: Performed By: #### L 500.4050, L500.4100 ####[facility] [address] [place], [address] CO2 [Moles/Vol] 19.4 mmol/L Low 21.0-32.[address] [facility] Comment on above: Performed By: #### L 500.4050, L500.4100 ####[facility] [address] [place], [address] Creatinine [Mass/Vol] 0.92 mg/dL Normal 0.70-1.20 [facility] Comment on above: Performed By: #### L 500.4050, L500.4100 ####[facility] [address] [place], [address] GAP 13 Normal 5-[address] [facility] Comment on above: Performed By: #### L 500.4050, L500.4100 ####[facility] [address] [place], [address] GFR/1.73 sq M.predicted among non-blacks MDRD (S/P/Bld) [Vol rate/Area] 99 mL/min/{1.73_m2} Normal >[address] [facility] Comment on above: Result Comment: mL/m in/1.73m2 CKD-EPI Creatinine Equation (2020) Performed By: #### L 500.4050, L500.4100 ####[facility] [address] [place], [address] Globulin (S) [Mass/Vol] 2.7 g/dL Normal 2.2-4.2 [facility] Comment on above: Performed By: #### L 500.4050, L500.4100 ####[facility] [address] [place], [address] Glucose [Mass/Vol] 128 mg/dL High 70-99 [facility] Comment on above: Performed By: #### L 500.4050, L500.4100 ####[facility] [address] [place], [address] Potassium [Moles/Vol] 4.3 mmol/L Normal 3.3-5.1 [facility] Comment on above: Performed By: #### L 500.4050, L500.4100 ####[facility] [address] [place], [address] Sodium [Moles/Vol] 137 mmol/L Normal 133-145 [facility] Comment on above: Performed By: #### L 500.4050, L500.4100 ####[facility] [address] [place], [address] T PROT 7.2 g/dL Normal 5.9-8.[address] [facility] Comment on above: Performed By: #### L 500.4050, L500.4100 ####[facility] [address] [place], [address] Urea nitrogen [Mass/Vol] 24 mg/dL High 4-[address] [facility] Comment on above: Performed By: #### L 500.4050, L500.4100 ####[facility] [address] [place], [address] Glomerular filtration rate ( GFR) estimation/1.73 sq m using serum, plasma, or whole bOrdered By: Georges Negrete on 01-26-2025 GFR/1.73 sq M.predicted among non-blacks MDRD (S/P/Bld) [Vol rate/Area] 99 mL/min/{1.73_m2} >[address] [facility] Comment on above: mL/min/1.73m2 CKD-EP I Creatinine Equation (2020) L509.3001on 01-26-2025 Testosterone [Mass/Vol] 461.00 ng/dL Normal 300-[address] [facility] Comment on above: Performed By: #### L 509.3001 ####[facility] [address] [place], [address] LDL calc ser/plasOrdered By: Georges Negrete on 01-26-2025 Cholesterol in LDL [Mass/Vol] 80 mg/dL [facility] Comment on above: Bofzyazcsf=003-434 m g/dL & Higher Qwcj=265 mg/dL or greaterFriedwald Equation for LDL-C Laboratory - Chemistry and C hemistry - challengeOrdered By: Scooter Ramirez on 01-26-2025 Testosterone [Mass/Vol] 461.00 ng/dL 300-[address] [facility] Laboratory - Chemistry and C hemistry - challengeOrdered By: Georges Negrete on 01-26-2025 AST [Catalytic activity/Vol] 31 U/L <[address] [facility] Lipid Profileon 01-26-2025 CHOL:HDL 2.[address] [facility] Comment on above: Performed By: #### L 500.4050, L500.4100 ####[facility] [address] [place], [address] Cholesterol [Mass/Vol] 158 mg/dL Normal <=200 [facility] Comment on above: Result Comment: Chol esterol level, Desirable <200 mg/dL Borderline high cholesterol 200-239 mg/dL High cholesterol >=240 mg/dL Recommendations of the NCEP Adult Treatment Panel for the following risk-cutoff thresholds for the [place] population. Performed By: #### L 500.4050, L500.4100 ####[facility] [address] [place], [address] Cholesterol in HDL [Mass/Vol] 57 mg/dL Normal [facility] Comment on above: Result Comment: Bere onal Cholesterol Education Program (NCEP) guidelines: <40 mg/dL: Low HDL-cholesterol (major risk factor for CHD) >= 60 mg/dL: High HDL-cholesterol (negative risk factor for CHD) HDL-cholesterol is affected by a number of factors, e.g. smoking, exercise, hormones, sex and age. Performed By: #### L 500.4050, L500.4100 ####[facility] [address] [place], [address] Cholesterol in LDL [Mass/Vol] 80 mg/dL Normal [facility] Comment on above: Result Comment: Bord uqivkl=114-563 mg/dL Higher Bxgq=957 mg/dL or greater Friedwald Equation for LDL-C Performed By: #### L 500.4050, L500.4100 ####[facility] [address] [place], [address] Cholesterol in VLDL [Mass/Vol] 21 mg/dL Normal 5-[address] [facility] Comment on above: Performed By: #### L 500.4050, L500.4100 ####[facility] [address] [place], [address] Triglyceride [Mass/Vol] 105 mg/dL Normal [facility] Comment on above: Result Comment: The drugs N-Acetylcysteine and Metamizole may falsely depress this assay. Normal range: <150 mg/dL Borderline High: 150-199 mg/dL High: 200-499 mg/dL Very High: >500 mg/dL Performed By: #### L 500.4050, L500.4100 ####[facility] [address] [place], [address] Potassium measurement (mass/ volume)Ordered By: Georges Negrete on 01-26-2025 Potassium (Unsp spec) [Mass/Vol] 4.3 mmol/L 3.3-5.[address] [facility] Screening total cholesterol/ high density lipoprotein (HDL) cholesterol ratioOrdered By: Georges Negrete on 01-26-2025 Cholesterol.total/Koki sterol in HDL [Mass ratio] 2.77 {ratio} [facility] Serum creatinine measurement (mass/volume)Ordered By: Georges Negrete on 01-26-2025 Creatinine [Mass/Vol] 0.92 mg/dL 0.70-1.20 [facility] Serum globulin measurementOr dered By: Georges Negrete on 01-26-2025 Globulin (S) [Mass/Vol] 2.7 g/dL 2.2-4.2 [facility] Serum glucose measurement (m ass/volume)Ordered By: Georges Negrete on 01-26-2025 Glucose [Mass/Vol] 128 mg/dL High 70-99 [facility] Serum or plasma alanine hurst otransferase (ALT) measurementOrdered By: Georges Negrete on 01-26-2025 ALT [Catalytic activity/Vol] 48 U/L High <[address] [facility] Serum or plasma albumin nita urement (mass/volume)Ordered By: Georges Negrete on 01-26-2025 Albumin [Mass/Vol] 4.6 g/dL 3.5-5.0 [facility] Serum or plasma albumin/glob ulin mass ratioOrdered By: Georges Negrete on 01-26-2025 Albumin/Globulin [Mass ratio] 1.7 {ratio} 0.9-2.[address] [facility] Serum or plasma alkaline brandi sphatase measurementOrdered By: Georges Negrete on 01-26-2025 ALP [Catalytic activity/Vol] 62 U/L 40-[address] [facility] Serum or plasma calcium nita urement (mass/volume)Ordered By: Georges Negrete on 01-26-2025 Calcium [Mass/Vol] 9.5 mg/dL 7.6-11.0 [facility] Serum or plasma cholesterol in HDL measurement (mass/volume)Ordered By: Georges Negrete on 01-26-2025 Cholesterol in HDL [Mass/Vol] 57 mg/dL >[address] [facility] Comment on above: National Cholesterol Education Program (NCEP) guidelines:<40 mg/dL: Low HDL-cholesterol (major risk factor for CHD)>= 60 mg/dL: High HDL-cholesterol (negative risk factor for CHD)HDL-cholesterol is affected by a number of factors, e.g. smoking, exercise, hormones, sex and age. Serum or plasma cholesterol measurement (mass/volume)Ordered By: Georges Negrete on 01-26-2025 Cholesterol [Mass/Vol] 158 mg/dL <201 [facility] Comment on above: Cholesterol level, D esirable <200 mg/dLBorderline high cholesterol 200-239 mg/dLHigh cholesterol >=240 mg/dLRecommendations of the NCEP Adult Treatment Panel for the following risk-cutoff thresholds for the [place] population. Serum or plasma urea nitroge n measurement (mass/volume)Ordered By: Georges Oteroan on 01-26-2025 Urea nitrogen [Mass/Vol] 24 mg/dL High 4-[address] [facility] Sodium levelOrdered By: Damon higgins Caden on 01-26-2025 Sodium [Moles/Vol] 137 mmol/L 133-145 [facility] Total proteinOrdered By: Pallavi zamora Caden on 01-26-2025 Protein [Mass/Vol] 7.2 g/dL 5.9-8.4 [facility] Triglycerides measurementOrd ered By: Georges Oteroan on 01-26-2025 Triglyceride [Mass/Vol] 105 mg/dL <199 [facility] Comment on above: The drugs N-Acetylcy steine and Metamizole may falsely depress this assay. Normal range: <150 mg/dLBorderline High: 150-199 mg/dLHigh: 200-499 mg/dLVery High: >500 mg/dL Cerv Spine 4 or 5 Viewson Cerv Spine 4 or 5 Views [facility] Imaging Services [address] [place] [address] Cerv Spine 4 or 5 Views MR#: [id number] Acct: [id number] Name: DARWIN GORE Rep #: [id number] : 1970 M 54 From: Franklyn Chavira MD PCP: Dr. Scooter Ramirez MD Status: DEP AMB Study: Cerv Spine 4 or 5 Views Date of Exam: 12/24/24 Exam# [id number] Ordering Dr: Emilia Camejo PROCEDURE: CERV SPINE 4 OR 5 VIEWS 12/24/2024 REASON FOR EXAM: NECK PAIN, EXTENDS TO LEFT ARM TECHNIQUE: [facility] DX Procedure: CERV SPINE 4 OR 5 VIEWS COMPARISON: Cervical spine MRI 03/08/2024. FINDINGS: No evidence of acute fracture or subluxation. Alignment is anatomic. Straightening of the cervical lordosis may be positional or related to muscle spasm. No abnormal movement elicited on flexion and extension maneuvers. Mild multilevel spondylotic changes most pronounced at C5-6 with mild disc space narrowing, endplate sclerosis and anterior osteophytosis, and hypertrophic facet arthropathy. No prevertebral soft tissue swelling. No unusual mineralization is seen. RAD/Cerv Spine 4 or 5 Views IMPRESSION: No evidence of fracture or malalignment. Mild spondylotic changes. Reading Location: [id number] CC: KAREN Chavarria; Dr. Scooter Ramirez MD Commercial Decorator: Signed Normal [facility] Orthopedic Visit Reporton Orthopedic Visit Report [facility] [address] [place] [address] OFFICE VISIT Date of Service: 12/24/24 MR#: [id number] Acct: [id number] Name: DARWIN GORE Rep #: [id number] : 1970 Provider: Dr. Saravanan Ibrahim MD Age/Sex: 54/M Location: [facility] Status: Signed Intake Vital Signs 09/13/24 06:33 Height 5 ft 9 in Intake Visit Reasons: CERVICAL SPINE Chief Complaint: cervical spine Is patient in pain?: Yes (cervical spine) Pain scale (1-10): 2 Allergies Fish Containing Products Allergy (Severe, Verified 12/24/24 12:58) Anaphylaxis shellfish derived Allergy (Severe, Verified 12/24/24 12:58) Anaphylaxis atorvastatin Adverse Reaction (Mild, Verified 12/24/24 12:58) Diarrhea Medications ???Medication ???Instructions ???Recorded ???Confirmed ???Type aspirin 81 mg tablet,delayed 81 mg PO BREAKFAST 90 days #90 tab s 01/16/24 12/24/24 Rx release multivitamin 1 tab PO QAM 02/23/24 12/24/24 His tory amlodipine 5 mg tablet 5 mg PO DAILY #90 tabs 04/14/24 Rx ticagrelor 90 mg tablet (Brilinta) 90 mg PO BID #180 tabs 04/19/24 12/24/24 Rx rosuvastatin 20 mg tablet 20 mg PO QHS 09/10/24 12/24/24 His tory dapagliflozin propanediol 10 mg 10 mg PO DAILY #90 tabs 10/14/24 0 12/24/24 Rx tablet (Farxiga) gabapentin 100 mg capsule 100 mg PO QDAY 12/24/24 12/24/24 H istory [facility] Medical History (Updated 12/24/24 @ 13:24 by Dayan Valdez RN) Cervical disc herniation Obesity (BMI 30-39.9) Wears glasses Alcohol use Diabetes Low iron High cholesterol Back pain Asthma Non-smoker CPAP (continuous positive airway pressure) dependence Hypertension History of pain when walking History of edema History of echocardiogram Cardiology follow-up encounter History of heart attack Obesity (BMI 30.0-34.9) Dyslipidemia CKD (chronic kidney disease), stage II Wears contact lenses Injury of head and neck History of stress test history of pilon ankle fracture Arthritis Surgical History History of cardiac catheterization Hx of colonoscopy Stented coronary artery History of ankle surgery History of total ankle replacement History of cholecystectomy History of tonsillectomy Family History Father Heart disease CAD (coronary artery disease) Hypertension Myocardial infarction Mother Colon cancer Social History household members: spouse Smoking Status: Never smoker alcohol intake: current alcohol intake frequency: holidays/special occasions only substance use type: does not use HPI CERVICAL SPINE Details: This documentation accurately reflects the service provided and the decisions made by me, Dr. Saravanan Ibrahim MD 12/24/24 5412. Part of today???s visit was documented by Dayan Valdez RN, acting as scribe. DARWIN GORE is a 54 year old M here today for cervical spine pain. He complains of left sided neck pain that extends down into his collar bone. He feels as though his left foot is catching on the ground at times.He denies dropping items. He has weakness in his left hand and arm and has difficulty opening containers and jars.He did receive injections with Dr. Car that would give him relief for a few weeks but then the pain returns. He also completed PT. He reports numbness in his left arm when sleeping, Dr. Car has prescribed Gabapentin at night to help with this. He has to shake his left hand to help the numbness at night. He reports stiffness and limited ROM in the neck. He is right handed. He works from home which requires a lot of time on his computer. He sees Dr. Negrete in cardiology and was last seen two months ago. He has stopped the blood thinner for diagnostic injections with pain management. He denies lung problems. He uses a CPAP for sleep apnea. He does take Farxiga his last A1c was 7.2 in July. The patient is a 54-year-old male presenting with left-sided neck pain and radiculopathy. The neck pain has been persistent, primarily affecting the left side, and is associated with stiffness and limited range of motion. The patient reports that the pain radiates down the left arm, causing numbness and a needle-like sensation in the hand, particularly at night. The patient has a history of cervical disc herniation, with MRI findings indicating a large herniation towards the left at the C5-6 and C6-7 levels, compressing the spinal cord and nerves. Previous interventions included physical therapy and injections, which provided temporary relief. The patient is considering surgical intervention once cleared by cardiology due to a history of myocardial infarction and current use of blood thinners (more content not included)... Normal [facility] PT D/C Summary (1)on 025 PT D/C Summary (1) [facility] Physical Therapy [address] [place] [address] / REHABILITATION SERVICES DISCHARGE SUMMARY MR#: [id number] Acct: [id number] Name: DARWIN GORE Rep #: [id number] : 1970 54 From: Vu Quintero PT, Cert. T, [facility] Referring Dr.: Dr. Saravanan Ibrahim MD Status: REG RCR Insurance: [employer] S[employer] PAY INSURANCE Discharge Summary D/C summary: It has been my pleasure to treat DARWIN GORE referred by Dr. Saravanan Ibrahim MD, with the diagnosis of RADICULOPATHY ,CERVICAL for a total of 21 visit(s). Discharge Date: Please see the following information for a summary of their discharge status. Subjective Subjective: Doing okay stiff I have a date September 13 Pain Bilateral Neck: Pain Intensity (Out of 10): 2 Overall Improvement % Improvement: 20 Objective Objective/Function: POSTURE: forward posture head forward PALPATION: tender UT/levator/paraspinal s NEURO: denies paresthesia/tingling reflexes C5-6-7 / AROM: BUE WFL MMT: BUE 4/5 grossly CERVICAL ROM: flexion min loss ,lateral flexion mod left pain ,rotation mod pain left ,mod right lateral/flexion ,extension mod/extension loss pain Goals Goal 1:: Patient to be I with HEP Goal Progress: Progressing Goal 2:: Patient to improve cervical ROM for function of recovery for driving Goal Progress: Progressing Goal 3:: Patient to demonstrate 40% improvement with less pain and improved function Goal Progress: Progressing Goal 4:: 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 Thank you for the referral of this patient. Sincerely, Vu Quintero, PT, Cert MDT, OCS Balance/Gait/Function al tests Balance/Special Test Scores Oswestry Neck Score: 25 Improvement % Improvement: 20 12/07/24 1222 CC: Dr. Saravanan Ibrahim MD; Dr. Scooter Ramirez MD JLA Signed Normal [facility] PT D/C Summary (1) [facility] Physical Therapy [facility] [address] [place] [address] [address] [place] [address] / REHABILITATION SERVICES DISCHARGE SUMMARY MR#: [id number] Acct: [id number] Name: DARWIN GORE Rep #: [id number] : 1970 54 From: Vu Quintero PT, Cert. T, OCS Referring Dr.: Dr. Saravanan Ibrahim MD Status: REG RCR Insurance: [employer] INSURANCE Discharge Summary D/C summary: It has been my pleasure to treat DARWIN GORE referred by Dr. Saravanan Ibrahim MD, with the diagnosis of RADICULOPATHY ,CERVICAL for a total of 21 visit(s). Discharge Date: Please see the following information for a summary of their discharge status. Subjective Subjective: Doing okay stiff I have a date September 13 Pain Bilateral Neck: Pain Intensity (Out of 10): 2 Overall Improvement % Improvement: 20 Objective Objective/Function: POSTURE: forward posture head forward PALPATION: tender UT/levator/paraspinal s NEURO: denies paresthesia/tingling reflexes C5-6-7 04/30 AROM: BUE WFL MMT: BUE 4/5 grossly CERVICAL ROM: flexion min loss ,lateral flexion mod left pain ,rotation mod pain left ,mod right lateral/flexion ,extension mod/extension loss pain Goals Goal 1:: Patient to be I with HEP Goal Progress: Progressing Goal 2:: Patient to improve cervical ROM for function of recovery for driving Goal Progress: Progressing Goal 3:: Patient to demonstrate 40% improvement with less pain and improved function Goal Progress: Progressing Goal 4:: 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 Thank you for the referral of this patient. Sincerely, Vu Quintero PT, Cert MDT, OCS Balance/Gait/Function al tests Balance/Special Test Scores Oswestry Neck Score: 25 Improvement % Improvement: 12/07/24 1224 CC: Dr. Saravanan Ibrahim MD; Dr. Scooter Ramirez MD JLA Signed Normal [facility] Cerv Spine 4 or 5 Viewson Cerv Spine 4 or 5 Views [facility] Imaging Services [address], [place] [address] Cerv Spine 4 or 5 Views MR#: [id number] Acct: [id number] Name: DARWIN GORE Rep #: [id number] : 1970 M 54 From: Garry Wheatley MD PCP: Dr. Scooter Ramirez MD Status: [facility] Study: Cerv Spine 4 or 5 Views Date of Exam: 09/13/24 Exam# [id number] Ordering Dr: Mati Car MD PROCEDURE: CERV SPINE 4 OR 5 VIEWS 09/13/2024 REASON FOR EXAM: BLOCK C4 C5 C6 C7 TECHNIQUE: Fluoroscopy with 4 spot images during cervical spine block/injection FINDINGS: Fluoroscopy time 8.5 seconds Cumulative dose 1.50 mGy 4 spot images show unilateral multilevel needle localization. Please see procedure report for further detail. RAD/Cerv Spine 4 or 5 Views IMPRESSION: Fluoroscopy as above. Reading Location: [facility] CC: Dr. Scooter Ramirez MD; Dr. Mati Car MD Commercial Decorator: Signed [facility] MR/POSTOP.[facility] 09-13-2024 MR/POSTOP.[facility] Medical Records Department [address] [place] [address] Anesthesia Postop Eval I 09/13/24 0858 MR#: [id number] Acct: [id number] Name: DARWIN GORE Rep #: [id number] : 1970 54 From: Patel Powell CRNA PCP: Dr. Scooter Ramirez MD Status:[facility] Y Race: C [place] [facility] [place]esthesia: Postop Eval I Current Vital Signs Temperature: 97.6 F Pulse Rate: 53 Blood Pressure: 129/80 Respiratory Rate: 16 Pulse Ox: 98 Oxygen Delivery Method: Room Air Assessment Airway patent: Yes Spontaneous unlabored respirations: Yes Mental status: Awake and Calm nausea: No Vomiting: No Anesthesia Complication: No Fluid Hydration Crystalloid volume administer (ml): 200 Total IV fluid infused: 200 Progress Note Anesthesia document: Postop Eval 1 completed: Yes 09/13/24 0859 Date Patel Powell RAISE MINER Richmondigner Signature: Date CC: Signed Normal [facility] MR/TSURDZGN0le 09-13-2024 MR/POSTOPAN2 [facility] Medical Records Department [address] [place] [address] Anesthesia Postop Eval II 09/13/24908 MR#: [id number] Acct: [id number] Name: DARWIN GORE Rep #: [id number] : 1970 54 From: Perez Preciado MD PCP: Dr. Scooter Ramirez MD Status:[facility] Y Race: C [place] [facility] [place]esthesia Postop Eval I Sum Postop Eval Completion status Anesthesia document: Postop Eval 1 completed: Yes Anesthesia Postop Eval I Summary Anesthesia Postop Eval I Summary: Anesthesia Postop Eval I: Assessment Summary Airway patent Yes 09/13/24 08:59 [email or web address] Spontaneous unlabored Yes 09/13/24 08:59 [email or web address] respirations Mental status Awake,Calm 09/13/24 08:59 [email or web address] nausea No 09/13/24 08:59 RAISE [email or web address] Vomiting No 09/13/24 08:59 [email or web address] Anesthesia Postop Eval I: Fluid Summary Crystalloid volume administer 200 09/13/24 08:59 [email or web address] (ml) Colloids volume administered ( ml) Blood Product volume administered (ml) Total IV fluid infused 200 09/13/24 08:59 RAISE [email or web address] Anesthesia Postop Eval I: Summary Notes Anesthesia Complication No 09/13/24 08:59 RAISE [email or web address] Anesthesia Complication Comment: Post-operative progress note Anesthesia: Postop Eval II Evaluation Mental status: Awake Pain Level: 0 nausea: No Vomiting: No 09/13/24908 Perez Hopper Signature: Date CC: Signed Normal [facility] Operative Reporton 5 Operative Report [facility] Medical Records Department [address] [place] [address] Operative Report 09/13/24 0820 MR#: [id number] Acct: [id number] Name: DARWIN GORE Rep #: [id number] : 1970 54 From: Mati Car MD PCP: Dr. Scooter Ramirez MD Status:[facility] Location: [place] [address] Operative Report (Standard) Operative Information Date of Procedure: 09/13/24 Pre-Operative Diagnosis: Cervical spondylosis, cervical degenerative disc disease, cervical facet arthropathy Post-Operative Diagnosis: Cervical spondylosis, cervical degenerative disc disease, cervical facet arthropathy Surgery/Procedure Performed: Left-sided cervical facet steroid injection, C4, C5, C6, and C7. mill feeder: No Type of Anesthesia: Local MAC RN Documented Start/Stop Times: Operation Date: 09/13/24 07:50 Case Time Into Pre-Op 09/13/24 06:18 Out of Pre-Op 09/13/24 07:42 Anesthesia Start 09/13/24 07:55 Into Room 09/13/24 07:55 Procedure Start 09/13/24 07:59 Procedure End 09/13/24 08:02 Anesthesia End 09/13/24 08:05 Out of Room 09/13/24 08:05 Into Recovery 09/13/24 08:07 Procedure Start Time: 08:23 Procedure Stop Time: 08:23 Select all DRAINS/GRAFTS/IMPLANT S that apply: None Estimated Blood Loss: 1 Specimen collected: No Description of surgery: PROCEDURE PERFORMED: Left-sided cervical facet steroid injection, C4, C5, C6, and C7. ANESTHESIA: MAC. BLOOD LOSS: Minimal. COMPLICATIONS: None. DESCRIPTION OF PROCEDURE: History and physical of today was reviewed. Risks and benefits of the procedure were explained. The patient understood and agreed to proceed. Informed consent was obtained. IV inserted per routine protocol. The patient was taken to the operating room and placed in the prone position with a pillow positioned underneath the chest. The neck area was prepped and draped in a sterile fashion using iodine x3. Under fluoroscopy guidance on an AP view, the C4 through C7 vertebral bodies were visualized at approximately 10-degree angle, starting on the left C4, ending on the left C7, passing through the C5 and C6. Using a 25-gauge 3-1/2-inch spinal needle, the needle was advanced via the skin. The tip of the needle was maneuvered and directed towards the epiphyseal junction of each corresponding vertebra. Once the tip of the needle was at the vicinity of the medial branch, the needle was pulled approximately 2 mm off the bone. After negative aspiration of blood or CSF and confirmation on AP, oblique as well as lateral view, a total of 4 mL of preservative-free 0.25% Marcaine with 80 mg of Depo-Medrol was injected in divided doses between those four levels. The needles were then removed intact. The patient experienced no sign or symptoms of intrathecal or intravascular injection. The patient experienced no paresthesia. The procedure was completed without any apparent difficulty or any complications. The patient appeared to tolerate it well. ASSESSMENT AND PLAN: This is a 54-year-old male with cervical spondylosis, cervical facet arthropathy, cervical degenerative disc disease, status post left-sided cervical facet steroid injection C4-C7 under fluoroscopic guidance, patient will continue with their current medications, patient will follow-up in approximately 1 to 2 weeks for reevaluation. Surgical Findings: 1 Complications Complications: No Admit VTE Documentation VTE Present on Admission: No VTE Mechan Device Prophylaxis: None VTE Pharm Prophylaxis ordered?: No 09/13/24822 Cosigner Signature (if applicable): CC: Dr. Scooter Ramirez MD; Dr. Mati Car MD Signed Normal [facility] MR/PAT.Gi 09-10-2024 MR/PAT.[facility] Medical Records Department [address] [place] [address] PAT - Anesthesia 09/10/24 0846 MR#: [id number] Acct: [id number] Name: SOFÍADARWIN VARGASMOND Rep #: [id number] : 1970 54 From: Jayro Monet MD PCP: Dr. Scooter Ramirez MD Status:PRE SD Y Race: C [place] [facility] Pre-Assessment Diagnosis/Proposed Procedure Planned Operative Procedure(s): LEFT C4 C5 C6 C7 FACETS STEROID INJECTION UNDER FLUOROSCOPY Anesthesia History Anesthesia History - cancer registry manager: Anesthesia History - cancer registry manager Hx Hospitalization Yes: [place] 12/202309/10/24 08:15 Any Problems With Anesthesia Yes: SLOW TO AWAKEN 09/10/24 08:15 Cholinesterase deficiency No 09/10/24 08:15 You/Your Family Experience No 09/10/24 08:15 fever (hyperthermia) with Relationship Recent Exposure to Contagious No 02/13/21 12:46 Disease Does patient have nerve No 09/10/24 08:15 stimulator Patient instructed to have device shut off --Does patient have Pacemaker or ICD? When Was Last Pacemaker Check QUESTION #4 FULL TEXT: You/Your Family Experience fever (hyperthermia) with Anesthesia Last Oral Intake Last Oral intake: Last Oral Intake NPO since Meds taken in AM with sips of water? 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 - cancer registry manager: PONV - cancer registry manager Female No 09/10/24 08:15 HX of Motion Sickness No 09/10/24 08:15 HX of N/V After Surgery No 09/10/24 08:15 Non-Smoker Yes 09/10/24 08:15 Duration of Surgery greater Yes 09/10/24 08:15 than 60 minutes Number of Risk Factors 2 09/10/24 08:15 PONV Score Moderate Risk 09/10/24 08:15 Height Weight Height Weight: Anesthesia: Height Weight Height 5 ft 9 in 08/11/24 08:49 Respiratory Assessment Respiratory Assessment - cancer registry manager: Respiratory Tract Infection Hx - cancer registry manager Hx Respiratory Tract Infection No 09/10/24 08:15 STOP Sleep Apnea STOP Sleep Apnea - cancer registry manager: STOP Sleep Apnea - cancer registry manager Hx Hypertension Yes: CONTROLLED WITH MED 09/10/24 08:15 Hx Sleep Apnea Yes 09/10/24 08:15 CPAP Yes 09/10/24 08:15 BIPAP No 09/10/24 08:15 Do you snore loudly (louder than talking or can be heard Do you often feel tired/ fatigued/ sleepy during daytime? Has anyone observed you stop breathing during sleep? STOP Results Positive 09/10/24 08:15 QUESTION #5 FULL TEXT : Do you snore loudly (louder than talking or can be heard through closed doors)? Tobacco Use History Tobacco Use History - cancer registry manager: Tobacco Use History - cancer registry manager Tobacco Use Smoking Status Never smoker 09/10/24 08:15 Hx Tobacco Use No 09/10/24 08:15 Years Smoking Packs Smoked per Day Smoking Cessation Date was within the last 15 years Hx Smoking Cessation Date Hx Smoking Cessation No 09/10/24 08:15 Counseling Hematologic Medial History Hematologic Hx - cancer registry manager: Hematologic Medical Hx - documentation nurse Hx of Blood Transfusion No 09/10/24 08:15 Hx of Transfusion in last 3 No 09/10/24 08:15 Months Date of Last Transfusion (if within last 3 months) Ever experience any problems No 09/10/24 08:15 with transfusion(s)? Specify any problems Hx of Preganancy in last 3 N/A 09/10/24 08:15 Months Nurse Filling Out Transfusion DSCHRIBER 09/10/24 08:15 Questions: Date: 09/10/24 09/10/24 08:15 Time: 08:17 09/10/24 08:15 Patient unable to answer at this time (ie. confused, unrespo /Reproductio n History /Reproductiv e History - cancer registry manager: /Reproductiv e Hx- cancer registry manager Hx Now No 09/10/24 08:15 Gestational Age (in weeks): EDC: Hx Hx Para Hx Section SAB No 09/10/24 08:15 PFSH Medical History Wears glasses Alcohol use Diabetes Low iron High cholesterol Back pain Asthma Non-smoker CPAP (continuous positive airway pressure) dependence Hypertension History of pain when walking History of edema History of echocardiogram Cardiology follow-up encounter History of heart attack Obesity (BMI 30.0-34.9) Dyslipidemia CKD (chronic kidney disease), stage II Wears contact lenses Injury of head and neck History of stress test history of pilon ankle fracture Arthritis Home Medications ???Medication ???Instructions ???Recorded ???Last Taken ???Type aspirin 81 mg tablet,delayed 81 mg PO BREAKFAST 90 days #90 tab s 01/16/24 Unknown Rx release multivitamin 1 tab PO QAM 02/23/24 Unknown Hist ory amlodipine 5 mg tablet 5 mg PO DAILY #90 tabs 04/14/24 U (more content not included)... Normal [facility] Calculated very low density lipoprotein (VLDL) cholesterol measurementOrdered By: Georges Negrete on 2024 Calculated very low density lipoprotein (VLDL) cholesterol measurement 16 mg/dL 5-[address] [facility] VLDL Cholesterol 16 mg/dL -[address] [facility] Hemoglobin A1con 2024 HbA1c (Bld) [Mass fraction] 7.2 % High <=5.[address] [facility] Comment on above: Result Comment: Norm al < 5.7 % Prediabetic 5.7 - 6.4 % Diabetic >or= 6.5 % Please note range changes. Performed By: #### L 500.4100, L520.6213 ####[facility] [address] [place], [place], [id number] Hemoglobin A1c percentageOrd ered By: Georges Negrete on 2024 HbA1c (Bld) [Mass fraction] 7.2 % High <5.[address] [facility] Comment on above: Normal < 5.7 % Predi abetic 5.7 - 6.4 % Diabetic >or= 6.5 % Please note range changes. LDL calc ser/plasOrdered By: Georges Negrete on 2024 Cholesterol in LDL [Mass/Vol] 92 mg/dL [facility] Comment on above: Paxsxrofpr=204-635 m g/dL & Higher Xaem=265 mg/dL or greater LDL Cholesterol, Calculated 92 mg/dL [facility] Comment on above: Mhbtjjhixa=963-904 m g/dL & Higher Krrl=320 mg/dL or greater Lipid Profileon 2024 CHOL:HDL 2.[address] [facility] Comment on above: Performed By: #### L 500.4100, L598.0133 ####[facility] [address] [place], [address] Cholesterol [Mass/Vol] 163 mg/dL Normal <=200 [facility] Comment on above: Result Comment: Chol esterol level, Desirable <200 mg/dL Borderline high cholesterol 200-239 mg/dL High cholesterol >=240 mg/dL Recommendations of the NCEP Adult Treatment Panel for the following risk-cutoff thresholds for the [place] population. Performed By: #### L 500.4100, L501.9985 ####[facility] [address] [place], [address] Cholesterol in HDL [Mass/Vol] 55 mg/dL Normal [facility] Comment on above: Result Comment: Bere onal Cholesterol Education Program (NCEP) guidelines: <40 mg/dL: Low HDL-cholesterol (major risk factor for CHD) >= 60 mg/dL: High HDL-cholesterol (negative risk factor for CHD) HDL-cholesterol is affected by a number of factors, e.g. smoking, exercise, hormones, sex and age. Performed By: #### L 500.4100, L501.9985 ####[facility] [address] [place], [address] Cholesterol in LDL [Mass/Vol] 92 mg/dL Normal [facility] Comment on above: Result Comment: Bord jaqqvq=828-951 mg/dL Higher Fvwg=551 mg/dL or greater Performed By: #### L 500.4100, L501.9985 ####[facility] [address] [place], [address] Cholesterol in VLDL [Mass/Vol] 16 mg/dL Normal 5-[address] [facility] Comment on above: Performed By: #### L 500.4100, L501.9985 ####[facility] [address] [place], [address] Triglyceride [Mass/Vol] 80 mg/dL Normal [facility] Comment on above: Result Comment: The drugs N-Acetylcysteine and Metamizole may falsely depress this assay. Normal range: <150 mg/dL Borderline High: 150-199 mg/dL High: 200-499 mg/dL Very High: >500 mg/dL Performed By: #### L 500.4100, L501.9985 ####[facility] [address] [place], [address] Screening total cholesterol/ high density lipoprotein (HDL) cholesterol ratioOrdered By: Georges Negrete on 2024 Cholesterol.total/Koki sterol in HDL [Mass ratio] 2.96 {ratio} [facility] Serum or plasma cholesterol in HDL measurement (mass/volume)Ordered By: Georges Negrete on 2024 Cholesterol in HDL [Mass/Vol] 55 mg/dL >[address] [facility] Comment on above: National Cholesterol Education Program (NCEP) guidelines:<40 mg/dL: Low HDL-cholesterol (major risk factor for CHD)>= 60 mg/dL: High HDL-cholesterol (negative risk factor for CHD)HDL-cholesterol is affected by a number of factors, e.g. smoking, exercise, hormones, sex and age. Serum or plasma cholesterol measurement (mass/volume)Ordered By: Georges Negrete on 2024 Cholesterol [Mass/Vol] 163 mg/dL <201 [facility] Comment on above: Cholesterol level, D esirable <200 mg/dLBorderline high cholesterol 200-239 mg/dLHigh cholesterol >=240 mg/dLRecommendations of the NCEP Adult Treatment Panel for the following risk-cutoff thresholds for the [place] population. Triglycerides measurementOrd ered By: Georges Negrete on 2024 Triglyceride [Mass/Vol] 80 mg/dL <199 [facility] Comment on above: The drugs N-Acetylcy steine and Metamizole may falsely depress this assay. Normal range: <150 mg/dLBorderline High: 150-199 mg/dLHigh: 200-499 mg/dLVery High: >500 mg/dL Cardiology Visit Reporton Cardiology Visit Report [facility] [address] [place] [address] OFFICE VISIT Date of Service: 08/11/24 MR#: [id number] Acct: [id number] Name: DARWIN GORE Rep #: [id number] : 1970 Provider: Dr. Georges Negrete MD Age/Sex: 53/M Location: [facility] Status: Signed HPI HPI History of Present Illness Details: This gentleman with history of coronary artery disease status post NSTEMI's, status post DEYA to the proximal LAD and to the mid RCA, is here for routine follow-up visit. He has occasional chest pains that he describes as "twinges". Lasts a few seconds only. Not related to exertion. Different from his usual anginal pain. Denies any shortness of breath. No palpitations. No orthopnea or PND. No ankle edema. Tolerating pravastatin well. Denies any muscle aches or pains. Intake Vital Signs 04/09/24 13:56 08/11/24 08:49 Height 5 ft 9 in 5 ft 9 in Weight: 236 lb BMI 34.8 BP 132/80 H Blood Pressure Location Lt brachial Position Sitting Respiration 18 Pulse 60 Pulse Source NIBP Intake Visit Reasons: 6 M FU Senior Director Creative Services Required: No Accompanied by: Self Is patient in pain?: No Allergies Fish Containing Products Allergy (Severe, Verified 08/11/24 14:59) Anaphylaxis shellfish derived Allergy (Severe, Verified 08/11/24 14:59) Anaphylaxis atorvastatin Adverse Reaction (Mild, Verified 08/11/24 14:59) Diarrhea Medications ???Medication ???Instructions ???Recorded ???Confirmed ???Type aspirin 81 mg tablet,delayed 81 mg PO BREAKFAST 90 days #90 tab s 01/16/24 08/04/24 Rx release multivitamin 1 tab PO QAM 02/23/24 08/04/24 His tory amlodipine 5 mg tablet 5 mg PO DAILY #90 tabs 04/14/24 Rx ticagrelor 90 mg tablet (Brilinta) 90 mg PO BID #180 tabs 04/19/24 08/04/24 Rx pravastatin 80 mg tablet 80 mg PO QDAY #90 tabs 08/11/24 Rx Ejection fraction %: 55 Have you fallen in the past year?: No [facility] Medical History Arthritis CKD (chronic kidney disease), stage II Dyslipidemia history of pilon ankle fracture History of stress test Injury of head and neck Obesity Obesity (BMI 30.0-34.9) BARRON on CPAP Wears contact lenses Surgical History History of ankle surgery History of cholecystectomy History of tonsillectomy History of total ankle replacement Stented coronary artery Family History Father Heart disease CAD (coronary artery disease) Hypertension Myocardial infarction Mother Colon cancer Social History household members: spouse Smoking Status: Never smoker alcohol intake: current alcohol intake frequency: holidays/special occasions only substance use type: does not use ROS Const Const: Negative for fatigue, weakness, headache(s) or weight gain ENT ENT: Negative for headache(s), dizziness, Nosebleed/epistaxis or balance problems Cardio Chest Pain: Yes Frequency: weekly Character: sharp and tightness Onset: with meals Location: left chest Duration: brief Relieving: rest and other (stretch) Palpitations: No Edema: Bilateral (with dependence and r/t chronic arthritis) and None Muscle aches with walking: None Resp Respiratory: Negative for SOB with activity, SOB at rest or SOB orthopnea SOB lying down GI GI: Negative nausea, vomiting or heartburn Musc Musc: Negative for muscle aches/ myalgia, muscle weakness, joint pain or balance problems Neuro Neuro: Negative for dizziness, lightheadedness, near syncope, syncope, headache(s) or weakness Endo Endo: Negative for fatigue Cardiology Exam Const Appearance: comfortable and no acute distress Nutritional Appearance: well nourished Neck Neck: no JVD Carotids: Negative bruit Chest Auscultation: Bilateral: Clear to Auscultation Cardio Rate: regular rate Rhythm: regular rhythm Heart sounds: S1 normal and S2 normal Neuro General: patient alert, patient awake and patient oriented x3 Extremities Lower Extremity Edema: None: Bilateral Supplemental Info Supplemental Information Echocardiogram 01/15/2024: Interpretation Summary: The estimated ejection fraction is 55 %. No evidence for diastolic dysfunction. Structurally normal valves Cardiac Catheterization/PCI 02/03/2024: CONCLUSIONS Successful DEYA Mid RCA using [place] 3.0x18 mm, post-dilated using 3.5 mm balloon, optimized proximally using 3.75 mm balloon Stress Test 07/28/2018: Procedure: The patient exercised on a Derick protocol for 9 minutes completing Stage III achieving a peak heart rate of 150 bpm (86 %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 Spine SPINE TESTING CERVICAL THORACIC LUMBAR Musculoskeletal Strength 0=absent - 5=normal Details: Examination neck shows midline and paraspinal tenderness. Patient holds his neck fairly stiff. His left side turning is severely limited. Neurologic bilateral upper extremity shows 5 x 5 power normal shows normal sensations in all dermatomes. Gary's negative. Romberg's is negative. Tandem gait shows mild imbalance. There is no hyperreflexia lower extremities. Coding Level of Care Code Off vis,new,level 4 Diagnoses Cervical radiculopathy M54.12 Time Spent (min) 45 Assessment and Plan Assessment and Plan (1) Cervical radiculopathy: Status: Acute Plan Reviewed patient's x-rays and MRI of the cervical spine done recently. These show C5-6 and C6-7 disc height loss with likely up posterolateral osteophyte with mild cord indentation and severe foraminal stenosis worse on the left. No cord signal changes seen. No instability on flexion- extension views. Explained imaging findings in detail. Patient has significant cervical radiculopathy that has been there for many years but is severely worsened since December after his stent procedure for heart attack. He does not appear to be myelopathic clinically. No urgency in surgical intervention. Considering that now he will be (more content not included)... Normal [facility] Spine Cervical (Routine)on 05-08-2023 Spine Cervical (Routine) [facility] Imaging Services [address] [place] [address] Spine Cervical (Routine) MR#: [id number] Acct: [id number] Name: DARWIN GORE Rep #: [id number] : 1970 M 53 From: Deep Carlos MD PCP: Dr. Scooter Ramirez MD Status: [facility] CLI Study: Spine Cervical (Routine) Date of Exam: Exam# [id number] Ordering Dr: Scooter Ramirez [id number] STUDY: MRI CERVICAL SPINE WITHOUT CONTRAST REASON FOR EXAM: Male, 53 years old. Cervical DDD TECHNIQUE: Standardized fat and water weighted pulse sequences were obtained in the sagittal and axial planes. COMPARISON: Cervical spine radiographs 02/19/2024. FINDINGS: Normal foramen magnum and brainstem-cervical cord junction. Normal craniovertebral junction. Normal anterior atlantoaxial articulation. Normal odontoid process. Straightening of the C-spine curvature. Normal vertebral bodies and posterior osseous elements. C2-3: Normal endplates. Normal disc height, signal and morphology. Normal central canal and intervertebral neural foramina. C3-4: Normal endplates. Normal disc height, signal and morphology. Normal central canal and intervertebral neural foramina. C4-5: Normal endplates. Normal disc height, signal and morphology. Normal central canal and intervertebral neural foramina. C5-6: Normal endplates. Mild disc space height narrowing. Normal central canal. Moderately pronounced stenosis of right intervertebral neuroforamen and moderate stenosis of the left intervertebral neuroforamen due to osteophytes arising from the uncovertebral joints, right greater than left. C6-7: Normal endplates. Mild disc space height narrowing. Mild ventral extradural defect due to small posterior bulging annulus. Normal central canal. Mild stenosis of the right intervertebral neuroforamen due to small osteophyte arising from the right uncovertebral joint. Normal left intervertebral neuroforamen. C7-T1: Normal endplates. Normal disc height, signal and morphology. Normal central canal and intervertebral neural foramina. T1-T2 and T2-T3: (Sagittal only). Normal endplates. Normal disc height, signal and morphology. Normal central canal and intervertebral neuroforamina. Normal cervical cord. Normal upper thoracic spinal cord. Normal included portions the midline brainstem and cerebellum. Normal visualized soft tissue structures. MRI/Spine Cervical (Routine) IMPRESSION: 1. Moderately pronounced stenosis of the right C5-C6 intervertebral neuroforamen and moderate stenosis of the left C5-C6 intervertebral neuroforamen due to osteophytes arising from the uncovertebral joints, right greater than left. This correlates with the C-spine oblique radiographs 02/19/2024. 2. Mild stenosis of the right C6-C7 intervertebral neuroforamen due to small osteophyte arising from the right uncovertebral joint. 3. No MRI evidence of cervical extruded disc fragment or cervical disc protrusion. 4. Normal cervical spinal cord. Electronically Signed: Deep Carlos MD at 9:56 EST Reading Location ID and State: [facility] / [place] , Service support , CC: Dr. Scooter Ramirez MD Commercial Decorator: Signed Normal [facility] Cardiology Visit Reporton Cardiology Visit Report [facility] [place] [facility] [place] [address] OFFICE VISIT Date of Service: 02/23/24 MR#: [id number] Acct: [id number] Name: DARWIN GORE Rep #: [id number] : 1970 Provider: Dr. Georges Negrete MD Age/Sex: 53/M [place] [facility] [place]: Signed [facility] History of Present Illness Details: Mr. Gore had presented to the hospital with NSTEMI. Coronary angiography revealed subtotal occlusion in his proximal LAD. Successful percutaneous revascularization was performed with a drug- eluting stent. Excellent results were noted. He was also noted to have a severe lesion in his mid RCA. This was intervened upon in a staged manner. Patient could not tolerate his atorvastatin because of muscle aches and pains. He was therefore switched to pravastatin. He has been tolerating that well without any complaints. Denies any chest pains. No shortness of breath. No palpitations. No orthopnea or PND. No ankle edema. Intake Vital Signs 02/03/24 07:06 02/23/24 08:45 Height 5 ft 9 in 5 ft 9 in Weight: 230 lb BMI 34.0 BP 123/76 H Blood Pressure Location Lt brachial Position Sitting Respiration 16 Pulse 60 Pulse Source NIBP Intake Visit Reasons: S/P [facility] 02/02 (PCI) Is patient in pain?: No Allergies Fish Containing Products Allergy (Severe, Verified 02/23/24 14:24) Anaphylaxis shellfish derived Allergy (Severe, Verified 02/23/24 14:24) Anaphylaxis atorvastatin Adverse Reaction (Mild, Verified 02/23/24 14:24) Diarrhea Medications ???Medication ???Instructions ???Recorded ???Confirmed ???Type amlodipine 5 mg tablet 5 mg PO DAILY #30 tabs 01/16/24 02/23/24 Rx aspirin 81 mg tablet,delayed 81 mg PO BREAKFAST 90 days #90 tabs 01/16/24 02/23/24 Rx release ticagrelor 90 mg tablet (Brilinta) 90 mg PO BID 30 days #60 tabs 01/16/24 02/23/24 Rx pravastatin 40 mg tablet 40 mg PO QDAY #90 tabs 01/29/24 02/23/24 Rx multivitamin 1 tab PO QAM 02/23/24 02/23/24 History Ejection fraction %: 55 Have you fallen in the past year?: No PFSH Medical History (Updated 02/23/24 @ 14:[address] Georges Negrete MD) Dyslipidemia BARRON on CPAP Obesity (BMI 30.0-34.9) CKD (chronic kidney disease), stage II Obesity Wears contact lenses Injury of head and neck History of stress test history of pilon ankle fracture Arthritis Surgical History (Updated 02/23/24 @ 14:26 by Sedrick Artis RN) Stented coronary artery History of ankle surgery History of total ankle replacement History of cholecystectomy History of tonsillectomy Family History Father Heart disease CAD (coronary artery disease) Hypertension Myocardial infarction Mother Colon cancer Social History household members: spouse Smoking Status: Never smoker alcohol intake: current alcohol intake frequency: holidays/special occasions only substance use type: does not use ROS Const Const: Negative for fatigue, weakness, headache(s) or weight gain ENT ENT: Negative for headache(s), dizziness, Nosebleed/epistaxis or balance problems Cardio Chest Pain: No Palpitations: No Edema: None Muscle aches with walking: None Resp Respiratory: Negative for SOB with activity, SOB at rest or SOB orthopnea SOB lying down GI GI: Negative nausea, vomiting or heartburn Musc Musc: Positive for muscle aches/ myalgia (chronic; unchanged; focal locations); Negative for muscle weakness, joint pain or balance problems Neuro Neuro: Negative for dizziness, lightheadedness, near syncope, syncope, headache(s) or weakness Endo Endo: Negative for fatigue Cardiology Exam Const Appearance: comfortable and no acute distress Nutritional Appearance: well nourished Neck Neck: no JVD Carotids: Negative bruit Chest Auscultation: Bilateral: Clear to Auscultation Cardio Rate: regular rate Rhythm: regular rhythm Heart sounds: S1 normal and S2 normal Neuro General: patient alert, patient awake and patient oriented x3 Extremities Lower Extremity Edema: None: Bilateral Supplemental Info Supplemental Information Echocardiogram 01/15/2024: Interpretation Summary: The estimated ejection fraction is 55 %. No evidence for diastolic dysfunction. Structurally normal valves Cardiac Catheterization/PCI 02/03/2024: CONCLUSIONS Successful DEYA Mid RCA using Vinh [place] 3.0x18 mm, post-dilated using 3.5 mm balloon, optimized proximally using 3.75 mm balloon Stress Test 07/28/2018: Procedure: The patient exercised on a Derick protocol for 9 minutes completing Stage III achieving a peak heart rate of 150 bpm (86 % predicted maximal heart rate) with a peak blood pressure 190/80 mmHg and a peak MET capacity (more content not included)... Normal [facility] Cerv Spine Obl/Flex/Ext Comp on 02-19-2024 Cerv Spine Obl/Flex/Ext Comp [facility] Imaging Services [address] [place] [address] Cerv Spine Obl/Flex/Ext Comp MR#: [id number] Acct: [id number] Name: DARWIN GORE Rep #: [id number] : 1970 M 53 From: Lucas Kamara PCP: Dr. Scooter Ramirez MD Status: REG CLI Study: Cerv Spine Obl/Flex/Ext Comp Date of Exam: Exam# [id number] Ordering Dr: Scooter Ramirez [id number] INDICATION: DDD EXAMINATION/TECHNIQUE : X-RAY - XR Spine Cervical 6 or More Views COMPARISON: Prior study dated: 06/19/2010 __ FINDINGS: VERTEBRAE: Preserved vertebral body height. No fracture. No spondylolisthesis. Straightening of the cervical spine. Alignment is unremarkable and is stable on the flexion and extension views. No significant facet arthropathy. DISCS: Narrowing of C5-C6 disc space. Endplate spondylosis. Small posterior lateral degenerative spurs bilaterally with mild narrowing of the neural foramina. NECK SOFT TISSUES: No prevertebral soft tissue widening. LUNG APICES: Clear. RAD/Cerv Spine Obl/Flex/Ext Comp IMPRESSION: 1. Degenerative changes at the level of C5-C6. 2. No evidence of spondylolisthesis. Electronically Signed: Lucas Johnson MD at 14:24 EDT , CC: Dr. Scooter Ramirez MD Commercial Decorator: Signed Normal [facility] Vital Signs Date Time Vital Sign Value Performing Clinician Faci lity 01-26-2025 09:55-0400 Body height 175.[address] Scooter Ramirez MD Work Phone: [facility] 01-26-2025 09:55-0400 Body mass index (BMI) [Ratio] 34.8 kg/m2 Dr. Scooter Ramirez MD Work Phone: [facility] 01-26-2025 09:55-0400 Body weight 107.[address] Scooter Ramirez MD Work Phone: [facility] 01-26-2025 09:55-0400 Diastolic blood pressure 85 mm[Hg] Dr. Scooter Ramirez MD Work Phone: [facility] 01-26-2025 09:55-0400 Heart rate 60 /min Dr. Scooter Ramirez MD Work Phone: [facility] 01-26-2025 09:55-0400 Respiratory rate 18 /min Dr. Scooter Ramirez MD Work Phone: [facility] 01-26-2025 09:55-0400 Systolic blood pressure 126 mm[Hg] Dr. Scooter Ramirez MD Work Phone: [facility] 09-13-2024 08:59-0400 Body temperature 97.6 [degF] Dr. Scooter Ramirez MD Work Phone: [facility] 09-13-2024 08:59-0400 Diastolic blood pressure 80 mm[Hg] Dr. Scooter Ramirez MD Work Phone: [facility] 09-13-2024 08:59-0400 Heart rate 53 /min Dr. Scooter Ramirez MD Work Phone: [facility] 09-13-2024 08:59-0400 Respiratory rate 16 /min Dr. Scooter Ramirez MD Work Phone: [facility] 09-13-2024 08:59-0400 SaO2% (BldA) [Mass fraction] 98 % Dr. Scooter Ramirez MD Work Phone: [facility] 09-13-2024 08:59-0400 Systolic blood pressure 129 mm[Hg] Dr. Scooter Ramirez MD Work Phone: [facility] 09-13-2024 08:19-0400 Body temperature 97.6 [degF] Dr. Scooter Ramirez MD Work Phone: [facility] 09-13-2024 08:19-0400 Diastolic blood pressure 80 mm[Hg] Dr. Scooter Ramirez MD Work Phone: [facility] 09-13-2024 08:19-0400 Heart rate 53 /min Dr. Scooter Ramirez MD Work Phone: [phone] [place] [address] 09-13-2024 08:19-0400 Respiratory rate 16 /min Dr. Scooter Ramirez MD Work Phone: [phone])[phone] [place] [address] 09-13-2024 08:19-0400 SaO2% (BldA) [Mass fraction] 98 % Dr. Scooter Ramirez MD Work Phone: [facility] 09-13-2024 08:19-0400 Systolic blood pressure 129 mm[Hg] Dr. Scooter Ramirez MD Work Phone: 5(658)[phone] [place] [address] 09-13-2024 06:33-0400 Body height 175.[address] Scooter Ramirez MD Work Phone: [phone] [place] [address] 09-13-2024 06:33-0400 Body mass index (BMI) [Ratio] 34.4 kg/m2 Dr. Scooter Ramirez MD Work Phone: [phone](833)[phone] [place] [address] 09-13-2024 06:33-0400 Body weight [address] Scooter Ramirez MD Work Phone: [phone])[phone] [address] 08-11-2024 08:49-0400 Body mass index (BMI) [Ratio] 34.8 kg/m2 Dr. Scooter Ramirez MD Work Phone: [phone] [place] [address] 08-11-2024 08:49-0400 Body weight 107.[address] Scooter Ramirez MD Work Phone: [facility] 08-11-2024 08:49-0400 Diastolic blood pressure 80 mm[Hg] Dr. Scooter Ramirez MD Work Phone: [facility] 08-11-2024 08:49-0400 Heart rate 60 /min Dr. Scooter Ramirez MD Work Phone: [facility] 08-11-2024 08:49-0400 Respiratory rate 18 /min Dr. Scooter Ramirez MD Work Phone: [facility] 08-11-2024 08:49-0400 Systolic blood pressure 132 mm[Hg] Dr. Scooter Ramirez MD Work Phone: [phone] [place] [address] 04-28-2024 00:44-0500 Body weight 102.[address] Scooter Ramirez MD Work Phone: [facility] 04-09-2024 13:56-0500 Body height 175.[address] Scooter Ramirez MD Work Phone: [facility] 04-09-2024 13:56-0500 Body mass index (BMI) [Ratio] 33.3 kg/m2 Dr. Scooter Ramirez MD Work Phone: [facility] 04-09-2024 13:56-0500 Body weight 102.[address] Scooter Ramirez MD Work Phone: [facility] 04-09-2024 07:19-0500 Body weight 100.[address] Scooter Ramirez MD Work Phone: [facility] 03-12-2024 07:20-0500 Body weight 102.[address] Scooter Ramirez MD Work Phone: [facility] Encounters Encounter Date Encounter Type Care Provider Facility Start: 02-17-2025 ambulatory Scooter Allison lity:[facility] Start: 02-16-2025 Encounter for other preprocedural examination [facility] Start: 02-10-2025 End: 02-10-2025 ambulatory Scooter Ramirez Facility:[facility] Start: 02-07-2025 End: 02-07-2025 ambulatory Scooter Ramirez Facility:[facility] Start: 02-04-2025 ambulatory Scooter Ramirez Faci lity:[facility] Start: 02-04-2025 ambulatory Scooter Ramirez Faci lity:[facility] Start: 02-04-2025 [facility] Start: 01-26-2025 End: 01-26-[address] Georges Negrete MD -Laboratory Work Phone: Start: 01-26-2025 End: 01-26-[address] Georges Negrete MD [facility] Start: 01-26-2025 End: 01-26-[address] Scooter Ramirez MD Work Phone: -[facility] Start: 12-24-2024 End: 12-24-[address] Enrique Vaughan MD -[facility] Start: 12-24-2024 End: 12-24-[address] Scooter Ramirez MD Work Phone: -[facility] Start: 09-13-2024 End: 09-13-2024 Admission to same day surgery center Dr. Mati Car MD -[facility] Start: 09-13-2024 End: 09-13-[address] Scooter Ramirez MD Work Phone: [facility] Work Phone: Start: 08-20-2024 End: 08-20-[address] Scooter Ramirez MD Work Phone: -Physical Therapy Start: 08-20-2024 End: 08-20-[address] Saravanan Ibrahim MD -Physical Therapy Work Phone: Start: 08-20-[address] Saravanan gallo MD -Physical Therapy Work Phone: Start: 08-18-[address] Saravanan gallo MD -Physical Therapy Work Phone: Start: 2024 End: [address] Scooter Ramirez MD Work Phone: [facility] Work Phone: Start: 2024 End: [address] Georges Negrete MD -Laboratory Work Phone: Start: 2024 End: 2024 ambulatory Georges Caden Facility:[facility] Start: 08-11-2024 Encounter for preprocedural cardiovascular examination Georges Caden [facility] Start: 08-11-2024 End: 08-11-[address] Georges Negrete MD -[facility] Work Phone: Start: 08-11-2024 End: 08-11-[address] Georges Negrete MD [facility] Start: 08-11-2024 End: 08-11-2024 ambulatory Georges Caden Facility:[facility] Start: 08-02-2024 ambulatory [facility] lit:[facility] Start: 07-09-[address] Saravanan gallo MD -Physical Therapy Work Phone: Start: 07-08-2024 [facility] Start: 06-29-2024 End: 06-29-[address] Scooter Ramirez MD Work Phone: [facility] Work Phone: Start: 06-29-2024 End: 06-29-[address] Scooter Ramirez MD -[facility] Work Phone: Start: 06-29-2024 End: 06-29-2024 ambulatory Scooter Ramirez Facility:[facility] Start: 06-08-2024 ambulatory Georges Caden Facility:[facility] Start: 04-30-2024 End: 05-28-2024 ambulatory Georges Caden Facility:[facility] Start: 04-30-2024 End: 05-28-[address] Georges Ngerete MD -Cardiac Rehab Work Phone: Start: 04-23-2024 End: 04-27-2024 ambulatory [facility] Facility:[facility] Start: 04-23-2024 End: 04-27-[address] Georges Negrete MD -Cardiac Rehab Work Phone: Start: 04-09-2024 End: 04-09-[address] Saravanan Ibrahim [facility] Work Phone: Start: 04-09-2024 End: 04-09-2024 ambulatory [facility] Facility:[facility] Start: 03-24-2024 End: 03-27-2024 ambulatory [facility] Facility:[facility] Start: 03-24-2024 End: 03-27-[address] Georges Negrete MD -Cardiac Rehab Work Phone: Start: 03-08-2024 End: 03-08-2024 ambulatory [facility] Facility:[facility] Start: 02-25-2024 End: 02-26-2024 ambulatory [facility] Facility:[facility] Start: 02-23-2024 End: 02-23-2024 ambulatory [facility] Facility:[facility] Start: 02-19-2024 End: 02-19-2024 ambulatory [facility] Facility:[facility] Procedures Date Procedure Procedure Detail Performing Clinician Start: 12-24-2024 X-ray of cervical spine Dr. Scooter Ramirez MD Work Phone: Start: 09-13-2024 Local anesthetic cer vical facet joint nerve block Dr. Scooter Ramirez MD Work Phone: Start: 09-13-2024 Fluoroscopy guided injection of cervical spinal nerve root Dr. Scooter Ramirez MD Work Phone: Start: 09-13-2024 End: 09-13-2024 Injection of facet joint Dr. Scooter Ramirez MD Work Phone: Start: 09-13-2024 X-ray of cervical spine Dr. Scooter Ramirez MD Work Phone: Start: 06-29-2024 Prostate specific an tigen measurement Dr. Scooter Ramirez MD Work Phone: Comment on above: This test was perfor med using the [employer] tPSA method. Measured values of a patient sample can vary depending on the testing procedure used. PSA values determined on patient samples by different testing procedures cannot be used interchangeably. If there is a change in PSA assays while monitoring therapy, sequential testing should be performed to confirm baseline values. Plan of Treatment Date Care Activity Detail Author Start: 12-24-2024 X-ray of cervical spine Cerv S pine 4 or [address] [facility] Start: 12-24-2024 XR Cervical spine 4 or [address] [facility] Start: 09-13-2024 Njx dx/ther agt pvrt facet jt crv/thrc 2nd level INJ PARAVERT F JNT C/T 2 [facility] Start: 09-13-2024 Njx dx/ther agt pvrt facet jt crv/thrc 3+ level INJ PARAVERT F JNT C/T 3 [facility] Start: 09-13-2024 Fluoroscopy guided injection of cervical spinal nerve root [facility] Start: 09-13-2024 End: 09-13-2024 Injection of facet joint [facility] Start: 09-13-2024 X-ray of cervical spine Cerv S pine 4 or [address] [facility] Start: 09-13-2024 Patient discharge [facility] NM Heart Views W str ess and W radionuclide IV [facility] Patient referral [facility] Work Phone: [facility] Immunizations Immunization Date Immunization Notes Care Provider Courtney yarbrough 12-27-[address] Scooter Ramirez MD Work Phone: [facility] Payers Date Payer Category Payer Self-pay 2024 Unknown [id number] Unknown [id number] 2.16.8 [id number] Unknown [id number] 2.16.8 40.1.811133.3.579.2.462 Unknown [id number] 2.16.8 40.1.000192.3.579.2.462 Unknown [id number] 2.16.8 40.1.621143.3.579.2.462 Unknown [id number] 2.16.8 40.1.332780.3.579.2.462 Unknown [id number] 2.16.8 40.1.710843.3.579.2.462 Unknown [id number] 2.16.8 40.1.949818.3.579.2.462 Unknown [id number] 2.16.8 40.1.331296.3.579.2.462 Unknown [id number] 2.16.8 40.1.407169.3.579.2.462 Unknown [id number] 2.16.8 40.1.612444.3.579.2.462 Unknown [id number] 2.16.8 40.1.999809.3.579.2.462 Unknown [id number] 2.16.8 40.1.120048.3.579.2.462 Unknown [id number] 2.16.8 40.1.804919.3.579.2.462 Unknown [id number] 2.16.8 40.1.438047.3.579.2.462 Unknown [id number] 2.16.8 40.1.581675.3.579.2.462 Unknown [id number] 2.16.8 40.1.597539.3.579.2.462 Unknown [id number] 2.16.8 40.1.901748.3.579.2.462 Unknown [id number] 2.16.8 40.1.159534.3.579.2.462 Unknown [id number] 2.16.8 40.1.243518.3.579.2.462 Unknown [id number] 2.16.8 40.1.401487.3.579.2.462 Unknown [id number] 2.16.8 40.1.930974.3.579.2.462 Unknown [id number] 2.16.8 40.1.549955.3.579.2.462 Unknown [id number] 2.16.8 40.1.528829.3.579.2.462 Unknown [id number] 2.16.8 40.1.643089.3.579.2.462 Unknown [id number] 2.16.8 40.1.603575.3.579.2.462 Unknown [id number] 2.16.8 40.1.808515.3.579.2.462 Social History Date Type Detail Facility Start: 02-10-2024 End: 09-10-2024 Tobacco smoking status NHIS Never smoked tobacco (finding) [facility] Start: 05-06-2013 Occasional Occasional [facility] Start: 05-06-2013 None None [facility] Start: 05-06-2013 Spouse/ Significant Other Spouse/ Significant Other [facility] Start: 05-06-2013 Non-smoker Non-smoker [facility] Start: 07-09-2024 End: 08-18-2024 Sex Male (finding) [facility] Start: 1970 Sex Assigned At Male [facility] Sex Male [facility] Medical Equipment Procedure Code Equipment Code Equipment Origin al Text Equipment Identifier Dates HELEN 3GRM HEMO STAT ABS FDA Start: 10-02-2017 Drug-eluting coronary artery stent, [id number] lymer-coated [id number] FDA Start: 01-15-2024 [id number] FDA Start: 02-03-2024 HELEN 3GRM HEMO STAT ABS FDA Start: 10-02-2017 [id number] FDA Start: 02-03-2024 HELEN 3GRM HEMO STAT ABS FDA Start: 10-02-2017 [id number] FDA Start: 02-03-2024 HELEN 3GRM HEMO STAT ABS FDA Start: 10-02-2017 [id number] FDA Start: 02-03-2024 HELEN 3GRM HEMO STAT ABS FDA Start: 10-02-2017 [id number] FDA Start: 02-03-2024 HELEN 3GRM HEMO STAT ABS FDA Start: 10-02-2017 [id number] FDA Start: 02-03-2024 HELEN 3GRM HEMO STAT ABS FDA Start: 10-02-2017 [id number] FDA Start: 02-03-2024 Goals Date Patient Goal Desired Activity /State Mental Status Date Assessment Result Facility 09-13-2024 Cognitive function Voice/Name [facility] Work Phone: Clinical Notes 04-09-2024 to 01-26-2025 Note Date & Type Note Facility 01-26-2025 Progress note [facility] 12-24-2024 Evaluation note Diagnosis Onset Date Resolution Cervical disc herniation acute December 24, 2024 12:41pm Cervical radiculopathy acute Au cezar 2024 12:41pm Obesity (BMI 30-39.9) acute Aug ust 2024 12:41pm Stented coronary artery acute O ct2024 9:50am CAD (coronary artery disease) chronic January 26 9:50am Dyslipidemia chronic January 26, 2025 9:50am Hypertension chronic January 26, 2025 9:50am BARRON on CPAP chronic January 26, 2025 9:50am Preoperative cardiovascular examination noneactive January 26 9:50am [facility] Work Phone: 1([phone]) 827-542508-12-2025 Discharge [address] [facility] Physical Therapy [address] [place] [address] / REHABILITATION SERVICES DISCHARGE SUMMARY MR#: [id number] Acct: [id number] Name: DARWIN GORE Rep #: [id number] : 1970 54 From: Cert. JOHN Pringle, OCS Referring Dr.: Dr. Saravanan Ibrahim MD Status: REG RCR Insurance: [employer]ANCE Discharge Summary D/C summary: It has been my pleasure to treat DARWIN GORE referred by Dr. Saravanan Ibrahim MD, with thediagnosis of RADICULOPATHY ,CERVICAL for a total of 21 visit(s). Discharge Date: Please see the following information for a summary of their discharge status. Subjective Subjective: Doing okay stiff I have a date September 13 Pain Bilateral Neck: Pain Intensity (Out of 10): 2 Overall Improvement % Improvement: 20 Objective Objective/Function: POSTURE: forward posture head forward PALPATION: tender UT/levator/paraspinals NEURO: denies paresthesia/tingling reflexes C5-6-7 / AROM: BUE WFL MMT: BUE 4/5 grossly CERVICAL ROM: flexion min loss ,lateral flexion mod left pain ,rotation mod painleft ,mod right lateral/flexion ,extension mod/extension loss pain Goals Goal 1:: Patient to be I with HEP Goal Progress: Progressing Goal 2:: Patient to improve cervical ROM for function of recovery for driving Goal Progress: Progressing Goal 3:: Patient to demonstrate 40% improvement with less pain and improved function Goal Progress: Progressing Goal 4:: 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 Thank you for the referral of thispatient. Sincerely, Vu Quintero, PT, Cert MDT, OCS Balance/Gait/Functional tests Balance/Special Test Scores Oswestry Neck Score: 25 Improvement % Improvement: 20 12/07/24 1224 CC: Dr. Saravanan Ibrahim MD; Dr. Scooter Ramirez MD ~ JLAbel Signed [facility]08-12-2025 Discharge summary [facility] Physical Therapy [facility] [address] [place] [address] [address] [place] [address] / REHABILITATION SERVICES DISCHARGE SUMMARY MR#: [id number] Acct: [id number] Name: DARWIN GORE Rep #: [id number] : 1970 54 From: Arpit Pringle. JOHN, OCS Referring Dr.: Dr. Saravanan Ibrahim MD Status: REG R Insurance: [employer] Discharge Summary D/C summary: It has been my pleasure to treat DARWIN GORE referred by Dr. Saravanan Ibrahim MD, with thediagnosis of RADICULOPATHY ,CERVICAL for a total of 21 visit(s). Discharge Date: Please see the following information for a summary of their discharge status. Subjective Subjective: Doing okay stiff I have a date September 13 Pain Bilateral Neck: Pain Intensity (Out of 10): 2 Overall Improvement % Improvement: 20 Objective Objective/Function: POSTURE: forward posture head forward PALPATION: tender UT/levator/paraspinals NEURO: denies paresthesia/tingling reflexes C5-6-7 / AROM: BUE WFL MMT: BUE 4/5 grossly CERVICAL ROM: flexion min loss ,lateral flexion mod left pain ,rotation mod painleft ,mod right lateral/flexion ,extension mod/extension loss pain Goals Goal 1:: Patient to be I with HEP Goal Progress: Progressing Goal 2:: Patient to improve cervical ROM for function of recovery for driving Goal Progress: Progressing Goal 3:: Patient to demonstrate 40% improvement with less pain and improved function Goal Progress: Progressing Goal 4:: 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 Thank you for the referral of thispatient. Sincerely, Vu Quintero PT, Cert MDT, OCS Balance/Gait/Functional tests Balance/Special Test Scores Oswestry Neck Score: 25 Improvement % Improvement: 20 12/07/24 1222 CC: Dr. Saravanan Ibrahim MD; Dr. Scooter Ramirez MD ~ JLA Signed [facility]08-12-2025 Discharge summary Author Vu Quintero [facility] Note Date/Time December 07, 2024 12 :22pm [facility] Physical Therapy [facility] [address] [place] [address] / REHABILITATION SERVICES DISCHARGE SUMMARY MR#: [id number] Acct: [id number] Name: DARWIN GORE Rep #: [id number] : 1970 54 From: Cert. IBETH PringleT, OCS Referring Dr.: Dr. Saravanan Ibrahim MD Status: REG RCR Insurance: [employer] Discharge Summary D/C summary: It has been my pleasure to treat DARWIN GORE referred by Dr. Saravanan Ibrahim MD, with the diagnosis of RADICULOPATHY ,CERVICAL for a total of 21 visit(s). Discharge Date: Please see the following information for a summary of their discharge status. Subjective Subjective: Doing okay stiff I have a date September 13 Pain Bilateral Neck: Pain Intensity (Out of 10): 2 Overall Improvement % Improvement: 20 Objective Objective/Function: POSTURE: forward posture head forward PALPATION: tender UT/levator/paraspinals NEURO: denies paresthesia/tingling reflexes C5-6-7 1/3 AROM: BUE WFL MMT: BUE 4/5 grossly CERVICAL ROM: flexion min loss ,lateral flexion mod left pain ,rotation mod painleft ,mod right lateral/flexion ,extension mod/extension loss pain Goals Goal 1:: Patient to be I with HEP Goal Progress: Progressing Goal 2:: Patient to improve cervical ROM for function of recovery for driving Goal Progress: Progressing Goal 3:: Patient to demonstrate 40% improvement with less pain and improved function Goal Progress: Progressing Goal 4:: 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 Thank you for the referral of thispatient. Sincerely, Vu Quintero PT, Cert MDT, OCS Balance/Gait/Functional tests Balance/Special Test Scores Oswestry Neck Score: 25 Improvement % Improvement: 20 <Electronically signed by Cert. JOHN Collado PT, OCS> 12/07/24 1222 CC: Dr. Saravanan Ibrahim MD; Dr. Scooter Ramirez MD ~ JLA Signed [facility] Work Phone: 1(665) 345-365408-12-2025 Discharge summary Author Vu Quintero [facility] Note Date/Time December 07, 2024 12 :24pm [facility] Physical Therapy [facility] [place] [address] / REHABILITATION SERVICES DISCHARGE SUMMARY MR#: [id number] Acct: [id number] Name: DARWIN GORE Rep #: [id number] : 1970 54 From: Cert. JOHN Pringle, OCS Referring Dr.: Dr. Saravanan Ibrahim MD Status: REG R Insurance: [employer]URANCE Discharge Summary D/C summary: It has been my pleasure to treat DARWIN GORE referred by Dr. Saravanan Ibrahim MD, with the diagnosis of RADICULOPATHY ,CERVICAL for a total of 21 visit(s). Discharge Date: Please see the following information for a summary of their discharge status. Subjective Subjective: Doing okay stiff I have a date September 13 Pain Bilateral Neck: Pain Intensity (Out of 10): 2 Overall Improvement % Improvement: 20 Objective Objective/Function: POSTURE: forward posture head forward PALPATION: tender UT/levator/paraspinals NEURO: denies paresthesia/tingling reflexes C5-6-7 1/3 AROM: BUE WFL MMT: BUE 4/5 grossly CERVICAL ROM: flexion min loss ,lateral flexion mod left pain ,rotation mod painleft ,mod right lateral/flexion ,extension mod/extension loss pain Goals Goal 1:: Patient to be I with HEP Goal Progress: Progressing Goal 2:: Patient to improve cervical ROM for function of recovery for driving Goal Progress: Progressing Goal 3:: Patient to demonstrate 40% improvement with less pain and improved function Goal Progress: Progressing Goal 4:: 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 Thank you for the referral of thispatient. Sincerely, Vu Quintero PT, Cert MDT, OCS Balance/Gait/Functional tests Balance/Special Test Scores Oswestry Neck Score: 25 Improvement % Improvement: 20 <Electronically signed by Vu Quintero PT, Cert. MDT, OCS> 12/07/24 3455 CC: Dr. Saravanan Ibrahim MD; Dr. Scooter Ramirez MD ~ JLA Signed [facility] Work Phone: 1(295) 179-455005-19-2025 Consult note [facility] Medical Records Department [address] [place] [address] Pre-Anesthesia Evaluation 09/13/24 0715 MR#: [id number] Acct: [id number] Name: DARWIN GORE Rep #:[id number] : 1970 54 From: Perez Preciado MD PCP: Dr. Scooter Ramirez MD Status :REG SDC Y Race: C Location: [place] [address] ASA Classification* ASA Classification ASA Classification: 2 Assessment & Plan Anesthesia* Anesthesia Assessment Anesthesia Assessment: Discussed sedation and/or anesthesia options, risks, benefits, and alternatives with patient/parents/legal guardian/POA. Questions invited. The patient/parents/legal guardian/POA seems to understand and agrees to proceedwith anesthesia plan. Reviewed the physical assessment, medical history, allergy history and patient home medications list prior to surgery/procedure/anesthetic and documented any changes. Performed airway and anesthesia risk assessments. Anesthesia Type Anesthesia Type: MAC Anesthesia Focused Assessment* Temperature: 97.4 F Pulse Rate: 53 Blood Pressure: 117/75 Respiratory Rate: 18 Pulse Ox: 97 Airway Assessment Mouth opens: >3 cm Mallampati Score: II Focused Labs Anesthesia Preop lab: CBC WBC 8.3 K/mm3 (4.4-11.0) 01/30/24 01:41 01/30/24 RBC 4.31 M/mm3 (4.6-6.2) L 01/30/24 01:41 01/30/24 Hgb 12.8 g/dL (13.0-16.5) L 01/30/24 01:41 4 Hct 37.9 % (40-54) L 01/30/24 01:41 01/30/24 Plt Count 219 K/mm3 (150-450) 01/30/24 01:41 01/30/24 CHEMISTRY Potassium 4.3 mmol/L (3.3-5.1) 06/29/24 11:14 06/29/24 Sodium 137 mmol/L (133-145) 06/29/24 11:14 06/29/24 Magnesium 1.9 mg/dL (1.6-2.6) 01/30/24 01:41 01/30/24 BUN 15 mg/dL (4-19) 06/29/24 11:14 06/29/24 Creatinine 0.89 mg/dL (0.70-1.20) 06/29/24 11:14 06/29/24 Glucose 134 mg/dL (70-99) H 06/29/24 11:14 06/29/24 TSH 1.980 uIU/mL (0.300-4.200) 06/29/24 11:14 03/08/20 COAG PT 13.2 SECONDS (11.7-14.9) 01/14/24 22:20 Pre-Assessment Diagnosis/Proposed Procedure Planned Operative Procedure(s): LEFT C4 C5 C6 C7 FACETS STEROID INJECTION UNDER FLUOROSCOPY Anesthesia History Anesthesia History - cancer registry manager: Anesthesia History - cancer registry manager Hx Hospitalization Yes: [place] 12/202309/10/24 08:15 Any Problems With Anesthesia Yes: SLOW TO AWAKEN 09/10/24 08:15 Cholinesterase deficiency No 09/10/24 08:15 You/Your Family Experience No 09/10/24 08:15 fever (hyperthermia) with Relationship Recent Exposure to Contagious No 09/13/24 06:33 Disease Does patient have nerve No 09/10/24 08:15 stimulator Patient instructed to have device shut off --Does patient have Pacemaker No 09/13/24 06:33 or ICD? When Was Last Pacemaker Check QUESTION #4 FULL TEXT: You/Your Family Experience fever (hyperthermia) with Anesthesia Last Oral Intake Last Oral intake: Last Oral Intake NPO since 20:00 09/13/24 06:33 Meds taken in AM with sips of Yes 09/13/24 06:33 water? 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 - cancer registry manager: PONV - cancer registry manager Female No 09/10/24 08:15 HX of Motion Sickness No 09/10/24 08:15 HX of N/V After Surgery No 09/10/24 08:15 Non-Smoker Yes 09/10/24 08:15 Duration of Surgery greater Yes 09/10/24 08:15 than 60 minutes Number of Risk Factors 2 09/10/24 08:15 PONV Score Moderate Risk 09/10/24 08:15 Height & Weight Height & Weight: Anesthesia: Height & Weight Height 5 ft 9 in 09/13/24 06:33 Weight: 106 kg 09/13/24 06:33 Body Mass Index (BMI) 34.4 09/13/24 06:33 Respiratory Assessment Respiratory Assessment - cancer registry manager: Respiratory Tract Infection Hx - cancer registry manager Hx Respiratory Tract Infection No 09/10/24 08:15 STOP Sleep Apnea STOP Sleep Apnea - cancer registry manager: STOP Sleep Apnea - cancer registry manager Hx Hypertension Yes: CONTROLLED WITH MED 09/10/24 08:15 Hx Sleep Apnea Yes 09/10/24 08:15 CPAP Yes 09/10/24 08:15 BIPAP No 09/10/24 08:15 Do you snore loudly (louder than talking or can be heard Do you often feel tired/ fatigued/ sleepy during daytime? Has anyone observed you stop breathing during sleep? STOP Results Positive 09/10/24 08:15 QUESTION #5 FULL TEXT : Do you snore loudly (louder than talking or can be heard through closeddoors)? Tobacco Use History Tobacco Use History - cancer registry manager: Tobacco Use History - cancer registry manager Tobacco Use Smoking Status Never smoker 09/10/24 08:15 Hx Tobacco Use No 09/10/24 08:15 Years Smoking Packs Smoked per Day Smoking Cessation Date was within the last 15 years Hx Smoking Cessation Date Hx Smoking Cessation No 09/10/24 08:15 Counseling Hematologic Medial History Hematologic Hx - cancer registry manager: Hematologic Medical Hx - documentation nurse Hx of Blood Transfusion No 09/10/24 08:15 Hx of Transfusion in last 3 No 09/10/24 08:15 Months Date of Last Transfusion (if within last 3 months) Ever experience any problems No 09/10/24 08:15 with transfusion(s)? Specify any problems Hx of Preganancy in last 3 N/A 09/10/24 08:15 Months Nurse Filling Out Transfusion DSCHRIBER 09/10/24 08:15 & Questions: Date: 09/10/24 09/10/24 08:15 Time: 08:09/10/24 08:15 Patient unable to answer at this time (ie. confused, unrespo /Reproduction History /Reproductive History - cancer registry manager: /Reproductive Hx- cancer registry manager Hx Now No 09/10/24 08:15 Gestational Age (in weeks): EDC: Hx Hx Para Hx Section SAB No 09/10/24 08:15 Active Medications Active Medications: Current Medications Generic Name Dose Route Start Last Admin Trade Name Freq PRN Reason Stop Dose Admin Lactated Ringer's 1,000 mls @ 15 mls/hr 09/13/24 06:30 09/13/24 06:30 IV 15 mls/hr .Q48H ROSEANNE Administration PFSH Medical History Wears glasses Alcohol use Diabetes Low iron High cholesterol Back pain Asthma Non-smoker CPAP (continuous positive airway pressure) dependence Hypertension History of pain when walking History of edema History of echocardiogram Cardiology follow-up encounter History of heart attack Obesity (BMI 30.0-34.9) Dyslipidemia CKD (chronic kidney disease), stage II Wears contact lenses Injury of head and neck History of stress test history of pilon ankle fracture Arthritis Home Medications ?Medication ?Instructions ?Recorded ?Last Taken ?Type aspirin 81 mg tablet,delayed 81 mg PO BREAKFAST 90 day s #90 tabs 01/16/24 09/12/24 Rx release multivitamin 1 tab PO QAM 02/23/24 History amlodipine 5 mg tablet 5 mg PO DAILY #90 tabs 12/18 /24 05/19/25 Rx ticagrelor 90 mg tablet (Brilinta) 90 mg PO BID #180 t abs 04/19/24 09/07/24 Rx rosuvastatin 20 mg tablet 20 mg PO QHS 09/10/24 History Allergy/AdvReac Type Severity Reaction Status Date / Time Fish Containing Products Allergy Severe Anaphylaxis Verified 09/13/24 06:31 shellfish derived Allergy Severe Anaphylaxis Verified 09/13/24 06:31 atorvastatin AdvReac Mild Diarrhea Verified 09/13/24 06:31 Family History Father Heart disease CAD (coronary artery disease) Hypertension Myocardial infarction Mother Colon cancer Surgical History History of cardiac catheterization Hx of colonoscopy Stented coronary artery History of ankle surgery History of total ankle replacement History of cholecystectomy History of tonsillectomy Social History household members: spouse Smoking Status: Never smoker alcohol intake: current alcohol intake frequency: holidays/special occasions only substance use type: does not use Review of Systems (Anesthesia) ROS Narrative System reviewed and no additional complaints, except as documented. 09/13/24714 > Date _ Perez Preciado MD Cosigner Signature: Date CC: ~ Signed [facility]05-19-2025 Procedure note [facility] Medical Records Department [address] [place] [address] Operative Report 09/13/24819 MR#: [id number] Acct: [id number] Name: DARWIN GORE Rep #:[id number] : 1970 54 From: Mati Car MD PCP: Dr. Scooter Ramirez MD [place] [facility] [place] [address] Operative Report (Standard) Operative Information Date of Procedure: 09/13/24 Pre-Operative Diagnosis: Cervical spondylosis, cervical degenerative disc disease, cervical facet arthropathy Post-Operative Diagnosis: Cervical spondylosis, cervical degenerative disc disease, cervical facet arthropathy Surgery/Procedure Performed: Left-sided cervical facet steroid injection, C4, C5, C6, and C7. mill feeder: No Type of Anesthesia: Local MAC RN Documented Start/Stop Times: Operation Date: 09/13/24 07:50 Case Time Into Pre-Op 09/13/24 06:18 Out of Pre-Op 09/13/24 07:42 Anesthesia Start 09/13/24 07:55 Into Room 09/13/24 07:55 Procedure Start 09/13/24 07:59 Procedure End 09/13/24 08:02 Anesthesia End 09/13/24 08:05 Out of Room 09/13/24 08:05 Into Recovery 09/13/24 08:07 Procedure Start Time: 08:23 Procedure Stop Time: 08:23 Select all DRAINS/GRAFTS/IMPLANTS that apply: None Estimated Blood Loss: 1 Specimen collected: No Description of surgery: PROCEDURE PERFORMED: Left-sided cervical facet steroid injection, C4, C5, C6, and C7. ANESTHESIA: MAC. BLOOD LOSS: Minimal. COMPLICATIONS: None. DESCRIPTION OF PROCEDURE: History and physical of today was reviewed. Risks and benefits of the procedure were explained. The patient understood and agreedto proceed. Informed consent was obtained. IV inserted per routine protocol. The patient was taken to the operating room and placed in the proneposition with a pillow positioned underneath the chest. The neck area was prepped and draped in a sterile fashion using iodine x3. Under fluoroscopy guidance on an AP view, the C4 through C7 vertebral bodies were visualized at approximately 10-degree angle, starting on the left C4, ending on the left C7, passing through the C5 and C6. Using a 25-gauge 3-1/2-inch spinal needle, the needle was advanced via the skin. The tip of the needle was maneuvered and directed towards the epiphyseal junctionof each corresponding vertebra. Once the tip ofthe needle was at the vicinity of the medial branch,the needle was pulled approximately 2 mm off the bone. After negative aspiration of blood or CSF and confirmation on AP, oblique as well as lateral view, a total of 4 mL of preservative-free 0.25% Mar nara with 80 mg of Depo-Medrol was injected in divided doses between those four levels. The needles were then removed intact. The patient experienced no sign or symptoms of intrathecal or intravascular injection. The patient experienced no paresthesia. The procedure was completedwithout any apparent difficulty or any complications. The patient appeared to tolerate it well. ASSESSMENT AND PLAN: This is a 54-year-old male with cervical spondylosis, cervical facet arthropathy, cervical degenerative disc disease, status post left-sided cervicalfacet steroid injection C4-C7 under fluoroscopic guidance, patient will continuewith their current medications, patient will follow-up in approximately 1 to 2 weeks for reevaluation. Surgical Findings: 1 Complications Complications: No Admit VTE Documentation VTE Present on Admission: No VTE Mechan Device Prophylaxis: None VTE Pharm Prophylaxis ordered?: No 09/13/24 0823 Cosigner Signature (if applicable): CC: Dr. Scooter Ramirez MD; Dr. Mati Car MD~ Signed [facility]04-16-2025 Evaluation note* Diagnosis Onset Date Resolution Status Admit Date Stented coronary artery acute A pril 2024 2:30pm CAD (coronary artery disease) chroni c August 11, 2024 2:30pm Dyslipidemia chronic August 11, 2024 2:30pm Hypertension chronic August 11, 2024 2:30pm BARRON on CPAP chronic August 11, 2 025 2:30pm Preoperative cardiovascular examination noneactive August 11, 2024 2:30pm [facility] Work Phone: [phone]) 109-949012-13-2024 Evaluation note* Diagnosis Onset Date Resolution Status Admit Date Cervical radiculopathy acute De cember 2023 1:52pm [facility] Work Phone: Consult note Author Perez Preciado [facility] Note Date/Time September 13, 2024 8:37a m [facility] Medical Records Department [address] [facility] [place] [address] Pre-Anesthesia Evaluation 09/13/24 0715 MR#: [id number] Acct: [id number] Name: DARWIN GORE Rep #:[id number] : 1970 54 From: Perez Preciado MD PCP: Dr. Scooter Ramirez MD Status :REG SDC Y Race: C Location: [place] [address]- ASA Classification* ASA Classification ASA Classification: 2 Assessment & Plan Anesthesia* Anesthesia Assessment Anesthesia Assessment: Discussed sedation and/or anesthesia options, risks, benefits, and alternatives with patient/parents/legal guardian/POA. Questions invited. The patient/parents/legal guardian/POA seems to understand and agrees to proceedwith anesthesia plan. Reviewed the physical assessment, medical history, allergy history and patient home medications list prior to surgery/procedure/anesthetic and documented any changes. Performed airway and anesthesia risk assessments. Anesthesia Type Anesthesia Type: MAC Anesthesia Focused Assessment* Temperature: 97.4 F Pulse Rate: 53 Blood Pressure: 117/75 Respiratory Rate: 18 Pulse Ox: 97 Airway Assessment Mouth opens: >3 cm Mallampati Score: II Focused Labs Anesthesia Preop lab: CBC WBC 8.3 K/mm3 (4.4-11.0) 01/30/24 01:41 01/30/24 RBC 4.31 M/mm3 (4.6-6.2) L 01/30/24 01:41 01/30/24 Hgb 12.8 g/dL (13.0-16.5) L 01/30/24 01:41 4 Hct 37.9 % (40-54) L 01/30/24 01:41 01/30/24 Plt Count 219 K/mm3 (150-450) 01/30/24 01:41 01/30/24 CHEMISTRY Potassium 4.3 mmol/L (3.3-5.1) 06/29/24 11:14 06/29/24 Sodium 137 mmol/L (133-145) 06/29/24 11:14 06/29/24 Magnesium 1.9 mg/dL (1.6-2.6) 01/30/24 01:41 01/30/24 BUN 15 mg/dL (4-19) 06/29/24 11:14 06/29/24 Creatinine 0.89 mg/dL (0.70-1.20) 06/29/24 11:14 06/29/24 Glucose 134 mg/dL (70-99) H 06/29/24 11:14 06/29/24 TSH 1.980 uIU/mL (0.300-4.200) 06/29/24 11:14 03/0 08/20 COAG PT 13.2 SECONDS (11.7-14.9) 01/14/24 22:20 Pre-Assessment Diagnosis/Proposed Procedure Planned Operative Procedure(s): LEFT C4 C5 C6 C7 FACETS STEROID INJECTION UNDER FLUOROSCOPY Anesthesia History Anesthesia History - cancer registry manager: Anesthesia History - cancer registry manager Hx Hospitalization Yes: [place] 12/202309/10/24 08:15 Any Problems With Anesthesia Yes: SLOW TO AWAKEN 09/10/24 08:15 Cholinesterase deficiency No 09/10/24 08:15 You/Your Family Experience No 09/10/24 08:15 fever (hyperthermia) with Relationship Recent Exposure to Contagious No 09/13/24 06:33 Disease Does patient have nerve No 09/10/24 08:15 stimulator Patient instructed to have device shut off --Does patient have Pacemaker No 09/13/24 06:33 or ICD? When Was Last Pacemaker Check QUESTION #4 FULL TEXT: You/Your Family Experience fever (hyperthermia) with Anesthesia Last Oral Intake Last Oral intake: Last Oral Intake NPO since 20:00 09/13/24 06:33 Meds taken in AM with sips of Yes 09/13/24 06:33 water? 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 - cancer registry manager: PONV - cancer registry manager Female No 09/10/24 08:15 HX of Motion Sickness No 09/10/24 08:15 HX of N/V After Surgery No 09/10/24 08:15 Non-Smoker Yes 09/10/24 08:15 Duration of Surgery greater Yes 09/10/24 08:15 than 60 minutes Number of Risk Factors 2 09/10/24 08:15 PONV Score Moderate Risk 09/10/24 08:15 Height & Weight Height & Weight: Anesthesia: Height & Weight Height 5 ft 9 in 09/13/24 06:33 Weight: 106 kg 09/13/24 06:33 Body Mass Index (BMI) 34.4 09/13/24 06:33 Respiratory Assessment Respiratory Assessment - cancer registry manager: Respiratory Tract Infection Hx - cancer registry manager Hx Respiratory Tract Infection No 09/10/24 08:15 STOP Sleep Apnea STOP Sleep Apnea - cancer registry manager: STOP Sleep Apnea - cancer registry manager Hx Hypertension Yes: CONTROLLED WITH MED 09/10/24 08:15 Hx Sleep Apnea Yes 09/10/24 08:15 CPAP Yes 09/10/24 08:15 BIPAP No 09/10/24 08:15 Do you snore loudly (louder than talking or can be heard Do you often feel tired/ fatigued/ sleepy during daytime? Has anyone observed you stop breathing during sleep? STOP Results Positive 09/10/24 08:15 QUESTION #5 FULL TEXT : Do you snore loudly (louder than talking or can be heard through closed doors)? Tobacco Use History Tobacco Use History - cancer registry manager: Tobacco Use History - cancer registry manager Tobacco Use Smoking Status Never smoker 09/10/24 08:15 Hx Tobacco Use No 09/10/24 08:15 Years Smoking Packs Smoked per Day Smoking Cessation Date was within the last 15 years Hx Smoking Cessation Date Hx Smoking Cessation No 09/10/24 08:15 Counseling Hematologic Medial History Hematologic Hx - cancer registry manager: Hematologic Medical Hx - documentation nurse Hx of Blood Transfusion No 09/10/24 08:15 Hx of Transfusion in last 3 No 09/10/24 08:15 Months Date of Last Transfusion (if within last 3 months) Ever experience any problems No 09/10/24 08:15 with transfusion(s)? Specify any problems Hx of Preganancy in last 3 N/A 09/10/24 08:15 Months Nurse Filling Out Transfusion DSCHRIBER 09/10/24 08:15 & Questions: Date: 09/10/24 09/10/24 08:15 Time: 08:17 09/10/24 08:15 Patient unable to answer at this time (ie. confused, unrespo /Reproduction History /Reproductive History - cancer registry manager: /Reproductive Hx- cancer registry manager Hx Now No 09/10/24 08:15 Gestational Age (in weeks): EDC: Hx Hx Para Hx Section SAB No 09/10/24 08:15 Active Medications Active Medications: Current Medications Generic Name Dose Route Start Last Admin Trade Name Freq PRN Reason Stop Dose Admin Lactated Ringer's 1,000 mls @ 15 mls/hr 09/13/24 06:30 09/13/24 06:30 IV 15 mls/hr .Q48H ROSEANNE Administration PFSH Medical History Wears glasses Alcohol use Diabetes Low iron High cholesterol Back pain Asthma Non-smoker CPAP (continuous positive airway pressure) dependence Hypertension History of pain when walking History of edema History of echocardiogram Cardiology follow-up encounter History of heart attack Obesity (BMI 30.0-34.9) Dyslipidemia CKD (chronic kidney disease), stage II Wears contact lenses Injury of head and neck History of stress test history of pilon ankle fracture Arthritis Home Medications ?Medication ?Instructions ?Recorded ?Last Taken ?Type aspirin 81 mg tablet,delayed 81 mg PO BREAKFAST 90 day s #90 tabs 01/16/24 09/12/24 Rx release multivitamin 1 tab PO QAM 02/23/24 History amlodipine 5 mg tablet 5 mg PO DAILY #90 tabs 04/1409/13/24 Rx ticagrelor 90 mg tablet (Brilinta) 90 mg PO BID #180 t abs 04/19/24 09/07/24 Rx rosuvastatin 20 mg tablet 20 mg PO QHS 09/10/24 History Allergy/AdvReac Type Severity Reaction Status Date / Time Fish Containing Products Allergy Severe Anaphylaxis Verified 09/13/24 06:31 shellfish derived Allergy Severe Anaphylaxis Verified 09/13/24 06:31 atorvastatin AdvReac Mild Diarrhea Verified 09/13/24 06:31 Family History Father Heart disease CAD (coronary artery disease) Hypertension Myocardial infarction Mother Colon cancer Surgical History History of cardiac catheterization Hx of colonoscopy Stented coronary artery History of ankle surgery History of total ankle replacement History of cholecystectomy History of tonsillectomy Social History household members: spouse Smoking Status: Never smoker alcohol intake: current alcohol intake frequency: holidays/special occasions only substance use type: does not use Review of Systems (Anesthesia) ROS Narrative System reviewed and no additional complaints, except as documented. 09/13/2415 <Electronically signed by Perez Preciado MD > Date _ Perez Hopper Signature: Date CC: ~ Signed [facility] Work Phone: Evaluation noteNo assessment information available [facility] Work Phone: Evaluation note* Diagnosis Onset Date Resolution Status Admit Date Cervical disc herniation acute December 24, 2024 12:41pm Cervical radiculopathy acute Au 2024 12:41pm Obesity (BMI 30-39.9) acute Nov ust 2024 12:41pm [employer] [facility] Work Phone: Progress note Author Georges Negrete [facility] Note Date/Time January 26, 2025 10 :17am [facility] [address] [place], [place] [address] OFFICE VISIT Date of Service: 01/26/25 MR#: [id number] Acct: [id number] Name: DARWIN GORE Rep #: [id number] : 1970 Provider: Dr. Damon Negrete MD Age/Sex: 54/M Location: [facility] [place] Status: Signed HPI HPI History of Present Illness Details: Darwin is here for follow-up visit. Complains of occasional chest discomfort. Nonspecific about it. Unable to describe the quality. Not related to exertion. Denies shortness of breath. No orthopnea PND. No ankle edema. Patient has been having C-spine problems and is being contemplated for surgery. Tolerating rosuvastatin well and denies any muscle aches or pains. 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 Required: No Accompanied by: Self Is patient in pain?: No Allergies Fish Containing Products Allergy (Severe, Verified 01/26/25 10:02) Anaphylaxis shellfish derived Allergy (Severe, Verified 01/26/25 10:02) Anaphylaxis Medications ?Medication ?Instructions ?Recorded ?Confirmed ?Type aspirin 81 mg tablet,delayed 81 mg PO BREAKFAST 90 day s #90 tabs 01/16/24 01/26/25 Rx release multivitamin 1 tab PO QAM 02/23/24 History amlodipine 5 mg tablet 5 mg PO DAILY #90 tabs 04/1401/26/25 Rx ticagrelor 90 mg tablet (Brilinta) 90 mg PO BID #180 t abs 04/19/24 01/26/25 Rx rosuvastatin 20 mg tablet 20 mg PO QHS 09/10/24 History dapagliflozin propanediol 10 mg 10 mg PO DAILY #90 tab s 10/14/24 01/26/25 Rx tablet (Farxiga) gabapentin 100 mg capsule 100 mg PO TID PRN 01/26/25 1 History Ejection fraction %: 55 Have you fallen in the past year?: No (tripped a couple times) [facility] Medical History Cervical disc herniation Obesity (BMI 30-39.9) Wears glasses Alcohol use Diabetes Low iron High cholesterol Back pain Asthma Non-smoker CPAP (continuous positive airway pressure) dependence Hypertension History of pain when walking History of edema History of echocardiogram Cardiology follow-up encounter History of heart attack Obesity (BMI 30.0-34.9) Dyslipidemia CKD (chronic kidney disease), stage II Wears contact lenses Injury of head and neck History of stress test history of pilon ankle fracture Arthritis Surgical History History of cardiac catheterization Hx of colonoscopy Stented coronary artery History of ankle surgery History of total ankle replacement History of cholecystectomy History of tonsillectomy Family History Father Heart disease CAD (coronary artery disease) Hypertension Myocardial infarction Mother Colon cancer Social History household members: spouse Smoking Status: Never smoker alcohol intake: current alcohol intake frequency: holidays/special occasions only substance use type: does not use ROS Const Const: Negative for fatigue or weakness Eyes Eyes: Negative for change in vision ENT ENT: Negative for dizziness or balance problems Cardio Chest Pain: Yes (discomfort) Frequency: weekly Character: sharp and other ("tension") Location: left chest Duration: minutes and brief Palpitations: No Edema: Bilateral (worse on left but r/t arthritis and injury) Resp Respiratory: Negative for SOB with activity, SOB at rest or SOB orthopnea\\SOB lying down GI GI: Negative nausea or heartburn Musc Musc: Negative for balance problems Neuro Neuro: Negative for dizziness, lightheadedness, near syncope, syncope or weakness Endo Endo: Negative for fatigue Cardiology Exam Const Appearance: comfortable and no acute distress Nutritional Appearance: well nourished Neck Neck: no JVD Carotids: Negative bruit Chest Auscultation: Bilateral: Clear to Auscultation Cardio Rate: regular rate Rhythm: regular rhythm Heart sounds: S1 normal and S2 normal Neuro General: patient alert, patient awake and patient oriented x3 Extremities Lower Extremity Edema: None: Bilateral Supplemental Info Supplemental Information Labs: HDL Cholesterol, (40-) 55 mg/dL Cholesterol, (<=200) 163 mg/dL Triglycerides, (-199) 80 mg/dL Diagnostics: Electrocardiogram Echocardiogram Stress Test Stress Test Nuclear Medicine Cardiac Catheterization Chest X-Ray Abdomen Ultrasound Abdomen/Pelvis CT Past Visits: Cardiology Visit Today Assessment and Plan Assessment and Plan (1) CAD (coronary artery disease): Status: Chronic Plan: Status post drug-eluting stents to the proximal LAD and mid RCA. Continue aspirin. Ticagrelor. Risk factor modification. Nonspecific chest discomfort. Check Lexiscan stress Myoview. Check echo. (2) Stented coronary artery: Status: Acute Comment: 01/14/2024 02/03/2024 Plan: See #1 above. (3) Hypertension: Status: Chronic Plan: Continue amlodipine. (4) Dyslipidemia: Status: Chronic Plan: Rosuvastatin. Check lipid profile. (5) BARRON on CPAP: Status: Chronic Plan: As per sleep medicine. (6) Preoperative cardiovascular examination: Plan: Patient being contemplated for C-spine surgery. I will further risk stratify him with a Lexiscan stress Myoview. If it failed to show any significant abnormalities, then he may proceed with the proposed procedure with an acceptable risk. He may stop his ticagrelor 4 days prior to the procedure. Recommend continuing aspirin unless absolutely necessary. Orders: Orders Comprehensive Metabolic Profil Today E78.5 - Hyperlipidemia, unspecified, I10 -Essential (primary) hypertension, I25.10 - Atherosclerotic heart disease of [place] coronary artery without angina pectoris Lipid Profile Today E78.5 - Hyperlipidemia, unspecified, I10 - Essential (primary) hypertension, I25.10 - Atherosclerotic heart disease of [place] coronary artery without angina pectoris Plan Elevated blood sugars noted. Check hemoglobin A1c. If this is elevated even borderline, then consider starting him on metformin. Plan Details Follow Up: 6 Months Coding Level of Care Code Off vis,est,level 4 Diagnoses CAD (coronary artery disease) I25.10 Stented coronary artery Z95.5 Hypertension I10 Dyslipidemia E78.5 BARRON on CPAP G47.33 Preoperative cardiovascular examination Z01.810 Coding Level of Care Code Off vis,est,level 4 Diagnoses CAD (coronary artery disease) I25.10 Stented coronary artery Z95.5 Hypertension I10 Dyslipidemia E78.5 BARRON on CPAP G47.33 Preoperative cardiovascular examination Z01.810 Clinical Quality Measures Falls Risk Screening/Assistive Devices Have you fallen in the past year?: No (tripped a couple times) Cardiac Ejection fraction %: 55 01/26/25 1019 <Electronically signed by Georges Negrete MD> Date _ Georges Negrete MD Cosign Signature: Date (if applicable) CC: Dr. Scooter Ramirez MD ~ [facility] Work Phone: Reason for referral (narrative)No reason for referral information availableWOhio[facility] Work Phone: Chief Complaint and Reason for Visit Chief Complaint Admit Date PCI with stent, [place] NonSTEMI[place]12months Feb 8:00am CERVICAL SPINE April 09, 2024 1:52pm PCI with stent, [place] NonSTEMI[place]12months Mar 8:00am PCI [place], [place] NonSTEMI<12months Apr 6:02am EORDER June 29, 2024 11:1 0am CERVICAL RADICULOPATHY. RX HERE July 092024 8:00am Reason for Visit Admit Date Cervical radiculopathy April 09 1:52pm Chief Complaint Admit Date PCI with stent, [place] NonSTEMI<12months Mar 8:00am PCI [place] stent, [place] NonSTEMI<12months Apr 6:02am EORDER June 29, 2024 11:1 0am 6 M FU August 11, 2024 2:3 0pm EORDERS 2024 9:1 6am CERVICAL RADICULOPATHY. RX HERE August 182024 8:00am Reason for Visit Admit Date Stented coronary artery August 11, 2024 2:30pm CAD (coronary artery disease) July 2:30pm Dyslipidemia August 11, 2024 2:3 0pm Hypertension August 11, 2024 2:3 0pm BARRON on CPAP August 11, 2024 2:3 0pm Preoperative cardiovascular examination August 11, 2024 2:30pm Chief Complaint Admit Date EORDER June 29, 2024 11:1 0am 6 M FU August 11, 2024 2:3 0pm EORDERS 2024 9:1 6am CERVICAL RADICULOPATHY. RX HERE August 202024 8:00am Chief Complaint Admit Date 6 M FU August 11, 2024 2:3 0pm EORDERS 2024 9:1 6am CERVICAL RADICULOPATHY. RX HERE August 202024 8:00am Chief Complaint Admit Date CERVICAL SPINE December 24, 2024 12 :41pm room 2 December 24, 2024 1: 05pm Reason for Visit Admit Date Cervical disc herniation December 24 12:41pm Cervical radiculopathy December 24, 2024 12:41pm Obesity (BMI 30-39.9) December 24, 2024 12:41pm Chief Complaint Admit Date CERVICAL SPINE December 24, 2024 12 :41pm room 2 December 24, 2024 1: 05pm 6 M FU January 26, 2025 9: 50am e orders January 26, 2025 10 :21am Reason for Visit Admit Date Cervical disc herniation December 24 12:41pm Cervical radiculopathy December 24, 2024 12:41pm Obesity (BMI 30-39.9) December 24, 2024 12:41pm Stented coronary artery January 26 9:50am CAD (coronary artery disease) January 9:50am Dyslipidemia January 26, 2025 9: 50am Hypertension January 26, 2025 9: 50am BARRON on CPAP January 26, 2025 9: 50am Preoperative cardiovascular examination January 26, 2025 9:50am Family History No Family History Records Found Relationship Condition Age at Onset Recorded Date/T kurt father Cardiac disease Unknown Coronary artery disease Unknown Hypertension Unknown Myocardial infarction Unknown mother Malignant neoplasm of colon Unknown Advance Directives No Advanced Directives Records Found Advance Directive Response Recorded Date/ Time Living Will No April 28 1:44am Power of Hair Spring Cutter No April 28 1:44am Living Will No February 09 8:03am Power of Hair Spring Cutter No February 10, 2024 8:03am Living Will No March 28 1:44am Power of Hair Spring Cutter No March 28, 2024 1:44am Advance Directives No February 03, 2024 7:06am Advance Directive Response Recorded Date/ Time Living Will No April 28 1:44am Do you have a Healthcare Power of Hair Spring Cutter? No April 28, 2024 1:44am Living Will No March 28 1:44am Do you have a Healthcare Power of Hair Spring Cutter? No March 28, 2024 1:44am Advance Directives No February 03, 2024 7:06am Advance Directive Response Recorded Date/ Time Do you have a Healthcare Power of Hair Spring Cutter? No September 10, 2024 8:15am Advance Directives No February 03, 2024 7:06am Advance Directive Response Recorded Date/ Time Advance Directives No February 03, 2024 7:06am Summary Purpose Additional Source Comments Care Teams (unrecognized sec tion and content) Team Status: Active Member Role Status Dates Dr. Scooter Ramirez MD Primary Care Provider Acti ve Team Status: Inactive Member Role Status Dates Dr. Scooter Ramirez MD Primary Care Provider Acti ve Start: March 24, 2024 End: March 27, 2024 Dr. Georges Negrete MD Attending Provider Active Start: March 24, 2024 End: March 27, 2024 Dr. Georges Negrete MD Referring Provider Active Start: March 24, 2024 End: March 27, 2024 Team Status: Inactive Member Role Status Dates Dr. Scooter Ramirez MD Primary Care Provider Acti ve Start: April 09, 2024 End: April 09, 2024 Dr. Scooter Ramirez MD Referring Provider Active Start: April 09, 2024 End: April 09, 2024 Dr. Saravanan Ibrahim MD Attending Provider Active Start: April 09, 2024 End: April 09, 2024 Team Status: Inactive Member Role Status Dates Dr. Scooter Ramirez MD Primary Care Provider Acti ve Start: April 23, 2024 End: April 27, 2024 Dr. Georges Negrete MD Attending Provider Active Start: April 23, 2024 End: April 27, 2024 Dr. Georges Negrete MD Referring Provider Active Start: April 23, 2024 End: April 27, 2024 Team Status: Inactive Member Role Status Dates Dr. Scooter Ramirez MD Primary Care Provider Acti ve Start: April 30, 2024 End: May 28, 2024 Dr. Georges Negrete MD Attending Provider Active Start: April 30, 2024 End: May 28, 2024 Dr. Georges Negrete MD Referring Provider Active Start: April 30, 2024 End: May 28, 2024 Team Status: Inactive Member Role Status Dates Dr. Scooter Ramirez MD Primary Care Provider Acti ve Start: June 29, 2024 End: June 29, 2024 Dr. Scooter Ramirez MD Attending Provider Active Start: June 29, 2024 End: June 29, 2024 Dr. Scooter Ramirez MD Referring Provider Active Start: June 29, 2024 End: June 29, 2024 Team Status: Active Member Role Status Dates Dr. Scooter Ramirez MD Primary Care Provider Acti ve Start: July 09, 2024 Dr. Saravanan Ibrahim MD Attending Provider Active Start: July 09, 2024 Dr. Saravanan Ibrahim MD Referring Provider Active Start: July 09, 2024 Team Status: Inactive Member Role Status Dates Dr. Scooter Ramirez MD Primary Care Provider Acti ve Start: August 11, 2024 End: August 11, 2024 Dr. Scooter Ramirez MD Referring Provider Active Start: August 11, 2024 End: August 11, 2024 Dr. Georges Negrete MD Attending Provider Active Start: August 11, 2024 End: August 11, 2024 Team Status: Inactive Member Role Status Dates Dr. Scooter Ramirez MD Primary Care Provider Acti ve Start: 2024 End: 2024 Dr. Georges Negrete MD Attending Provider Active Start: 2024 End: 2024 Dr. Georges Negrete MD Referring Provider Active Start: 2024 End: 2024 Team Status: Active Member Role Status Dates Dr. Scooter Ramirez MD Primary Care Provider Acti ve Start: August 18, 2024 Dr. Saravanan Ibrahim MD Attending Provider Active Start: August 18, 2024 Dr. Saravanan Ibrahim MD Referring Provider Active Start: August 18, 2024 Team Status: Active Member Role Status Dates Dr. Scooter Ramirez MD Primary Care Provider Acti ve Start: August 20, 2024 Dr. Saravanan Ibrahim MD Attending Provider Active Start: August 20, 2024 Dr. Saravanan Ibrahim MD Referring Provider Active Start: August 20, 2024 Team Status: Inactive Member Role Status Dates Dr. Scooter Ramirez MD Primary Care Provider Acti ve Start: September 13, 2024 End: September 13, 2024 Dr. Mati Car MD Attending Provider Active Start: September 13, 2024 End: September 13, 2024 Dr. Mati Car MD Referring Provider Active Start: September 13, 2024 End: September 13, 2024 Team Status: Active Member Role/Relationship Status Dates Dr. Scooter Ramirez MD Primary Care Provider Acti ve Team Status: Inactive Member Role/Relationship Status Dates Dr. Scooter Ramirez MD Primary Care Provider Acti ve Start: August 11, 2024 End: August 11, 2024 Dr. Scooter Ramirez MD Referring Provider Active Start: August 11, 2024 End: August 11, 2024 Dr. Georges Negrete MD Attending Provider Active Start: August 11, 2024 End: August 11, 2024 Team Status: Inactive Member Role/Relationship Status Dates Dr. Scotoer Ramirez MD Primary Care Provider Acti ve Start: 2024 End: 2024 Dr. Georges Negrete MD Attending Provider Active Start: 2024 End: 2024 Dr. Georges Negrete MD Referring Provider Active Start: 2024 End: 2024 Team Status: Inactive Member Role/Relationship Status Dates Dr. Scooter Ramirez MD Primary Care Provider Acti ve Start: August 20, 2024 End: August 20, 2024 Dr. Saravanan Ibrahim MD Attending Provider Active Start: August 20, 2024 End: August 20, 2024 Dr. Saravanan Ibrahim MD Referring Provider Active Start: August 20, 2024 End: August 20, 2024 Team Status: Inactive Member Role/Relationship Status Dates Dr. Scooter Ramirez MD Primary Care Provider Acti ve Start: September 13, 2024 End: September 13, 2024 Dr. Mati Car MD Attending Provider Active Start: September 13, 2024 End: September 13, 2024 Dr. Mati Car MD Referring Provider Active Start: September 13, 2024 End: September 13, 2024 Team Status: Inactive Member Role/Relationship Status Dates Dr. Scooter Ramirez MD Primary Care Provider Acti ve Start: September 13, 2024 End: September 13, 2024 Dr. Mati Car MD Attending Provider Active Start: September 13, 2024 End: September 13, 2024 Dr. Mati Car MD Referring Provider Active Start: September 13, 2024 End: September 13, 2024 Team Status: Active Member Role/Relationship Status Dates Dr. Scooter Ramirez MD Primary Care Provider Acti ve Start: December 24, 2024 Dr. Scooter Ramirez MD Referring Provider Active Start: December 24, 2024 Dr. Saravanan Ibrahim MD Attending Provider Active Start: December 24, 2024 Team Status: Inactive Member Role/Relationship Status Dates Dr. Scooter Ramirez MD Primary Care Provider Acti ve Start: December 24, 2024 End: December 24, 2024 Dr. Enrique Vaughan MD Attending Provider Active S tart: December 24, 2024 End: December 24, 2024 Team Status: Inactive Member Role/Relationship Status Dates Dr. Scooter Ramirez MD Primary Care Provider Acti ve Start: December 24, 2024 End: December 24, 2024 Dr. Scooter Ramirez MD Referring Provider Active Start: December 24, 2024 End: December 24, 2024 Dr. Saravanan Ibrahim MD Attending Provider Active Start: December 24, 2024 End: December 24, 2024 Team Status: Active Member Role/Relationship Status Dates Dr. Scooter Ramirez MD Primary care physician Act salvatore Team Status: Inactive Member Role/Relationship Status Dates Dr. Scooter Ramirez MD Primary care physician Act salvatore Start: December 24, 2024 End: December 24, 2024 Dr. Scooter Ramirez MD Referring Provider Active Start: December 24, 2024 End: December 24, 2024 Dr. Saravanan Ibrahim MD Attending physician Active Start: December 24, 2024 End: December 24, 2024 Team Status: Inactive Member Role/Relationship Status Dates Dr. Scooter Ramirez MD Primary care physician Act salvatore Start: December 24, 2024 End: December 24, 2024 Dr. Enrique Vaughan MD Attending physician Active Start: December 24, 2024 End: December 24, 2024 Team Status: Inactive Member Role/Relationship Status Dates Dr. Scooter Ramirez MD Primary care physician Act salvatore Start: January 26, 2025 End: January 26, 2025 Dr. Scooter Ramirez MD Referring Provider Active Start: January 26, 2025 End: January 26, 2025 Dr. Georges Negrete MD Attending physician Active Start: January 26, 2025 End: January 26, 2025 Team Status: Active Member Role/Relationship Status Dates Dr. Scooter Ramirez MD Primary care physician Act salvatore Start: January 26, 2025 Dr. Georges Negrete MD Attending physician Active Start: January 26, 2025 Dr. Georges Negrete MD Referring Provider Active Start: January 26, 2025 Goals (unrecognized section and content) Goals may be documented in a n alternate sectionGoals may be documented in an alternate sectionGoals may be documented in an alternate section (unrecognized sect ion and content) No Status Records Found INFORMATION SOURCE (unrecogn ized section and content) DATE CREATED AUTHOR 02/16/2025 [facility] FOR RECORDS PERTAINING TO PATIENTS WHO ARE OR HAVE BEEN ENROLLED IN A CHEMICAL DEPENDENCY/SUBSTANCEABUSE PROGRAM, SOME INFORMATION MAY BE OMITTED. This clinical summary was aggregated from multiple sources. Caution should be exercised in using it in the provision of clinical care. This summary normalizes information from multiple sources, and as a consequence, information in this document may materially change the coding, format and clinical context of patient data. In addition, data may be omitted in some cases. CLINICAL DECISIONS SHOULD BE BASED ON THE PRIMARY CLINICAL RECORDS. [employer] provides no warranty or guarantee of the accuracy or completeness of information in this document.
[2025-02-17] MEDS: Lactated Ringers 1,000 ML 15 ML IV (06:11)
--- NOTE | 2025-02-17 06:46 | PCM.PRE.AN2 ---
ASA Classification* ASA Classification ASA Classification: 2 Assessment & Plan Anesthesia* Anesthesia Assessment Anesthesia Assessment: Discussed sedation and/or anesthesia options, risks, benefits, and alternatives with patient/parents/legal guardian/POA. Questions invited. The patient/parents/legal guardian/POA seems to understand and agrees to proceed with anesthesia plan. Reviewed the physical assessment, medical history, allergy history and patient home medications list prior to surgery/procedure/anesthetic and documented any changes. Performed airway and anesthesia risk assessments. Anesthesia Type Anesthesia Type: General History Source History Obtained from:: Patient, Chart and Significant Other (Spouse present in the room) Anesthesia Focused Assessment* Temperature: 97.2 F Pulse Rate: 55 Blood Pressure: 123/65 Respiratory Rate: 18 Pulse Ox: 97 Oxygen Delivery Method: Room Air Airway Assessment Mouth opens: >3 cm Mallampati Score: II Teeth Condition: Intact Neck Range of motion (ROM): Limited ROM Labs Anesthesia Preop lab: CBC WBC, (4.4-11.0) 7.4 K/mm3 02/04/25, : RBC, (4.6-6.2) 4.93 M/mm3 02/04/25, 10:25 Hgb, (13.0-16.5) 14.6 g/dL 02/04/25, : Hct, (40-54) 43.6 % 02/04/25, : Plt Count, (150-450) 212 K/mm3 02/04/25, 10:25 CHEMISTRY Potassium, (3.3-5.1) 4.5 mmol/L 02/04/25, 10:25 Sodium, (133-145) 137 mmol/L 02/04/25, 10:25 Magnesium, (1.5-2.2) 2.5 mg/dL H 02/04/25, 10:25 BUN, (4-19) 19 mg/dL 02/04/25, 10:25 Creatinine, (0.70-1.20) 0.94 mg/dL 02/04/25, 10:25 Glucose, (70-99) 158 mg/dL H 02/04/25, 10:25 TSH, (0.300-4.200) 1.980 uIU/mL 06/29/24, 11:14 COAG PT, (11.7-14.9) 13.2 SECONDS 01/14/24, 22:20 Pre-Assessment Diagnosis/Proposed Procedure Planned Operative Procedure(s): ANTERIOR CERVICAL FUSION C5-6, C6-7 Anesthesia History Anesthesia History - business risk consultant: Anesthesia History - business risk consultant Hx Hospitalization No: DC 12/202302/01/25 14:07 Any Problems With Anesthesia Yes: SLOW TO AWAKEN 02/01/25 14:07 Cholinesterase deficiency No 02/01/25 14:07 You/Your Family Experience No 02/01/25 14:07 fever (hyperthermia) with Relationship Recent Exposure to Contagious No 02/17/25 06:01 Disease Does patient have nerve No 02/01/25 14:07 stimulator Patient instructed to have device shut off --Does patient have Pacemaker No 02/17/25 06:01 or ICD? When Was Last Pacemaker Check QUESTION #4 FULL TEXT: You/Your Family Experience fever (hyperthermia) with Anesthesia Last Oral Intake Last Oral intake: Last Oral Intake NPO since 03:30 02/17/25 06:01 Meds taken in AM with sips of Yes 02/17/25 06:01 water? 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 - business risk consultant: PONV - business risk consultant Female No 02/01/25 14:07 HX of Motion Sickness No 02/01/25 14:07 HX of N/V After Surgery No 02/01/25 14:07 Non-Smoker Yes 02/01/25 14:07 Duration of Surgery greater Yes 02/01/25 14:07 than 60 minutes Number of Risk Factors 2 02/01/25 14:07 PONV Score Moderate Risk 02/01/25 14:07 Height & Weight Height & Weight: Anesthesia: Height & Weight Height 5 ft 9 in 02/17/25 06:01 Weight: 111 kg 02/17/25 06:01 Body Mass Index (BMI) 36.1 02/17/25 06:01 Respiratory Assessment Respiratory Assessment - business risk consultant: Respiratory Tract Infection Hx - business risk consultant Hx Respiratory Tract Infection No 02/01/25 14:07 STOP Sleep Apnea STOP Sleep Apnea - business risk consultant: STOP Sleep Apnea - business risk consultant Hx Hypertension Yes: CONTROLLED WITH MED 02/01/25 14:07 Hx Sleep Apnea Yes 02/01/25 14:07 CPAP Yes 02/01/25 14:07 BIPAP No 02/01/25 14:07 Do you snore loudly (louder than talking or can be heard Do you often feel tired/ fatigued/ sleepy during daytime? Has anyone observed you stop breathing during sleep? STOP Results Positive 02/01/25 14:07 QUESTION #5 FULL TEXT : Do you snore loudly (louder than talking or can be heard through closed doors)? Tobacco Use History Tobacco Use History - business risk consultant: Tobacco Use History - business risk consultant Tobacco Use Smoking Status Never smoker 02/07/25 07:03 Hx Tobacco Use No 02/01/25 14:07 Years Smoking Packs Smoked per Day Smoking Cessation Date was within the last 15 years Hx Smoking Cessation Date Hx Smoking Cessation No 02/07/25 07:03 Counseling Hematologic Medial History Hematologic Hx - business risk consultant: Hematologic Medical Hx - pairer inspector Hx of Blood Transfusion No 02/01/25 14:07 Hx of Transfusion in last 3 No 02/01/25 14:07 Months Date of Last Transfusion (if within last 3 months) Ever experience any problems No 02/01/25 14:07 with transfusion(s)? Specify any problems Hx of Preganancy in last 3 N/A 02/01/25 14:07 Months Nurse Filling Out Transfusion [email or web address] 02/01/25 14:07 & Questions: Date: 02/01/25 02/01/25 14:07 Time: 14:11 02/01/25 14:07 Patient unable to answer at this time (ie. confused, unrespo /Reproduction History /Reproductive History - business risk consultant: /Reproductive Hx- business risk consultant Hx Now Gestational Age (in weeks): EDC: Hx Hx Para Hx Section SAB No 02/01/25 14:07 Active Medications Active Medications: Current Medications Generic Name Dose Route Start Last Admin Trade Name Freq PRN Reason Stop Dose Admin Acetaminophen 1,000 mg 02/17/25 07:30 02/17/25 06:13 Acetaminophen 500 Mg Tablet PO 02/17/25 07:31 1,000 mg PREOP ONE Administration Dexamethasone Sodium Phosphate 8 mg 02/17/25 07:30 Dexamethasone 10 Mg/Ml Vial IV 02/17/25 07:31 INTRAOP ONE Dexamethasone Sodium Phosphate 4 mg 02/17/25 07:30 Dexamethasone 4 Mg/Ml Vial IV 02/17/25 07:31 POSTOP ONE Cefazolin Sodium 2 gm/ Sodium 110 mls @ 150 mls/hr 02/17/25 07:30 Chloride IV 02/17/25 08:13 INTRAOP ONE Tranexamic Acid 1,000 mg/ 110 mls @ 440 mls/hr 02/17/25 07:30 Sodium Chloride IV 02/17/25 07:44 INTRAOP ONE Tranexamic Acid 1,000 mg/ 110 mls @ 440 mls/hr 02/17/25 08:30 Sodium Chloride IV 02/17/25 08:44 INTRAOP ONE Lactated Ringer's 1,000 mls @ 15 mls/hr 02/17/25 05:45 02/17/25 06:11 IV 15 mls/hr .Q48H ROSEANNE Administration Insulin Human Lispro 1 - 6 unit 02/17/25 07:30 02/17/25 06:11 Insulin Lispro 100 Unit/Ml Insuln.Pen SC 02/17/25 13:30 3 u Q4H PRN PRN Administration BG>/= 180, SEE PROTOCOL Protocol PFSH Medical History Chest pain Cervical disc herniation Obesity (BMI 30-39.9) Wears glasses Alcohol use Diabetes Low iron High cholesterol Back pain Asthma Non-smoker CPAP (continuous positive airway pressure) dependence Hypertension History of pain when walking History of edema History of echocardiogram Cardiology follow-up encounter History of heart attack Obesity (BMI 30.0-34.9) Dyslipidemia CKD (chronic kidney disease), stage II Wears contact lenses Injury of head and neck History of stress test history of pilon ankle fracture Arthritis Home Medications Medication Instructions Recorded Last Taken Type aspirin 81 mg tablet,delayed 81 mg PO BREAKFAST 90 days #90 tabs 01/16/24 02/17/25 Rx release multivitamin 1 tab PO QAM 02/23/24 02/17/25 History amlodipine 5 mg tablet 5 mg PO DAILY #90 tabs 04/14/24 02/17/25 Rx ticagrelor 90 mg tablet (Brilinta) 90 mg PO BID #180 tabs 04/19/24 02/12/25 Rx rosuvastatin 20 mg tablet 20 mg PO QHS 09/10/24 02/16/25 History dapagliflozin propanediol 10 mg 10 mg PO DAILY #90 tabs 10/14/24 02/13/25 Rx tablet (Farxiga) gabapentin 100 mg capsule 100 mg PO TID PRN sleep 01/26/25 Unknown History Allergy/AdvReac Type Severity Reaction Status Date / Time Fish Containing Products Allergy Severe Anaphylaxis Verified 02/17/25 05:57 shellfish derived Allergy Severe Anaphylaxis Verified 02/17/25 05:57 Family History Father Heart disease CAD (coronary artery disease) Hypertension Myocardial infarction Mother Colon cancer Surgical History History of cardiac catheterization Hx of colonoscopy Stented coronary artery History of ankle surgery History of total ankle replacement History of cholecystectomy History of tonsillectomy Social History household members: spouse Smoking Status: Never smoker alcohol intake: current alcohol intake frequency: holidays/special occasions only substance use type: does not use Review of Systems (Anesthesia) ROS Narrative System reviewed and no additional complaints, except as documented.
--- NOTE | 2025-02-17 07:20 | PCM.HP.BLA ---
History and Physical Date of Admission: 02/17/25 MR#: [id number] Acct: [id number] Name: KENYA GORE Rep #: [id number] : 1970 Provider: Dr. Saravanan Ibrahim MD Age/Sex: 54/M Location: [facility] [email or web address] Status: Signed Intake Vital Signs 09/13/2505:33 02/07/2507:03 02/10/2507:59 Height 5 ft 9 in 5 ft 9 in 5 ft 9 in Weight: 230 lb BMI 34.0 Intake Visit Reasons: cervical spine Chief Complaint: cervical spine pre op Accompanied by: Self Is patient in pain?: Yes Pain scale (1-10): 3 Allergies Fish Containing Products Allergy (Severe, Verified 02/10/25 08:05) Anaphylaxis shellfish derived Allergy (Severe, Verified 02/10/25 08:05) Anaphylaxis Medications Medication Instructions Recorded Confirmed Type aspirin 81 mg tablet,delayed 81 mg PO BREAKFAST 90 days #90 tabs 01/16/24 02/10/25 Rx release multivitamin 1 tab PO QAM 02/23/24 02/10/25 History amlodipine 5 mg tablet 5 mg PO DAILY #90 tabs 04/14/24 02/10/25 Rx ticagrelor 90 mg tablet (Brilinta) 90 mg PO BID #180 tabs 04/19/24 02/10/25 Rx rosuvastatin 20 mg tablet 20 mg PO QHS 09/10/24 02/10/25 History dapagliflozin propanediol 10 mg 10 mg PO DAILY #90 tabs 10/14/24 02/10/25 Rx tablet (Farxiga) gabapentin 100 mg capsule 100 mg PO TID PRN sleep 01/26/25 02/10/25 History Have you fallen in the past year?: Yes [facility] Medical History Chest pain Cervical disc herniation Obesity (BMI 30-39.9) Wears glasses Alcohol use Diabetes Low iron High cholesterol Back pain Asthma Non-smoker CPAP (continuous positive airway pressure) dependence Hypertension History of pain when walking History of edema History of echocardiogram Cardiology follow-up encounter History of heart attack Obesity (BMI 30.0-34.9) Dyslipidemia CKD (chronic kidney disease), stage II Wears contact lenses Injury of head and neck History of stress test history of pilon ankle fracture Arthritis Surgical History History of cardiac catheterization Hx of colonoscopy Stented coronary artery History of ankle surgery History of total ankle replacement History of cholecystectomy History of tonsillectomy Family History Father Heart disease CAD (coronary artery disease) Hypertension Myocardial infarction Mother Colon cancer Social History household members: spouse Smoking Status: Never smoker alcohol intake: current alcohol intake frequency: holidays/special occasions only substance use type: does not use HPI cervical spine Details: This documentation accurately reflects the service provided and the decisions made by me, Dr. Saravanan Ibrahim MD 02/10/25 1361. Part of today’s visit was documented by Nicki Valentin MA, acting as scribe. KENYA GORE is a 54 year old M here today for cervical spine pre op for C5-7 ACDF scheduled on 02-17-25. Patient states that his pain is a 3 today. He would like to go over the surgery, and discuss about after surgery. The patient is a 54-year-old male presenting with preoperative concerns for cervical spine surgery. The patient has a history of cervical spondylosis, which has been causing neck stiffness, particularly in the mornings. The condition has been persistent, and the patient is scheduled for surgery involving C5-6 and C6-7 levels. The patient also has a history of coronary artery disease, having suffered a myocardial infarction last year, which required the placement of two stents. He is currently on Brilinta as a blood thinner and has been advised to stop it five days before surgery and restart three days after. Additionally, the patient has type 2 diabetes mellitus, managed with Farxiga, which he is advised to stop three days before surgery. His recent HbA1c was 6.9%, indicating good control of his diabetes. The patient has been colonized with Staphylococcus aureus, for which he has been given a topical gel to apply for five days before surgery to reduce bacterial load. - Musculoskeletal: Reports neck stiffness, particularly in the mornings. - Cardiovascular: Denies new symptoms related to coronary artery disease. - Endocrine: Denies new symptoms related to diabetes mellitus. Attestation: Documentation on this patient encounter was supported using ambient scribe technology/ voice AI technology. The patient consented to recording for the purpose of documenting the encounter. Provider reviewed content of the generated note prior to signature. 12/24/24: KENYA GORE is a 54 year old M here today for cervical spine pain. He complains of left sided neck pain that extends down into his collar bone. He feels as though his left foot is catching on the ground at times.He denies dropping items. He has weakness in his left hand and arm and has difficulty opening containers and jars.He did receive injections with Dr. Car that would give him relief for a few weeks but then the pain returns. He also completed PT. He reports numbness in his left arm when sleeping, Dr. Car has prescribed Gabapentin at night to help with this. He has to shake his left hand to help the numbness at night. He reports stiffness and limited ROM in the neck. He is right handed. He works from home which requires a lot of time on his computer. He sees Dr. Negrete in cardiology and was last seen two months ago. He has stopped the blood thinner for diagnostic injections with pain management. He denies lung problems. He uses a CPAP for sleep apnea. He does take Farxiga his last A1c was 7.2 in July. Ortho Exam General General: Yes no acute distress Neurologic: Yes alert and Yes oriented x3 Psychologic: Yes reasonable and appropriate Spine SPINE TESTING CERVICAL THORACIC LUMBAR Musculoskeletal Strength 0=absent - 5=normal Details: Examination neck shows midline and paraspinal tenderness. Patient holds his neck fairly stiff. His left side turning is severely limited. Neurologic bilateral upper extremity shows 5 x 5 power normal shows normal sensations in all dermatomes. Gary's negative. Romberg's is negative. Tandem gait shows mild imbalance. There is no hyperreflexia lower extremities. Coding Level of Care Code Off vis,est,level 4 Diagnoses Obesity (BMI 30-39.9) E66.9 Cervical radiculopathy M54.12 Cervical disc herniation M50.20 Time Spent (min) 35 Assessment and Plan Assessment and Plan (1) Obesity (BMI 30-39.9): Status: Acute (2) Cervical radiculopathy: Status: Acute (3) Cervical disc herniation: Status: Acute Plan Reviewed previous imaging. These show C5-6 and C6-7 disc height loss with likely up posterolateral osteophyte with mild cord indentation and severe foraminal stenosis worse on the left. No cord signal changes seen. No instability on flexion-extension views. - Imaging: MRI shows large herniation at C5-6 and C6-7 levels, compressing the spinal cord and nerves. - Imaging: X-rays show no significant changes from previous imaging. 1. Cervical spondylosis - The patient is scheduled for cervical spine surgery at C5-6 and C6-7 levels to address neck stiffness and related symptoms. 2. Coronary artery disease - Continue Brilinta, with instructions to stop five days before surgery and restart three days after to manage bleeding risk. 3. Type 2 diabetes mellitus - Manage with Farxiga, which should be stopped three days before surgery to minimize perioperative risks. 4. Staphylococcus aureus colonization - Apply topical gel for five days before surgery to reduce bacterial load and minimize infection risk. - Stop Brilinta five days before surgery and restart three days after. - Stop Farxiga three days before surgery. - Apply the prescribed topical gel for five days before surgery to reduce bacterial load. - Follow up with the surgical team for post-operative care and instructions. Explained imaging findings in detail. He has tried non surgical options and his quality and function continue to decline therefore at this time we will proceed with surgery. Surgery will be C5-7 ACDF. Discussed this procedure in detail and explained the risks, benefits and alternatives. The risks of surgery include but are not limited to infection, bleeding, injury to nerves and vessels, hematoma formation, dysphagia, dysphonia, recurrent laryngeal nerve injury, Fe syndrome, DVT, pulmonary embolism, pneumonia, atelectasis, cardiopulmonary event, pseudoarthrosis, hardware failure, adjacent segment degeneration, need for further surgery, nerve root injury, spinal cord injury. Answered all questions to the patient’s satisfaction. Patient understands and agrees to proceed with surgery. Consent was signed.Follow up two weeks post operatively or sooner if pain, swelling, numbness or associated symptoms, or concerns develop. All questions answered. Patient in agreement of plan.
--- NOTE | 2025-02-17 07:30 | RAD_ITS ---
PROCEDURE: CERV SPINE 2 OR 3 VIEWS 02/17/2025 REASON FOR EXAM: ANTERIOR CERVICAL FUSION C5-6 AND C6-7 TECHNIQUE: Procedure Code: RADSPCL Modality: DX Procedure: CERV SPINE 2 OR 3 VIEWS 9 intraoperative C-arm films performed. 16 seconds of fluoroscopy, radiation dose of 7.57 mGy COMPARISON: 12/24/2024 FINDINGS: No intraoperative complications noted during anterior cervical fusion from C5-C7. Alignment in the C-spine is anatomic RAD/Cerv Spine 2 or 3 Views IMPRESSION: No intraoperative complications noted during anterior cervical fusion from C5-C 7 Disclaimer: Reading Location: [id number]
[2025-02-17] MEDS: Lidocaine 1% (5 ml sdv) 5 ML Vial IV (07:35)
[2025-02-17] MEDS: fentaNYL 100 MCG/2 ML Ampul IV (07:35)
[2025-02-17] MEDS: Cefazolin 1 GM/5 ML Vial 2 GM IV (07:37)
[2025-02-17] MEDS: REMIFENTANIL HCL 1 MG VIAL 1.015576 MG IV (07:45)
[2025-02-17] MEDS: TRANEXAMIC ACID 1,000 MG/10 ML ML 2000 MG IV (09:23)
--- NOTE | 2025-02-17 09:53 | PCM.OPRPT ---
Procedures Musculoskeletal 20xxx-29xxx: Other Procedure See Report Operative Report (Standard) Operative Information Date of Procedure: 02/17/25 Pre-Operative Diagnosis: C5-7 disc degeneration with stenosis, radiculomyelopathy Post-Operative Diagnosis: Same Surgery/Procedure Performed: C5-7 ACDF compensation programs manager: Yes Leasing Assistant: Michaelle Gaffney Tasks completed by certified medical technician assistant: Closing, Removing tissue, Hemostasis: Electrocautery and Retracting Type of Anesthesia: General RN Documented Start/Stop Times: Operation Date: 02/17/25 07:30 Case Time Into Pre-Op 02/17/25 05:39 Anesthesia Start 02/17/25 07:30 Into Room 02/17/25 07:30 Procedure Start 02/17/25 08:05 Procedure Start Time: 08:05 Procedure Stop Time: 09:55 Select all DRAINS/GRAFTS/IMPLANTS that apply: Drains Drain details: Ariel , Graft Graft details: Structural allograft cortical cancellous strut, DBX and Implanted device Implanted device details: [employer]tronic [place] Elite plate instrumentation Estimated Blood Loss: 40 cc Specimen collected: No Description of surgery: Preoperative diagnosis: C5-7 disc degeneration with stenosis, radiculomyelopathy Postoperative diagnosis: Same Name of procedure: C5-7 anterior cervical discectomy and fusion with plate instrumentation - Anterior cervical fusion C5-6, CPT code 35166 - Anterior plate instrumentation C5-7, CPT code 67047/59 - Anterior cervical fusion C6-7, CPT code 93101/51 -C5-6 structural allograft bone with DBX, CPT code 06284 - C6-7 structural allograft bone with DBX, CPT code 06446 Attending surgeon: Saravanan Ibrahim M.D. Anesthesia: Gen. endotracheal Estimated blood loss: 40 mL Complications: None Instrumentation used: [employer]tronic Airway [place] Elite plate, LASR corticocancellous block Indications: The patient is a pleasant 54-year-old gentleman who presented with neck pain, left worse than right upper extremity radiation, difficulty with dexterity and balance. MRI showed C5-7 disc degeneration with mild central and severe left worse than right foraminal stenosis. After prolonged course of nonsurgical treatment, the patient requested surgical treatment. All risks and benefits of the procedure were explained to the patient. The risks include but are not limited to infection, bleeding, injury to nerves and vessels, vertebral artery injury, spinal cord injury, paralysis, vocal cord paralysis, injury to esophagus, pseudoarthrosis, need for further procedures, adjacent segment degeneration. Procedure: The patient was identified in the preoperative suite using unique patient identifiers. Skin was marked consent was taken and all questions were answered. The patient was then brought back to the operative room and a timeout was performed. General endotracheal anesthesia was given. Intraoperative neuro monitoring leads were applied. The patient was carefully positioned supine on a regular OR table. A lateral view with a C-arm was done to identify the level and to define the incision. The anterior neck was then prepped and draped in the usual fashion. A final timeout was then performed. A transverse skin incision was taken to the left of midline. Subcutaneous tissue was then divided with Bovie. Platysma was identified and cut along the incision with scissors. The fascial interval between the sternocleidomastoid and the larynx was developed. Omohyoid was identified and retracted. The esophagus with the larynx was retracted medially to reach the prevertebral fascia. Marker x-ray was performed with bent spinal needle and disc space and levels were confirmed. Longus coli muscle was elevated on both sides at and above and below C5-7 discs. Self-retaining retractors were then placed. A long handle knife was then used to perform annulotomy at C5-6. Disc fragments were removed with the pituitary. [place] pins were placed in C5 and C6 for disc distraction. Curettes and bur was utilized to remove cartilage from the endplates. Discectomy was performed laterally up to the uncovertebral joints. Posterior osteophytes were thinned down with the bur and adequate decompression in the central and foraminal areas were performed and PLL was thinned out. Once the disc space was prepared, trials of various sizes were utilized. Thorough irrigation was given. 6 mm LASR cortical cancellous allograft bone large footprint was then fashioned in such a way that concavities were burred out inferiorly and superiorly and half cc of DBX (demineralized bone matrix) was squeezed into the cancellous portion. The graft was then inserted into the C5-6 disc space. The retractors were then repositioned and the procedure was repeated for C6-7 disc with complete discectomy. Graft size was 6 mm at with large footprint at C6-7. The grafts were found to be in good apposition with good pullout strength. A 42 mm Medtronic Airway [place] Elite plate was then fixed to C5-7 with 16 mm screws. A lateral x-ray was then taken to check the length of the screws. Both AP and lateral x-rays showed good positioning of plate and screws. The locking mechanism over the screw heads was then turned. Thorough irrigation was again given. Hemostasis was achieved. A Conrad drain was then inserted. Closure was done with 3-0 Vicryl for the platysma and subcutaneous tissue layers and 4-0 Monocryl for the skin. Closure was done around the drain. Steri-Strips were applied and dressing was done with 4 x 4 gauze and Tegaderm. A cervical collar was then applied. The patient was then woken up from anesthesia extubated and taken to PACU in stable condition. From here, the patient will be transitioned to the floor. Intraoperative neuro monitoring was performed throughout this procedure. Motor evoked potentials were run periodically. All potentials remained at baseline throughout the procedure. I was present for the entire surgery and performed the surgery myself. Surgical Findings: See operative note Complications Complications: No
--- NOTE | 2025-02-17 10:26 | PCM.POST.ANE ---
Anesthesia: Postop Eval I Current Vital Signs Temperature: 97.1 F Pulse Rate: 78 Blood Pressure: 130/81 Respiratory Rate: 16 Pulse Ox: 93 Oxygen Delivery Method: Nasal Cannula Oxygen Flow Rate (L/min): 2 Assessment Airway patent: Yes Spontaneous unlabored respirations: Yes Mental status: Awake and Calm nausea: No Vomiting: No Anesthesia Complication: No Fluid Hydration Crystalloid volume administer (ml): 1,400 Total IV fluid infused: 1,400 Progress Note Anesthesia document: Postop Eval 1 completed: No
--- NOTE | 2025-02-17 11:28 | SUR.PHASEI ---
neck dressing saturated, serosang, changed, aysha. split gauze and tegaderm. patient tolerated well.
--- NOTE | 2025-02-17 11:58 | SUR.PHASEI ---
2hr eras completed, 92% on RA
[2025-02-17] MEDS: Ensure Surgery 237 ML LIQUID PO ×2 (13:25→18:21)
--- NOTE | 2025-02-17 13:49 | CASEMGMT ---
Social Work- SW informed by bedside nurse that pt would like to complete directives tomorrow; pt does not feel well enough today to complete. SW to follow. SW completed SDOH. Pt bedside nurse reports assessment was triggered in error. RUIZ Wood
--- NOTE | 2025-02-17 14:26 | POSTOPAN2_ITS ---
Anesthesia Postop Eval I Sum Postop Eval Completion status Anesthesia document: Postop Eval 1 completed: No Anesthesia Postop Eval I Summary Anesthesia Postop Eval I Summary: Anesthesia Postop Eval I: Assessment Summary Airway patent Yes 02/17/25 10:27 SHAFT [email or web address] Spontaneous unlabored Yes 02/17/25 10:27 SHAFT [email or web address].MDOT respirations Mental status Awake,Calm 02/17/25 10:27 SHAFT [email or web address].MDOT nausea No 02/17/25 10:27 SHAFT MECHANIC.MDOT Vomiting No 02/17/25 10:27 SHAFT [email or web address].MDOT Anesthesia Postop Eval I: Fluid Summary Crystalloid volume administer 1,400 02/17/25 10:27 SHAFT MECHANIC.MDOT (ml) Colloids volume administered ( ml) Blood Product volume administered (ml) Total IV fluid infused 1,400 02/17/25 10:27 SHAFT [email or web address].MDOT Anesthesia Postop Eval I: Summary Notes Anesthesia Complication No 02/17/25 10:27 SHAFT MECHANIC.MDOT Anesthesia Complication Comment: Post-operative progress note Anesthesia: Postop Eval II Evaluation Mental status: Awake and Calm Pain Level: 1 nausea: No Vomiting: No Progress Note Post-operative progress note: Very calm in PACU. Blood pressure well- controlled. Received 1 dose of hydralazine. Admitted for overnight stay and monitoring. Complications Anesthesia Complication: No
--- NOTE | 2025-02-17 14:26 | PCM.POSTANE2 ---
Anesthesia Postop Eval I Sum Postop Eval Completion status Anesthesia document: Postop Eval 1 completed: No Anesthesia Postop Eval I Summary Anesthesia Postop Eval I Summary: Anesthesia Postop Eval I: Assessment Summary Airway patent Yes 02/17/25 10:27 BUN MACHINE [email or web address].MDOT Spontaneous unlabored Yes 02/17/25 10:27 BUN MACHINE OPERATOR.MDOT respirations Mental status Awake,Calm 02/17/25 10:27 BUN MACHINE OPERATOR.MDOT nausea No 02/17/25 10:27 BUN MACHINE OPERATOR.MDOT Vomiting No 02/17/25 10:27 BUN MACHINE OPERATOR.MDOT Anesthesia Postop Eval I: Fluid Summary Crystalloid volume administer 1,400 02/17/25 10:27 BUN MACHINE OPERATOR.MDOT (ml) Colloids volume administered ( ml) Blood Product volume administered (ml) Total IV fluid infused 1,400 02/17/25 10:27 BUN MACHINE OPERATOR.MDOT Anesthesia Postop Eval I: Summary Notes Anesthesia Complication No 02/17/25 10:27 BUN MACHINE OPERATOR.MDOT Anesthesia Complication Comment: Post-operative progress note Anesthesia: Postop Eval II Evaluation Mental status: Awake and Calm Pain Level: 1 nausea: No Vomiting: No Progress Note Post-operative progress note: Very calm in PACU. Blood pressure well-controlled. Received 1 dose of hydralazine. Admitted for overnight stay and monitoring. Complications Anesthesia Complication: No
[2025-02-17] MEDS: Cefazolin 2 GM in 0.9% Normal Saline (100mL Bag) 100 ML IV (15:06)
--- NOTE | 2025-02-17 16:47 | PCM.CONS.GEN ---
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 Ibrahim 02/17/2025 -Management/pain management per primary #BARRON -Continue home NIPPV if applicable #DVT ppx: Timing and agent at discretion primary Ame Schwab MD Time spent in the patient's overall evaluation, decision-making process, review of diagnostic data, adjustment of management, discussion with other providers, nursing and ancillary staff involved in patient's care documentation, 22 Minutes HPI Consult Data Date of Consult: 02/17/25 HPI Narrative Reason for Consultation: Post op med management HPI Narrative: KENYA GORE, is a 54 y/o M hx of BARRON, CAD w/ stenting, HTN, DMII who presented to [facility] 02/17/[facility] for C5-7 ACDF. Hospitalist consulted for postoperative medical management. Patient evaluated bedside. He reports feeling fair overall, is eating soft foods but is not somewhat difficult to swallow postsurgery and with c-collar on, got up and moves around with no acute complaints, no nausea or vomiting, has tolerated food thus far, no chest pain or shortness of breath [facility] Medical History Chest pain Cervical disc herniation Obesity (BMI 30-39.9) Wears glasses Alcohol use Diabetes Low iron High cholesterol Back pain Asthma Non-smoker CPAP (continuous positive airway pressure) dependence Hypertension History of pain when walking History of edema History of echocardiogram Cardiology follow-up encounter History of heart attack Obesity (BMI 30.0-34.9) Dyslipidemia CKD (chronic kidney disease), stage II Wears contact lenses Injury of head and neck History of stress test history of pilon ankle fracture Arthritis Home Medications Medication Instructions Recorded Last Taken Type aspirin 81 mg tablet,delayed 81 mg PO BREAKFAST 90 days #90 tabs 01/16/24 02/17/25 Rx release multivitamin 1 tab PO QAM 02/23/24 02/17/25 History amlodipine 5 mg tablet 5 mg PO DAILY #90 tabs 04/14/24 02/17/25 Rx ticagrelor 90 mg tablet (Brilinta) 90 mg PO BID #180 tabs 04/19/24 02/12/25 Rx rosuvastatin 20 mg tablet 20 mg PO QHS 09/10/24 02/16/25 History dapagliflozin propanediol 10 mg 10 mg PO DAILY #90 tabs 10/14/24 02/13/25 Rx tablet (Farxiga) gabapentin 100 mg capsule 100 mg PO TID PRN sleep 01/26/25 Unknown History Allergy/AdvReac Type Severity Reaction Status Date / Time Fish Containing Products Allergy Severe Anaphylaxis Verified 02/17/25 05:57 shellfish derived Allergy Severe Anaphylaxis Verified 02/17/25 05:57 Family History Father Heart disease CAD (coronary artery disease) Hypertension Myocardial infarction Mother Colon cancer Surgical History History of cardiac catheterization Hx of colonoscopy Stented coronary artery History of ankle surgery History of total ankle replacement History of cholecystectomy History of tonsillectomy Social History household members: spouse Smoking Status: Never smoker alcohol intake: current alcohol intake frequency: holidays/special occasions only substance use type: does not use ROS ROS Narrative ROS reviewed and pertinent positives and negatives as above Physical Exam Narrative General: Alert, oriented, no apparent distress HEENT: Atraumatic, normocephalic Eyes: Anicteric, normal conjunctiva, extraocular movements grossly intact Neck: C-collar in place Respiratory: Clear to auscultation bilaterally, normal respiratory effort Cardiovascular: Regular rate and rhythm GI: Soft, nontender, nondistended Extremities: No edema Musculoskeletal: Moving all extremities Neuro: No overt focal neurological deficits Skin: No rashes appreciated Psych: Cooperative Lab / Micro Data 02/04/25 10:25 02/04/25 10:25 Labs: Laboratory Results - last 24 hr 02/17/25 06:00: POC Glucose 297 H 02/17/25 09:38: POC Glucose 212 H 02/17/25 10:45: POC Glucose 278 H Charges/Coding Visit Charges Office Visits / Consults: 69294 OV L3 Est 20min
[2025-02-17] MEDS: Senna/Docusate Sodium 1 Tablet 2 TABLET PO (21:27)
[2025-02-18 00:10] VITALS: BP 138/86; PULSE 77; RESP 16; TEMP 36.3; O2SAT 95
[2025-02-18] MEDS: Cefazolin 2 GM in 0.9% Normal Saline (100mL Bag) 100 ML IV (00:29)
[2025-02-18 04:23] VITALS: BP 139/85; PULSE 85; RESP 16; TEMP 36.4; O2SAT 95
--- NOTE | 2025-02-18 04:50 | RAD_ITS ---
PROCEDURE: CERV SPINE 2 OR 3 VIEWS 02/18/2025 REASON FOR EXAM: POST OP DAY 1 SPINE SURGERY TECHNIQUE: Procedure Code: RADSPCL Modality: DX Procedure: CERV SPINE 2 OR 3 VIEWS COMPARISON: 12/24/2024 FINDINGS: Patient is status post anterior cervical fusion with synthetic discs placed between C5 and C7. No postoperative complications noted. Vertebrae: No fracture or suspicious osseous lesion disc spaces: Mild disc space narrowing throughout the cervical spine Alignment: Anatomic soft tissues: Prevertebral soft tissue swelling anterior to the surgical site, no retropharyngeal air. Other: Normal relationship between C7 and T1 RAD/Cerv Spine 2 or 3 Views IMPRESSION: No suspicious postsurgical findings The alignment of the cervical spine is anatomic with no hardware complication f rom recent anterior fusion between C5 and C7. Disclaimer: Reading Location: [id number]
[2025-02-18 06:05] LABS: Hematocrit 38.4 % (40-54); Hemoglobin 13.2 g/dL (13.0-16.5); Immature Granulocytes Count 0.030 X10^3/uL (0.0-0.0); Mean Corp Hgb Conc 34.4 g/dL (32-36); Mean Corpuscular Volume 85.5 fL (80-94); Mean Platelet Vol. 9.1 fl (6.2-12.0); NRBC Flagged by Analyzer 0 % (0-5); Platelet Count 183 K/mm3 (150-450); RBC Distribution Width CV 14.2 % (11.6-14.6); RBC Distribution Width SD 44.5 fl (35.1-43.9); Red Blood Count 4.49 M/mm3 (4.6-6.2); White Blood Count 9.4 K/mm3 (4.4-11.0)
[2025-02-18 06:28] LABS: Anion Gap 10 (5-15); BUN 14 mg/dL (4-19); BUN/Creat Ratio 19.6 RATIO (10-20); Calcium,Total 9.1 mg/dL (7.6-11.0); Carbon Dioxide 24.9 mmol/L (21.0-32.0); Chloride 101 mmol/L (98-108); Estimated Creatinine Clearance 139.80 ml/min (50-250); Glucose 247 mg/dL (70-99); Potassium 3.8 mmol/L (3.3-5.1)
--- NOTE | 2025-02-18 07:30 | PN.ORTHO_ITS ---
Subjective Subjective Darwin is a pleasant 54 yo 1 day post-op ACDF with plate instrumentation. Patient was up ambulating in the halls upon arrival. Changes positions easily, pain is well-controlled with oral medications and IV ketorolac. Patient reports left arm and leg weakness have resolved since yesterday surgery. Patient is anticipating discharge home today, will help at home. Objective Data Objective Data Vital Signs: Vital Signs Temp Pulse Resp BP Pulse Ox O2 Del Method O2 Flow Rate 97.5 F L 85 16 139/85 H 95 CPAP 4 02/18/25 04:23 02/18/25 04:23 02/18/25 04:23 02/18/25 04:23 02/18/25 04:23 02/18/25 04:23 02/17/25 11:45 Oxygen Flow Rate (L/min) 4 Oxygen Delivery Method CPAP Weight: 244 lb 11.41 oz Body Mass Index (BMI) 36.2 Intake & Output: Intake and Output for Last 24 Hours 02/16/25 02/17/25 02/18/25 23:59 23:59 23:59 Intake Total 324.25 / 324.25 310 / 310 Output Total Balance 299.25 / 299.25 310 / 310 Lab / Micro Data Attestation: I reviewed the patient's lab results. 02/18/25 05:07 02/18/25 05:07 Labs: Laboratory Results - last 24 hr 02/17/25 09:38: POC Glucose 212 H 02/17/25 10:45: POC Glucose 278 H 02/17/25 21:30: POC Glucose 348 H 02/18/25 05:07: WBC 9.4, RBC 4.49 L, Hgb 13.2, Hct 38.4 L, MCV 85.5, MCH 29.4, MCHC 34.4, RDW Std Deviation 44.5 H, RDW Coeff of [place] 14.2, Plt Count 183, MPV 9.1, Immature Gran % (Auto) 0.300, Neut % (Auto) 65.8, Lymph % (Auto) 24.1, [place] % (Auto) 9.4, Eos % (Auto) 0.3, Baso % (Auto) 0.1, Absolute Neuts (auto) 6.2, Absolute Lymphs (auto) 2.27, Nucleated RBC % 0, Sodium 136, Potassium 3.8, Chloride 101, Carbon Dioxide 24.9, Anion Gap 10, BUN 14, Creatinine 0.73, Estim Creat Clear Calc 139.80, Est GFR (MDRD) Non-Af 108, BUN/Creatinine Ratio 19.6, G lucose 247 H, Calcium 9.1 02/18/25 06:28: POC Glucose 215 H Micro: Microbiology 02/04/25 10:25 Swab (Method) Nasal Screen MRSA/MSSA - Final Radiography Diagnostic Testing: Radiology Impression Cervical Spine X-Ray 02/18/25 04:50 IMPRESSION: No suspicious postsurgical findings The alignment of the cervical spine is anatomic with no hardware complication from recent anterior fusion between C5 and C7. Disclaimer: Reading Location: [facility] Physical Exam Const alert, oriented x3 and no apparent distress General Appearance: cooperative HEENT HEENT Narrative: Mild throat soreness upon swallowing. Soft diet tolerated yesterday well. Neck supple Neck Narrative: Patient in stiff c-collar, demonstrates ability to remove and reapply easily. [place] drain to left anterior cervical incision site with small amount of bloody drainage. The drain was easily pulled, patient tolerated well. Dressing was changed to sterile gauze and secured with Tegaderm, patient tolerated well. Upper extremities with full range of motion, strong and equal strength with 5/5, radial pulses equal and strong +2, no paresthesias present. Lower extremities with full range of motion, strong and equal strength with 5 out of 5, easily palpable pedal pulses at +2 with no paresthesias present. General: trachea midline Resp normal respiratory effort Assessment & Plan Assessment/Plan (1) S/P cervical spinal fusion: PLAN: D/C home today Continue frequent ambulation and light activity as tolerated Okay for full range of motion of the upper extremities, no lifting anything overhead. Reviewed home-going medicines for symptom control to include hydrocodone, methocarbamol as prescribed. We discussed may use Tylenol for mild to moderate pain and the hydrocodone for the moderate to severe pain on as needed basis. At this time, no NSAIDs to be prescribed secondary to aspirin and Brilinta use. We discussed wound care: keep Tegaderm and gauze clean and dry. After 5 days remove the Tegaderm and gauze and cover incision with a Band-Aid. Replace Band- Aid daily thereafter. Wear cervical collar full-time for the first 2 weeks. Eat soft solid foods as needed for dysphagia. Sleep in a recliner to help with swelling. No bending, lifting, twisting. We reviewed monitoring wound daily and as needed for any increased pain, swelling, redness, streaking, fever, chills, drainage or other concerns to seek evaluation Follow-up in clinic in 2 weeks, call for any questions or concerns (2) Cervical disc herniation: (3) Cervical radiculopathy: Supplemental Info Independent review of today's cervical x-rays collaborated with Dr. Ibrahim. There is good alignment of hardware placed with small amount of soft tissue swelling as expected.
[2025-02-18 09:25] VITALS: BP 145/83; PULSE 65; RESP 16; TEMP 36.7; O2SAT 98
[2025-02-18] MEDS: Aspirin E.C. 81 MG Tablet PO (09:31)
[2025-02-18] MEDS: Senna/Docusate Sodium 1 Tablet 2 TABLET PO (09:31)
[2025-02-18] MEDS: Ensure Surgery 237 ML LIQUID PO (09:35)
--- NOTE | 2025-02-18 10:48 | PCM.DC.BLA ---
Discharge Summary Date of Admission: 02/17/25 Date of Discharge: 02/18/25 Summary: Darwin is a pleasant 54 yo 1 day post-op ACDF with plate instrumentation. Patient is ambulatory in the halls, independent with donning and doffing c-collar. Pain is well-controlled. Continue frequent ambulation and light activity as tolerated Okay for full range of motion of the upper extremities, no lifting anything overhead. Reviewed home-going medicines for symptom control to include hydrocodone, methocarbamol as prescribed. We discussed may use Tylenol for mild to moderate pain and the hydrocodone for the moderate to severe pain on as needed basis. At this time, no NSAIDs to be prescribed secondary to aspirin and Brilinta use. Okay to resume home medications We discussed wound care: keep Tegaderm and gauze clean and dry. After 5 days remove the Tegaderm and gauze and cover incision with a Band-Aid. Replace Band-Aid daily thereafter. Wear cervical collar full-time for the first 2 weeks. Eat soft solid foods as needed for dysphagia. Sleep in a recliner to help with swelling. No bending, lifting, twisting. We reviewed monitoring wound daily and as needed for any increased pain, swelling, redness, streaking, fever, chills, drainage or other concerns to seek evaluation Follow-up in clinic in 2 weeks, call for any questions or concerns Physical Exam Const alert, oriented x3 and no apparent distress General Appearance: cooperative Exam Limitations: no limitations Neck Neck Narrative: Const alert, oriented x3 and no apparent distress General Appearance: cooperative HEENT HEENT Narrative: Mild throat soreness upon swallowing. Soft diet tolerated yesterday well. Neck supple Neck Narrative: Patient in stiff c-collar, demonstrates ability to remove and reapply easily. [place] drain to left anterior cervical incision site with small amount of bloody drainage. The drain was easily pulled, patient tolerated well. Dressing was changed to sterile gauze and secured with Tegaderm, patient tolerated well. Upper extremities with full range of motion, strong and equal strength with 5/5, radial pulses equal and strong +2, no paresthesias present. Lower extremities with full range of motion, strong and equal strength with 5 out of 5, easily palpable pedal pulses at +2 with no paresthesias present. General: trachea midline Resp normal respiratory effort Meaningful Use Info Meaningful Use Meaningful Use Diagnoses (Choose all that apply): None applicable Ischemic Stroke Statin Dosing Therapy Reference: STATIN DOSE THERAPY REFERENCE: * Patients > 75 years receive moderate or high dose statin therapy. * Patients 75 years or YOUNGER should receive HIGH intensity statin dose unless contraindicated. You will be required to document reason for non-treatment if statin daily dose does not meet guidelines. HIGH DOSE STATIN THERAPY DAILY Atorvastatin > than or = to 40 mg Rosuvastatin > than or = to 20 mg Amlodipine + Atorvastatin > than or = to 2.5/40 mg Ezetimibe + Simvastatin 10/80 mg Simvastatin 80mg Discharge Plan Admission Admit Date/Time: 02/17/25 09:57 Attending Provider: Saravanan Ibrahim Primary Care Provider: Scooter Ramirez Consulting Providers: Ame Schwab; Watson Burnette Discharge Orders/Prescriptions Prescriptions: No Action multivitamin Tablet 1 tab PO QAM gabapentin 100 mg capsule 100 mg PO TID PRN (Reason: sleep) rosuvastatin 20 mg tablet 20 mg PO QHS aspirin 81 mg Tablet,Delayed Release (Dr/Ec) 81 mg PO BREAKFAST 90 Days Qty: 90 0RF amlodipine 5 mg tablet 5 mg PO DAILY Qty: 90 3RF Brilinta 90 mg tablet 90 mg PO BID Qty: 180 3RF dapagliflozin propanediol [Farxiga] 10 mg tablet 10 mg PO DAILY Qty: 90 3RF Rx Instructions: Check pricing Referrals / Follow Up: Scooter Ramirez MD [Primary Care Provider, Family Practice] Disposition Disposition (needs filled in before D/C Order can be placed): Home, Self Care
--- NOTE | 2025-02-18 10:57 | CASEMGMT ---
Reviewed therapy notes. No therapy recommended. Pt with dc order in. Pt to dc this date.
--- NOTE | 2025-02-18 11:36 | PHA.DC.MR.R ---
Pharmacy [place] Med Reconciliation Pharmacy Service has performed discharge medication reconciliation for this patient. The patient's discharge medication list was reviewed for discrepancies and discrepancies were resolved. Medications at Discharge Home Medications aspirin 81 mg tablet,delayed release 81 mg PO BREAKFAST 90 days #90 tabs 01/16/24 multivitamin 1 tab PO QAM 02/23/24 amlodipine 5 mg tablet 5 mg PO DAILY #90 tabs 04/14/24 ticagrelor 90 mg tablet (Brilinta) 90 mg PO BID #180 tabs 04/19/24 rosuvastatin 20 mg tablet 20 mg PO QHS 09/10/24 dapagliflozin propanediol 10 mg tablet (Farxiga) 10 mg PO DAILY #90 tabs 10/14/24 gabapentin 100 mg capsule 100 mg PO TID PRN sleep 01/26/25 hydrocodone-acetaminophen 5-325mg 5mg-325mg 1 tab PO Q6H PRN pain 5 days #20 tabs 02/18/25 methocarbamol 750 mg tablet 750 mg PO Q8H #21 tabs 02/18/25
== END 2025-02-18 11:23 | disposition home or self-care (01) ==
LOC: SDC 10:43 → MS3 10:43
PROVIDERS: Anesthesiology; Admitting Provider Orthopaedic Surgery Orthopaedic Surgery of the Spine; PCP Family Medicine; Referring Provider Orthopaedic Surgery Orthopaedic Surgery of the Spine; Visit Provider Orthopaedic Surgery Orthopaedic Surgery of the Spine
DX: M48.02 Spinal stenosis, cervical region (principal); G99.2 Myelopathy in diseases classified elsewhere; E11.9 Type 2 diabetes mellitus without complications; G47.33 Obstructive sleep apnea (adult) (pediatric); Z95.5 Presence of coronary angioplasty implant and graft; I25.2 Old myocardial infarction; Z79.84 Long term (current) use of oral hypoglycemic drugs; I25.10 Atherosclerotic heart disease of native coronary artery without angina pectoris; Z68.34 Body mass index [BMI] 34.0-34.9, adult; E66.9 Obesity, unspecified; M50.022 Cervical disc disorder at C5-C6 level with myelopathy; I10 Essential (primary) hypertension; Z79.02 Long term (current) use of antithrombotics/antiplatelets; M54.12 Radiculopathy, cervical region; Z79.899 Other long term (current) drug therapy; M50.20 Other cervical disc displacement, unspecified cervical region; Z22.321 Carrier or suspected carrier of Methicillin susceptible Staphylococcus aureus
CPT/HCPCS: 22551; 22552; 22845; 20931; 00670; 36415; 72040; 76000; 80048; 82962; 83036; 83735; 85025; 86850; 86900; 86901; 87077; 87081; 93005; 94668; 96365; 96366; 96375; 97161; 97165; 99221; C1713; G0378; J2405

== ENCOUNTER → 2025-03-30 | Outpatient (CLI) | payer BC, SELFPAY ==
[2024-04-09 07:19] VITALS: BMI 32.6
== END | disposition home or self-care (01) ==
LOC: LABSPEC 15:37
PROVIDERS: PCP Family Medicine; Referring Provider Family Medicine; Visit Provider Family Medicine
DX: R82.90 Unspecified abnormal findings in urine (principal)
CPT/HCPCS: 87086

== ENCOUNTER 2025-04-18 10:53 | Day surgery (SDC) | payer BC, SELFPAY ==
[2024-04-09 07:19] VITALS: BMI 32.6
--- NOTE | 2025-04-11 21:31 | PAT.ANE_ITS ---
Pre-Assessment Diagnosis/Proposed Procedure Planned Operative Procedure(s): HERNIA VENTRAL REPAIR POSS WITH MESH Anesthesia History Anesthesia History - academic affairs specialist: Anesthesia History - academic affairs specialist Hx Hospitalization No: [place] 12/202304/11/25 15:07 Any Problems With Anesthesia Yes: SLOW TO AWAKEN/DID FINE 04/11/25 15:07 WITH CERVICAL SURGERY 2024 Cholinesterase deficiency No 04/11/25 15:07 You/Your Family Experience No 04/11/25 15:07 fever (hyperthermia) with Relationship Recent Exposure to Contagious No 02/17/25 06:01 Disease Does patient have nerve No 04/11/25 15:07 stimulator Patient instructed to have device shut off --Does patient have Pacemaker or ICD? When Was Last Pacemaker Check QUESTION #4 FULL TEXT: You/Your Family Experience fever (hyperthermia) with Anesthesia Last Oral Intake Last Oral intake: Last Oral Intake NPO since Meds taken in AM with sips of water? 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 - academic affairs specialist: PONV - academic affairs specialist Female No 04/11/25 15:07 HX of Motion Sickness No 04/11/25 15:07 HX of N/V After Surgery No 04/11/25 15:07 Non-Smoker Yes 04/11/25 15:07 Duration of Surgery greater Yes 04/11/25 15:07 than 60 minutes Number of Risk Factors 2 04/11/25 15:07 PONV Score Moderate Risk 04/11/25 15:07 Height & Weight Height & Weight: Anesthesia: Height & Weight Height 5 ft 9 in 04/04/25 08:19 Respiratory Assessment Respiratory Assessment - academic affairs specialist: Respiratory Tract Infection Hx - academic affairs specialist Hx Respiratory Tract Infection No 04/11/25 15:07 STOP Sleep Apnea STOP Sleep Apnea - academic affairs specialist: STOP Sleep Apnea - academic affairs specialist Hx Hypertension Yes: CONTROLLED WITH MED 04/11/25 15:07 Hx Sleep Apnea Yes 04/11/25 15:07 CPAP Yes 04/11/25 15:07 BIPAP No 04/11/25 15:07 Do you snore loudly (louder than talking or can be heard Do you often feel tired/ fatigued/ sleepy during daytime? Has anyone observed you stop breathing during sleep? STOP Results Positive 04/11/25 15:07 QUESTION #5 FULL TEXT : Do you snore loudly (louder than talking or can be heard through closed doors)? Tobacco Use History Tobacco Use History - academic affairs specialist: Tobacco Use History - academic affairs specialist Tobacco Use Smoking Status Never smoker 04/11/25 15:07 Hx Tobacco Use No 04/11/25 15:07 Years Smoking Packs Smoked per Day Smoking Cessation Date was within the last 15 years Hx Smoking Cessation Date Hx Smoking Cessation No 04/11/25 15:07 Counseling Hematologic Medial History Hematologic Hx - academic affairs specialist: Hematologic Medical Hx - software support specialist Hx of Blood Transfusion No 04/11/25 15:07 Hx of Transfusion in last 3 No 04/11/25 15:07 Months Date of Last Transfusion (if within last 3 months) Ever experience any problems No 04/11/25 15:07 with transfusion(s)? Specify any problems Hx of Preganancy in last 3 N/A 04/11/25 15:07 Months Nurse Filling Out Transfusion DSCHRIBER 04/11/25 15:07 & Questions: Date: 04/11/25 04/11/25 15:07 Time: 15:04/11/25 15:07 Patient unable to answer at this time (ie. confused, unrespo /Reproduction History /Reproductive History - academic affairs specialist: /Reproductive Hx- academic affairs specialist Hx Now No 04/11/25 15:07 Gestational Age (in weeks): EDC: Hx Hx Para Hx Section SAB No 04/11/25 15:07 Does the father of the baby or his family experience fever w Father of the baby Malignant Hypertension history comment PFSH Medical History (Updated 04/11/25 @ 15:15 by Felicitas Young) Cervical disc herniation Obesity (BMI 30-39.9) Wears glasses Alcohol use Diabetes Low iron High cholesterol Back pain Asthma Non-smoker CPAP (continuous positive airway pressure) dependence Hypertension History of pain when walking History of edema History of echocardiogram Cardiology follow-up encounter History of heart attack Obesity (BMI 30.0-34.9) Dyslipidemia CKD (chronic kidney disease), stage II Wears contact lenses Injury of head and neck History of stress test history of pilon ankle fracture Arthritis Home Medications ?Medication ?Instructions ?Recorded ?Last Taken ?Type aspirin 81 mg tablet,delayed 81 mg PO BREAKFAST 90 day s #90 tabs 01/16/24 02/17/25 Rx release multivitamin 1 tab PO QAM 02/23/24 History amlodipine 5 mg tablet 5 mg PO DAILY #90 tabs 04/1402/17/25 Rx ticagrelor 90 mg tablet (Brilinta) 90 mg PO BID #180 t abs 04/19/24 02/12/25 Rx rosuvastatin 20 mg tablet 20 mg PO QHS 09/10/24 History dapagliflozin propanediol 10 mg 10 mg PO DAILY #90 tab s 10/14/24 02/13/25 Rx tablet (Farxiga) Allergy/AdvReac Type Severity Reaction Status Date / Time Fish Containing Products Allergy Severe Anaphylaxis Verified 04/11/25 15:05 shellfish derived Allergy Severe Anaphylaxis Verified 04/11/25 15:05 Family History Father Heart disease CAD (coronary artery disease) Hypertension Myocardial infarction Mother Colon cancer Surgical History (Updated 04/11/25 @ 15:15 by Felicitas Young) History of cervical spinal surgery History of cardiac catheterization Hx of colonoscopy Stented coronary artery History of ankle surgery History of total ankle replacement History of cholecystectomy History of tonsillectomy Social History household members: spouse Smoking Status: Never smoker alcohol intake: current alcohol intake frequency: holidays/special occasions only substance use type: does not use Audit: Pertinent Findings Pertinent Findings EKG Perinent findings: 02/04/2025 sinus bradycardia at 54 bpm. Stress test pertinent findings: 02/04/2025. EF of 52%. Mildly reduced perfusion of the anterior wall status post the pharmacologic stress suggestive of mild ischemia of the anterior wall Echo (EF%) pertinent findings: 02/04/2025. EF of 50%. No aortic stenosis noted. Heart catheterization pertinent findings: 02/10/2025. Stent to the ostial/proximal LAD is patent. Mid LAD has a 40% stenosis. Stent to the mid RCA is patent. Recommendations medical therapy. Consult pertinent findings: 01/26/2025. Dr. Negrete. 1. Coronary artery disease-status post drug-eluting stents to the proximal LAD and the mid RCA. Continue aspirin and ticagrelor. Patient has nonspecific chest discomfort. Check Lexiscan stress Myoview. Check echo. 2. Hypertension?continue amlodipine. 3. Preop cardiovascular exam-risk stratification with Lexiscan stress Myoview. Further workup as needed. Ticagrelor needs to be stopped 4 days prior to procedure. Aspirin to be continued. Recommendation Anesthesia Recommendation Anesthesia recommendation: OPTIMIZED for anesthesia
[2025-04-18] VITALS (9 sets, daily range): BP systolic 101–125; BP diastolic 70–80; PULSE 50–66; RESP 16; TEMP 36.1–36.8; O2SAT 95–100; BMI 36.3
--- NOTE | 2025-04-18 11:25 | PRE.ANES_ITS ---
ASA Classification* ASA Classification ASA Classification: 3 Assessment & Plan Anesthesia* Anesthesia Assessment Anesthesia Assessment: Discussed sedation and/or anesthesia options, risks, benefits, and alternatives with patient/parents/legal guardian/POA. Questions invited. The patient/parents/legal guardian/POA seems to understand and agrees to proceed with anesthesia plan. Reviewed the physical assessment, medical history, allergy history and patient home medications list prior to surgery/procedure/anesthetic and documented any changes. Performed airway and anesthesia risk assessments. Anesthesia Type Anesthesia Type: General Anesthesia Focused Assessment* Temperature: 97.0 F Pulse Rate: 52 Blood Pressure: 120/80 Respiratory Rate: 16 Pulse Ox: 99 Airway Assessment Mouth opens: >3 cm Mallampati Score: II Labs Anesthesia Preop lab: CBC WBC, (4.4-11.0) 9.4 K/mm3 02/18/25, 05:07 RBC, (4.6-6.2) 4.49 M/mm3 L 02/18/25, 05:07 Hgb, (13.0-16.5) 13.2 g/dL 02/18/25, 05:07 Hct, (40-54) 38.4 % L 02/18/25, 05:07 Plt Count, (150-450) 183 K/mm3 02/18/25, 05:07 CHEMISTRY Potassium, (3.3-5.1) 3.8 mmol/L 02/18/25, 05:07 Sodium, (133-145) 136 mmol/L 02/18/25, 05:07 Magnesium, (1.5-2.2) 2.5 mg/dL H 02/04/25, 10:25 BUN, (4-19) 14 mg/dL 02/18/25, 05:07 Creatinine, (0.70-1.20) 0.73 mg/dL 02/18/25, 05:07 Glucose, (70-99) 247 mg/dL H 02/18/25, 05:07 POC Glucose, (74-106) 215 mg/dL H 02/18/25, 06:28 TSH, (0.300-4.200) 1.980 uIU/mL 06/29/24, 11:14 COAG PT, (11.7-14.9) 13.2 SECONDS 01/14/24, 22:20 Pre-Assessment Diagnosis/Proposed Procedure Planned Operative Procedure(s): HERNIA VENTRAL REPAIR POSS WITH MESH Anesthesia History Anesthesia History - business analytics analyst: Anesthesia History - business analytics analyst Hx Hospitalization No: [place] 12/202304/11/25 15:07 Any Problems With Anesthesia Yes: SLOW TO AWAKEN/DID FINE 04/11/25 15:07 WITH CERVICAL SURGERY 2024 Cholinesterase deficiency No 04/11/25 15:07 You/Your Family Experience No 04/11/25 15:07 fever (hyperthermia) with Relationship Recent Exposure to Contagious No 02/17/25 06:01 Disease Does patient have nerve No 04/11/25 15:07 stimulator Patient instructed to have device shut off --Does patient have Pacemaker No 04/18/25 11:09 or ICD? When Was Last Pacemaker Check QUESTION #4 FULL TEXT: You/Your Family Experience fever (hyperthermia) with Anesthesia Last Oral Intake Last Oral intake: Last Oral Intake NPO since 08:00 04/18/25 11:09 Meds taken in AM with sips of Yes 04/18/25 11:09 water? Meds patient instructed to see list 04/18/25 11:09 take am of surgery PONV PONV - business analytics analyst: PONV - business analytics analyst Female No 04/11/25 15:07 HX of Motion Sickness No 04/11/25 15:07 HX of N/V After Surgery No 04/11/25 15:07 Non-Smoker Yes 04/11/25 15:07 Duration of Surgery greater Yes 04/11/25 15:07 than 60 minutes Number of Risk Factors 2 04/11/25 15:07 PONV Score Moderate Risk 04/11/25 15:07 Height & Weight Height & Weight: Anesthesia: Height & Weight Height 5 ft 9 in 04/18/25 11:09 Weight: 111.7 kg 04/18/25 11:09 Body Mass Index (BMI) 36.3 04/18/25 11:09 Respiratory Assessment Respiratory Assessment - business analytics analyst: Respiratory Tract Infection Hx - business analytics analyst Hx Respiratory Tract Infection No 04/11/25 15:07 STOP Sleep Apnea STOP Sleep Apnea - business analytics analyst: STOP Sleep Apnea - business analytics analyst Hx Hypertension Yes: CONTROLLED WITH MED 04/11/25 15:07 Hx Sleep Apnea Yes 04/11/25 15:07 CPAP Yes 04/11/25 15:07 BIPAP No 04/11/25 15:07 Do you snore loudly (louder than talking or can be heard Do you often feel tired/ fatigued/ sleepy during daytime? Has anyone observed you stop breathing during sleep? STOP Results Positive 04/11/25 15:07 QUESTION #5 FULL TEXT : Do you snore loudly (louder than talking or can be heard through closed doors)? Tobacco Use History Tobacco Use History - business analytics analyst: Tobacco Use History - business analytics analyst Tobacco Use Smoking Status Never smoker 04/11/25 15:07 Hx Tobacco Use No 04/11/25 15:07 Years Smoking Packs Smoked per Day Smoking Cessation Date was within the last 15 years Hx Smoking Cessation Date Hx Smoking Cessation No 04/11/25 15:07 Counseling Hematologic Medial History Hematologic Hx - business analytics analyst: Hematologic Medical Hx - belt machine operator Hx of Blood Transfusion No 04/11/25 15:07 Hx of Transfusion in last 3 No 04/11/25 15:07 Months Date of Last Transfusion (if within last 3 months) Ever experience any problems No 04/11/25 15:07 with transfusion(s)? Specify any problems Hx of Preganancy in last 3 N/A 04/11/25 15:07 Months Nurse Filling Out Transfusion DSCHRIBER 04/11/25 15:07 & Questions: Date: 04/11/25 04/11/25 15:07 Time: 15:09 04/11/25 15:07 Patient unable to answer at this time (ie. confused, unrespo /Reproduction History /Reproductive History - business analytics analyst: /Reproductive Hx- business analytics analyst Hx Now No 04/11/25 15:07 Gestational Age (in weeks): EDC: Hx Hx Para Hx Section SAB No 04/11/25 15:07 Does the father of the baby or his family experience fever w Father of the baby Malignant Hypertension history comment Active Medications Active Medications: Current Medications Generic Name Dose Route Start Last Admin Trade Name Freq PRN Reason Stop Dose Admin Cefazolin Sodium 2 gm/ Sodium 110 mls @ 200 mls/hr 04/18/25 12:30 Chloride IV 04/18/25 13:02 INTRAOP ONE Lactated Ringer's 1,000 mls @ 15 mls/hr 04/18/25 11:00 IV .Q48H ROSEANNE PFSH Medical History Cervical disc herniation Obesity (BMI 30-39.9) Wears glasses Alcohol use Diabetes Low iron High cholesterol Back pain Asthma Non-smoker CPAP (continuous positive airway pressure) dependence Hypertension History of pain when walking History of edema History of echocardiogram Cardiology follow-up encounter History of heart attack Obesity (BMI 30.0-34.9) Dyslipidemia CKD (chronic kidney disease), stage II Wears contact lenses Injury of head and neck History of stress test history of pilon ankle fracture Arthritis Home Medications ?Medication ?Instructions ?Recorded ?Last Taken ?Type aspirin 81 mg tablet,delayed 81 mg PO BREAKFAST 90 day s #90 tabs 01/16/24 02/17/25 Rx release multivitamin 1 tab PO QAM 02/23/24 History amlodipine 5 mg tablet 5 mg PO DAILY #90 tabs 04/1404/18/25 08:00 Rx ticagrelor 90 mg tablet (Brilinta) 90 mg PO BID #180 t abs 04/19/24 02/12/25 Rx rosuvastatin 20 mg tablet 20 mg PO QHS 09/10/24 History dapagliflozin propanediol 10 mg 10 mg PO DAILY #90 tab s 10/14/24 02/13/25 Rx tablet (Farxiga) Allergy/AdvReac Type Severity Reaction Status Date / Time Fish Containing Products Allergy Severe Anaphylaxis Verified 04/18/25 11:08 shellfish derived Allergy Severe Anaphylaxis Verified 04/18/25 11:08 Family History Father Heart disease CAD (coronary artery disease) Hypertension Myocardial infarction Mother Colon cancer Surgical History History of cervical spinal surgery History of cardiac catheterization Hx of colonoscopy Stented coronary artery History of ankle surgery History of total ankle replacement History of cholecystectomy History of tonsillectomy Social History household members: spouse Smoking Status: Never smoker alcohol intake: current alcohol intake frequency: holidays/special occasions only substance use type: does not use Review of Systems (Anesthesia) ROS Narrative System reviewed and no additional complaints, except as documented.
[2025-04-18] MEDS: Lactated Ringers 1,000 ML 15 ML IV (11:26)
--- NOTE | 2025-04-18 12:02 | PCM.HP.BLA ---
History and Physical Date of Admission: 04/18/25 Intake Vital Signs 02/18/2512:31 04/04/2508:19 Height 5 ft 8.9 in 5 ft 9 in Weight: 240 lb BMI 35.4 BP 127/81 H Blood Pressure Location Rt brachial Position Sitting Respiration 17 Pulse 71 Pulse Source Monitor Temp 97.9 F Temp Source Temporal Pulse Oximetry (%) 99 Oxygen Delivery Method room air Intake Visit Reasons: Hernia Chief Complaint: hernia Is patient in pain?: No Allergies Fish Containing Products Allergy (Severe, Verified 04/04/25 08:20) Anaphylaxis shellfish derived Allergy (Severe, Verified 04/04/25 08:20) Anaphylaxis Medications ?Medication ?Instructions ?Recorded ?Confirmed ?Type aspirin 81 mg tablet,delayed 81 mg PO BREAKFAST 90 days #90 tabs 01/16/24 04/04/25 Rx release multivitamin 1 tab PO QAM 02/23/24 04/04/25 History amlodipine 5 mg tablet 5 mg PO DAILY #90 tabs 04/14/24 04/04/25 Rx ticagrelor 90 mg tablet (Brilinta) 90 mg PO BID #180 tabs 04/19/24 04/04/25 Rx rosuvastatin 20 mg tablet 20 mg PO QHS 09/10/24 04/04/25 History dapagliflozin propanediol 10 mg 10 mg PO DAILY #90 tabs 10/14/24 04/04/25 Rx tablet (Farxiga) gabapentin 100 mg capsule 100 mg PO TID PRN sleep 01/26/25 04/04/25 History PFSH Medical History Chest pain Cervical disc herniation Obesity (BMI 30-39.9) Wears glasses Alcohol use Diabetes Low iron High cholesterol Back pain Asthma Non-smoker CPAP (continuous positive airway pressure) dependence Hypertension History of pain when walking History of edema History of echocardiogram Cardiology follow-up encounter History of heart attack Obesity (BMI 30.0-34.9) Dyslipidemia CKD (chronic kidney disease), stage II Wears contact lenses Injury of head and neck History of stress test history of pilon ankle fracture Arthritis Surgical History History of cervical spinal surgery History of cardiac catheterization Hx of colonoscopy Stented coronary artery History of ankle surgery History of total ankle replacement History of cholecystectomy History of tonsillectomy Family History Father Heart disease CAD (coronary artery disease) Hypertension Myocardial infarction Mother Colon cancer Social History household members: spouse Smoking Status: Never smoker alcohol intake: current alcohol intake frequency: holidays/special occasions only substance use type: does not use HPI HPI HPI: Patient is a 54-year-old male here for ventral hernia the patient notes that his hernias been there since he had a laparoscopic cholecystectomy. The ventral hernia is at the umbilical port site. He reports that is difficult to work out as anytime he lifts or does anything strenuous that hurts. ROS General General: Yes weight change and fatigue; No appetite, colon cancer, breast cancer or weakness HEENT HEENT: No difficulty swallowing, eye injury, eye surgery, swollen glands or hoarseness Endo Endocrine: No thyroid disease, diabetes mellitus, thyroid cancer, Hair loss, heat intolerance or cold intolerance Skin Skin: No rash or changing moles Musc Musculoskeletal: Yes arthritis; No back problems, rheumatoid arthritis, gout or joint pain Cardio Cardiovascular: Yes heart disease, heart attack and heart stent; No murmur, pacemaker, atrial fibrillation, high blood pressure, palpitations, shortness of breath with exertion or chest pain Psych Psychiatric: No depression, anxiety or hearing voices Resp Respiratory: No shortness of breath, No sleep apnea, No cough, No COPD, No asthma, No emphysema and No wheezing Gastro Gastrointestinal: No abdominal pain, No nausea or vomiting, No diarrhea, No constipation, No blood in stool, No acid reflux, No hemorrhoids, No ulcers, No gallbladder problem and No black,tarry stools Mathew Hematologic: Yes blood thinners, No blood disorders, No bleeding, No anemia and No blood clots Additional Details: Brilinta and aspirin Neuro Neurologic: No numbness, No tingling and No weakness Exam Const General: cooperative Orientation: alert and oriented x3 HENMT Head: normal to inspection Neck Neck: normal visual inspection and full ROM Chest Chest palpation & inspection: normal inspection of the chest Resp Effort & Inspection: normal respiratory effort Auscultation: clear to auscultation bilaterally Cardio Rate: regular rate Rhythm: regular rhythm GI Inspection: non-distended Palpation: soft, hernia ventral and nontender Skin General: no rashes or lesions noted Neuro General: patient alert and patient oriented x3 Extrem General: full ROM Psych Appearance: grossly normal Mental Status: mental status grossly normal Assessment and Plan Assessment and Plan (1) Ventral incisional hernia: Status: Acute Plan: The patient has a ventral hernia at his umbilical port site. I was able to partially reduce it and it appears to contain fat. I discussed repair in the OR. I discussed open repair with possible mesh. I discussed the risks including but not limited to bleeding, infection, injury to underlying organ such as bowel. Patient understands the risks and would like this hernia repaired. He will hold his Brilinta and aspirin for 5 days prior to the surgery. Brandon Kelly MD Pager: [facility] [address] [place] [address], [address] [place] [address] Office: I have examined the patient and the H&P has been reviewed. There are no clinical changes since date of exam.
[2025-04-18] MEDS: Lactated Ringers 500 ML IV (12:26)
[2025-04-18] MEDS: Cefazolin 1 GM/5 ML Vial 2 GM IV (12:30)
[2025-04-18] MEDS: Cefazolin 2 GM in 0.9% Normal Saline (100mL Bag) 100 ML IV (12:30)
--- NOTE | 2025-04-18 12:30 | HERN_PTH ---
PATIENT: KENYA GORE LOC: [facility] U#:[id number] AGE/SX: 54/M ROOM: RE04/18/[address]: Dr. Brandon Kelly MD : 1970 BED: DIS: 04/18/2025 SPEC #: [id number] RECD: 04/18/25 16:10 STATUS: LUIZ REQ #: [id number] SHELBY: 04/18/25 12:[address]: Brandon Kelly DEPT: SURGICAL PATHOLOGY RECD BY: Donaldo Cristina ENTERED: 04/19/25 09:59 SP TYPE: Hernia OTHR DR: Dr. Scooter Ramirez MD Tissues: A - HERNIA Procedures: Surgery Specimen Level II HEADER OPERATION: Hernia, ventral repair PRE-OP DIAGNOSIS: Ventral incisional hernia TISSUE SUBMITTED: A- Ventral hernia sac MICROSCOPIC DIAGNOSIS A. Soft tissue, ventral hernia sac, excision: - Fibroadipose tissue and mesothelium, consistent with hernia sac. MICROSCOPIC DESCRIPTION Slides are reviewed. GROSS DESCRIPTION A. Received in formalin labeled with the patient's name and date of . Designated as hernia sac ventral is a 1.9 x 1.7 x 1.0 cm chowdhury-yellow lobulated soft tissue fragment focally surfaced by pink-purple to painter, cauterized semimembranous tissue. Rug Clipper sections are submitted in 1 cassette. [place] 04/19/2025 CPT:98889
[2025-04-18] MEDS: Lidocaine 1% (5 ml sdv) 5 ML Vial 10 ML IV (12:32)
[2025-04-18] MEDS: fentaNYL 100 MCG/2 ML Ampul IV (12:37)
[2025-04-18] MEDS: Bupiv/Epi 0.25% 30 ML Vial (13:05)
--- NOTE | 2025-04-18 13:17 | PCM.OPRPT ---
Operative Report (Standard) Operative Information Date of Procedure: 04/18/25 Pre-Operative Diagnosis: Ventral hernia Post-Operative Diagnosis: Ventral hernia less than 3 cm Surgery/Procedure Performed: Ventral hernia repair clinical data associate: Yes Quebracho Tanner: Farzad Granados Tasks completed by television production assistant: Opening & closing and Retracting Type of Anesthesia: General/Regional RN Documented Start/Stop Times: Operation Date: 04/18/25 12:30 Case Time Into Pre-Op 04/18/25 10:55 Out of Pre-Op 04/18/25 12:22 Anesthesia Start 04/18/25 12:26 Into Room 04/18/25 12:26 Procedure Start 04/18/25 12:46 Procedure End 04/18/25 13:11 Anesthesia End 04/18/25 13:15 Out of Room 04/18/25 13:15 Into Recovery 04/18/25 13:16 Procedure Start Time: 12:46 Procedure Stop Time: 13:11 Select all DRAINS/GRAFTS/IMPLANTS that apply: None Estimated Blood Loss: 5 Specimen collected: Yes Description of specimen(s) removed: Hernia sac Description of surgery: Patient was brought back to the operating room and general anesthesia was induced. The abdomen was prepped and draped in usual sterile fashion. A midline incision was marked superior to the umbilicus and injected with local anesthetic. Midline incision was made with a scalpel. Electrocautery was used to maintain hemostasis. The hernia was identified and the hernia sac was resected. The hernia defect was less than 2 cm. I elected to repair it primarily. The hernia defect was closed with interrupted 0 Nurolon sutures. The subcutaneous tissue was irrigated and suctioned dry. There was good hemostasis. The skin incision was closed with interrupted 3-0 Vicryl sutures and a running 4-0 Monocryl suture. Steri-Strips and bandage were applied and patient was awoken and taken to PACU in stable condition and tolerated the procedure well. Surgical Findings: Small ventral hernia Complications Complications: No Admit VTE Documentation VTE Mechan Device Prophylaxis: SCD's
--- NOTE | 2025-04-18 13:20 | DCINST_ITS ---
Discharge Instructions Procedure Hernia Diet Discharge Diet: Light diet - advance as tolerated Activity Discharge Activity: May Not Drive (for 2-3 days or while taking narcotic pain meds.) and May Shower (with the bandage in place 1-2 days after surgery.) Lifting Restrictions: 20 pounds for 4 weeks. Additional Activity Instructions:: Climbing stairs is fine, walking is encouraged. Sitting in bed may be uncomfortable. Sitting up using your lateral muscles (sitting up sideways) is usually more comfortable. Do not drive, work heavy equipment of sign legal documents for 24 hours. Pain medications may cause nausea, you should typically eat light foods as you take your pain medications. Pain medications may also cause constipation. If you have difficulty with this, discuss with your doctor. Alternate ibuprofen and Tylenol for pain control, oxycodone for breakthrough pain. If taking oxycodone take MiraLAX for constipation Resume aspirin and Brilinta on Friday Dressing / Incision Call your doctor if your incision/area has: Continuous Slow Oozing, Sudden Increased Bleeding, Increased Pain/ Swelling, Increased Redness and Foul Smellin g Discharge Call your doctor if you observe: Fever of 101 or Higher Suture Line Care: Avoid Pulling/Pushing and Avoid Pinching/Bending Remove Dressing in: 2 days (Remove clear bandages in 2 days, remove Steri-Strips in 7 to 10 days.) Cleanse incision/area with: Soap & Water Follow Up Care Please Follow Up With: Brandon Kelly MD When: Please call to schedule 2 week follow up appointment. [phone] Test Results: Test results from this visit will be discussed in further detail at your follow- up appointment, if applicable. Discharge Plan Admission Attending Provider: Brandon Kelly Primary Care Provider: Scooter Ramirez Instructions Print Language: Serbian Discharge Orders/Prescriptions Prescriptions: New oxycodone 5 mg Tablet 5 - 10 mg PO Q4H PRN PRN (Reason: Pain Score 4-10) 5 Days Qty: 14 0RF No Action multivitamin Tablet 1 tab PO QAM rosuvastatin 20 mg tablet 20 mg PO QHS aspirin 81 mg Tablet,Delayed Release (Dr/Ec) 81 mg PO BREAKFAST 90 Days Qty: 90 0RF amlodipine 5 mg tablet 5 mg PO DAILY Qty: 90 3RF Brilinta 90 mg tablet 90 mg PO BID Qty: 180 3RF dapagliflozin propanediol [Farxiga] 10 mg tablet 10 mg PO DAILY Qty: 90 3RF Rx Instructions: Check pricing Referrals / Follow Up: Scooter Ramirez MD [Primary Care Provider, Family Practice] Disposition Disposition (needs filled in before D/C Order can be placed): Home, Self Care
--- NOTE | 2025-04-18 13:27 | PCM.POST.ANE ---
Anesthesia: Postop Eval I Current Vital Signs Temperature: 98.3 F Pulse Rate: 66 Blood Pressure: 101/72 Respiratory Rate: 16 Pulse Ox: 97 Oxygen Delivery Method: Room Air Assessment Airway patent: Yes Spontaneous unlabored respirations: Yes Mental status: Awake and Calm nausea: No Vomiting: No Anesthesia Complication: No Fluid Hydration Crystalloid volume administer (ml): 500 Total IV fluid infused: 500 Progress Note Anesthesia document: Postop Eval 1 completed: Yes
--- OUTSIDE RECORDS SUMMARY | 2025-04-18 18:15 | XMS RPT_ITS | CCD ---
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 Helms Primary Care Provider Caden CRISTINA, Dr. Su Attending Provider Caden CRISTINA, Dr. Su Referring Provider James CRISTINA, Dr. Helms Referring Provider Patrice CRISTINA, Dr. Coe Attending Provider James CRISTINA, Dr. Helms Attending Provider Patrice CRISTINA, Dr. Coe Referring Provider James CRISTINA, Dr. Helms Primary Care Provider Caden CRISTINA, Dr. Su Attending Provider Caden CRISTINA, Dr. Su Referring Provider James CRISTINA, Dr. Helms Referring Provider [phone] Patrice CRISTINA, Dr. Coe Attending Provider Patrice CRISTINA, Dr. Coe Referring Provider James CRISTINA, Dr. Helms Primary Care Provider Caden CRISTINA, Dr. Su Attending Provider Caden CRISTINA, Dr. Su Referring Provider Patrice CRISTINA, Dr. Coe Attending Provider Patrice CRISTINA, Dr. Coe Referring Provider Josep CRISTINA, Dr. Thorne Attending Provider Josep CRISTINA, Dr. Thorne Referring Provider [phone] James CRISTINA, Dr. Helms Primary Care Provider James CRISTINA, Dr. Helms Referring Provider [phone] James CRISTINA, Dr. Helms Primary Care Provider James CRISTINA, Dr. Helms Referring Provider [phone] Patrice CRISTINA, Dr. Coe Attending Provider Alexus CRISTINA, Dr. Nunez Attending Provider James CRISTINA, Dr. [facility] Care Physicia n Patrice CRISTINA, Dr. Coe Attending Physician Alexus CRISTINA, Dr. Nunez Attending Physician Caden CRISTINA, Dr. Su Attending Physician Caden CRISTINA, Dr. Su Referring Provider Patrice CRISTINA, Dr. Coe Referring Provider Caden CRISTINA, Dr. Su Nurse Practitioner Alber CONTACT WORKER-CAudrey Attending Physician Patrice CRISTINA, Dr. Coe Nurse Practitioner Patrice CRISTINA, Dr. Coe Admitting Physician Zaheer CRISTINA, Dr. Mccloud Nurse Practitioner Yomaira DAVIS, Dr. Chaudhari Nurse Practitioner Zaheer CRISTINA, Dr. Mccloud Attending Physician Lion CONTACT WORKER-CLaurence Attending Physician James, Christopher Primary Care Unavailable Saravanan Ibrahim Referring Unavailable Saravanan Ibrahim Attending Unavailable Ranney, Christopher Referring Unavailable Ranney, Christopher Primary Care Unavailable Ranney, Scooter Attending Unavailable Ranney, Christducer Primary Care Unavailable Caden, Georges Referring Unavailable Caden, Georges Attending Unavailable Ranney, Christopher Primary Care Unavailable Caden, Georges Referring Unavailable Caden, Georges Attending Unavailable [place], Christopher Referring Unavailable Ranney, [place] Primary Care Unavailable Saravanan Ibrahim Attending Unavailable [facility] Referring Unavailable [facility] Primary Care Unavailable Caden, Georges Attending Unavailable [facility] Primary Care Unavailable Enrique Vaughan Attending Unavailable [facility] Primary Care Unavailable Emilia Camejo Attending Unavailable NellEmilia Referring Unavailable [place] Unavailable Ibrahim, Saravanan Referring Unavailable Ame Schwab Consulting Unavailable Ibrahim, Saravanan Admitting Unavailable Patrice, Saravanan Attending Unavailable Yomaira, Watson Consulting Unavailable [facility] Primary Care Unavailable Mati Car Attending Unavailable Mati Car Referring Unavailable [facility] Primary Care Unavailable Mati Patel Attending Unavailable Mati Patel Referring Unavailable [facility] Primary Care Unavailable Caden, Georges Referring Unavailable Caden, Georges Attending Unavailable [facility] Primary Care Unavailable Mati Car Attending Unavailable [facility] Referring Unavailable [facility] Primary Care Unavailable Saravanan Ibrahim Attending Unavailable [facility] Referring Unavailable [facility] Primary Care Unavailable Caden, Georges Attending Unavailable [facility] Primary Care Unavailable Enrique Vaughan Attending Unavailable [facility] Referring Unavailable [facility] Primary Care Unavailable Emilia Camejo Attending Unavailable [facility] Primary Care Unavailable Caden, Georges Referring Unavailable Caden, Georges Attending Unavailable Caden, Georges Attending Unavailable Caden, Georges Referring Unavailable [facility] Primary Care Unavailable [facility] Primary Care Unavailable Caden, Georges Referring Unavailable Caden, Georges Attending Unavailable [facility] Primary Care Unavailable Caden, Georges Referring Unavailable Caden, Georges Attending Unavailable [facility] Referring Unavailable [facility] Primary Care Unavailable Saravanan Ibrahim Attending Unavailable Caden, Georges Attending Unavailable [facility] Primary Care Unavailable Caden, Georges Referring Unavailable Caden, Georges Consulting Unavailable [facility] Primary [facility] Unavailable Laurence Seymour Attending Unavailable Patrice, Saravanan Referring Unavailable Ibrahim, Saravanan Admitting Unavailable Ame Schwab Consulting Unavailable Tereletsky, Watson Consulting Unavailable Saravanan Ibrahim Consulting Unavailable Scooter Ramirez Primary Care Unavailable Alber COON, Audrey Attending Unavailable Ame Schwab Attending Unavailable Scooter Ramirez Primary Care Unavailable Saravanan Ibrahim Attending Unavailable Saravanan Ibrahim Referring Unavailable Saravanan Ibrahim Consulting Unavailable Georges Negrete Attending Unavailable Scooter Ramirez Primary Care Unavailable Georges Negrete Referring Unavailable Allergies Allergy Classification Reported Allergen(s) Allergy Type Date of Onset Reaction(s) Facility (6 sources) atorvastatin Drug Allergy 4 Diarrhea [facility] (10 sources) Shellfish; Translations: [shellfish derived] Allergy to substance 4 Anaphylaxis [facility] Comment on above: FROM SEAFOOD ALLERGY (9 sources) Fish Containing Products Allergy to substance 4 Anaphylaxis [facility] Comment on above: FROM SEAFOOD ALLERGY (1 source) atorvastatin Drug Allergy 5 [facility] Repository (1 source) Fish Containing Products Drug allergy (disorder) 5 [facility] Repository Medications Current Medications Medication Drug Class(es) Dates Sig (Normalized) Sig (Original) acetaminophen 325 mg / HYDROcodone bitartrate 5 mg oral tablet (11 sources) Opioid Agonist Start: 02-18-2025 take 1 tablet by mouth every six hours as needed for pain Start: 02-18-2025 take 1 tablet by katrin th every six hours as needed for pain Start: 09-15-2015 End: 12-10-2018 Hydrocodone-Acetaminophen 1 EACH tablet Discontinued 1 - 2 {tbl} PO EVERY 6 HOURS NEEDED as needed for Pain September 15, 2015 12:00am December 10, 2018 7:54am amLODIPine 5 mg oral tablet (18 sources) Dihydropyridine Calcium Channel Nitza Start: 01-16-2024 End: 04-14-2024 take 1 tablet by mouth once daily aspirin 81 mg delayed release oral tablet (9 sources) Platelet Aggregation Inhibitor, Nonsteroidal Anti-inflammatory Drug Start: 01-16-2024 take 1 tablet by mouth at breakfast dapagliflozin 10 mg oral tablet (12 sources) Sodium-Glucose Cotransporter 2 Inhibitor Start: 09-30-2024 End: 10-14-2024 take 1 tablet by mouth once daily gabapentin 100 mg oral capsule (8 sources) Anti-epileptic Agent Start: 01-26-2025 take 1 capsule by mouth three times daily as needed for sleep Start: 12-24-2024 End: 01-26-2025 take 1 capsule by mouth once daily Gabapentin 100 mg capsule Discontinued 100 mg PO daily December 24, 2024 12:00am January 26, 2025 9:57am methocarbamol 750 mg oral tablet (11 sources) Muscle Relaxant Start: 02-18-2025 take 1 tablet by mouth every eight hours Start: 02-18-2025 take 1 tablet by katrin th every eight hours Start: 01-30-2024 End: 02-03-2024 take 2 tablets by mouth four times daily as needed for pain Methocarbamol 500 mg tablet Discontinued 1000 mg PO 4 TIMES DAILY as needed for Muscle pain/spasm 56 0 January 30, 2024 4:32am February 03, 2024 6:59am Multivitamin tablet (9 sources) Start: 02-23-2024 Start: 02-23-2024 Multivitamin t ablet Active 1 {tbl} PO EVERY MORNING February 23, 2024 12:00am rosuvastatin calcium 20 mg oral tablet (15 sources) HMG-CoA Reductase Inhibitor Start: 08-17-2024 End: 09-10-2024 take 1 tablet by mouth at bedtime ticagrelor 90 mg oral tablet (18 sources) Start: 01-16-2024 End: 04-19-2024 take 1 tablet by mouth twice daily Completed/Discontinued Medications Medication Drug Class(es) Dates Sig (Normalized) Sig (Original) acetaminophen 325 mg / oxyCODONE hydrochloride 5 mg oral tablet (9 sources) Opioid Agonist Start: 05-06-2013 End: 05-13-2013 Oxycodone-Acetamin ophen 1 TABLET tablet Discontinued 1 - 2 {tbl} PO EVERY 6 HOURS NEEDED as needed for Mild/Moderate Pain May 06, 2013 1:00am May 13, 2013 4:02pm amoxicillin 875 mg / clavulanate 125 mg oral tablet (9 sources) Penicillin-class Antibacterial Start: 07-09-2022 End: 09-22-2022 Amoxicillin-Pot Clavulanate 875-125 mg tablet Discontinued 1 {tbl} PO Q12H 14 0 July 09, 2022 12:00am September 22, 2022 10:16am atorvastatin 80 mg oral tablet (9 sources) HMG-CoA Reductase Inhibitor Start: 01-16-2024 End: 01-29-2024 take 1 tablet by mouth at bedtime Atorvastatin 80 mg Tablet Discontinued 80 mg PO AT BEDTIME 90 90 0 January 16, 2024 12:00am January 29, 2024 12:58pm docusate sodium 100 mg oral capsule (9 sources) Start: 05-06-2013 End: 05-13-2013 take 1 capsule by mouth twice daily Docusate Sodium (Colace) 100 MG capsule Discontinued 100 mg PO TWICE A DAY May 06, 2013 1:00am May 13, 2013 4:01pm doxycycline hyclate 100 mg oral capsule (9 sources) Tetracycline-class Drug Start: 09-22-2022 End: 10-06-2022 take 1 capsule by mouth twice daily Doxycycline Hyclate 100 mg capsule Discontinued 100 mg PO TWICE A DAY 28 14 0 September 22, 2022 12:00am October 05, 2022 12:00am October 06, 2022 12:04am ibuprofen 200 mg oral capsule (9 sources) Nonsteroidal Anti-inflammatory Drug Start: 12-10-2018 End: 01-16-2024 Ibuprofen 200 mg capsule Discontinued 200 mg PO NEEDED as needed for Pain December 10, 2018 12:00am January 16, 2024 9:29am mupirocin 0.02 mg/mg topical ointment (9 sources) RNA Synthetase Inhibitor Antibacterial Start: 09-22-2022 End: 01-14-2024 Mupirocin 2 % ointment Discontinued 1 NMA TOPICAL TWICE A DAY 22 0 September 22, 2022 12:00am January 14, 2024 10:59pm oxyCODONE hydrochloride 5 mg oral tablet (9 sources) Opioid Agonist Start: 05-06-2013 End: 05-13-2013 take 5-10 mg by mouth every six hours as needed for pain Oxycodone 5 MG tablet Discontinued 5 - 10 mg PO EVERY 6 HOURS NEEDED as needed for Mild/Moderate Pain May 06, 2013 1:00am May 13, 2013 4:01pm polyethylene glycol 3350 34352 mg powder for oral solution (9 sources) Osmotic Laxative Start: 05-06-2013 End: 05-13-2013 take 17 g by mouth once daily Polyethylene Glycol 3350 17 GM Packet Discontinued 17 g PO DAILY May 06, 2013 1:00am May 13, 2013 4:02pm pravastatin sodium 80 mg oral tablet (17 sources) HMG-CoA Reductase Inhibitor Start: 08-11-2024 End: 09-10-2024 take 1 tablet by mouth once daily Pravastatin 80 mg tablet Discontinued 80 mg PO daily 90 3 August 11, 2024 12:00am September 10, 2024 8:14am Start: 01-29-2024 End: 08-11-2024 take 1 tablet by mouth once daily Pravastatin 40 mg tablet Discontinued 40 mg PO daily 90 January 29, 2024 12:00am August 11, 2024 3:19pm Semaglutide (6 sources) Start: 09-30-2024 End: 10-14-2024 Semaglutide (Ozempic) 0.25 m g or 0.5 mg (2 mg/3 mL) pen injector Discontinued 0.25 mg SC EVERY WEEK September 30, 2024 12:00am October 27, 2024 12:00am October 14, 2024 4:53pm for 4 weeks Problems Active Problems Problem Classification Problem Date Documented Da te Episodic/Chronic Acute myocardial infarction (9 sources) Myocardial infarction; Translations: [Non-ST elevation (NSTEMI) myocardial infarction] Onset: 01-14-2024 01-22-2024 Chronic Biliary tract disease (9 sources) Acute cholecystitis; Translations: [Acute cholecystitis] 01-15-2024 Episodic Chronic kidney disease (9 sources) Chronic kidney disease; Translations: [Chronic kidney disease, unspecified] 02-07-2024 Chronic Coronary atherosclerosis and other heart disease (17 sources) Coronary arteriosclerosis; Translations: [Atherosclerotic heart disease of flandreau coronary artery without angina pectoris] Onset: 02-22-2025 02-23-2024 Chronic Coronary atherosclerosis and other heart disease (19 sources) Stented coronary artery; Translations: [Presence of coronary angioplasty implant and graft] Onset: 03-08-2025 02-23-2024 Episodic Comment on above: Diabetes mellitus without complication (6 sources) Type 2 diabetes mellitus; Translations: [Type 2 diabetes mellitus without complications] Onset: 03-08-2025 02-17-2025 Chronic Disorders of lipid metabolism (17 sources) Dyslipidemia; Translations: [Hyperlipidemia, unspecified] Onset: 08-11-2024 4 Chronic Essential hypertension (17 sources) Hypertensive disorder; Translations: [Essential (primary) hypertension] Onset: 08-18-2024 02-23-2024 Chronic Lymphadenitis (9 sources) Lymphadenopathy; Translations: [Enlarged lymph nodes, unspecified] 01-15-2024 Episodic Comment on above: Left side of neck Nonspecific chest pain (1 source) Chest pain, unspecified; Translations: [Chest pain, unspecified] Onset: 02-24-2025 Episodic Osteoarthritis (1 source) Primary osteoarthritis, left ankle and foot; Translations: [Primary osteoarthritis, left ankle and foot] Onset: 06-24-2024 Chronic Other connective tissue disease (4 sources) History of cervical spine fusion; Translations: [Arthrodesis status] 02-18-2025 Episodic Other connective tissue disease (2 sources) Arthrodesis status; Translations: [Arthrodesis status] Onset: 03-08-2025 Episodic Other lower respiratory disease (9 sources) Cough; Translations: [Cough] 01-15-2024 Episodic Other nervous system disorders (2 sources) Postoperative pain ; Translations: [Other acute postprocedural pain] 02-18-2025 Episodic Other nervous system disorders (1 source) Other acute postprocedural pain; Translations: [Other acute postprocedural pain] Onset: 03-09-2025 Episodic Other nutritional; endocrine; and metabolic disorders (9 sources) Obese class I; Translations: [Class 1 obesity] 01-22-2024 Chronic Other nutritional; endocrine; and metabolic disorders (10 sources) Body mass index 30+ - obesity; Translations: [Obesity, unspecified] 12-24-2024 Chronic Other upper respiratory disease (9 sources) Congestion of nasal sinus; Translations: [Nasal congestion] 01-15-2024 Episodic Other upper respiratory disease (9 sources) Respiratory tract congestion; Translations: [Nasal congestion] 01-15-2024 Episodic Other upper respiratory infections (20 sources) Acute sinusitis; Translations: [Acute sinusitis, unspecified] 01-15-2024 Episodic Residual codes; unclassified (17 sources) Obstructive sleep apnea syndrome; Translations: [Obstructive sleep apnea (adult) (pediatric)] 02-23-2024 Chronic Residual codes; unclassified (2 sources) Obstructive sleep apnea (adult) (pediatric); Translations: [Obstructive sleep apnea (adult) (pediatric)] Onset: 03-08-2025 Chronic Skin and subcutaneous tissue infections (9 sources) Infected thumb; Translations: [Local infection of the skin and subcutaneous tissue, unspecified] 09-22-2022 Episodic Spondylosis; intervertebral disc disorders; other back problems (15 sources) Displacement of cervical intervertebral disc; Translations: [Other cervical disc displacement, unspecified cervical region] Onset: 09-17-2024 12-24-2024 Chronic Spondylosis; intervertebral disc disorders; other back problems (20 sources) Cervical radiculopathy; Translations: [Radiculopathy, cervical region] Onset: 12-24-2024 04-09-2024 Episodic Past or Other Problems Problem Classification Problem Date Documented Da te Episodic/Chronic Other non-traumatic joint disorders (1 source) Pain in left ankle and joints of left foot; Translations: [Pain in left ankle and joints of left foot] Onset: 06-24-2024 Episodic Unclassified (9 sources) history of pilon ankle fracture 11-16-2021 Results Test Name Value Interpretation Reference Range Facility Inital Evaluation (1) - PTon 03-09-2025 Inital Evaluation (1) - PT [facility] [address] [place] [address] [address] [place] [address] / REHABILITATION SERVICES INITIAL EVALUATION MR#: [id number] Acct: [id number] Name: DARWIN GORE Rep #: [id number] : 1970 54 From: Arpit Collado PT. MD Garcia, OCS Referring Dr.: KAREN Chavarria Status: REG R Insurance: [employer] SELF PAY INSURANCE Patient's Visit Information Visit Information Visit Information: DARWIN GORE is a 54 year old M referred to Physical Therapy by KAREN Chavarria with a diagnosis of Arthrodesis status. Date of Evaluation: 03/09/25 Physical Therapist: Vu Quintero PT, Cert T, OCS Visit Plan Frequency: 2x /Week Duration: 4 Weeks Plan: S/P C5-7 CERVICAL FUSION NO BLT NO LIFTYING > 10# PT INTERVENTIONS CERVICAL ROM ,FLEXABILITY ,POSTURAL EX' ,STRENGTHENING UE ,AND ACTIVITY MODIFICATION Subjective Subjective: This 54 y/o male presents to physical therapy with s/p cervical fusion C5-7 ACDF on Feb [address] Ibrahim at [facility]. Patient d/c next day with [place] collar for 2 weeks. Seen CONTACT WORKER Sabrina Nell restrictions no bending, lifting, twisting greater than 10 pounds ,x-rays looked and slowing wean from cervical collar. Patient will have bone stimulator. Prior to surgery 2 years but had cardiac issues caused delay in surgery. Patient tried PT and had injections by management in AUGUST 2024.Patient stopped pain hydrocodine. Patient MRI Moderately pronounced stenosis of the right C5-C6 intervertebral neuroforamen and moderate stenosis of the left C5-C6 intervertebral neuroforamen due to osteophytes arising from the uncovertebral joints,right greater than left. Denies paresthesia/tingling -. Denies BAXTER /nausea/migraines/dizz iness. Sleeping in recliner. Patient cont to work at home. Patient goals to decrease pain. 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 STRENGTH:( hand dynamometer) : Right 90# ,left 80# CERVICAL ROM: flexion WFL ,rotation right 50% loss ,left 75% loss ,extension 90% loss ,lateral flexion 50% loss Special Tests C/S Radiculapathy - Left Upper limb tension test: Negative C/S Radiculapathy - Right Upper limb tension test: Negative Balance/Special Test Scores Oswestry Neck Score: 12 Goals Goal 1:: Patient to be I with HEP for cervical ROM and posture Goal Time Frame: 4-6 Weeks Goal 2:: Patient to improve function 75% for ADLS and hobbies /housework w/o symptoms Goal Time Frame: 4-6 Weeks Goal 3:: 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# to improve function with ADLS Goal Time Frame: 4-6 Weeks Goal 4:: Patient to quick dash by 5 points to improve QOL Goal Time Frame: 4-6 Weeks Rehabilitation Potential Physical Therapy Diagnosis: Patient underwent s/p cervical fusion ACDF C5-7 Feb 17 with decreased ROM cervical spine ,weakness impairs ADLS and housework tasks and hobbies thus benefit from skilled PT Rehabilitation Potential: Good Anticipated Interventions Patient/Client Instruction: Educate patient on: Condition and Plan of Care For the Purpose of:: To decrease pain, To increase ROM, To improve muscle performance and motor function, To improve ability to perform ADL's, To increase tolerance to activity/condition/pos ition, To improve ability of physical actions for home/community/work/le isure, To improve health of tissue, To decrease soft tissue restriction, To increase flexibility/ROM and To improve tolerance to ADL's Therapeutic Exercise to Include: Strength training, Postural training and Flexibilty training Comment: BUE For the Purpose of:: To decrease pain, To increase ROM, To improve muscle performance and motor function, To improve ability to perform ADL's, To increase tolerance to activity/condition/pos ition, To improve ability of physical actions for home/community/work/le isure, To improve health of tissue, To decrease soft tissue restriction, To increase flexibility/ROM and To improve balance Text: Thank you for the opportunity to evaluate your patient. For Medicare and Medicare HMO plans, please review the plan of care and approve it. It will need to be FAXED BACK to us at [phone] for Medicare purposes. For Medicare only, by signing this I certify the plan of care. Please let me know if there are questions or concerns regarding this plan of care. Physician Signature: Date:__ 03/09/25 1700 CC: KAREN Chavarria; Dr. Scooter Ramirez MD ABIODUN Signed Normal [facility] Cerv Spine 2 or 3 Viewson Cerv Spine 2 or 3 Views [facility] Services [address] [place] [address] Cerv Spine 2 or 3 Views MR#: [id number] Acct: [id number] Name: DARWIN GORE Rep #: [id number] : 1970 M 54 From: Lexie Escalera PCP: Dr. Scooter Ramirez MD Status: DEP AMB Study: Cerv Spine 2 or 3 Views Date of Exam: 03/04/25 Exam# [id number] Ordering Dr: Emilia Camejo PROCEDURE: CERV SPINE 2 OR 3 VIEWS 03/04/2025 REASON FOR EXAM: POST OP TECHNIQUE: Procedure Code: RADSPCL Modality: DX Procedure: CERV SPINE 2 OR 3 VIEWS COMPARISON: Cervical spine studies dated 02/18/2025 and 02/17/2025 FINDINGS: Vertebrae: Anterior fixation plate and screws are projected over the C5, C6 and C7 levels. The radiopaque hardware appears to be intact without evidence of fracture or loosening. The remaining osseous structures are unremarkable. There is no spondylolysis or spondylolisthesis. There is subtle loss of the normal lordotic cervical curvature. The lower portion of C7 and T1 are poorly visualized due to technique and overlapping summation of normal anatomical structures. Radiopaque disc spacers are seen at the C5-C6 and C6-C7 levels. The remaining disc spaces are well- maintained. There is no prevertebral soft tissue swelling. RAD/Cerv Spine 2 or 3 Views IMPRESSION: The radiopaque plate and screws appear to be in satisfactory position without evidence of fracture or loosening. Radiopaque disc spacers are seen at the C5-C6 and C6-C7 levels. Disclaimer: Reading Location: [id number] CC: KAREN Chavarria; Dr. Scooter Ramirez MD Literature Teacher: Signed Normal [facility] Orthopedic Visit Reporton Orthopedic Visit Report [facility] [address] [place] [address] OFFICE VISIT Date of Service: 03/04/25 MR#: [id number] Acct: [id number] Name: DARWIN GORE Rep #: [id number] : 1970 Provider: KAREN Chavarria Age/Sex: 54/M Location: [facility] [place] Status: Signed Intake Vital Signs 09/13/24 06:33 02/07/25 07:03 02/17/25 12:31 Height 5 ft 9 in 5 ft 9 in 5 ft 8.9 in Intake Visit Reasons: cervical spine Chief Complaint: 2 Week Post-Op Accompanied by: Self Is patient in pain?: No Allergies Fish Containing Products Allergy (Severe, Verified 03/04/25 08:57) Anaphylaxis shellfish derived Allergy (Severe, Verified 03/04/25 08:57) Anaphylaxis Medications ???Medication ???Instructions ???Recorded ???Confirmed ???Type aspirin 81 mg tablet,delayed 81 mg PO BREAKFAST 90 days #90 tab s 01/16/24 03/04/25 Rx release multivitamin 1 tab PO QAM 02/23/24 03/04/25 His tory amlodipine 5 mg tablet 5 mg PO DAILY #90 tabs 04/14/24 Rx ticagrelor 90 mg tablet (Brilinta) 90 mg PO BID #180 tabs 04/19/24 03/04/25 Rx rosuvastatin 20 mg tablet 20 mg PO QHS 09/10/24 03/04/25 His tory dapagliflozin propanediol 10 mg 10 mg PO DAILY #90 tabs 10/14/24 1 05/04/24 Rx tablet (Farxiga) gabapentin 100 mg capsule 100 mg PO TID PRN sleep 01/26/25 1 05/04/24 History PFSH Medical History Chest pain Cervical disc [...] ankle fracture Arthritis Surgical History History of cervical spinal surgery History of cardiac catheterization Hx of colonoscopy [...] provided and the decisions made by me, KAREN Chavarria 03/04/25 0854. Part of today???s visit was documented by Amy Christianson ATC, acting as scribe. DARWIN GORE is a 54 year old M here today for s/p C5-7 ACDF DOS 02/17/[address] Ibrahim. Patient denies any pain in the neck today and states he is feeling well. He only had to take the hydrocodone for the first 3-4 nights just for comfort rather than pain and to help him sleep in a chair. He continues to wear the cervical collar. He denies any drainage at the incision site. He denies any concerns following surgery at this point. He did have some dysphagia for the first couple of days and did try and eat soft foods but it has gotten better. He denies any dysphagia currently. The patient has not yet gotten the bone stimulator, he plans to reach back out to the [facility] to get that. Ortho Exam General General: Yes no acute distress Neurologic: Yes alert and Yes oriented x3 Psychologic: Yes reasonable and appropriate Spine SPINE TESTING CERVICAL THORACIC LUMBAR Musculoskeletal Strength 0=absent - 5=normal Details: Neurological examination of the upper extremities showed 5X5 power. Normal sensation across all dermatomes. Physical examination of the neck shows a well-healed incision. Coding Level of Care Code Global Post Op Diagnoses S/P cervical spinal fusion Z98.1 Assessment and Plan Assessment and Plan (1) S/P cervical spinal fusion: Status: Acute Orders: Orders Cerv Spine 2 or 3 Views Today Z98.1 - Arthrodesis status Referrals Physical Therapy Referral Z98.1 - Arthrodesis status Plan Obtained to reviewed cervical x-rays today in the clinic. Independent interpretation of the x-rays was performed. Cervical x-rays show hardware and bone graft in good position. The patient is now 2 weeks out C5-7 ACDF. The patient is doing very well postoperatively with very minimal to no pain. He will start outpatient physical therapy. He will continue restrictions no (more content not included)... Normal [facility] Absolute lymphocyte countOrd ered By: Saravanan Ibrahim on 02-18-2025 Lymphocytes Auto (Unsp spec) [#/Vol] 2.27 10*3/uL 0.83-4.51 [facility] Absolute neutrophil countOrd ered By: [facility] Patrice on 02-18-2025 Neutrophils (Bld) [#/Vol] 6.2 10*3/uL 2.0-7.7 [facility] Anion gap in Serum or Plasma Ordered By: [facility] Patrice on 02-18-2025 Anion gap [Moles/Vol] 10 mmol/L - [facility] Automated lymphocyte count a s percentage of total leukocytesOrdered By: [facility] Patrice on 02-18-2025 Lymphocytes/100 WBC Auto (Unsp spec) 24.1 % - [facility] BUN/creatinine ratioOrdered By: Saravananenrico Ibrahim on 02-18-2025 Urea nitrogen/Creatinine [Mass ratio] 19.6 mg/mg - [facility] Basic Metabolic Profile (BMP )on 02-18-2025 BUN/CRE 19.6 RATIO Normal - [facility] Comment on above: Performed By: #### L 500.2500, L100.0100 #### [facility] [address] [place], [address] Calcium [Mass/Vol] 9.1 mg/dL Normal 7.6-11.0 [facility] Comment on above: Performed By: #### L 500.2500, L100.0100 #### [facility] [address] [place], [address] Chloride [Moles/Vol] 101 mmol/L Normal 98-108 [facility] Comment on above: Performed By: #### L 500.2500, L100.0100 #### [facility] [address] [place], [address] CO2 [Moles/Vol] 24.9 mmol/L Normal 21.0-32.0 [facility] Comment on above: Performed By: #### L 500.2500, L100.0100 #### [facility] [address] [place], [address] Creatinine [Mass/Vol] 0.73 mg/dL Normal 0.70-1.20 [facility] Comment on above: Performed By: #### L 500.2500, L100.0100 #### [facility] [address] [place], [address] ECRCL 139.80 ml/min Normal 50-250 [facility] Comment on above: Performed By: #### L 500.2500, L100.0100 #### [facility] [address] [place], [address] GAP 10 Normal 5-15 [facility] Comment on above: Performed By: #### L 500.2500, L100.0100 #### [facility] [address] [place], [address] GFR/1.73 sq M.predicted among non-blacks MDRD (S/P/Bld) [Vol rate/Area] 108 mL/min/{1.73_m2} Normal >60 [facility] Comment on above: Result Comment: mL/m in/1.73m2 CKD-EPI Creatinine Equation (2020) Performed By: #### L 500.2500, L100.0100 #### [facility] [address] [place], [address] Glucose [Mass/Vol] 247 mg/dL High 70-99 [facility] Comment on above: Performed By: #### L 500.2500, L100.0100 #### [facility] [address] [place], [address] Potassium [Moles/Vol] 3.8 mmol/L Normal 3.3-5.1 [facility] Comment on above: Performed By: #### L 500.2500, L100.0100 #### [facility] [address] [place], [address] Sodium [Moles/Vol] 136 mmol/L Normal 133-145 [facility] Comment on above: Performed By: #### L 500.2500, L100.0100 #### [facility] [address] [place], [address] Urea nitrogen [Mass/Vol] 14 mg/dL Normal 4-19 [facility] Comment on above: Performed By: #### L 500.2500, L100.0100 #### [facility] [address] [place], [address] Basophil percentageOrdered B y: Saravanan Ibrahim on 02-18-2025 Basophils/100 WBC (Bld) 0.1 % 0-1 [facility] Bedside Glucoseon 02-18-2025 FINGERSTICK GLU 215 mg/dL High 74-106 [facility] Comment on above: Result Comment: JENNY NINO OF PATIENT CARE PER NURSING PROTOCOL Performed By: #### L 500.2500, L100.0100 #### [facility] [address] [place], [address] CBC W/Diff, Automatedon 01-27 Absolute Lymph 2.27 X10 3/uL Normal 0.83-4.51 [facility] Comment on above: Performed By: #### L 500.2500, L100.0100 #### [facility] [address] [place], [address] Absolute Neut 6.2 X10 3/uL Normal 2.0-7.7 [facility] Comment on above: Performed By: #### L 500.2500, L100.0100 #### [facility] [address] [place], [address] Basophils/100 WBC (Bld) 0.1 % Normal 0-1 [facility] Comment on above: Performed By: #### L 500.2500, L100.0100 #### [facility] [address] [place], [address] Eosinophils/100 WBC (Bld) 0.3 % Normal 0-5 [facility] Comment on above: Performed By: #### L 500.2500, L100.0100 #### [facility] [address] [place], [address] Erythrocyte distribution width (RBC) [Ratio] 14.2 % Normal 11.6-14.6 [facility] Comment on above: Performed By: #### L 500.2500, L100.0100 #### [facility] [address] [place], [address] Hematocrit (Bld) [Volume fraction] 38.4 % Low 40-54 [facility] Comment on above: Performed By: #### L 500.2500, L100.0100 #### [facility] [address] [place], [address] Hemoglobin (Bld) [Mass/Vol] 13.2 g/dL Normal 13.0-16.5 [facility] Comment on above: Performed By: #### L 500.2500, L100.0100 #### [facility] [address] [place], [address] IG% 0.300 Normal 0.0-0.9 [facility] Comment on above: Result Comment: IG% - Immature Granulocytes (promyelocytes, myelocytes and metamyelocytes) > 1% indicates that a LEFT SHIFT is Present. Performed By: #### L 500.2500, L100.0100 #### [facility] [address] [place], [address] Lymphocytes/100 WBC (Bld) 24.1 % Normal 19-41 [facility] Comment on above: Performed By: #### L 500.2500, L100.0100 #### [facility] [address] [place], [address] MCH (RBC) [Entitic mass] 29.4 pg Normal 27.0-32.0 [facility] Comment on above: Performed By: #### L 500.2500, L100.0100 #### [facility] [address] [place], [address] MCHC (RBC) [Mass/Vol] 34.4 g/dL Normal 32-36 [facility] Comment on above: Performed By: #### L 500.2500, L100.0100 #### [facility] [address] [place], [address] MCV (RBC) [Entitic vol] 85.5 fL Normal 80-94 [facility] Comment on above: Performed By: #### L 500.2500, L100.0100 #### [facility] [address] [place], [address] Monocytes/100 WBC (Bld) 9.4 % Normal 0-10 [facility] Comment on above: Performed By: #### L 500.2500, L100.0100 #### [facility] [address] [place], [address] Neutrophils/100 WBC (Bld) 65.8 % Normal 47-70 [facility] Comment on above: Performed By: #### L 500.2500, L100.0100 #### [facility] [address] [place], [address] Nucleated RBC (Bld) [#/Vol] 0 10*3/uL Normal 0-5 [facility] Comment on above: Performed By: #### L 500.2500, L100.0100 #### [facility] [address] [place], [address] Platelet mean volume (Bld) [Entitic vol] 9.1 fL Normal 6.2-12.0 [facility] Comment on above: Performed By: #### L 500.2500, L100.0100 #### [facility] [address] [place], [address] Platelets (Bld) [#/Vol] 183 10*3/uL Normal 150-450 [facility] Comment on above: Performed By: #### L 500.2500, L100.0100 #### [facility] [address] [place], [address] RBC (Bld) [#/Vol] 4.49 10*6/uL Low 4.6-6.2 [facility] Comment on above: Performed By: #### L 500.2500, L100.0100 #### [facility] [address] [place], [address] RDW SD 44.5 fl High 35.1-43.9 [facility] Comment on above: Performed By: #### L 500.2500, L100.0100 #### [facility] [address] [place], [address] WBC (Bld) [#/Vol] 9.4 10*3/uL Normal 4.4-11.0 [facility] Comment on above: Performed By: #### L 500.2500, L100.0100 #### [facility] [address] [place], [address] Carbon dioxide, total [Moles /volume] in Central venous bloodOrdered By: Saravanan Ibrahim on 02-18-2025 CO2 [Moles/Vol] 24.9 mmol/L 21.0-32.0 [facility] Cerv Spine 2 or 3 Viewson Cerv Spine 2 or 3 Views [facility] [address] [place] [address] Cerv Spine 2 or 3 Views MR#: [id number] Acct: [id number] Name: DARWIN GORE Rep #: [id number] : 1970 M 54 From: Rajan Argueta MD PCP: Dr. Scooter Ramirez MD Status: ADM RAY Study: Cerv Spine 2 or 3 Views Date of Exam: 02/18/25 Exam# [id number] Ordering Dr: Saravanan Ibrahim MD PROCEDURE: CERV SPINE 2 OR 3 VIEWS 02/18/2025 REASON FOR EXAM: POST OP DAY 1 SPINE SURGERY TECHNIQUE: Procedure Code: RADSPCL Modality: DX Procedure: CERV SPINE 2 OR 3 VIEWS COMPARISON: 12/24/2024 FINDINGS: Patient is status post anterior cervical fusion with synthetic discs placed between C5 and C7. No postoperative complications noted. Vertebrae: No fracture or suspicious osseous lesion disc spaces: Mild disc space narrowing throughout the cervical spine Alignment: Anatomic soft tissues: Prevertebral soft tissue swelling anterior to the surgical site, no retropharyngeal air. Other: Normal relationship between C7 and T1 RAD/Cerv Spine 2 or 3 Views IMPRESSION: No suspicious postsurgical findings The alignment of the cervical spine is anatomic with no hardware complication from recent anterior fusion between C5 and C7. Disclaimer: Reading Location: [facility] CC: Dr. Saravanan Ibrahim MD; Dr. Scooter Ramirez MD Literature Teacher: Signed Normal [facility] Chloride assayOrdered By: Lolis Ibrahim on 02-18-2025 Chloride [Moles/Vol] 101 mmol/L 98-108 [facility] Eosinophil percentageOrdered By: Saravanan Ibrahim on 02-18-2025 Eosinophils/100 WBC (Bld) 0.3 % 0-5 [facility] Erythrocyte distribution wid th ratioOrdered By: Saravanan Ibrahim on 02-18-2025 Erythrocyte distribution width (RBC) [Ratio] 14.2 % 11.6-14.6 [facility] Erythrocyte distribution wid th standard deviationOrdered By: Saravanan Ibrahim on 02-18-2025 Erythrocyte distribution width (RBC) [Ratio] 44.5 fl High 35.1-43.9 [facility] Glomerular filtration rate ( GFR) estimation/1.73 sq m using serum, plasma, or whole bOrdered By: Saravanan Ibrahim on 02-18-2025 GFR/1.73 sq M.predicted among non-blacks MDRD (S/P/Bld) [Vol rate/Area] 108 mL/min/{1.73_m2} >60 [facility] Comment on above: mL/min/1.73m2 CKD-EP I Creatinine Equation (2020) Glucose measurement at bedsi deOrdered By: Saravanan Ibrahim on 02-18-2025 Glucose [Mass/Vol] 215 mg/dL High 74-106 [facility] Comment on above: MANAGEMENT OF PATIEN T CARE PER NURSING PROTOCOL Hematocrit Auto (Bld) [Volum e fraction]Ordered By: Saravanan Ibrahim on 02-18-2025 Hematocrit (Bld) [Volume fraction] 38.4 % Low 40-54 [facility] Hemoglobin measurementOrdere d By: Saravanan Ibrahim on 02-18-2025 Hemoglobin (Bld) [Mass/Vol] 13.2 g/dL 13.0-16.5 [facility] Immature granulocytes/100 WB C Auto (Bld)Ordered By: Saravanan Ibrahim on 02-18-2025 Immature granulocytes/100 WBC (Bld) 0.300 % 0.0-0.9 [facility] Comment on above: IG% - Immature Granu locytes (promyelocytes, myelocytes and metamyelocytes) > 1% indicates that a LEFT SHIFT is Present. MCV (mean corpuscular volume ) determinationOrdered By: Saravanan Ibrahim on 02-18-2025 MCV (RBC) [Entitic vol] 85.5 fL 80-94 [facility] Mean corpuscular hemoglobin (MCH) determinationOrdered By: Saravanan Ibrahim 02-18-2025 MCH (RBC) [Entitic mass] 29.4 pg 27.0-32.0 [facility] Mean corpuscular hemoglobin concentration (MCHC) determinationOrdered By: Saravanan Ibrahim on 02-18-2025 MCHC (RBC) [Mass/Vol] 34.4 g/dL 32-36 [facility] Mean platelet volume determi nationOrdered By: Saravanan Ibrahim on 02-18-2025 Platelet mean volume (Bld) [Entitic vol] 9.1 fL 6.2-12.0 [facility] Monocyte percentageOrdered B y: Saravanan Ibrahim on 02-18-2025 Monocytes/100 WBC (Bld) 9.4 % 0-10 [facility] Neutrophil percentageOrdered By: Saravanan Ibrahim on 02-18-2025 Neutrophils/100 WBC (Bld) 65.8 % 47-70 [facility] Nucleated red blood cell per centageOrdered By: Saravanan Ibrahim on 02-18-2025 Nucleated RBC/100 WBC (Bld) [Ratio] 0 % 0-5 [facility] Platelet countOrdered By: Lolis Ibrahim on 02-18-2025 Platelets (Bld) [#/Vol] 183 10*3/uL 150-450 [facility] Potassium measurement (mass/ volume)Ordered By: Saravanan Ibrahim on 02-18-2025 Potassium (Unsp spec) [Mass/Vol] 3.8 mmol/L 3.3-5.1 [facility] RBC Auto (Bld) [#/Vol]Ordere d By: Saravanan Ibrahim on 02-18-2025 RBC (Bld) [#/Vol] 4.49 10*6/uL Low 4.6-6.2 [facility] Serum creatinine measurement (mass/volume)Ordered By: Saravanan Ibrahim on 02-18-2025 Creatinine [Mass/Vol] 0.73 mg/dL 0.70-1.20 [facility] Serum glucose measurement (m ass/volume)Ordered By: Saravanan Ibrahim on 02-18-2025 Glucose [Mass/Vol] 247 mg/dL High 70-99 [facility] Serum or plasma calcium nita urement (mass/volume)Ordered By: Saravanan Ibrahim on 02-18-2025 Calcium [Mass/Vol] 9.1 mg/dL 7.6-11.0 [facility] Serum or plasma urea nitroge n measurement (mass/volume)Ordered By: Saravanan Ibrahim on 02-18-2025 Urea nitrogen [Mass/Vol] 14 mg/dL 4-19 [facility] Sodium levelOrdered By: Garth Ibrahim on 02-18-2025 Sodium [Moles/Vol] 136 mmol/L 133-145 [facility] White blood cell (WBC) count Ordered By: Saravanan Ibrahim on 02-18-2025 WBC (Bld) [#/Vol] 9.4 10*3/uL 4.4-11.0 [facility] Bedside Glucoseon 02-17-2025 FINGERSTICK GLU 348 mg/dL High [address] [place] [address] Comment on above: Result Comment: JENNY GEMENT OF PATIENT CARE PER NURSING PROTOCOL Performed By: #### L 501.080 #### [facility] [address] [place], [address] FINGERSTICK GLU 278 mg/dL High [address] [place] [address] Comment on above: Result Comment: JENNY GEMENT OF PATIENT CARE PER NURSING PROTOCOL Performed By: #### L 501.080 ####[facility] [address] [facility] [address] FINGERSTICK GLU 212 mg/dL High [address] [place] [address] Comment on above: Result Comment: JENNY GEMENT OF PATIENT CARE PER NURSING PROTOCOL Performed By: #### L 501.080 ####[facility] [address] [facility] [address] FINGERSTICK GLU 297 mg/dL [address] Comment on above: Result Comment: JENNY GEMENT OF PATIENT CARE PER NURSING PROTOCOL Performed By: #### L 501.080 ####[facility] [address] [place], [address] Cerv Spine 2 or 3 Viewson Cerv Spine 2 or 3 Views [facility] Imaging Services [address] [place] [address] Cerv Spine 2 or 3 Views MR#: [id number] Acct: [id number] Name: DARWIN GORE Rep #: [id number] : 1970 M 54 From: Rajan Argueta MD PCP: Dr. Scooter Ramirez MD Status: ADM RAY Study: Cerv Spine 2 or 3 Views Date of Exam: 02/17/25 Exam# [id number] Ordering Dr: Saravanan Ibrahim MD PROCEDURE: CERV SPINE 2 OR 3 VIEWS 02/17/2025 REASON FOR EXAM: ANTERIOR CERVICAL FUSION C5-6 AND C6-7 TECHNIQUE: Procedure Code: RADSPCL Modality: DX Procedure: CERV SPINE 2 OR 3 VIEWS 9 intraoperative C-arm films performed. 16 seconds of fluoroscopy, radiation dose of 7.57 mGy COMPARISON: 12/24/2024 FINDINGS: No intraoperative complications noted during anterior cervical fusion from C5-C7. Alignment in the C-spine is anatomic RAD/Cerv Spine 2 or 3 Views IMPRESSION: No intraoperative complications noted during anterior cervical fusion from C5-C7 Disclaimer: Reading Location: [facility] CC: Dr. Saravanan Ibrahim MD; Dr. Scooter Ramirez MD Literature Teacher: Signed Normal [facility] Consultation - [facility] 02-17-2025 Consultation - Hospitalist [facility] Medical Records Department [address] [place] [address] Consultation - Hospitalist 02/17/25 1647 MR#: [id number] Acct: [id number] Name: DAWRIN GORE Rep #: [id number] : 1970 54 From: Ame Schwab MD PCP: Dr. Scooter Ramirez MD Status:ADM RAY [facility] Plan Assessment/Plan (1) Stented coronary artery: (2) BARRON on CPAP: (3) Diabetes mellitus, type 2: PLAN: Plan #Hx of CAD -w/ previous stenting in 2023 -Had cardiac cath 02/10/2025 with only medical management recommended and no new stenting -Continue antiplatelets when cleared to do so by primary service - Continue statin #Hypertension - Continue amlodipine but with holding parameters to avoid hypotension #Type 2 diabetes mellitus -Glucose checks and sliding scale insulin - Hold home dapagliflozin while admitted #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 Ibrahim 02/17/2025 -Management/pain management per primary #BARRON -Continue home NIPPV if applicable #DVT ppx: Timing and agent at discretion primary Ame Schwab MD Time spent in the patient's overall evaluation, decision-making process, review of diagnostic data, adjustment of management, discussion with other providers, nursing and ancillary staff involved in patient's care documentation, 22 Minutes HPI Consult Data Date of Consult: 02/17/25 HPI Narrative Reason for Consultation: Post op med management HPI Narrative: DARWIN SOFÍA, is a 54 y/o M hx of BARRON, CAD w/ stenting, HTN, DMII who presented to [facility] 02/17/2025 for C5-7 ACDF. Hospitalist consulted for postoperative medical management. Patient evaluated bedside. He reports feeling fair overall, is eating soft foods but is not somewhat difficult to swallow postsurgery and with c-collar on, got up and moves around with no acute complaints, no nausea or vomiting, has tolerated food thus far, no chest pain or shortness of breath [facility] Chest pain Cervical disc herniation [...] BREAKFAST 90 days #90 tab s 01/16/24 02/17/25 Rx release multivitamin 1 tab PO QAM 02/23/24 02/17/25 His tory amlodipine 5 mg tablet 5 mg PO DAILY #90 tabs 04/14/24 Rx ticagrelor 90 mg tablet (Brilinta) 90 mg PO BID #180 tabs 04/19/24 02/12/25 Rx rosuvastatin 20 mg tablet 20 mg PO QHS 09/10/24 02/16/25 His tory dapagliflozin propanediol 10 mg 10 mg PO DAILY #90 tabs 10/14/24 1 Rx tablet (Farxiga) gabapentin 100 mg capsule 100 mg PO TID PRN sleep 01/26/25 U nknown History Allergy/AdvReac Type Severity Reaction Status Date / Time Fish Containing Products Allergy Severe Anaphylaxis Verified 02/17/25 05:57 shellfish derived Allergy Severe Anaphylaxis Verified 02/17/25 05:57 Family History Father Heart disease CAD (coronary [...] substance use type: does not use ROS ROS Narrative ROS reviewed and pertinent positives and negatives as above Physical Exam Narrative General: Alert, oriented, no apparent distress HEENT: Atraumatic, normocephalic Eyes: Anicteric, normal conjunctiva, extraocular movements grossly intact Neck: C-collar in place Respiratory: Clear to auscultation bilaterally, normal respiratory effort Cardiovascular: Regular rate and rhythm GI: Soft, nontender, nondistended Extremities: No edema Musculoskeletal: Moving all extremities Neuro: No overt focal neurological deficits Skin: No rashes appreciated Psych: Cooperative (more content not included)... Normal [facility] Medical Records Department [address] [place] [address] Anesthesia Postop Eval I 02/17/25 1026 MR#: [id number] Acct: [id number] Name: DARWIN GORE Rep #: [id number] : 1970 54 From: Rhys Kenney CRNA PCP: Dr. Scooter Ramirez MD Status:REG [facility] Y Race: C Location: [place] [address]- Anesthesia: Postop Eval I Current Vital Signs Temperature: 97.1 F Pulse Rate: 78 Blood Pressure: 130/81 Respiratory Rate: 16 Pulse Ox: 93 Oxygen Delivery Method: Nasal Cannula Oxygen Flow Rate (L/min): 2 Assessment Airway patent: Yes Spontaneous unlabored respirations: Yes Mental status: Awake and Calm nausea: No Vomiting: No Anesthesia Complication: No Fluid Hydration Crystalloid volume administer (ml): 1,400 Total IV fluid infused: 1,400 Progress Note Anesthesia document: Postop Eval 1 completed: No 02/17/25 1027 Date Rhys Sheylachristian Fragosoigner Signature: Date CC: Signed Normal [facility] MR/HNYJFFRL1or 02-17-2025 MR/POSTOPAN2 [facility] Medical Records Department [address] [place] [address] Anesthesia Postop Eval II 02/17/25 1426 MR#: [id number] Acct: [id number] Name: DARWIN GORE Rep #: [id number] : 1970 54 From: Hubert Sharma MD PCP: Dr. Scooter Ramirez MD Status:ADM RAY Y Race: C [place] [facility]-[place] Anesthesia Postop Eval I Sum Postop Eval Completion status Anesthesia document: Postop Eval 1 completed: No Anesthesia Postop Eval I Summary Anesthesia Postop Eval I Summary: Anesthesia Postop Eval I: Assessment Summary Airway patent Yes 02/17/25 10:27 DISPERSION MIXER.MDOT Spontaneous unlabored Yes 02/17/25 10:27 DISPERSION MIXER.MDOT respirations Mental status Awake,Calm 02/17/25 10:27 DISPERSION MIXER.MDOT nausea No 02/17/25 10:27 DISPERSION MIXER.MDOT Vomiting No 02/17/25 10:27 DISPERSION MIXER.MDOT Anesthesia Postop Eval I: Fluid Summary Crystalloid volume administer 1,400 02/17/25 10:27 DISPERSION MIXER.MDOT (ml) Colloids volume administered ( ml) Blood Product volume administered (ml) Total IV fluid infused 1,400 02/17/25 10:27 DISPERSION MIXER.MDOT Anesthesia Postop Eval I: Summary Notes Anesthesia Complication No 02/17/25 10:27 DISPERSION MIXER.MDOT Anesthesia Complication Comment: Post-operative progress note Anesthesia: Postop Eval II Evaluation Mental status: Awake and Calm Pain Level: 1 nausea: No Vomiting: No Progress Note Post-operative progress note: Very calm in PACU. Blood pressure well-controlled. Received 1 dose of hydralazine. Admitted for overnight stay and monitoring. Complications Anesthesia Complication: No 02/17/25 1426 Date Hubert Sharma MD Cosigner Signature: Date CC: Signed Normal [facility] Operative Reporton 5 Operative Report [facility] Medical Records Department [address] [place] [address] Operative Report 02/17/25 0953 MR#: [id number] Acct: [id number] Name: DARWIN GORE Rep #: [id number] : 1970 54 From: Saravanan Ibrahim MD PCP: Dr. Scooter Ramirez MD Status:[facility] Location: AC01-1 Procedures Musculoskeletal 20xxx-29xxx: Other Procedure See Report Operative Report (Standard) Operative Information Date of Procedure: 02/17/25 Pre-Operative Diagnosis: C5-7 disc degeneration with stenosis, radiculomyelopathy Post-Operative Diagnosis: Same Surgery/Procedure Performed: C5-7 ACDF kinesiologist: Yes Dual Rate Supervisor: Michaelle Gaffney Tasks completed by permit review assistant: Closing, Removing tissue, Hemostasis: Electrocautery and Retracting Type of Anesthesia: General RN Documented Start/Stop Times: Operation Date: 02/17/25 07:30 Case Time Into Pre-Op 02/17/25 05:39 Anesthesia Start 02/17/25 07:30 Into Room 02/17/25 07:30 Procedure Start 02/17/25 08:05 Procedure Start Time: 08:05 Procedure Stop Time: 09:55 Select all DRAINS/GRAFTS/IMPLANTS that apply: Drains Drain details: [place] , Graft Graft details: Structural allograft cortical cancellous strut, DBX and Implanted device Implanted device details: Medtronic Greenbush Elite plate instrumentation Estimated Blood Loss: 40 cc Specimen collected: No Description of surgery: Preoperative diagnosis: C5-7 disc degeneration with stenosis, radiculomyelopathy Postoperative diagnosis: Same Name of procedure: C5-7 anterior cervical discectomy and fusion with plate instrumentation - Anterior cervical fusion C5-6, CPT code 09429 - Anterior plate instrumentation C5-7, CPT code 43961/59 - Anterior cervical fusion C6-7, CPT code 67539/51 -C5-6 structural allograft bone with DBX, CPT code 64988 - C6-7 structural allograft bone with DBX, CPT code 57068 Attending surgeon: Saravanan Ibrahim M.D. Anesthesia: Gen. endotracheal Estimated blood loss: 40 mL Complications: None Instrumentation used: Medtronic Greenbush Elite plate, LASR corticocancellous block Indications: The patient is a pleasant 54-year-old gentleman who presented with neck pain, left worse than right upper extremity radiation, difficulty with dexterity and balance. MRI showed C5-7 disc degeneration with mild central and severe left worse than right foraminal stenosis. After prolonged course of nonsurgical treatment, the patient requested surgical treatment. All risks and benefits of the procedure were explained to the patient. The risks include but are not limited to infection, bleeding, injury to nerves and vessels, vertebral artery injury, spinal cord injury, paralysis, vocal cord paralysis, injury to esophagus, pseudoarthrosis, need for further procedures, adjacent segment degeneration. Procedure: The patient was identified in the preoperative suite using unique patient identifiers. Skin was marked consent was taken and all questions were answered. The patient was then brought back to the operative room and a timeout was performed. General endotracheal anesthesia was given. Intraoperative neuro monitoring leads were applied. The patient was carefully positioned supine on a regular OR table. A lateral view with a C-arm was done to identify the level and to define the incision. The anterior neck was then prepped and draped in the usual fashion. A final timeout was then performed. A transverse skin incision was taken to the left of midline. Subcutaneous tissue was then divided with Bovie. Platysma was identified and cut along the incision with scissors. The fascial interval between the sternocleidomastoid and the larynx was developed. Omohyoid was identified and retracted. The esophagus with the larynx was retracted medially to reach the prevertebral fascia. Marker x-ray was performed with bent spinal needle and disc space and levels were confirmed. Longus coli muscle was elevated on both sides at and above and below C5-7 discs. Self-retaining retractors were then placed. A long handle knife was then used to perform annulotomy at C5-6. Disc fragments were removed with the pituitary. Wharton pins were placed in C5 and C6 for disc distraction. Curettes and bur was utilized to remove cartilage from the endplates. Discectomy was performed laterally up to the uncovertebral joints. Posterior osteophytes were thinned down with the bur and adequate decompression in the central and foraminal areas were performed and PLL was thinned out. Once the disc space was prepared, trials of various sizes were utilized. Thorough irrigation was given. 6 mm LASR cortical cancellous allograft bone large footprint was then fashioned in such a way that concavities were burred out inferiorly and superiorly and half cc of DBX (demineralized bone matrix) was squeezed into the cancellous portion. The graft was th (more content not included)... Normal [facility] Cardiac Cath Diagnosticon Cardiac Cath Diagnostic [facility] Imaging Services [address] [place] [address] Cardiac Cath Diagnostic MR#: [id number] Acct: [id number] Name: DARWIN GORE Rep #: [id number] : 1970 54 From: Georges Negrete MD PCP: Dr. Scooter Ramirez MD Status:[facility] Patient Name: DARWIN GORE Study Date: 02/07/2025 Performing: Georges Negrete MD Ht: 69 inches 175.26 cm : 1970 Wt: 230.01 lbs 104.33 kg Age: 54 Gender: male BSA: 2.19 PROCEDURE(S) PERFORMED DC02-(01566)[facility]/COR IC10-(13397)FFR, CORONARY OR GRAFT, INITIAL VESSEL CLINICAL PROFILE [...] multiple views using a 5 Fr. 4.0 [place] catheter. Right Coronary Artery selective angiography was then performed in multiple views using a 5 Fr. 4.0 [place] catheter.The arterial sheath was pulled and a [...] MD; Dr. Scooter Ramirez MD Date Dictated: 02/07/25 0725 Date Transcribed: 02/10/25 1548 Literature Teacher: YUSUF Signed Normal [facility] Cardiac catheterization repo rtOrdered By: Georges Negrete on 02-10-2025 Cardiac catheterization study [facility] Imaging Services [address] [place] [address] Cardiac Cath Diagnostic MR#: [id number] Acct: [id number] Name: DARWIN GORE Rep #:[id number] : 1970 54 From: Georges Negrete MD PCP: Dr. Scooter Ramirez MD Status :[facility] Patient Name: DARWIN GORE Study Date: 02/07/2025 Performing: Georges Negrete MD Ht: 69 inches 175.26 cm : 1970 Wt: 230.01 lbs 104.33 kg Age: 54 Gender: male BSA: 2.19 PROCEDURE(S) PERFORMED DC02-(14509)[facility] IC10-(81461)FFR, CORONARY OR GRAFT, INITIAL VESSEL CLINICAL PROFILE [...] multiple views using a 5 Fr. 4.0 [place] catheter. Right Coronary Artery selective angiography was then performed in multiple views using a 5 Fr. 4.0 [place] catheter.The arterial sheath was pulled and a [...] 15:48:21 Georges Negrete MD 02/10/25 1549 Date _ Georges Negrete MD [facility] Signature: Date (if indicated) CC: Dr. Georges Negrete MD; Dr. Scooter Ramirez MD ~ Date Dictated: 02/07/25 0725 Date Transcribed: 02/10/25 1548 Literature Teacher: YUSUF Richardson [facility] Work Phone: MR/PATPastor 02-10-2025 MR/PATLV [facility] Medical Records Department [address] [place] [address] PAT - Anesthesia 02/10/25 1702 MR#: [id number] Acct: [id number] Name: DARWIN GORE Rep #: [id number] : 1970 54 From: Hubert Sharma MD PCP: Dr. Scooter Ramirez MD Status:PRE [facility] Y Race: C Location: [facility] Pre-Assessment Diagnosis/Proposed Procedure Planned Operative Procedure(s): ANTERIOR CERVICAL FUSION C5-6, C6-7 Anesthesia History Anesthesia History - fuel buyer: Anesthesia History - fuel buyer Hx Hospitalization No: [place] 12/202302/01/25 14:07 Any Problems With Anesthesia Yes: [...] take am of surgery PONV PONV - fuel buyer: PONV - fuel buyer Female No 02/01/25 14:07 HX of Motion [...] 09/13/24 06:33 Respiratory Assessment Respiratory Assessment - fuel buyer: Respiratory Tract Infection Hx - fuel buyer Hx Respiratory Tract Infection No 02/01/25 14:07 STOP Sleep Apnea STOP Sleep Apnea - fuel buyer: STOP Sleep Apnea - fuel buyer Hx Hypertension Yes: CONTROLLED WITH MED 02/01/25 [...] Tobacco Use History Tobacco Use History - fuel buyer: Tobacco Use History - fuel buyer Tobacco Use Smoking Status Never smoker 02/01/25 14:07 Hx Tobacco Use No 02/01/25 14:07 Years Smoking Packs Smoked per Day Smoking Cessation Date was within the last 15 years Hx Smoking Cessation Date Hx Smoking Cessation No 02/01/25 14:07 Counseling Hematologic Medial History Hematologic Hx - fuel buyer: 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 Normal [facility] Orthopedic Visit Reporton Orthopedic Visit Report [facility] [address] [place] [address] OFFICE VISIT Date of Service: 02/10/25 MR#: [id number] Acct: [id number] Name: DARWIN GORE Rep #: [id number] : 1970 Provider: Dr. Saravanan Ibrahim MD Age/Sex: 54/M Location: [facility] [place].[facility] Status: Signed Intake Vital Signs 09/13/24 06:33 [...] by me, Dr. Saravanan Ibrahim MD 02/10/25 0751. Part of today???s visit was documented by [...] 12/24/24: BLU (more content not included)... Normal [facility] MR/PATLeonDONNELLoliver 02-09-2025 MR/PAT.DONNELL [facility] Medical Records Department [address] [place] [address] PAT - Anesthesia 02/09/25 1601 MR#: [id number] Acct: [id number] Name: DARWIN GORE Rep #: [id number] : 1970 54 From: Hubert Sharma MD PCP: Dr. Scooter Ramirez MD Status:PRE [facility] Y Race: C Location: [facility] Pre-Assessment Diagnosis/Proposed Procedure Planned Operative Procedure(s): ANTERIOR CERVICAL FUSION C5-6, C6-7 Anesthesia History Anesthesia History - fuel buyer: Anesthesia History - fuel buyer Hx Hospitalization No: [place] 12/202302/01/25 14:07 Any Problems With Anesthesia Yes: [...] take am of surgery PONV PONV - fuel buyer: PONV - fuel buyer Female No 02/01/25 14:07 HX of Motion [...] 09/13/24 06:33 Respiratory Assessment Respiratory Assessment - fuel buyer: Respiratory Tract Infection Hx - fuel buyer Hx Respiratory Tract Infection No 02/01/25 14:07 STOP Sleep Apnea STOP Sleep Apnea - fuel buyer: STOP Sleep Apnea - fuel buyer Hx Hypertension Yes: CONTROLLED WITH MED 02/01/25 [...] Tobacco Use History Tobacco Use History - fuel buyer: Tobacco Use History - fuel buyer Tobacco Use Smoking Status Never smoker 02/01/25 14:07 Hx Tobacco Use No 02/01/25 14:07 Years Smoking Packs Smoked per Day Smoking Cessation Date was within the last 15 years Hx Smoking Cessation Date Hx Smoking Cessation No 02/01/25 14:07 Counseling Hematologic Medial History Hematologic Hx - fuel buyer: 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 Normal [facility] ACT Activated Clotting Timeo n 02-08-2025 ACTk CLOT TIME 239 sec High 74-137 [facility] Comment on above: Performed By: #### L 9100.0100 ####[facility] [address] [place], [address] /Franky 02-07-2025 /STEPHENIE [facility] Medical Records Department [address] [place] [address] PAT - Anesthesia 02/07/25 1043 MR#: [id number] Acct: [id number] Name: DARWIN GORE Rep #: [id number] : 1970 54 From: Perez Preciado MD PCP: Dr. Scooter Ramirez MD Status:PRE [facility] Y Race: C Location: [facility] Pre-Assessment Diagnosis/Proposed Procedure Planned Operative Procedure(s): ANTERIOR CERVICAL FUSION C5-6, C6-7 Anesthesia History Anesthesia History - fuel buyer: Anesthesia History - fuel buyer Hx Hospitalization No: [place] 12/202302/01/25 14:07 Any Problems With Anesthesia Yes: [...] take am of surgery PONV PONV - fuel buyer: PONV - fuel buyer Female No 02/01/25 14:07 HX of Motion [...] 09/13/24 06:33 Respiratory Assessment Respiratory Assessment - fuel buyer: Respiratory Tract Infection Hx - fuel buyer Hx Respiratory Tract Infection No 02/01/25 14:07 STOP Sleep Apnea STOP Sleep Apnea - fuel buyer: STOP Sleep Apnea - fuel buyer Hx Hypertension Yes: CONTROLLED WITH MED 02/01/25 [...] Tobacco Use History Tobacco Use History - fuel buyer: Tobacco Use History - fuel buyer Tobacco Use Smoking Status Never smoker 02/01/25 14:07 Hx Tobacco Use No 02/01/25 14:07 Years Smoking Packs Smoked per Day Smoking Cessation Date was within the last 15 years Hx Smoking Cessation Date Hx Smoking Cessation No 02/01/25 14:07 Counseling Hematologic Medial History Hematologic Hx - fuel buyer: 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 Normal [facility] MRSA/SAID NASAL SCREENon MRSA+SAID SCRN Reason for Exam: Surgery Copy of report sent to Infection Control Printer [id number] 02/05/25 5798 MARIO. MRSA MRSA Negative S. AUREUS S. aureus PositiveA Normal [facility] Comment on above: Performed By: #### L 100.0100, L500.2500, L501.9985, BTSPAT, M100.651 ####[facility] [address] [place], [address] Basic Metabolic Profile (BMP )on 02-04-2025 BUN/CRE 20.4 RATIO High 02-14 [facility] Comment on above: Performed By: #### L 100.0100, L500.2500, L501.9985, BTSPAT, M100.651 ####[facility] [address] [place], [address] Calcium [Mass/Vol] 9.6 mg/dL Normal 7.6-11.0 [facility] Comment on above: Performed By: #### L 100.0100, L500.2500, L501.9985, BTSPAT, M100.651 ####[facility] [address] [place], [address] Chloride [Moles/Vol] 103 mmol/L Normal 98-108 [facility] Comment on above: Performed By: #### L 100.0100, L500.2500, L501.9985, BTSPAT, M100.651 ####[facility] [address] [place], [address] CO2 [Moles/Vol] 23.1 mmol/L Normal 21.0-32.0 [facility] Comment on above: Performed By: #### L 100.0100, L500.2500, L501.9985, BTSPAT, M100.651 ####[facility] [address] [place], [address] Creatinine [Mass/Vol] 0.94 mg/dL Normal 0.70-1.20 [facility] Comment on above: Performed By: #### L 100.0100, L500.2500, L501.9985, BTSPAT, M100.651 ####[facility] [address] [place], [address] GAP 11 Normal 5-15 [facility] Comment on above: Performed By: #### L 100.0100, L500.2500, L501.9985, BTSPAT, M100.651 ####[facility] [address] [place], [address] GFR/1.73 sq M.predicted among non-blacks MDRD (S/P/Bld) [Vol rate/Area] 96 mL/min/{1.73_m2} Normal >60 [facility] Comment on above: Result Comment: mL/m in/1.73m2 CKD-EPI Creatinine Equation (2020) Performed By: #### L 100.0100, L500.2500, L501.9985, BTSPAT, M100.651 ####[facility] [address] [place], [address] Glucose [Mass/Vol] 158 mg/dL High 70-99 [facility] Comment on above: Performed By: #### L 100.0100, L500.2500, L501.9985, BTSPAT, M100.651 ####[facility] [address] [place], [address] Potassium [Moles/Vol] 4.5 mmol/L Normal 3.3-5.1 [facility] Comment on above: Result Comment: Hemo lysis present, Results??could be affected. ?? Performed By: #### L 100.0100, L500.2500, L501.9985, BTSPAT, M100.651 ####[facility] [address] [place], [address] Sodium [Moles/Vol] 137 mmol/L Normal 133-145 [facility] Comment on above: Performed By: #### L 100.0100, L500.2500, L501.9985, BTSPAT, M100.651 ####[facility] [address] [place], [address] Urea nitrogen [Mass/Vol] 19 mg/dL Normal 4-19 [facility] Comment on above: Performed By: #### L 100.0100, L500.2500, L501.9985, BTSPAT, M100.651 ####[facility] [address] [place], [address] CBC W/Diff, Automatedon 10-1 0-2025 Absolute Lymph 2.86 X10 3/uL Normal 0.83-4.51 [facility] Comment on above: Performed By: #### L 100.0100, L500.2500, L501.9985, BTSPAT, M100.651 #### [facility] [address] [place], [address] Absolute Neut 3.8 X10 3/uL Normal 2.0-7.7 [facility] Comment on above: Performed By: #### L 100.0100, L500.2500, L501.9985, BTSPAT, M100.651 #### [facility] [address] [place], [address] Basophils/100 WBC (Bld) 0.7 % Normal 0-1 [facility] Comment on above: Performed By: #### L 100.0100, L500.2500, L501.9985, BTSPAT, M100.651 #### [facility] [address] [place], [address] Eosinophils/100 WBC (Bld) 1.6 % Normal 0-5 [facility] Comment on above: Performed By: #### L 100.0100, L500.2500, L501.9985, BTSPAT, M100.651 #### [facility] [address] [place], [address] Erythrocyte distribution width (RBC) [Ratio] 14.1 % Normal 11.6-14.6 [facility] Comment on above: Performed By: #### L 100.0100, L500.2500, L501.9985, BTSPAT, M100.651 #### [facility] [address] [place], [address] Hematocrit (Bld) [Volume fraction] 43.6 % Normal 40-54 [facility] Comment on above: Performed By: #### L 100.0100, L500.2500, L501.9985, BTSPAT, M100.651 #### [facility] [address] [place], [address] Hemoglobin (Bld) [Mass/Vol] 14.6 g/dL Normal 13.0-16.5 [facility] Comment on above: Performed By: #### L 100.0100, L500.2500, L501.9985, BTSPAT, M100.651 #### [facility] [address] [place], [address] IG% 0.400 Normal 0.0-0.9 [facility] Comment on above: Result Comment: IG% - Immature Granulocytes (promyelocytes, myelocytes and metamyelocytes) > 1% indicates that a LEFT SHIFT is Present. Performed By: #### L 100.0100, L500.2500, L501.9985, BTSPAT, M100.651 #### [facility] [address] [place], [address] Lymphocytes/100 WBC (Bld) 38.8 % Normal 19-41 [facility] Comment on above: Performed By: #### L 100.0100, L500.2500, L501.9985, BTSPAT, M100.651 #### [facility] [address] [place], [address] MCH (RBC) [Entitic mass] 29.6 pg Normal 27.0-32.0 [facility] Comment on above: Performed By: #### L 100.0100, L500.2500, L501.9985, BTSPAT, M100.651 #### [facility] [address] [place], [address] MCHC (RBC) [Mass/Vol] 33.5 g/dL Normal 32-36 [facility] Comment on above: Performed By: #### L 100.0100, L500.2500, L501.9985, BTSPAT, M100.651 #### [facility] [address] [place], [address] MCV (RBC) [Entitic vol] 88.4 fL Normal 80-94 [facility] Comment on above: Performed By: #### L 100.0100, L500.2500, L501.9985, BTSPAT, M100.651 #### [facility] [address] [place], [address] Monocytes/100 WBC (Bld) 7.7 % Normal 0-10 [facility] Comment on above: Performed By: #### L 100.0100, L500.2500, L501.9985, BTSPAT, M100.651 #### [facility] [address] [place], [address] Neutrophils/100 WBC (Bld) 50.8 % Normal 47-70 [facility] Comment on above: Performed By: #### L 100.0100, L500.2500, L501.9985, BTSPAT, M100.651 #### [facility] [address] [place], [address] Nucleated RBC (Bld) [#/Vol] 0 10*3/uL Normal 0-5 [facility] Comment on above: Performed By: #### L 100.0100, L500.2500, L501.9985, BTSPAT, M100.651 #### [facility] [address] [place], [address] Platelet mean volume (Bld) [Entitic vol] 9.1 fL Normal 6.2-12.0 [facility] Comment on above: Performed By: #### L 100.0100, L500.2500, L501.9985, BTSPAT, M100.651 #### [facility] [address] [place], [address] Platelets (Bld) [#/Vol] 212 10*3/uL Normal 150-450 [facility] Comment on above: Performed By: #### L 100.0100, L500.2500, L501.9985, BTSPAT, M100.651 #### [facility] [address] [place], [address] RBC (Bld) [#/Vol] 4.93 10*6/uL Normal 4.6-6.2 [facility] Comment on above: Performed By: #### L 100.0100, L500.2500, L501.9985, BTSPAT, M100.651 #### [facility] Laboratory [address] [place], [address] RDW SD 45.5 fl High 35.1-43.9 [facility] Comment on above: Performed By: #### L 100.0100, L500.2500, L501.9985, BTSPAT, M100.651 #### [facility] Laboratory [address] [place], [address] WBC (Bld) [#/Vol] 7.4 10*3/uL Normal 4.4-11.0 [facility] Comment on above: Performed By: #### L 100.0100, L500.2500, L501.9985, BTSPAT, M100.651 #### [facility] Laboratory [address] [place], [address] Echo Completeon 02-04-2025 Echo Complete [facility] Cardiovascular Services [address] [place] [address] Echo Complete 02/04/25 1050 MR#: [id number] Acct: [id number] Name: DARWIN GORE Rep #: [id number] : 1970 54 From: Georges Negrete MD Attending Dr: Dr. Georegs Negrtee MD Status: REG CLI Ordering Dr: Georges Negrete MD Date: 02/04/25 Location: [facility] Sex: M C Admitted: Reason For Study [...] Referring Physician: Georges Negrete Performed By: Raegan Trujillo RDCS 02/04/25 1235 Date Georges Negrete MD CC: Dr. Georges Negrete MD; Dr. Scooter Ramirez MD Date Dictated: 02/04/25 1050 Date Transcribed: 02/04/25 123 Literature Teacher: Signed Normal [facility] Hemoglobin A1con 02-04-2025 HbA1c (Bld) [Mass fraction] 6.9 % High <=5.6 [facility] Comment on above: Result Comment: Norm al < 5.7 % Prediabetic 5.7 - 6.4 % Diabetic >or= 6.5 % Please note range changes. Performed By: #### L 100.0100, L500.2500, L501.9985, BTSPAT, M100.651 #### [facility] Laboratory [address] [place], [place], [address] Hemoglobin A1c percentageOrd ered By: Saravanan Ibrahim on 02-04-2025 HbA1c (Bld) [Mass fraction] 6.9 % High <5.7 [facility] Comment on above: Normal < 5.7 % Predi abetic 5.7 - 6.4 % Diabetic >or= 6.5 % Please note range changes. MRSA screenOrdered By: Sarah Ibrahim on 02-04-2025 MRSA DNA JEAN+probe Ql (Unsp spec) [facility] Magnesiumon 02-04-2025 Magnesium [Mass/Vol] 2.5 mg/dL High 1.5-2.2 [facility] Comment on above: Performed By: #### L 501.5200 #### [facility] Laboratory [address] [facility] [place], [address] Magnesium measurement (mass/ volume)Ordered By: Perez Preciado on 02-04-2025 Magnesium (Unsp spec) [Mass/Vol] 2.5 mg/dL High 1.5-2.2 [facility] Stress Reporton 02-04-2025 Stress Report [facility] Cardiovascular Services [address] [place] [address] MR#: [id number] Acct: [id number] Name: DARWIN GORE Rep #: [id number] : 1970 54 From: Georges Negrete MD Primary Care: Dr. Scooter Ramirez MD Status: REG CLI Referring Dr: Georges Negrete MD Sex: M [...] of 52%. This note was generated with Topguestation software. It may contain incorrect words, spelling, and punctuation that were not noted in checking the note before signing. 02/04/25 1027 Date Georges Negrete MD CC: Dr. Georges Negrete MD; Dr. Scooter Ramirez MD Date Dictated: 02/04/25 1020 Date Transcribed: 02/04/25 1020 Literature Teacher: YUSUF Signed Normal [facility] Type AND Screen - [facility] ONLYon 02-04-2025 ABO and Rh group Nom (Bld) Blood group A Rh(D) positive Normal [facility] Comment on above: Order Comment: Surge ry Date: 02/17/25 Reason for Laboratory Test SURGERY [id number] No N N S CERVICAL FUSION Performed By: #### L 100.0100, L500.2500, L501.9985, BTSPAT, M100.651 #### [facility] Laboratory [address] [facility] [place], [place], [address] MR/Franky 02-03-2025 MR/SELENE.DONNELL [facility] Medical Records Department [address] [place] [address] PAT - Anesthesia 02/03/25 1233 MR#: [id number] Acct: [id number] Name: DARWIN GORE Rep #: [id number] : 1970 54 From: Perez Preciado MD PCP: Dr. Scooter Ramirez MD Status:PRE [facility] Y Race: C Location: [facility] Pre-Assessment Diagnosis/Proposed Procedure Planned Operative Procedure(s): ANTERIOR CERVICAL FUSION C5-6, C6-7 Anesthesia History Anesthesia History - fuel buyer: Anesthesia History - fuel buyer Hx Hospitalization No: [place] 12/202302/01/25 14:07 Any Problems With Anesthesia Yes: [...] take am of surgery PONV PONV - fuel buyer: PONV - fuel buyer Female No 02/01/25 14:07 HX of Motion [...] 09/13/24 06:33 Respiratory Assessment Respiratory Assessment - fuel buyer: Respiratory Tract Infection Hx - fuel buyer Hx Respiratory Tract Infection No 02/01/25 14:07 STOP Sleep Apnea STOP Sleep Apnea - fuel buyer: STOP Sleep Apnea - fuel buyer Hx Hypertension Yes: CONTROLLED WITH MED 02/01/25 [...] Tobacco Use History Tobacco Use History - fuel buyer: Tobacco Use History - fuel buyer Tobacco Use Smoking Status Never smoker 02/01/25 14:07 Hx Tobacco Use No 02/01/25 14:07 Years Smoking Packs Smoked per Day Smoking Cessation Date was within the last 15 years Hx Smoking Cessation Date Hx Smoking Cessation No 02/01/25 14:07 Counseling Hematologic Medial History Hematologic Hx - fuel buyer: 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 Normal [facility] Anion gap in Serum or Plasma Ordered By: Georges Negrete on 01-26-2025 Anion gap [Moles/Vol] 13 mmol/L - [facility] BUN/creatinine ratioOrdered By: Georges Negrete on 01-26-2025 Urea nitrogen/Creatinine [Mass ratio] 26.3 mg/mg High 02-14 [facility] Bilirubin, totalOrdered By: Georges Negrete on 01-26-2025 Bilirubin [Mass/Vol] 0.36 mg/dL 0.00-1.30 [facility] Calculated very low density lipoprotein (VLDL) cholesterol measurementOrdered By: Georges Negrete on 01-26-2025 Calculated very low density lipoprotein (VLDL) cholesterol measurement 21 mg/dL [facility] Carbon dioxide, total [Moles /volume] in Central venous bloodOrdered By: Georges Negrete on 01-26-2025 CO2 [Moles/Vol] 19.4 mmol/L Low 21.0-32.0 [facility] Cardiology Visit Reporton Cardiology Visit Report [facility] [address] [facility] [place], [place] [address] OFFICE VISIT Date of Service: 01/26/25 MR#: [id number] Acct: [id number] Name: DARWIN GORE Rep #: [id number] : 1970 Provider: Dr. Georges Negrete MD Age/Sex: 54/M Location: [facility] Status: Signed HPI HPI History [...] Monitor Intake Visit Reasons: 6 M FU Herb Counselor Required: No Accompanied by: Self Is patient [...] (discomfort) Frequency: weekly Character: sharp and other (tension) Location: left chest Duration: minutes and brief [...] Ultrasound Abdomen/Pelvis (more content not included)... Normal [facility] Chloride assayOrdered By: Yusuf Negrete on 01-26-2025 Chloride [Moles/Vol] 105 mmol/L 98-108 [facility] Comprehensive Metabolic Prof ilon 01-26-2025 Albumin [Mass/Vol] 4.6 g/dL Normal 3.5-5.0 [facility] Comment on above: Performed By: #### L 500.2500, L100.0100 #### [facility] Laboratory [address] [place], [address] Albumin/Globulin [Mass ratio] 1.7 {ratio} Normal 0.9-2.4 [facility] Comment on above: Performed By: #### L 500.2500, L100.0100 #### [facility] Laboratory [address] [place], [address] ALK PHOS 62 U/L Normal 40-129 [facility] Comment on above: Performed By: #### L 500.2500, L100.0100 #### [facility] Laboratory [address] [place], [address] ALT [Catalytic activity/Vol] 48 U/L High <=46 [facility] Comment on above: Performed By: #### L 500.2500, L100.0100 #### [facility] Laboratory [address] [place], [address] AST [Catalytic activity/Vol] 31 U/L Normal <=37 [facility] Comment on above: Performed By: #### L 500.2500, L100.0100 #### [facility] Laboratory [address] [place], [address] Bilirubin [Mass/Vol] 0.36 mg/dL Normal 0.00-1.30 [facility] Comment on above: Performed By: #### L 500.2500, L100.0100 #### [facility] Laboratory [address] [place], [address] BUN/CRE 26.3 RATIO High 10-20 [facility] Comment on above: Performed By: #### L 500.2500, L100.0100 #### [facility] Laboratory [address] [place], [address] Calcium [Mass/Vol] 9.5 mg/dL Normal 7.6-11.0 [facility] Comment on above: Performed By: #### L 500.2500, L100.0100 #### [facility] Laboratory [address] [place], [address] Chloride [Moles/Vol] 105 mmol/L Normal 98-108 [facility] Comment on above: Performed By: #### L 500.2500, L100.0100 #### [facility] Laboratory [address] [place], [address] CO2 [Moles/Vol] 19.4 mmol/L Low 21.0-32.0 [facility] Comment on above: Performed By: #### L 500.2500, L100.0100 #### [facility] Laboratory [address] [place], [address] Creatinine [Mass/Vol] 0.92 mg/dL Normal 0.70-1.20 [facility] Comment on above: Performed By: #### L 500.2500, L100.0100 #### [facility] Laboratory [address] [place], [address] GAP 13 Normal 5-15 [facility] Comment on above: Performed By: #### L 500.2500, L100.0100 #### [facility] Laboratory [address] [place], [address] GFR/1.73 sq M.predicted among non-blacks MDRD (S/P/Bld) [Vol rate/Area] 99 mL/min/{1.73_m2} Normal >60 [facility] Comment on above: Result Comment: mL/m in/1.73m2 CKD-EPI Creatinine Equation (2020) Performed By: #### L 500.2500, L100.0100 #### [facility] Laboratory [address] [place], [address] Globulin (S) [Mass/Vol] 2.7 g/dL Normal 2.2-4.2 [facility] Comment on above: Performed By: #### L 500.2500, L100.0100 #### [facility] Laboratory [address] [place], [address] Glucose [Mass/Vol] 128 mg/dL High 70-99 [facility] Comment on above: Performed By: #### L 500.2500, L100.0100 #### [facility] Laboratory [address] [place], [address] Potassium [Moles/Vol] 4.3 mmol/L Normal 3.3-5.1 [facility] Comment on above: Performed By: #### L 500.2500, L100.0100 #### [facility] Laboratory [address] [place], [address] Sodium [Moles/Vol] 137 mmol/L Normal 133-145 [facility] Comment on above: Performed By: #### L 500.2500, L100.0100 #### [facility] Laboratory [address] [place], [address] T PROT 7.2 g/dL Normal 5.9-8.4 [facility] Comment on above: Performed By: #### L 500.2500, L100.0100 #### [facility] Laboratory [address] [place], [address] Urea nitrogen [Mass/Vol] 24 mg/dL High 4-19 [facility] Comment on above: Performed By: #### L 500.2500, L100.0100 #### [facility] Laboratory [address] [place], [address] Glomerular filtration rate ( GFR) estimation/1.73 sq m using serum, plasma, or whole bOrdered By: Georges Negrete on 01-26-2025 GFR/1.73 sq M.predicted among non-blacks MDRD (S/P/Bld) [Vol rate/Area] 99 mL/min/{1.73_m2} >60 [facility] Comment on above: mL/min/1.73m2 CKD-EP I Creatinine Equation (2020) L509.3001on 01-26-2025 Testosterone [Mass/Vol] 461.00 ng/dL Normal 300-890 [facility] Comment on above: Performed By: #### L 500.2500, L100.0100 #### [facility] Laboratory [address] [place], [address] LDL calc ser/plasOrdered By: Georges Negrete on 01-26-2025 Cholesterol in LDL [Mass/Vol] 80 mg/dL [facility] Comment on above: Iyjrquovql=297-297 m g/dL & Higher Hlvb=883 mg/dL or greaterFriedwald Equation for LDL-C Laboratory - Chemistry and C hemistry - challengeOrdered By: Scooter Ramirez on 01-26-2025 Testosterone [Mass/Vol] 461.00 ng/dL 300-890 [facility] Laboratory - Chemistry and C hemistry - challengeOrdered By: Georges Negrete on 01-26-2025 AST [Catalytic activity/Vol] 31 U/L <38 [facility] Lipid Profileon 01-26-2025 CHOL:HDL 2.77 Normal [facility] Comment on above: Performed By: #### L 500.2500, L100.0100 #### [facility] Laboratory [address] [place], [address] Cholesterol [Mass/Vol] 158 mg/dL Normal <=200 [facility] Comment on above: Result Comment: Chol esterol level, Desirable <200 mg/dL Borderline high cholesterol 200-239 mg/dL High cholesterol >=240 mg/dL Recommendations of the NCEP Adult Treatment Panel for the following risk-cutoff thresholds for the [place] Malt[place] population. Performed By: #### L 500.2500, L100.0100 #### [facility] Laboratory [address] [place], [address] Cholesterol in HDL [Mass/Vol] 57 mg/dL Normal [facility] Comment on above: Result Comment: Bere onal Cholesterol Education Program (NCEP) guidelines: <40 mg/dL: Low HDL-cholesterol (major risk factor for CHD) >= 60 mg/dL: High HDL-cholesterol (negative risk factor for CHD) HDL-cholesterol is affected by a number of factors, e.g. smoking, exercise, hormones, sex and age. Performed By: #### L 500.2500, L100.0100 #### [facility] Laboratory [address] [place], [address] Cholesterol in LDL [Mass/Vol] 80 mg/dL Normal [facility] Comment on above: Result Comment: Bord obhpvb=377-965 mg/dL Higher Ydoe=485 mg/dL or greater Friedwald Equation for LDL-C Performed By: #### L 500.2500, L100.0100 #### [facility] Laboratory [address] [place], [address] Cholesterol in VLDL [Mass/Vol] 21 mg/dL Normal 5-40 [facility] Comment on above: Performed By: #### L 500.2500, L100.0100 #### [facility] Laboratory [address] [place], [address] Triglyceride [Mass/Vol] 105 mg/dL Normal [facility] Comment on above: Result Comment: The drugs N-Acetylcysteine and Metamizole may falsely depress this assay. Normal range: <150 mg/dL Borderline High: 150-199 mg/dL High: 200-499 mg/dL Very High: >500 mg/dL Performed By: #### L 500.2500, L100.0100 #### [facility] Laboratory [address] [place], [address] Potassium measurement (mass/ volume)Ordered By: Georges Negrete on 01-26-2025 Potassium (Unsp spec) [Mass/Vol] 4.3 mmol/L 3.3-5.1 [facility] Screening total cholesterol/ high density lipoprotein (HDL) cholesterol ratioOrdered By: Georges Negrete on 01-26-2025 Cholesterol.total/Choles terol in HDL [Mass ratio] 2.77 {ratio} [facility] Serum creatinine measurement (mass/volume)Ordered By: Georges Negrete on 01-26-2025 Creatinine [Mass/Vol] 0.92 mg/dL 0.70-1.20 [facility] Serum globulin measurementOr dered By: Georges Negrete on 01-26-2025 Globulin (S) [Mass/Vol] 2.7 g/dL 2.2-4.2 [facility] Serum glucose measurement (m ass/volume)Ordered By: Georges Negrete on 01-26-2025 Glucose [Mass/Vol] 128 mg/dL High 70-99 [facility] Serum or plasma alanine hurst otransferase (ALT) measurementOrdered By: Georges Negrete on 01-26-2025 ALT [Catalytic activity/Vol] 48 U/L High <47 [facility] Serum or plasma albumin nita urement (mass/volume)Ordered By: Georges Negrete on 01-26-2025 Albumin [Mass/Vol] 4.6 g/dL 3.5-5.0 [facility] Serum or plasma albumin/glob ulin mass ratioOrdered By: Georges Negrete on 01-26-2025 Albumin/Globulin [Mass ratio] 1.7 {ratio} 0.9-2.4 [facility] Serum or plasma alkaline brandi sphatase measurementOrdered By: Georges Negrete on 01-26-2025 ALP [Catalytic activity/Vol] 62 U/L 40-129 [facility] Serum or plasma calcium nita urement (mass/volume)Ordered By: Georges Negrete on 01-26-2025 Calcium [Mass/Vol] 9.5 mg/dL 7.6-11.0 [facility] Serum or plasma cholesterol in HDL measurement (mass/volume)Ordered By: Georges Negrete on 01-26-2025 Cholesterol in HDL [Mass/Vol] 57 mg/dL >40 [facility] Comment on above: National Cholesterol Education Program (NCEP) guidelines:<40 mg/dL: Low HDL-cholesterol (major risk factor for CHD)>= 60 mg/dL: High HDL-cholesterol (negative risk factor for CHD)HDL-cholesterol is affected by a number of factors, e.g. smoking, exercise, hormones, sex and age. Serum or plasma cholesterol measurement (mass/volume)Ordered By: Georges Negrete on 01-26-2025 Cholesterol [Mass/Vol] 158 mg/dL <[address] [facility] Comment on above: Cholesterol level, D esirable <200 mg/dLBorderline high cholesterol 200-239 mg/dLHigh cholesterol >=240 mg/dLRecommendations of the NCEP Adult Treatment Panel for the following risk-cutoff thresholds for the [place]alt[place] population. Serum or plasma urea nitroge n measurement (mass/volume)Ordered By: Georges Negrete on 01-26-2025 Urea nitrogen [Mass/Vol] 24 mg/dL High 4-19 [facility] Sodium levelOrdered By: Damon Negrete on 01-26-2025 Sodium [Moles/Vol] 137 mmol/L 133-145 [facility] Total proteinOrdered By: Pallavi Negrete on 01-26-2025 Protein [Mass/Vol] 7.2 g/dL 5.9-8.4 [facility] Triglycerides measurementOrd ered By: Georges Negrete on 01-26-2025 Triglyceride [Mass/Vol] 105 mg/dL <199 [facility] Comment on above: The drugs N-Acetylcy steine and Metamizole may falsely depress this assay. Normal range: <150 mg/dLBorderline High: 150-199 mg/dLHigh: 200-499 mg/dLVery High: >500 mg/dL Cerv Spine 4 or 5 Viewson Cerv Spine 4 or 5 Views [facility] Imaging Services [address] [place], [place] [address] Cerv Spine 4 or 5 Views MR#: [id number] Acct: [id number] Name: DARWIN GORE Rep #: [id number] : 1970 M 54 From: Franklyn Chavira MD PCP: Dr. Scooter Ramirez MD Status: DEP AMB Study: Cerv Spine 4 or 5 Views Date of Exam: 12/24/24 Exam# [id number] Ordering Dr: Emilia Camejo PROCEDURE: CERV SPINE 4 OR 5 VIEWS 12/24/2024 REASON FOR EXAM: NECK PAIN, EXTENDS TO LEFT ARM TECHNIQUE: Procedure Code: RADSPC Modality: DX Procedure: CERV SPINE 4 OR [...] or malalignment. Mild spondylotic changes. Reading Location: [id number] CC: KAREN Chavarria; Dr. Scooter Ramirez MD Literature Teacher: Signed Normal [facility] Orthopedic Visit Reporton Orthopedic Visit Report [facility] [address] [place] [address] [place] [address] OFFICE VISIT Date of Service: 12/24/24 MR#: [id number] Acct: [id number] Name: DARWIN GORE Rep #: [id number] : 1970 Provider: Dr. Saravanan Ibrahim MD Age/Sex: 54/M Location: [facility] Status: Signed Intake Vital Signs 09/13/24 06:33 [...] mg PO QDAY 12/24/24 12/24/24 H istory [facility] Medical History (Updated 12/24/24 @ 13:24 by Dayan Valdez, RN) Cervical disc herniation Obesity (BMI 30-39.9) [...] by me, Dr. Saravanan Ibrahim MD 12/24/24 8033. Part of today???s visit was documented by [...] blood thinners (more content not included)... Normal [facility] PT D/C Summary (1)on 025 PT D/C Summary (1) [facility] Physical Therapy [address] [place] [address] / REHABILITATION SERVICES DISCHARGE SUMMARY MR#: [id number] Acct: [id number] Name: DARWIN GORE Rep #: [id number] : 1970 54 From: Vu Quintero PT, Cert. T, [facility] Referring DrLeon: Dr. 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 Thank you for the referral of this patient. Sincerely, Vu Quintero, PT, Cert MDT, OCS Balance/Gait/Functiona l tests Balance/Special Test Scores Oswestry Neck Score: 25 Improvement % Improvement: 20 12/07/24 1222 CC: Dr. Saravanan Ibrahim MD; Dr. Scooter Ramirez MD JLA Signed Normal [facility] PT D/C Summary (1) [facility] Physical Therapy [facility] [address] [place] [address] [address] [place] [address] / REHABILITATION SERVICES DISCHARGE SUMMARY MR#: [id number] Acct: [id number] Name: DARWIN GORE Rep #: [id number] : 1970 54 From: Vu Quintero PT, Arpit. T, OCS Referring Dr.: Dr. 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 Thank you for the referral of this patient. Sincerely, Vu Quintero PT, Cert MDT, OCS Balance/Gait/Functiona l tests Balance/Special Test Scores Oswestry Neck Score: 25 Improvement % Improvement: 12/07/24 1224 CC: Dr. Saravanan Ibrahim MD; Dr. Scooter Ramirez MD JLA Signed Normal [facility] Cerv Spine 4 or 5 Viewson Cerv Spine 4 or 5 Views [facility] Imaging Services [address] [place] [address] Cerv Spine 4 or 5 Views MR#: [id number] Acct: [id number] Name: DARWIN GORE Rep #: [id number] : 1970 M 54 From: Garry Wheatley MD PCP: Dr. Scooter Ramirez MD Status: [facility] Study: Cerv Spine 4 or 5 Views Date of Exam: 09/13/24 Exam# [id number] Ordering Dr: Mati Car MD PROCEDURE: CERV [...] Views IMPRESSION: Fluoroscopy as above. Reading Location: [id number] CC: Dr. Scooter Ramirez MD; Dr. Mati Car MD Literature Teacher: Signed [facility] MR/POSTOP.[facility] 09-13-2024 MR/POSTOP.[facility] Medical Records Department [address] [place] [address] Anesthesia Postop Eval I 09/13/24 0858 MR#: [id number] Acct: [id number] Name: DARWIN GORE Rep #: [id number] : 1970 54 From: Patel Powell CRNA PCP: Dr. Scooter Ramirez MD Status:[facility] Y Race: C Location: [facility] Anesthesia: Postop Eval I Current Vital Signs [...] completed: Yes 09/13/24 0859 Date Patel Powell DISPERSION MIXER Cosigner Signature: Date CC: Signed Normal [facility] MR/[id number] 09-13-2024 MR/POSTOPAN2 [facility] Medical Records Department [address] [place] [address] Anesthesia Postop Eval II 09/13/24908 MR#: [id number] Acct: [id number] Name: DARWIN GORE Rep #: [id number] : 1970 54 From: Perez Preciado MD PCP: Dr. Scooter Ramirez MD Status:[facility] Y Race: C Location: [facility] Anesthesia Postop Eval I Sum Postop Eval Completion status Anesthesia document: Postop Eval 1 completed: Yes Anesthesia Postop Eval I Summary Anesthesia Postop Eval I Summary: Anesthesia Postop Eval I: Assessment Summary Airway patent Yes 09/13/24 08:59 [email or web address] Spontaneous unlabored Yes 09/13/24 08:59 [email or web address] [email or web address] respirations Mental status Awake,Calm 09/13/24 08:59 DISPERSION [email or web address] nausea No 09/13/24 08:59 DISPERSION [email or web address] Vomiting No 09/13/24 08:59 [email or web address] [email or web address] Anesthesia Postop Eval I: Fluid Summary Crystalloid volume administer 200 09/13/24 08:59 DISPERSION [email or web address] (ml) Colloids volume administered ( ml) Blood Product volume administered (ml) Total IV fluid infused 200 09/13/24 08:59 [email or web address] Anesthesia Postop Eval I: Summary Notes Anesthesia Complication No 09/13/24 08:59 [email or web address] Anesthesia Complication Comment: Post-operative progress note Anesthesia: Postop Eval II Evaluation Mental status: Awake Pain Level: 0 nausea: No Vomiting: No 09/13/24908 Perez Hopper Signature: Date CC: Signed Normal [facility] Operative Reporton 5 Operative Report [facility] Medical Records Department [address] [place] [address] Operative Report 09/13/24 0820 MR#: [id number] Acct: [id number] Name: DARWIN GORE Rep #: [id number] : 1970 54 From: Mati Car MD PCP: Dr. Scooter Ramirez MD Status:[facility] Location: [place] [address] Operative Report (Standard) Operative Information Date of Procedure: 09/13/24 Pre-Operative Diagnosis: Cervical spondylosis, cervical degenerative disc disease, cervical facet arthropathy Post-Operative Diagnosis: Cervical spondylosis, cervical degenerative disc disease, cervical facet arthropathy Surgery/Procedure Performed: Left-sided cervical facet steroid injection, C4, C5, C6, and C7. kinesiologist: No Type of Anesthesia: Local MAC RN [...] MD; Dr. Mati Car MD Signed Normal [facility] MR/PATPastor 09-10-2024 MR/PAT.[facility] Medical Records Department [address] [place] [address] PAT - Anesthesia 09/10/24 0846 MR#: [id number] Acct: [id number] Name: DARWIN GORE Rep #: [id number] : 1970 54 From: Jayro Monet MD PCP: Dr. 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: Anesthesia History - fuel buyer Hx Hospitalization Yes: [place] 12/202309/10/24 08:15 Any Problems With Anesthesia Yes: [...] take am of surgery PONV PONV - fuel buyer: PONV - fuel buyer Female No 09/10/24 08:15 HX of Motion [...] 08/11/24 08:49 Respiratory Assessment Respiratory Assessment - fuel buyer: Respiratory Tract Infection Hx - fuel buyer Hx Respiratory Tract Infection No 09/10/24 08:15 STOP Sleep Apnea STOP Sleep Apnea - fuel buyer: STOP Sleep Apnea - fuel buyer Hx Hypertension Yes: CONTROLLED WITH MED 09/10/24 [...] Tobacco Use History Tobacco Use History - fuel buyer: Tobacco Use History - fuel buyer Tobacco Use Smoking Status Never smoker 09/10/24 08:15 Hx Tobacco Use No 09/10/24 08:15 Years Smoking Packs Smoked per Day Smoking Cessation Date was within the last 15 years Hx Smoking Cessation Date Hx Smoking Cessation No 09/10/24 08:15 Counseling Hematologic Medial History Hematologic Hx - fuel buyer: 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 Normal [facility] Calculated very low density lipoprotein (VLDL) cholesterol measurementOrdered By: Georges Negrete on 2024 Calculated very low density lipoprotein (VLDL) cholesterol measurement 16 mg/dL 5-40 [facility] VLDL Cholesterol 16 mg/dL 5-40 [facility] Hemoglobin A1con 2024 HbA1c (Bld) [Mass fraction] 7.2 % High <=5.6 [facility] Comment on above: Result Comment: Norm al < 5.7 % Prediabetic 5.7 - 6.4 % Diabetic >or= 6.5 % Please note range changes. Performed By: #### L 500.2500, L100.0100 #### [facility] Laboratory [address] [place], [place], [id number] Hemoglobin A1c percentageOrd ered By: Georges Negrete on 2024 HbA1c (Bld) [Mass fraction] 7.2 % High <5.7 [facility] Comment on above: Normal < 5.7 % Predi abetic 5.7 - 6.4 % Diabetic >or= 6.5 % Please note range changes. LDL calc ser/plasOrdered By: Georges Negrete on 2024 Cholesterol in LDL [Mass/Vol] 92 mg/dL [facility] Comment on above: Gzbemtrghf=023-361 m g/dL & Higher Alkm=535 mg/dL or greater LDL Cholesterol, Calculated 92 mg/dL [facility] Comment on above: Lataxkjhtz=675-483 m g/dL & Higher Wwnk=264 mg/dL or greater Lipid Profileon 2024 CHOL:HDL 2.96 Normal [facility] Comment on above: Performed By: #### L 500.2500, L100.0100 #### [facility] [address] [place], [place], [id number] Cholesterol [Mass/Vol] 163 mg/dL Normal <=200 [facility] Comment on above: Result Comment: Chol esterol level, Desirable <200 mg/dL Borderline high cholesterol 200-239 mg/dL High cholesterol >=240 mg/dL Recommendations of the NCEP Adult Treatment Panel for the following risk-cutoff thresholds for the [place] population. Performed By: #### L 500.2500, L100.0100 #### [facility] [address] [place], [address] Cholesterol in HDL [Mass/Vol] 55 mg/dL Normal [facility] Comment on above: Result Comment: Bere onal Cholesterol Education Program (NCEP) guidelines: <40 mg/dL: Low HDL-cholesterol (major risk factor for CHD) >= 60 mg/dL: High HDL-cholesterol (negative risk factor for CHD) HDL-cholesterol is affected by a number of factors, e.g. smoking, exercise, hormones, sex and age. Performed By: #### L 500.2500, L100.0100 #### [facility] [address] [place], [address] Cholesterol in LDL [Mass/Vol] 92 mg/dL Normal [facility] Comment on above: Result Comment: Bord msiyqn=853-841 mg/dL Higher Igys=614 mg/dL or greater Performed By: #### L 500.2500, L100.0100 #### [facility] [address] [place], [address] Cholesterol in VLDL [Mass/Vol] 16 mg/dL Normal 5-40 [facility] Comment on above: Performed By: #### L 500.2500, L100.0100 #### [facility] [address] [place], [address] Triglyceride [Mass/Vol] 80 mg/dL Normal [facility] Comment on above: Result Comment: The drugs N-Acetylcysteine and Metamizole may falsely depress this assay. Normal range: <150 mg/dL Borderline High: 150-199 mg/dL High: 200-499 mg/dL Very High: >500 mg/dL Performed By: #### L 500.2500, L100.0100 #### [facility] [address] [place], [address] Screening total cholesterol/ high density lipoprotein (HDL) cholesterol ratioOrdered By: Georges Negrete on 2024 Cholesterol.total/Choles terol in HDL [Mass ratio] 2.96 {ratio} [facility] Serum or plasma cholesterol in HDL measurement (mass/volume)Ordered By: Georges Negrete on 2024 Cholesterol in HDL [Mass/Vol] 55 mg/dL >40 [facility] Comment on above: National Cholesterol Education Program (NCEP) guidelines:<40 mg/dL: Low HDL-cholesterol (major risk factor for CHD)>= 60 mg/dL: High HDL-cholesterol (negative risk factor for CHD)HDL-cholesterol is affected by a number of factors, e.g. smoking, exercise, hormones, sex and age. Serum or plasma cholesterol measurement (mass/volume)Ordered By: Georges Negrete on 2024 Cholesterol [Mass/Vol] 163 mg/dL <[address] [facility] Comment on above: Cholesterol level, D esirable <200 mg/dLBorderline high cholesterol 200-239 mg/dLHigh cholesterol >=240 mg/dLRecommendations of the NCEP Adult Treatment Panel for the following risk-cutoff thresholds for the [place] population. Triglycerides measurementOrd ered By: Georges Negrete on 2024 Triglyceride [Mass/Vol] 80 mg/dL <199 [facility] Comment on above: The drugs N-Acetylcy steine and Metamizole may falsely depress this assay. Normal range: <150 mg/dLBorderline High: 150-199 mg/dLHigh: 200-499 mg/dLVery High: >500 mg/dL Cardiology Visit Reporton Cardiology Visit Report [facility] [address] [place] [address] OFFICE VISIT Date of Service: 08/11/24 MR#: [id number] Acct: [id number] Name: DARWIN GORE Rep #: [id number] : 1970 Provider: Dr. Georges Negrete MD Age/Sex: 53/M Location: [facility] Status: Signed HPI HPI History of Present Illness Details: This gentleman with history of coronary artery disease status post NSTEMI's, status post DEYA to the proximal LAD and to the mid RCA, is here for routine follow-up visit. He has occasional chest pains that he describes as twinges. Lasts a few seconds only. Not related [...] NIBP Intake Visit Reasons: 6 M FU Herb Counselor Required: No Accompanied by: Self Is patient [...] the past year?: No PFSH Medical History Arthritis CKD (chronic kidney disease), [...] 02/03/2024: CONCLUSIONS Successful DEYA Mid RCA using [place] 3.0x18 mm, post-dilated using 3.5 mm balloon, optimized proximally using 3.75 mm balloon Stress Test 07/28/2018: Procedure: The patient exercised on a Derick protocol for 9 minutes completing Stage III achieving a peak heart rate of 150 bpm (86 % predicted maximal heart rate) with a peak blood pre (more content not included)... Normal [facility] Anion gap in Serum or Plasma Ordered By: Scooter Ramirez on 06-29-2024 Anion gap [Moles/Vol] 11 mmol/L 5-15 [facility] BUN/creatinine ratioOrdered By: Scooter Ramirez on 06-29-2024 Urea nitrogen/Creatinine [Mass ratio] 16.6 mg/mg 10- [facility] Bilirubin, totalOrdered By: Scooter Ramirez on 06-29-2024 Bilirubin [Mass/Vol] 0.43 mg/dL 0.00-1.30 [facility] Calculated very low density lipoprotein (VLDL) cholesterol measurementOrdered By: Scooter Ramirez on 06-29-2024 Calculated very low density lipoprotein (VLDL) cholesterol measurement 18 mg/dL -40 [facility] VLDL Cholesterol 18 mg/dL -40 [facility] Carbon dioxide, total [Moles /volume] in Central venous bloodOrdered By: Scooter Ramirez on 06-29-2024 CO2 [Moles/Vol] 24.6 mmol/L 21.0-32.0 [facility] Chloride assayOrdered By: Lolis Ramirez on 06-29-2024 Chloride [Moles/Vol] 101 mmol/L 98-108 [facility] Comprehensive Metabolic Prof ilon 06-29-2024 Albumin [Mass/Vol] 4.5 g/dL Normal 3.5-5.0 [facility] Comment on above: Order Comment: Order Date: 05/18/24Order Info: [id number] - CMPOrder Info: [id number] - LIPIDOrder Info: [id number] - TSHOrder Date: 02/19/24Order Info: [id number] - PSA Performed By: #### L 500.2500, L100.0100 #### [facility] [address] [place], [place], [address] Albumin/Globulin [Mass ratio] 1.6 {ratio} Normal 0.9-2.4 [facility] Comment on above: Order Comment: Order Date: 05/18/24Order Info: [id number] - CMPOrder Info: [id number] - LIPIDOrder Info: [id number] - TSHOrder Date: 02/19/24Order Info: [id number] - PSA Performed By: #### L 500.2500, L100.0100 #### [facility] [address] [place], [address] ALK PHOS 82 U/L Normal 40-129 [facility] Comment on above: Order Comment: Order Date: 05/18/24Order Info: [id number] - CMPOrder Info: [id number] - LIPIDOrder Info: [id number] - TSHOrder Date: 02/19/24Order Info: [id number] - PSA Performed By: #### L 500.2500, L100.0100 #### [facility] [address] [place], [address] ALT [Catalytic activity/Vol] 53 U/L High <=46 [facility] Comment on above: Order Comment: Order Date: 05/18/24Order Info: [id number] - CMPOrder Info: [id number] - LIPIDOrder Info: [id number] - TSHOrder Date: 02/19/24Order Info: [id number] - PSA Performed By: #### L 500.2500, L100.0100 #### [facility] [address] [place], [address] AST [Catalytic activity/Vol] 30 U/L Normal <=37 [facility] Comment on above: Order Comment: Order Date: 05/18/24Order Info: [id number] - CMPOrder Info: [id number] - LIPIDOrder Info: [id number] - TSHOrder Date: 02/19/24Order Info: [id number] - PSA Performed By: #### L 500.2500, L100.0100 #### [facility] [address] [place], [address] Bilirubin [Mass/Vol] 0.43 mg/dL Normal 0.00-1.30 [facility] Comment on above: Order Comment: Order Date: 05/18/24Order Info: [id number] - CMPOrder Info: [id number] - LIPIDOrder Info: [id number] - TSHOrder Date: 02/19/24Order Info: 7-1 - PSA Performed By: #### L 500.2500, L100.0100 #### [facility] [address] [place], [address] BUN/CRE 16.6 RATIO Normal 10-20 [facility] Comment on above: Order Comment: Order Date: 05/18/24Order Info: [id number] - CMPOrder Info: [id number] - LIPIDOrder Info: 3 - TSHOrder Date: 02/19/24Order Info: 7- - PSA Performed By: #### L 500.2500, L100.0100 #### [facility] [address] [place], [address] Calcium [Mass/Vol] 10.0 mg/dL Normal 7.6-11.0 [facility] Comment on above: Order Comment: Order Date: 05/18/24Order Info: [id number]- - CMPOrder Info: - LIPIDOrder Info: [id number] - TSHOrder Date: 02/19/24Order Info: [id number] - PSA Performed By: #### L 500.2500, L100.0100 #### [facility] [address] [place], [address] Chloride [Moles/Vol] 101 mmol/L Normal 98-108 [facility] Comment on above: Order Comment: Order Date: 05/18/24Order Info: 07- - CMPOrder Info: [id number] - LIPIDOrder Info: 3 - TSHOrder Date: 02/19/24Order Info: 7-1 - PSA Performed By: #### L 500.2500, L100.0100 #### [facility] [address] [place], [address] CO2 [Moles/Vol] 24.6 mmol/L Normal 21.0-32.0 [facility] Comment on above: Order Comment: Order Date: 05/18/24Order Info: 86-1 - CMPOrder Info: [id number] - LIPIDOrder Info: [id number] - TSHOrder Date: 02/19/24Order Info: [id number] - PSA Performed By: #### L 500.2500, L100.0100 #### [facility] [address] [place], [address] Creatinine [Mass/Vol] 0.89 mg/dL Normal 0.70-1.20 [facility] Comment on above: Order Comment: Order Date: 05/18/24Order Info: 86-1 - CMPOrder Info: [id number] - LIPIDOrder Info: [id number] - TSHOrder Date: 02/19/24Order Info: [id number] - PSA Performed By: #### L 500.2500, L100.0100 #### [facility] [address] [place], [place], [address] GAP 11 Normal 5-15 [facility] Comment on above: Order Comment: Order Date: 05/18/24Order Info: [id number] - CMPOrder Info: [id number] - LIPIDOrder Info: [id number] - TSHOrder Date: 02/19/24Order Info: [id number]- - PSA Performed By: #### L 500.2500, L100.0100 #### [facility] [address] [place], [place], [address] GFR/1.73 sq M.predicted among non-blacks MDRD (S/P/Bld) [Vol rate/Area] 103 mL/min/{1.73_m2} Normal >60 [facility] Comment on above: Order Comment: Order Date: 05/18/24Order Info: 86-1 - CMPOrder Info: [id number] - LIPIDOrder Info: [id number] - TSHOrder Date: 02/19/24Order Info: [id number] - PSA Result Comment: mL/m in/1.73m2 CKD-EPI Creatinine Equation (2020) Performed By: #### L 500.2500, L100.0100 #### [facility] [address] [place], [address] Globulin (S) [Mass/Vol] 2.8 g/dL Normal 2.2-4.2 [facility] Comment on above: Order Comment: Order Date: 05/18/24Order Info: 86-1 - CMPOrder Info: [id number] - LIPIDOrder Info: [id number] - TSHOrder Date: 02/19/24Order Info: [id number] - PSA Performed By: #### L 500.2500, L100.0100 #### [facility] [address] [place], [address] Glucose [Mass/Vol] 134 mg/dL High 70-99 [facility] Comment on above: Order Comment: Order Date: 05/18/24Order Info: [id number] - CMPOrder Info: [id number] - LIPIDOrder Info: [id number] - TSHOrder Date: 02/19/24Order Info: [id number] - PSA Performed By: #### L 500.2500, L100.0100 #### [facility] [address] [place], [address] Potassium [Moles/Vol] 4.3 mmol/L Normal 3.3-5.1 [facility] Comment on above: Order Comment: Order Date: 05/18/24Order Info: [id number]- - CMPOrder Info: [id number] - LIPIDOrder Info: [id number] - TSHOrder Date: 02/19/24Order Info: [id number] - PSA Performed By: #### L 500.2500, L100.0100 #### [facility] [address] [place], [address] Sodium [Moles/Vol] 137 mmol/L Normal 133-145 [facility] Comment on above: Order Comment: Order Date: 05/18/24Order Info: [id number] - CMPOrder Info: [id number] - LIPIDOrder Info: [id number] - TSHOrder Date: 02/19/24Order Info: [id number] - PSA Performed By: #### L 500.2500, L100.0100 #### [facility] [address] [place], [address] T PROT 7.3 g/dL Normal 5.9-8.4 [facility] Comment on above: Order Comment: Order Date: 05/18/24Order Info: [id number] - CMPOrder Info: [id number] - LIPIDOrder Info: [id number] - TSHOrder Date: 02/19/24Order Info: [id number] - PSA Performed By: #### L 500.2500, L100.0100 #### [facility] [address] [place], [address] Urea nitrogen [Mass/Vol] 15 mg/dL Normal 4-19 [facility] Comment on above: Order Comment: Order Date: 05/18/24Order Info: [id number] - CMPOrder Info: [id number] - LIPIDOrder Info: [id number] - TSHOrder Date: 02/19/24Order Info: [id number] - PSA Performed By: #### L 500.2500, L100.0100 #### [facility] [address] [place], [address] GFR/1.73 sq M.predicted ben g non-blacks MDRD (S/P/Bld) [Vol rate/Area]Ordered By: Scooter Ramirez on 06-29-2024 Estimated GFR (MDRD) Non-Af Amer 103 >60 [facility] Comment on above: mL/min/1.73m2 CKD-EP I Creatinine Equation (2020) Glomerular filtration rate ( GFR) estimation/1.73 sq m using serum, plasma, or whole bOrdered By: Scooter Ramirez on 06-29-2024 GFR/1.73 sq M.predicted among non-blacks MDRD (S/P/Bld) [Vol rate/Area] 103 mL/min/{1.73_m2} >60 [facility] Comment on above: mL/min/1.73m2 CKD-EP I Creatinine Equation (2020) LDL calc ser/plasOrdered By: Scooter Ramirez on 06-29-2024 Cholesterol in LDL [Mass/Vol] 83 mg/dL [facility] Comment on above: Qlufmolthm=571-649 m g/dL & Higher Llkx=472 mg/dL or greater LDL Cholesterol, Calculated 83 mg/dL [facility] Comment on above: Neyctrtmey=732-106 m g/dL & Higher Itrh=522 mg/dL or greater Laboratory - Chemistry and C hemistry - challengeOrdered By: Scooter Ramirez on 06-29-2024 AST [Catalytic activity/Vol] 30 U/L <38 [facility] Lipid Profileon 06-29-2024 CHOL:HDL 2.57 Normal [facility] Comment on above: Order Comment: Order Date: 05/18/24Order Info: [id number] - CMPOrder Info: [id number] - LIPIDOrder Info: [id number] - TSHOrder Date: 02/19/24Order Info: [id number] - PSA Performed By: #### L 500.2500, L100.0100 #### [facility] [address] [place], [place], [address] Cholesterol [Mass/Vol] 165 mg/dL Normal <=200 [facility] Comment on above: Order Comment: Order Date: 05/18/24Order Info: [id number] - CMPOrder Info: [id number] - LIPIDOrder Info: [id number] - TSHOrder Date: 02/19/24Order Info: [id number] - PSA Result Comment: Chol esterol level, Desirable <200 mg/dL Borderline high cholesterol 200-239 mg/dL High cholesterol >=240 mg/dL Recommendations of the NCEP Adult Treatment Panel for the following risk-cutoff thresholds for the [place] population. Performed By: #### L 500.2500, L100.0100 #### [facility] [address] [place], [address] Cholesterol in HDL [Mass/Vol] 64 mg/dL Normal [facility] Comment on above: Order Comment: Order Date: 05/18/24Order Info: [id number] - CMPOrder Info: [id number] - LIPIDOrder Info: [id number] - TSHOrder Date: 02/19/24Order Info: [id number] - PSA Result Comment: Bere onal Cholesterol Education Program (NCEP) guidelines: <40 mg/dL: Low HDL-cholesterol (major risk factor for CHD) >= 60 mg/dL: High HDL-cholesterol (negative risk factor for CHD) HDL-cholesterol is affected by a number of factors, e.g. smoking, exercise, hormones, sex and age. Performed By: #### L 500.2500, L100.0100 #### [facility] [address] [place], [address] Cholesterol in LDL [Mass/Vol] 83 mg/dL Normal [facility] Comment on above: Order Comment: Order Date: 05/18/24Order Info: [id number] - CMPOrder Info: [id number] - LIPIDOrder Info: [id number] - TSHOrder Date: 02/19/24Order Info: [id number] - PSA Result Comment: Bord uqhlft=430-748 mg/dL Higher Bicp=162 mg/dL or greater Performed By: #### L 500.2500, L100.0100 #### [facility] [address] [place], [address] Cholesterol in VLDL [Mass/Vol] 18 mg/dL Normal 5-40 [facility] Comment on above: Order Comment: Order Date: 05/18/24Order Info: [id number] - CMPOrder Info: [id number] - LIPIDOrder Info: [id number] - TSHOrder Date: 02/19/24Order Info: [id number] - PSA Performed By: #### L 500.2500, L100.0100 #### [facility] [address] [place], [address] Triglyceride [Mass/Vol] 89 mg/dL Normal [facility] Comment on above: Order Comment: Order Date: 05/18/24Order Info: [id number] - CMPOrder Info: [id number] - LIPIDOrder Info: [id number] - TSHOrder Date: 02/19/24Order Info: [id number] - PSA Result Comment: The drugs N-Acetylcysteine and Metamizole may falsely depress this assay. Normal range: <150 mg/dL Borderline High: 150-199 mg/dL High: 200-499 mg/dL Very High: >500 mg/dL Performed By: #### L 500.2500, L100.0100 #### [facility] [address] [place], [address] PSA, total screeningOrdered By: Scooter Ramirez on 06-29-2024 Prostate Specific Antigen Screen 0.86 ng/mL 0.02-4.00 [facility] Comment on above: This test [...] 06-29-2024 PSA,TOT SCREEN 0.86 ng/mL Normal 0.02-4.00 [facility] Comment on above: Order Comment: Order Date: 05/18/24Order Info: [id number] - CMPOrder Info: [id number] - LIPIDOrder Info: [id number] - TSHOrder Date: [...] confirm baseline values. Performed By: #### L 500.2500, L100.0100 #### [facility] [address] [place], [place], [address] Potassium (Unsp spec) [Mass/ Vol]Ordered By: Scooter Ramirez on 06-29-2024 Potassium [Moles/Vol] 4.3 mmol/L 3.3-5.1 [facility] Potassium measurement (mass/ volume)Ordered By: Scooter Ramirez on 06-29-2024 Potassium (Unsp spec) [Mass/Vol] 4.3 mmol/L 3.3-5.1 [facility] Screening total cholesterol/ high density lipoprotein (HDL) cholesterol ratioOrdered By: Scooter Ramirez on 06-29-2024 Cholesterol.total/Choles terol in HDL [Mass ratio] 2.57 {ratio} [facility] Serum creatinine measurement (mass/volume)Ordered By: Scooter Ramirez on 06-29-2024 Creatinine [Mass/Vol] 0.89 mg/dL 0.70-1.20 [facility] Serum globulin measurementOr dered By: Scooter Ramirez on 06-29-2024 Globulin (S) [Mass/Vol] 2.8 g/dL 2.2-4.2 [facility] Serum glucose measurement (m ass/volume)Ordered By: Scooter Ramirez on 06-29-2024 Glucose [Mass/Vol] 134 mg/dL High 70-99 [facility] Serum or plasma alanine hurst otransferase (ALT) measurementOrdered By: Scooter Ramirez on 06-29-2024 ALT [Catalytic activity/Vol] 53 U/L High <47 [facility] Serum or plasma albumin nita urement (mass/volume)Ordered By: Scooter Ramirez on 06-29-2024 Albumin [Mass/Vol] 4.5 g/dL 3.5-5.0 [facility] Serum or plasma albumin/glob ulin mass ratioOrdered By: Scooter Ramirez on 06-29-2024 Albumin/Globulin [Mass ratio] 1.6 {ratio} 0.9-2.4 [facility] Serum or plasma alkaline brandi sphatase measurementOrdered By: Scooter Ramirez on 06-29-2024 ALP [Catalytic activity/Vol] 82 U/L 40-129 [facility] Serum or plasma calcium nita urement (mass/volume)Ordered By: Scooter Ramirez on 06-29-2024 Calcium [Mass/Vol] 10.0 mg/dL 7.6-11.0 [facility] Serum or plasma cholesterol in HDL measurement (mass/volume)Ordered By: Scooter Ramirez on 06-29-2024 Cholesterol in HDL [Mass/Vol] 64 mg/dL >40 [facility] Comment on above: National Cholesterol Education Program (NCEP) guidelines:<40 mg/dL: Low HDL-cholesterol (major risk factor for CHD)>= 60 mg/dL: High HDL-cholesterol (negative risk factor for CHD)HDL-cholesterol is affected by a number of factors, e.g. smoking, exercise, hormones, sex and age. Serum or plasma cholesterol measurement (mass/volume)Ordered By: Scooter Ramirez on 06-29-2024 Cholesterol [Mass/Vol] 165 mg/dL <201 [facility] Comment on above: Cholesterol level, D esirable <200 mg/dLBorderline high cholesterol 200-239 mg/dLHigh cholesterol >=240 mg/dLRecommendations of the NCEP Adult Treatment Panel for the following risk-cutoff thresholds for the [place] population. Serum or plasma urea nitroge n measurement (mass/volume)Ordered By: Scooter Ramirez on 06-29-2024 Urea nitrogen [Mass/Vol] 15 mg/dL 4-19 [facility] Sodium levelOrdered By: Fab Ramirez on 06-29-2024 Sodium [Moles/Vol] 137 mmol/L 133-145 [facility] TSH DL <= 0.005 mIU/L QnOrde red By: Scooter Ramirez on 06-29-2024 Thyroid Stimulating Hormone (TSH) 1.980 uIU/mL 0.300-4.200 [facility] TSH Qn 1.980 uIU/mL 0.300-4.200 [facility] Thyroid Stim Hormone (TSH)on 06-29-2024 TSH 1.980 uIU/mL Normal 0.300-4.200 [facility] Comment on above: Order Comment: Order Date: 05/18/24Order Info: [id number] - CMPOrder Info: [id number] - LIPIDOrder Info: [id number] - TSHOrder Date: 02/19/24Order Info: [id number] - PSA Performed By: #### L [phone] ####[facility] [id number] [place], [address] Total proteinOrdered By: Vic Ramirez on 06-29-2024 Protein [Mass/Vol] 7.3 g/dL 5.9-8.4 [facility] Triglycerides measurementOrd ered By: Scooter Ramirez on 06-29-2024 Triglyceride [Mass/Vol] 89 mg/dL <199 [facility] Comment on above: The drugs N-Acetylcy steine and Metamizole may falsely depress this assay. Normal range: <150 mg/dLBorderline High: 150-199 mg/dLHigh: 200-499 mg/dLVery High: >500 mg/dL Inital Evaluation (1) - PTon 05-05-2024 Inital Evaluation (1) - PT [facility] Physical Therapy [facility] [address] [place] [address] / REHABILITATION SERVICES INITIAL EVALUATION MR#: [id number] Acct: [id number] Name: DARWIN GORE Rep #: [id number] : 1970 53 From: Arpit Collado PT. T, OCS Referring Dr.: Dr. Saravanan Ibrahim MD Status: REG R Insurance: [employer] SELF PAY INSURANCE Patient's Visit Information Visit Information Visit Information: DARWIN GORE is a 53 year old M referred to Physical Therapy by Dr. Saravanan Ibrahim MD with a diagnosis of RADICULOPATHY ,CERVICAL. Date of Evaluation: 05/05/24 Physical Therapist: Vu Quintero PT, Cert T, OCS Visit Plan Frequency: 2x /Week Duration: 4 Weeks Plan: PATIENT NEEDS CERVICAL SURGERY BUT ON HOLD DUE TO ME AND ON BLOOD THINNER PT INTERVENTIONS CERVICAL [...] left. Dr Ibrahim recommended surgery. Patient had ME and stents in widowmaker . 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 ,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 due to recent ME and on blood thinner thus benefit from skilled PT Rehabilitation Potential: Good Anticipated Interventions Patient/Client Instruction: Educate patient on: Condition and Plan of Care For the Purpose of:: To decrease pain, To increase ROM, To improve muscle performance and motor function, To improve ability to perform ADL's, To increase tolerance to activity/condition/pos ition, To improve ability of physical actions for home/community/work/le isure, To improve health of tissue, To decrease [...] to perform ADL's, To increase tolerance to activity/condition/pos ition, To improve ability of physical actions for home/community/work/le isure, To improve health of tissue, To decrease soft tissue restriction, To increase flexibility/ROM and To improve tolerance to ADL's Manual Therapy (more content not included)... Normal [facility] Orthopedic Visit Reporton Orthopedic Visit Report [facility] [address] [place] [address] OFFICE VISIT Date of Service: 04/09/24 MR#: [id number] Acct: [id number] Name: DARWIN GORE Rep #: [id number] : 1970 Provider: Dr. Saravanan Ibrahim MD Age/Sex: 53/M Location: [facility] Status: Signed Intake Vital Signs 03/12/24 07:20 [...] by me, Dr. Saravanan Ibrahim MD 04/09/24 7966. Part of today???s visit was documented by [...] seen pain management. 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 [...] will be (more content not included)... Normal [facility] Vital Signs Date Time Vital Sign Value Performing Clinician Estefany thomson 02-18-2025 09:25-0400 Body temperature 98 [degF] Dr. Scooter Ramirez MD Work Phone: [facility] 02-18-2025 09:25-0400 Diastolic blood pressure 83 mm[Hg] Dr. Scooter Ramirez MD Work Phone: [facility] 02-18-2025 09:25-0400 Heart rate 65 /min Dr. Scooter Ramirez MD Work Phone: [facility] 02-18-2025 09:25-0400 Respiratory rate 16 /min Dr. Scooter Ramirez MD Work Phone: [facility] 02-18-2025 09:25-0400 SaO2% (BldA) [Mass fraction] 98 % Dr. Scooter Ramirez MD Work Phone: 2(704)460-873520 [place] [address] 02-18-2025 09:25-0400 Systolic blood pressure 145 mm[Hg] Dr. Scooter Ramirez MD Work Phone: 9(396)615-863832 [place] [address] 02-17-2025 12:31-0400 Body height 175.[address] Scooter Ramirez MD Work Phone: 2(962)824-720332 [place] [address] 02-17-2025 12:31-0400 Body mass index (BMI) [Ratio] 36.2 kg/m2 Dr. Scooter Ramirez MD Work Phone: 6(776)480-973132 [place] [address] 02-17-2025 12:31-0400 Body weight [address] Scooter Ramirez MD Work Phone: 5(369)285-735732 [place] [address] 02-17-2025 11:45-0400 Inhaled oxygen flow rate 4 L/min Dr. Scooter Ramirez MD Work Phone: 8(621)080-342932 [place] [address] 02-10-2025 07:59-0400 Body mass index (BMI) [Ratio] 34 kg/m2 Dr. Scooter Ramirez MD Work Phone: 2(590)179-209932 [place] [address] 02-10-2025 07:59-0400 Body weight 104.[address] Scooter Ramirez MD Work Phone: 9(607)945-483732 [place] [address] 02-07-2025 07:03-0400 Body weight 104.[address] Scooter Ramirez MD Work Phone: 0(848)047-908732 [place] [address] 02-07-2025 07:02-0400 Body mass index (BMI) [Ratio] 34 kg/m2 Dr. Scooter Ramirez MD Work Phone: 5(373)685-749332 [place] [address] 01-26-2025 09:55-0400 Body height 175.[address] Scooter Ramirez MD Work Phone: 1(179)777-672532 [place] [address] 01-26-2025 09:55-0400 Body mass index (BMI) [Ratio] 34.8 kg/m2 Dr. Scooter Ramirez MD Work Phone: [facility] 01-26-2025 09:55-0400 Body weight 107.[address] Scooter Ramirez MD Work Phone: [facility] 01-26-2025 09:55-0400 Diastolic blood pressure 85 mm[Hg] Dr. Scooter Ramirez MD Work Phone: [facility] 01-26-2025 09:55-0400 Heart rate 60 /min Dr. Scooter Ramirez MD Work Phone: [facility] 01-26-2025 09:55-0400 Respiratory rate 18 /min Dr. Scooter Ramirez MD Work Phone: 2(114)696-479320 [place] [address] 01-26-2025 09:55-0400 Systolic blood pressure 126 mm[Hg] Dr. Scooter Ramirez MD Work Phone: [facility] 09-13-2024 08:59-0400 Body temperature 97.6 [degF] Dr. Scooter Ramirez MD Work Phone: [facility] 09-13-2024 08:59-0400 Diastolic blood pressure 80 mm[Hg] Dr. Scooter Ramirez MD Work Phone: [facility] 09-13-2024 08:59-0400 Heart rate 53 /min Dr. Scooter Ramirez MD Work Phone: [facility] 09-13-2024 08:59-0400 Respiratory rate 16 /min Dr. Scooter Ramirez MD Work Phone: [facility] 09-13-2024 08:59-0400 SaO2% (BldA) [Mass fraction] 98 % Dr. Scooter Ramirez MD Work Phone: [facility] 09-13-2024 08:59-0400 Systolic blood pressure 129 mm[Hg] Dr. Scooter Ramirez MD Work Phone: [facility] 09-13-2024 08:19-0400 Body temperature 97.6 [degF] Dr. Scooter Ramirez MD Work Phone: [facility] 09-13-2024 08:19-0400 Diastolic blood pressure 80 mm[Hg] Dr. Scooter Ramirez MD Work Phone: 5(461)552-345120 [place] [address] 09-13-2024 08:19-0400 Heart rate 53 /min Dr. Scooter Ramirez MD Work Phone: [facility] 09-13-2024 08:19-0400 Respiratory rate 16 /min Dr. Scooter Ramirez MD Work Phone: 5(205)219-250548 [address] 09-13-2024 08:19-0400 SaO2% (BldA) [Mass fraction] 98 % Dr. Scooter Ramirez MD Work Phone: 0(089)238-186520 [place] [address] 09-13-2024 08:19-0400 Systolic blood pressure 129 mm[Hg] Dr. Scooter Ramirez MD Work Phone: [facility] 09-13-2024 06:33-0400 Body height 175.[address] Scooter Ramirez MD Work Phone: [facility] 09-13-2024 06:33-0400 Body mass index (BMI) [Ratio] 34.4 kg/m2 Dr. Scooter Ramirez MD Work Phone: 0(706)230-735820 [place] [address] 09-13-2024 06:33-0400 Body weight [address] Scooter Ramirez MD Work Phone: [facility] 08-11-2024 08:49-0400 Body mass index (BMI) [Ratio] 34.8 kg/m2 Dr. Scooter Ramirez MD Work Phone: [facility] 08-11-2024 08:49-0400 Body weight 107.[address] Scooter Ramirez MD Work Phone: 6(814)060-190820 [place] [address] 08-11-2024 08:49-0400 Diastolic blood pressure 80 mm[Hg] Dr. Scooter Ramirez MD Work Phone: [facility] 08-11-2024 08:49-0400 Heart rate 60 /min Dr. Scooter Ramirez MD Work Phone: [facility] 08-11-2024 08:49-0400 Respiratory rate 18 /min Dr. Scooter Ramirez MD Work Phone: [facility] 08-11-2024 08:49-0400 Systolic blood pressure 132 mm[Hg] Dr. Scooter Ramirez MD Work Phone: [facility] 04-28-2024 00:44-0500 Body weight 102.[address] Scooter Ramirez MD Work Phone: [facility] 04-09-2024 13:56-0500 Body height 175.[address] Scooter Ramirez MD Work Phone: [facility] 04-09-2024 13:56-0500 Body mass index (BMI) [Ratio] 33.3 kg/m2 Dr. Scooter Ramirez MD Work Phone: [facility] 04-09-2024 13:56-0500 Body weight 102.[address] Scooter Ramirez MD Work Phone: [facility] 04-09-2024 07:19-0500 Body weight 100.[address] Scooter Ramirez MD Work Phone: [facility] 03-12-2024 07:20-0500 Body weight 102.[address] Scooter Ramirez MD Work Phone: [facility] Encounters Encounter Date Encounter Type Care Provider Facility Start: 03-09-2025 ambulatory Scooter Allison lity:[facility] Start: 03-09-2025 Encounter for other preprocedural examination Saravanan Ibrahim [facility] Start: 03-04-2025 End: 03-04-2025 ambulatory Scooter Ramirez Facility:[facility] Start: 02-17-2025 End: 02-18-2025 ambulatory Scooter Ramirez Facility:[facility] Start: 02-17-2025 [facility] Start: 02-10-2025 End: 02-10-[address] Saravanan Ibraihm MD -[facility] Work Phone: Start: 02-10-2025 End: 02-10-[address] Scooter Ramirez MD Work Phone: -[facility] Start: 02-07-2025 End: 02-07-2025 Admission to same day surgery center Dr. Georges Negrete MD -[facility] Work Phone: Start: 02-07-2025 End: 02-07-[address] Scooter Ramirez MD Work Phone: -[facility] Start: 02-04-2025 Non-patient / Non-visit Audrey CRONIN -[facility] Work Phone: Start: 02-04-2025 ambulatory Scooter Allison lity:[facility] Start: 02-04-2025 ambulatory Georges Negrete Facility:[facility] Start: 02-04-2025 Non-patient / Non-visit Dr. Georges meraz MD -[facility] Start: 02-04-2025 Non-patient / Non-visit Dr. Georges meraz MD -[facility] Work Phone: Start: 02-04-[address] Georges Negrete MD -Cardiovascular Services Work Phone: Start: 02-04-2025 End: 02-04-2025 ambulatory Georges Negrete Facility:[facility] Start: 01-26-2025 End: 01-26-[address] Georges Negrete MD -Laboratory Work Phone: Start: 01-26-2025 End: 01-26-[address] Georges Negrete MD [facility] Start: 01-26-2025 End: 01-26-[address] Scooter Ramirez MD Work Phone: -[facility] Start: 01-26-2025 End: 01-26-2025 ambulatory Georges Negrete Facility:[facility] Start: 12-24-2024 End: 12-24-[address] Enrique Vaughan MD -[facility] Start: 12-24-2024 End: 12-24-[address] Scooter Ramirez MD Work Phone: -[facility] Start: 09-13-2024 End: 09-13-2024 Admission to same day surgery center Dr. Mati Car MD -[facility] Start: 09-13-2024 End: 09-13-[address] Scooter Ramirez MD Work Phone: [facility] Work Phone: Start: 08-20-2024 End: [...] ambulatory Dr. Scooter Ramirez MD Work Phone: [facility] Work Phone: Start: 2024 End: [address] Georges Negrete MD -Laboratory Work Phone: Start: 2024 End: 2024 ambulatory Scooter Ramirez Facility:[facility] Start: 08-11-2024 Encounter for preprocedural cardiovascular examination Georges Negrete [facility] Start: 08-11-2024 End: 08-11-[address] Georges Negrete MD -[facility] Work Phone: Start: 08-11-2024 End: 08-11-[address] Georges Negrete MD [facility] Start: 08-11-2024 End: 08-11-2024 ambulatory [facility] Facility:[facility] Start: 08-02-2024 ambulatory [facility] lity:[facility] Start: 07-09-[address] Saravanan gallo MD -Physical Therapy Work Phone: Start: 07-08-2024 ambulatory [facility] lity:[facility] Start: 06-29-2024 End: 06-29-[address] Scooter Ramirez MD Work Phone: [facility] Work Phone: Start: 06-29-2024 End: 06-29-[address] Scooter Ramirez MD -[facility] Work Phone: Start: 06-29-2024 End: 06-29-2024 ambulatory [facility] Facility:[facility] Start: 06-08-2024 ambulatory [facility] lity:[facility] Start: 04-30-2024 End: 05-28-2024 ambulatory [facility] Facility:[facility] Start: 04-30-2024 End: 05-28-[address] Georges Negrete MD -Cardiac Rehab Work Phone: Start: 04-23-2024 End: 04-27-2024 ambulatory [facility] Facility:[facility] Start: 04-23-2024 End: 04-27-[address] Georges Negrete MD -Cardiac Rehab Work Phone: Start: 04-09-2024 End: 04-09-[address] Saravanan Ibrahim MD -[facility] Work Phone: Start: 04-09-2024 End: 04-09-2024 ambulatory Bennett James Facility:[facility] Start: 03-24-2024 End: 03-27-2024 ambulatory [facility] Facility:[facility] Start: 03-24-2024 End: 03-27-[address] Georges Negrete MD -Cardiac Rehab Work Phone: Procedures Date Procedure Procedure Detail Performing Clinician Start: 02-18-[address] Scooter Ramirez MD Work Phone: Start: 02-07-2025 Coagulation time, activated Dr. Scooter Ramirez MD Work Phone: Start: 02-04-2025 Methicillin resistan t Staphylococcus aureus screening test Dr. Scooter Ramirez MD Work Phone: Start: 02-04-2025 Cardiovascular stres s test using pharmacologic stress agent Dr. Scooter Ramirez MD Work Phone: Start: 12-24-2024 X-ray of cervical spine Dr. [...] Treatment Date Care Activity Detail Author Start: 02-18-2025 Patient discharge [facility] Start: 02-18-2025 Application of device [facility] Start: 02-18-2025 Catheterization of vein [facility] Start: 02-18-2025 Non-patient / Non-visit Non-patient / Non-visit -[facility] Start: 02-18-2025 Incentive spirometry [facility] Start: 02-18-2025 X-ray of cervical spine Cerv Spine 2 or 3 Views [facility] Start: 02-18-2025 End: 02-18-2025 Measuring intake and output [facility] Start: 02-17-2025 End: 02-17-2025 Incentive spirometry [facility] Start: 02-17-2025 Care regimes management [facility] Start: 02-17-2025 Notification of physician [facility] Start: 02-17-2025 [facility] Start: 02-17-2025 Non-patient / Non-visit Non-patient / Non-visit [facility] Work Phone: Start: 02-17-2025 Following clinical pathway protocol [facility] Start: 02-17-2025 [facility] Start: 02-17-2025 Consultation [facility] Start: 02-17-2025 Application of device [facility] Start: 02-17-2025 End: 02-17-2025 Measuring intake and output [facility] Start: 02-17-2025 Provision of activity privileges [facility] Start: 02-17-2025 End: 02-17-2025 [facility] Start: 02-17-2025 Admission procedure [facility] Start: 02-17-2025 Assessment of risk of venous thromboembolism [facility] Start: 02-17-2025 End: 02-18-2025 Evaluation and management of inpatient Cervical disc herniation -[facility] 3 Work Phone: Start: 02-17-2025 Following clinical pathway protocol [facility] Start: 02-17-2025 Introduction of urinary catheter [facility] Start: 02-17-2025 Neurovascular assessment [facility] Start: 02-17-2025 Patient education [facility] Start: 02-17-2025 Referral for physical therapy [facility] Start: 02-17-2025 Referral to occupational therapist [facility] Start: 02-17-2025 Taking patient vital signs [facility] Start: 02-17-2025 Cervical arthrodesis by anterior technique Anterior Cervical Fusion (Not Applicable) [facility] Start: 02-17-2025 Fluoroscopic guidance O.R. Fluoro for C-Arm [facility] Start: 02-17-2025 X-ray of cervical spine Cerv Spine 2 or 3 Views [facility] Start: 02-17-2025 Non-patient / Non-visit Non-patient / Non-visit -[facility] Start: 02-17-2025 Consultation [facility] Start: 02-10-2025 End: 02-10-2025 Patient encounter procedure Cervical disc herniation -[facility] Work Phone: Start: 02-07-2025 Patient discharge [facility] Start: 12-24-2024 X-ray of cervical spine Cerv Spine 4 or 5 Views [facility] Start: 12-24-2024 XR Cervical spine 4 or 5 Views [facility] Start: 09-13-2024 Njx dx/ther agt pvrt facet jt crv/thrc 2nd level INJ PARAVERT F JNT C/T 2 [facility] Start: 09-13-2024 Njx dx/ther agt pvrt facet jt crv/thrc 3+ level INJ PARAVERT F JNT C/T 3 [facility] Start: 09-13-2024 Fluoroscopy guided injection of cervical spinal nerve root [facility] Start: 09-13-2024 End: 09-13-2024 Injection of facet joint [facility] Start: 09-13-2024 X-ray of cervical spine Cerv Spine 4 or 5 Views [facility] Start: 09-13-2024 Patient discharge [facility] NM Heart Views W str ess and W radionuclide IV [facility] Patient referral [facility] Work Phone: [facility] Immunizations Immunization Date Immunization Notes Care Provider Courtney yarbrough 12-27-[address] Scooter Ramirez MD Work Phone: [facility] Payers Date Payer Category Payer Self-pay 2023 Unknown [id number] Unknown [id number] 2.16.8 [id number] Unknown [id number] 2.16.8 40.1.576453.3.579.2.462 Unknown [id number] 2.16.8 40.1.068541.3.579.2.462 Unknown [id number] 2.16.8 40.1.416123.3.579.2.462 Unknown [id number] 2.16.8 40.1.757500.3.579.2.462 Unknown [id number] 2.16.8 40.1.974833.3.579.2.462 Unknown [id number] 2.16.8 40.1.956736.3.579.2.462 Unknown [id number] 2.16.8 40.1.301330.3.579.2.462 Unknown [id number] 2.16.8 40.1.011429.3.579.2.462 Unknown [id number] 2.16.8 40.1.369502.3.579.2.462 Unknown [id number] 2.16.8 40.1.400763.3.579.2.462 Unknown [id number] 2.16.8 40.1.582277.3.579.2.462 Unknown [id number] 2.16.8 40.1.057973.3.579.2.462 Unknown [id number] 2.16.8 40.1.000384.3.579.2.462 Unknown [id number] 2.16.8 40.1.133922.3.579.2.462 Unknown [id number] 2.16.8 40.1.263257.3.579.2.462 Unknown [id number] 2.16.8 40.1.827485.3.579.2.462 Unknown [id number] 2.16.8 40.1.605124.3.579.2.462 Unknown [id number] 2.16.8 40.1.560100.3.579.2.462 Unknown [id number] 2.16.8 40.1.120037.3.579.2.462 Unknown [id number] 2.16.8 40.1.195660.3.579.2.462 Unknown [id number] 2.16.8 40.1.016348.3.579.2.462 Unknown [id number] 2.16.8 40.1.329892.3.579.2.462 Unknown [id number] 2.16.8 [id number] Unknown [id number] 2.16.8 [id number] Unknown [id number] 2.16.8 [id number] Unknown [id number] 2.16.8 [id number] Unknown [id number] 2.16.8 [id number] Social History Date Type Detail Facility Start: 02-10-2024 End: 02-07-2025 Tobacco smoking status PAIS Never smoked tobacco (finding) [facility] Start: 05-06-2013 Occasional Occasional [facility] Start: 05-06-2013 None None [facility] Start: 05-06-2013 Spouse/ Significant Other Spouse/ Significant Other [facility] Start: 05-06-2013 Non-smoker Non-smoker [facility] Start: 07-09-2024 End: 08-18-2024 Sex Male (finding) [facility] Start: 1970 Sex Assigned At Male [facility] Medical Equipment Procedure Code Equipment Code Equipment Origin al Text Equipment Identifier Dates Discectomy, spine, cervical, anterior approach, with fusion 2 LEVEL PLATE FDA Start: 02-17-2025 Discectomy, spine, cervical, anterior approach, with fusion ANATOMICAL CERVICAL ALLOGRAFT SPACER 6 X 16 X 14mm ([id number]) FDA Start: 02-17-2025 Discectomy, spine, cervical, anterior approach, with fusion ANATOMICAL CERVICAL ALLOGRAFT SPACER 6 X 16 X 14mm ([id number]) FDA Start: 02-17-2025 Discectomy, spine, cervical, anterior approach, with fusion PUTTY,BONE 1CC DBX FDA Start: 02-17-2025 Discectomy, spine, cervical, anterior approach, with fusion SCREWS 4.0 FIXED ANGLE (CONRAD) FDA Start: 02-17-2025 Discectomy, spine, cervical, anterior approach, with fusion SCREWS 4.0 FIXED ANGLE (CONRAD) FDA Start: 02-17-2025 Discectomy, spine, cervical, anterior approach, with fusion Gelatin haemostatic agent ([id number] FDA Start: 02-17-2025 Discectomy, spine, cervical, anterior approach, with fusion 2 LEVEL PLATE FDA Start: 02-17-2025 Discectomy, spine, cervical, anterior approach, with fusion ANATOMICAL CERVICAL ALLOGRAFT SPACER 6 X 16 X 14mm ([id number]) FDA Start: 02-17-2025 Discectomy, spine, cervical, anterior approach, with fusion ANATOMICAL CERVICAL ALLOGRAFT SPACER 6 X 16 X 14mm ([id number]) FDA Start: 02-17-2025 Discectomy, spine, cervical, anterior approach, with fusion PUTTY,BONE 1CC DBX FDA Start: 02-17-2025 Discectomy, spine, cervical, anterior approach, with fusion SCREWS 4.0 FIXED ANGLE (CONRAD) FDA Start: 02-17-2025 Discectomy, spine, cervical, anterior approach, with fusion SCREWS 4.0 FIXED ANGLE (CONRAD) FDA Start: 02-17-2025 HELEN 3GRM HEMO STAT ABS FDA Start: 10-02-2017 Drug-eluting coronary artery stent, egn-klkowpswfkqoo-gn lymer-coated ()[id number] FDA Start: 01-15-2024 [id number] FDA Start: 02-03-2024 HELEN 3GRM HEMO STAT ABS FDA Start: 10-02-2017 [id number] FDA Start: 02-03-2024 HELEN 3GRM HEMO STAT ABS FDA Start: 10-02-2017 [id number] FDA Start: 02-03-2024 HELEN 3GRM HEMO STAT ABS FDA Start: 10-02-2017 [id number] FDA Start: 02-03-2024 HELEN 3GRM HEMO STAT ABS FDA Start: 10-02-2017 [id number] FDA Start: 02-03-2024 HELEN 3GRM HEMO STAT ABS FDA Start: 10-02-2017 [id number] FDA Start: 02-03-2024 HELEN 3GRM HEMO STAT ABS FDA Start: 10-02-2017 [id number] FDA Start: 02-03-2024 HELEN 3GRM HEMO STAT ABS FDA Start: 10-02-2017 [id number] FDA Start: 02-03-2024 HELEN 3GRM HEMO STAT ABS FDA Start: 10-02-2017 [id number] FDA Start: 02-03-2024 Goals Date Patient Goal Desired Activity /State Functional Status Date Assessment Result Facility 02-17-2025 Functional status Independent [facility] Work Phone: Mental Status Date Assessment Result Facility 02-18-2025 Cognitive function Level Of Consciousness Awake [facility] Work Phone: 02-17-2025 Cognitive function Voice/Name [facility] Work Phone: 09-13-2024 Cognitive function Voice/Name [facility] Work Phone: Clinical Notes 04-09-2024 to 02-18-2025 Note Date & Type Note Facility 02-18-2025 Note [facility] Medical Records Department [address] [place] [address] Discharge Summary 02/18/25 1048 MR#: [id number] Acct: [id number] Name: DARWIN GORE Rep #: [id number] : 1970 54 From: Laurence Seymour NP-C PCP: Dr. Scooter Ramirez MD Status:ADM RAY Location: MS3 GH633-8 Discharge Summary Date of Admission: 02/17/25 Date of Discharge: 02/18/25 Summary: Darwin is a pleasant 54 yo 1 day post-op ACDF with plate instrumentation. Patient is ambulatory in the halls, independent with donning and doffing c-collar. Pain is well-controlled. Continue frequent ambulation and light activity as tolerated Okay for full range of motion of the upper extremities, no lifting anything overhead. Reviewed home-going medicines for symptom control to include hydrocodone, methocarbamol as prescribed. We discussed may use Tylenol for mild to moderate pain and the hydrocodone for the moderate to severe pain on as needed basis. At this time, no NSAIDs to be prescribed secondary to aspirin and Brilinta use. Okay to resume home medications We discussed wound care: keep Tegaderm and gauze clean and dry. After 5 days remove the Tegaderm and gauze and cover incision with a Band-Aid. Replace Band-Aid daily thereafter. Wear cervical collar full-time for the first 2 weeks. Eat soft solid foods as needed for dysphagia. Sleep in a recliner to help with swelling. No bending, lifting, twisting. We reviewed monitoring wound daily and as needed for any increased pain, swelling, redness, streaking, fever, chills, drainage or other concerns to seek evaluation Follow-up in clinic in 2 weeks, call for any questions or concerns Physical Exam Const alert, oriented x3 and no apparent distress General Appearance: cooperative Exam Limitations: no limitations Neck Neck Narrative: Const alert, oriented x3 and no apparent distress General Appearance: cooperative HEENT HEENT Narrative: Mild throat soreness upon swallowing. Soft diet tolerated yesterday well. Neck supple Neck Narrative: Patient in stiff c-collar, demonstrates ability to remove and reapply easily. Conrad drain to left anterior cervical incision site with small amount of bloody drainage. The drain was easily pulled, patient tolerated well. Dressing was changed to sterile gauze and secured with Tegaderm, patient tolerated well. Upper extremities with full range of motion, strong and equal strength with 5/5, radial pulses equal and strong +2, no paresthesias present. Lower extremities with full range of motion, strong and equal strength with 5 out of 5, easily palpable pedal pulses at +2 with no paresthesias present. General: trachea midline Resp normal respiratory effort Meaningful Use Info Meaningful Use Meaningful Use Diagnoses (Choose all that apply): None applicable Ischemic Stroke Statin Dosing Therapy Reference: STATIN DOSE THERAPY REFERENCE: * Patients > 75 years receive moderate or high dose statin therapy. * Patients 75 years or YOUNGER should receive HIGH intensity statin dose unless contraindicated. You will be required to document reason for non-treatment if statin daily dose does not meet guidelines. HIGH DOSE STATIN THERAPY DAILY Atorvastatin > than or = to 40 mg Rosuvastatin > than or = to 20 mg Amlodipine + Atorvastatin > than or = to 2.5/40 mg Ezetimibe + Simvastatin 10/80 mg Simvastatin 80mg Discharge Plan Admission Admit Date/Time: 02/17/25 09:57 Attending Provider: Saravanan Ibrahim Primary Care Provider: Scooter Ramirez Consulting Providers: Ame Schwab; Watson Burnette Discharge Orders/Prescriptions Prescriptions: No Action multivitamin Tablet 1 tab PO QAM gabapentin 100 mg capsule 100 mg PO TID PRN (Reason: sleep) rosuvastatin 20 mg tablet 20 mg PO QHS aspirin 81 mg Tablet,Delayed Release (Dr/Ec) 81 mg PO BREAKFAST 90 Days Qty: 90 0RF amlodipine 5 mg tablet 5 mg PO DAILY Qty: 90 3RF Brilinta 90 mg tablet 90 mg PO BID Qty: 180 3RF dapagliflozin propanediol [Farxiga] 10 mg tablet 10 mg PO DAILY Qty: 90 3RF Rx Instructions: Check pricing Referrals / Follow Up: Scooter Ramirez MD [Primary Care Provider, Family Practice] Disposition Disposition (needs filled in before D/C Order can be placed): Home, Self Care 02/18/25 1059 Cosigner Signature (if applicable): CC: CONTACT WORKER-C Laurence Seymour; Dr. Scooter Ramirez MD Signed [facility] 02-17-2025 Note [facility] Medical Records Department [address] [place] [address] History Physical Exam 02/17/25 0720 MR#: [id number] Acct: [id number] Name: DARWIN GORE Rep #: [id number] : 1970 54 From: Saravanan Ibrahim MD PCP: Dr. Scooter Ramirez MD Status:[facility] Location: AC AC01-1 History and Physical Date of Admission: 02/17/25 MR#: [id number] Acct: [id number] Name: DARWIN GORE Rep #: [id number] : 1970 Provider: Dr. Saravanan Ibrahim MD Age/Sex: 54/M Location: [facility] Status: Signed Intake Vital Signs 09/13/2505:33 02/07/2507:03 02/10/2507:59 Height 5 ft 9 in 5 ft [...] mg PO BREAKFAST 90 days #90 tabs 01/16/2402/10 Rx release multivitamin 1 tab PO QAM 02/23/24 02/10/25 History amlodipine 5 mg tablet 5 mg PO DAILY #90 tabs 04/14/24 02/10/25 Rx ticagrelor 90 mg tablet (Brilinta) 90 mg PO BID #180 tabs 04/19/24 02/10/25 Rx rosuvastatin 20 mg tablet 20 mg PO QHS 09/10/24 02/10/25 History dapagliflozin propanediol 10 mg 10 mg PO DAILY #90 tabs 10/14/24 02/10/25 Rx tablet (Farxiga) gabapentin 100 mg capsule 100 mg PO TID PRN sleep 01/26/25 02/10/25 History Have you fallen in the past [...] like to go over the surgery, and discuss about after surgery. The patient is a [...] the mornings. - Cardiovascular: Denies new symptoms relate (more content not included)... [facility] 02-10-2025 Progress note [facility] 01-26-2025 Progress note [facility] 12-24-2024 Evaluation note Diagnosis Onset Date Resolution Cervical disc herniation acute December 24, 2024 12:41pm Cervical radiculopathy acute Au cezar 2024 12:41pm Obesity (BMI 30-39.9) acute Nov ust 2024 12:41pm Stented coronary artery acute O ctober 2024 9:50am CAD (coronary artery disease) chronic January 26 9:50am Dyslipidemia chronic January 26, 2025 9:50am Hypertension chronic January 26, 2025 9:50am BARRON on CPAP chronic January 26, 2025 9:50am Preoperative cardiovascular examination noneactive January 26 9:50am [facility] Work Phone: 1(538) 110-799108-29-2025 Evaluation note* Diagnosis Onset Date Resolution Status Admit Date Cervical disc herniation acute December 24, 2024 12:41pm Cervical radiculopathy acute Au cezar 2024 12:41pm Obesity (BMI 30-39.9) acute Nov ust 2024 12:41pm Stented coronary artery acute O ctober 2024 9:50am CAD (coronary artery disease) chroni c January 26, 2025 9:50am Dyslipidemia chronic January 26, 2025 9:50am Hypertension chronic January 26, 2025 9:50am BARRON on CPAP chronic January 26, 2025 9:50am Preoperative cardiovascular examination noneactive January 26 9:50am Cervical disc herniation acute February 10, 2025 7:51am Cervical radiculopathy acute Oc tober 2024 7:51am Obesity (BMI 30-39.9) acute Oct bess 2024 7:51am Cervical disc herniation acute February 17, 2025 9:57am Cervical radiculopathy acute Oc tober 2024 9:57am Diabetes mellitus, type 2 acute February 17, 2025 9:57am S/P cervical spinal fusion acute February 17, 2025 9:57am Stented coronary artery acute O ctober 2024 9:57am BARRON on CPAP chronic February 17, 2025 9:57am [facility] Work Phone: 1(137) 156-158108-12-2025 Discharge summary [facility] Physical Therapy [facility] [address] [place] [address] / REHABILITATION SERVICES DISCHARGE SUMMARY MR#: [id number] Acct: [id number] Name: DARWIN GORE Rep #: [id number] : 1970 54 From: Cert. JOHN Prnigle, OCS Referring Dr.: Dr. 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 Thank you for the referral of thispatient. Sincerely, Vu Quintero, PT, Cert MDT, OCS Balance/Gait/Functional tests Balance/Special Test Scores Oswestry Neck Score: 25 Improvement % Improvement: 20 12/07/24 1224 CC: Dr. Saravanan Ibrahim MD; Dr. Scooter Ramirez MD ~ JLA Signed [facility]08-12-2025 Discharge summary [facility] Physical Therapy [facility] [address] [place] [address] / REHABILITATION SERVICES DISCHARGE SUMMARY MR#: [id number] Acct: [id number] Name: DARWIN GORE Rep #: [id number] : 1970 54 From: Arpit Pringle. JOHN, OCS Referring Dr.: Dr. 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 Thank you for the referral of thispatient. Sincerely, Vu Quintero PT, Cert T, OCS Balance/Gait/Functional tests Balance/Special Test Scores Oswestry Neck Score: 25 Improvement % Improvement: 20 12/07/24 1222 CC: Dr. Saravanan Ibrahim MD; Dr. Scooter Ramirez MD ~ JLA Signed [facility]08-12-2025 Discharge summary Author Vu Quintero [facility] Note Date/Time December 07, 2024 12 :22pm [facility] Physical Therapy [facility] [address] [place] [address] / REHABILITATION SERVICES DISCHARGE SUMMARY MR#: [id number] Acct: [id number] Name: DARWIN GORE Rep #: [id number] : 1970 54 From: Arpit Pringle. JOHN, OCS Referring Dr.: Dr. 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 Thank you for the referral of thispatient. Sincerely, Vu Quintero PT, Cert T, OCS Balance/Gait/Functional tests Balance/Special Test Scores Oswestry Neck Score: 25 Improvement % Improvement: 20 <Electronically signed by Arpit Collado PT. JOHN, OCS> 12/07/24 1222 CC: Dr. Saravanan Ibrahim MD; Dr. Scooter Ramirez MD ~ JLA Signed [facility] Work Phone: 1(551) 253-953908-12-2025 Discharge summary Author Vu Quintero [facility] Note Date/Time December 07, 2024 12 :24pm [facility] Physical Therapy [facility] [address] [place] [address]. [address] [place] [address] / REHABILITATION SERVICES DISCHARGE SUMMARY MR#: [id number] Acct: [id number] Name: DARWIN GORE Rep #: [id number] : 1970 54 From: Cert. 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 Thank you for the referral of thispatient. Sincerely, Vu Quintero PT, Cert MDT, OCS Balance/Gait/Functional tests Balance/Special Test Scores Oswestry Neck Score: 25 Improvement % Improvement: 20 <Electronically signed by Arpit Collado PT. JOHN, OCS> 12/07/24 7225 CC: Dr. Saravanan Ibrahim MD; Dr. Scooter Ramirez MD ~ JLA Signed [facility] Work Phone: 1(468) 262-108105-19-2025 Consult note [facility] Medical Records Department [address] [place] [address] Pre-Anesthesia Evaluation 09/13/24 0715 MR#: [id number] Acct: [id number] Name: DARWIN GORE Rep #:[id number] : 1970 54 From: Perez Preciado MD PCP: Dr. Scooter Ramirez MD Status :REG SDC Y Race: C Location: [place] [address]-1 ASA Classification* ASA Classification ASA Classification: 2 [...] 06/29/24 TSH 1.980 uIU/mL (0.300-4.200) 06/29/24 11:14 08/20 COAG PT 13.2 SECONDS (11.7-14.9) 01/14/24 22:20 Pre-Assessment Diagnosis/Proposed Procedure Planned Operative Procedure(s): LEFT C4 C5 C6 C7 FACETS STEROID INJECTION UNDER FLUOROSCOPY Anesthesia History Anesthesia History - fuel buyer: Anesthesia History - fuel buyer Hx Hospitalization Yes: [place] 12/202309/10/24 08:15 Any Problems With Anesthesia Yes: [...] take am of surgery PONV PONV - fuel buyer: PONV - fuel buyer Female No 09/10/24 08:15 HX of Motion [...] 09/13/24 06:33 Respiratory Assessment Respiratory Assessment - fuel buyer: Respiratory Tract Infection Hx - fuel buyer Hx Respiratory Tract Infection No 09/10/24 08:15 STOP Sleep Apnea STOP Sleep Apnea - fuel buyer: STOP Sleep Apnea - fuel buyer Hx Hypertension Yes: CONTROLLED WITH MED 09/10/24 [...] Tobacco Use History Tobacco Use History - fuel buyer: Tobacco Use History - fuel buyer Tobacco Use Smoking Status Never smoker 09/10/24 08:15 Hx Tobacco Use No 09/10/24 08:15 Years Smoking Packs Smoked per Day Smoking Cessation Date was within the last 15 years Hx Smoking Cessation Date Hx Smoking Cessation No 09/10/24 08:15 Counseling Hematologic Medial History Hematologic Hx - fuel buyer: Hematologic 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 09/13/24 0715 > Date _ Perez Preciado MD Cosigner Signature: Date CC: ~ Signed [facility]05-19-2025 Procedure note [facility] Medical Records Department [address] [place] [address] Operative Report 09/13/24 0820 MR#: [id number] Acct: [id number] Name: DARWIN GORE Rep #:[id number] : 1970 54 From: Mati Car MD PCP: Dr. Scooter Ramirez MD Status :[facility] Location: [place] [address] Operative Report (Standard) Operative Information Date of Procedure: 09/13/24 Pre-Operative Diagnosis: Cervical spondylosis, cervical degenerative disc disease, cervical facet arthropathy Post-Operative Diagnosis: Cervical spondylosis, cervical degenerative disc disease, cervical facet arthropathy Surgery/Procedure Performed: Left-sided cervical facet steroid injection, C4, C5, C6, and C7. kinesiologist: No Type of Anesthesia: Local MAC RN [...] Ramirez MD; Dr. Mati Car MD~ Signed [facility]04-16-2025 Evaluation note* Diagnosis Onset Date Resolution Status Admit Date Stented coronary artery acute A pril 2024 2:30pm CAD (coronary artery disease) chroni c August 11, 2024 2:30pm Dyslipidemia chronic August 11, 2024 2:30pm Hypertension chronic August 11, 2024 2:30pm BARRON on CPAP chronic August 11, 2:30pm Preoperative cardiovascular examination noneactive August 11, 2024 2:30pm [facility] Work Phone: 1(959) 449-540012-13-2024 Evaluation note* Diagnosis Onset Date Resolution Status Admit Date Cervical radiculopathy acute De cember 2023 1:52pm [facility] Work Phone: Consult note Author Perez Preciado [facility] Note Date/Time September 13, 2024 8:37a m [facility] Medical Records Department [address] [place] [address] Pre-Anesthesia Evaluation 09/13/24 0715 MR#: [id number] Acct: [id number] Name: DARWIN GORE Rep #:[id number] : 1970 54 From: Perez Preciado MD PCP: Dr. 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: Anesthesia History - fuel buyer Hx Hospitalization Yes: [place] 12/202309/10/24 08:15 Any Problems With Anesthesia Yes: [...] take am of surgery PONV PONV - fuel buyer: PONV - fuel buyer Female No 09/10/24 08:15 HX of Motion [...] 09/13/24 06:33 Respiratory Assessment Respiratory Assessment - fuel buyer: Respiratory Tract Infection Hx - fuel buyer Hx Respiratory Tract Infection No 09/10/24 08:15 STOP Sleep Apnea STOP Sleep Apnea - fuel buyer: STOP Sleep Apnea - fuel buyer Hx Hypertension Yes: CONTROLLED WITH MED 09/10/24 [...] Tobacco Use History Tobacco Use History - fuel buyer: Tobacco Use History - fuel buyer Tobacco Use Smoking Status Never smoker 09/10/24 08:15 Hx Tobacco Use No 09/10/24 08:15 Years Smoking Packs Smoked per Day Smoking Cessation Date was within the last 15 years Hx Smoking Cessation Date Hx Smoking Cessation No 09/10/24 08:15 Counseling Hematologic Medial History Hematologic Hx - fuel buyer: Hematologic Medical Hx - cotton stripper Hx of Blood Transfusion No 09/10/24 08:15 [...] confused, unrespo /Reproduction History /Reproductive History - fuel buyer: /Reproductive Hx- fuel buyer Hx Now No 09/10/24 08:15 Gestational Age [...] no additional complaints, except as documented. 09/13/24714 <Electronically signed by Perez Preciado MD > Date _ Perez Preciado MD Cosigner Signature: Date CC: ~ Signed [facility] Work Phone: Evaluation noteNo assessment information available [facility] Work Phone: Evaluation note* Diagnosis Onset Date Resolution Status Admit Date Cervical disc herniation acute December 24, 2024 12:41pm Cervical radiculopathy acute Au 2024 12:41pm Obesity (BMI 30-39.9) acute Nov us2024 12:41pm [facility] Work Phone: Progress note Author Georges Negrete [facility] Note Date/Time January 26, 2025 10 :17am [facility] [address] [place], [place] [address] OFFICE VISIT Date of Service: 01/26/25 MR#: [id number] Acct: [id number] Name: DARWIN GORE Rep #: [id number] : 1970 Provider: Dr. Damon Negrete MD Age/Sex: 54/M Location: [facility] Status: Signed HPI HPI History [...] Monitor Intake Visit Reasons: 6 M FU Herb Counselor Required: No Accompanied by: Self Is patient [...] past year?: No (tripped a couple times) [facility] Medical History Cervical disc herniation Obesity (BMI [...] (discomfort) Frequency: weekly Character: sharp and other (tension) Location: left chest Duration: minutes and brief Palpitations: No Edema: Bilateral (worse on left but r/t arthritis and injury) Resp Respiratory: Negative for SOB with activity, SOB at rest or SOB orthopnea\SOB lying down GI GI: Negative nausea or [...] hypertension, I25.10 - Atherosclerotic heart disease of [place] coronary artery without angina pectoris Lipid Profile Today E78.5 - Hyperlipidemia, unspecified, I10 - Essential (primary) hypertension, I25.10 - Atherosclerotic heart disease of [place] coronary artery without angina pectoris Plan Elevated [...] by Georges Negrete MD> Date _ Georges Fragosoign Signature: Date (if applicable) CC: Dr. Scooter Ramirez MD ~ [facility] Work Phone: Progress note Author Saravanan Ibrahim [facility] Note Date/Time February 10, 2025 8 :54am [facility] [address] [place] [address] [address] [place] [address] OFFICE VISIT Date of Service: 02/10/25 MR#: [id number] Acct: [id number] Name: DARWIN GORE Rep #: [id number] : 1970 Provider: Dr. Garth Ibrahim MD Age/Sex: 54/M Location: [facility] [place].[facility] Status: Signed Intake Vital Signs 09/13/24 06:33 [...] Allergy (Severe, Verified 02/10/25 08:05) Anaphylaxis Medications ?Medication ?Instructions ?Recorded ?Confirmed ?Type aspirin 81 mg tablet,delayed 81 mg PO BREAKFAST 90 day s #90 tabs 01/16/24 02/10/25 Rx release multivitamin 1 tab PO QAM 02/23/24 History amlodipine 5 mg tablet 5 mg PO DAILY #90 tabs 04/1402/10/25 Rx ticagrelor 90 mg tablet (Brilinta) 90 mg PO BID #180 t abs 04/19/24 02/10/25 Rx rosuvastatin 20 mg tablet 20 mg PO QHS 09/10/24 History dapagliflozin propanediol 10 mg 10 mg PO DAILY #90 tab s 10/14/24 02/10/25 Rx tablet (Farxiga) gabapentin 100 mg capsule 100 mg PO TID PRN sleep 05/2202/10/25 History Have you fallen in the past [...] Saravanan Ibrahim MD 02/10/25 0759. Part of today?s visit was documented by Nicki Valentin MA, acting as scribe. DARWIN GORE is a 54 year old M here today for cervical spine pre op for C5-7 ACDF scheduled on 02-17-25. Patient states that his pain is a 3 today. He would like to go over the surgery, and discuss about after surgery. The patient is a [...] and has been advised to stop it fivedays before surgery and restart three days after. Additionally, the patient has type 2 diabetes mellitus, managed with Farxiga, which he is advised to stop three days before surgery. His recent HbA1c was 6.9%, indicating good control of his diabetes. The patient has been colonized with Staphylococcus aureus, for which he has beengiven a topical gel to apply for five [...] the encounter. Provider reviewed content of the generatednote prior to signature. 12/24/24: DARWIN GORE is a 54 year old [...] his left arm when sleeping, Dr. Car hasprescribed Gabapentin at night to help with this. He has to shake his left hand to help the numbness at night. He reports stiffness and limited ROM in the neck.He is right handed. He works from home which requires a lot of time on his computer. He sees Dr. Negrete in cardiology and was last seen two months ago. He has stopped the blood thinner for diagnostic injections with pain management. Hedenies lung problems. He uses a CPAP for sleep apnea. He does take Farxiga his last A1c was 7.2 in July. Ortho Exam General General: Yes no acute distress Neurologic: Yes alert and Yes oriented x3 Psychologic: Yes reasonable and appropriate Spine SPINE TESTING CERVICAL THORACIC LUMBAR Musculoskeletal Strength 0=absent - 5=normal Details: Examination neck shows midline and paraspinal tenderness. Patient holds his neck fairly stiff. His left side turning is severely limited. Neurologic bilateral upper extremity shows 5 x 5 power normal shows normal sensations in all dermatomes. Gary's negative. Romberg's is negative. Tandem gait showsmild imbalance. There is no hyperreflexia lower extremities. Coding Level of Care Code Off vis,est,level 4 Diagnoses Obesity (BMI 30-39.9) E66.9 Cervical radiculopathy M54.12 Cervical disc herniation M50.20 Time Spent (min) 35 Assessment and Plan Assessment and Plan (1) Obesity (BMI 30-39.9): Status: Acute (2) Cervical radiculopathy: Status: Acute (3) Cervical disc herniation: Status: Acute Plan Reviewed previous imaging. These show C5-6 and C6-7 disc height loss with likely up posterolateral osteophyte with mild cord indentation and severe foraminal stenosis worse on the left. No cord signal changes seen. No instability on flexion- extension views. - Imaging: MRI shows large herniation at C5-6 and C6-7 levels, compressing the spinal cord and nerves. - Imaging: X-rays show no significant changes from previous imaging. 1. Cervical spondylosis - The patient is scheduled for cervical spine surgery at C5-6 and C6-7 levels toaddress neck stiffness and related symptoms. 2. Coronary artery disease - Continue Brilinta, with instructions to stop five days before surgery and restart three days after to manage bleeding risk. 3. Type 2 diabetes mellitus - Manage with Farxiga, which should be stopped three days before surgery to minimize perioperative risks. 4. Staphylococcus aureus colonization - Apply topical gel for five days before surgery to reduce bacterial load and minimize infection risk. - Stop Brilinta five days before surgery and restart three days after. - Stop Farxiga three days before surgery. - Apply the prescribed topical gel for five days before surgery to reduce bacterial load. - Follow up with the surgical team for post-operative care and instructions. Explained imaging findings in detail. He has tried non surgical options and his quality and function continue to decline therefore at this time we will proceed with surgery. Surgery will be C5-7 ACDF. Discussed this procedure in detail and explained the risks, benefits and alternatives. The risks of surgery include but are not limited to infection, bleeding, injury to nerves and vessels, hematoma formation, dysphagia, dysphonia, recurrent laryngeal nerve injury, Fe syndrome, DVT, pulmonary embolism, pneumonia, atelectasis, cardiopulmonary event, pseudoarthrosis, hardware failure, adjacent segment degeneration, need for further surgery, nerveroot injury, spinal cord injury. Answered all questions to the patient?s satisfaction. Patient understands and agrees to proceed with surgery. Consent was signed.Follow up two weeks post operatively or sooner if pain, swelling, numbness or associated symptoms, or concerns develop. All questions answered. Patient in agreement of plan. Clinical Quality Measures Falls Risk Screening/Assistive Devices Have you fallen in the past year?: Yes 02/10/25 0943 <Electronically signed by Saravanan Ibrahim MD> Date _ Saravanan Ibrahim MD Cosigner Signature: Date (if applicable) CC: ~ [facility] Work Phone: Reason for referral (narrative)No reason for referral information availableWEast [facility] Work Phone: Chief Complaint and Reason for Visit Chief Complaint Admit Date PCI with stent, ME NonSTEMI<12months Feb 8:00am CERVICAL SPINE April 09, 2024 1:52pm PCI with stent, ME NonSTEMI<12months Mar 8:00am PCI with stent, ME NonSTEMI<12months Apr 6:02am EORDER June 29, 2024 11:1 0am CERVICAL RADICULOPATHY. RX HERE July 092024 8:00am Reason for Visit Admit Date Cervical radiculopathy April 09 1:52pm Chief Complaint Admit Date PCI with stent, ME NonSTEMI<12months Mar 8:00am PCI with stent, ME NonSTEMI<12months [facility] 2024 6:02am EORDER June 29, 2024 11:1 0am [...] Preoperative cardiovascular examination January 26, 2025 9:50am Chief Complaint Admit Date CERVICAL SPINE December 24, 2024 12 :41pm room 2 December 24, 2024 1: 05pm 6 M FU January 26, 2025 9: 50am e orders January 26, 2025 10 :21am CP, CAD February 04, 2025 6 :47am PREOP February 04, 2025 8 :24am CP, CAD February 04, 2025 1 0:20am Amb Documentation February 04, 2025 4 :46pm ABN STRESS CAD February 07, 2025 6 :24am cervical spine February 10, 2025 7 :51am Anterior Cervical Fusion C5-6 and C6-7 O ctober 2024 7:20am Anterior Cervical Fusion C5-6 and C6-7 O ctober 2024 9:57am Anterior Cervical Fusion C5-6 and C6-7 O ctober 2024 4:47pm Anterior Cervical Fusion C5-6 and C6-7 O ctober 2024 7:30am Reason for Visit Admit Date Cervical disc herniation December 24 12:41pm Cervical radiculopathy December 24, 2024 12:41pm Obesity (BMI 30-39.9) December 24, 2024 12:41pm Stented coronary artery January 26 9:50am CAD (coronary artery disease) January 9:50am Dyslipidemia January 26, 2025 9: 50am Hypertension January 26, 2025 9: 50am BARRON on CPAP January 26, 2025 9: 50am Preoperative cardiovascular examination January 26, 2025 9:50am Cervical disc herniation February 10, 2 025 7:51am Cervical radiculopathy February 10 7:51am Obesity (BMI 30-39.9) February 10, 2025 7:51am Cervical disc herniation February 17, 2 025 9:57am Cervical radiculopathy February 17 9:57am Diabetes mellitus, type 2 February 17, 2025 9:57am S/P cervical spinal fusion February 17, 2025 9:57am Stented coronary artery February 17 9:57am BARRON on CPAP February 17, 2025 9 :57am Family History No Family History Records Found Relationship Condition Age at Onset Recorded Date/T kurt father Cardiac disease Unknown Coronary artery disease Unknown Hypertension Unknown Myocardial infarction Unknown mother Malignant neoplasm of colon Unknown Advance Directives No Advanced Directives Records Found Advance Directive Response Recorded Date/ Time Living Will No April 28 1:44am Power of Immigration Lawyer No April 28 1:44am Living Will No February 09 8:03am Power of Immigration Lawyer No February 10, 2024 8:03am Living Will No March 28 1:44am Power of Immigration Lawyer No March 28, 2024 1:44am Advance Directives No February 03, 2024 7:06am Advance Directive Response Recorded Date/ Time Living Will No April 28 1:44am Do you have a Healthcare Power of Immigration Lawyer? No April 28, 2024 1:44am Living Will No March 28 1:44am Do you have a Healthcare Power of Immigration Lawyer? No March 28, 2024 1:44am Advance Directives No February 03, 2024 7:06am Advance Directive Response Recorded Date/ Time Do you have a Healthcare Power of Immigration Lawyer? No September 10, 2024 8:15am Advance Directives No February 03, 2024 7:06am Advance Directive Response Recorded Date/ Time Advance Directives No February 03, 2024 7:06am Advance Directive Response Recorded Date/ Time Do you have a Healthcare Power of Immigration Lawyer? No February 17, 2025 12:31pm Living Will No February 07 7:03am Do you have a Healthcare Power of Immigration Lawyer? No February 07, 2025 7:03am Advance Directives No February 07, 2025 7:03am Summary Purpose Additional Source Comments Care Teams [...] Referring Provider Active Start: January 26, 2025 Team Status: Active Member Role/Relationship Status Dates Dr. Scooter Ramirez MD Primary care physician Act salvatore Start: February 04, 2025 Dr. Georges Negrete MD Attending physician Active Start: February 04, 2025 Dr. Georges Negrete MD Referring Provider Active Start: February 04, 2025 Team Status: Active Member Role/Relationship Status Dates Dr. Scooter Ramirez MD Primary care physician Act salvatore Start: February 04, 2025 Dr. Georges Negrete MD Attending physician Active Start: February 04, 2025 Dr. Saravanan Ibrahim MD Referring Provider Active Start: February 04, 2025 Team Status: Active Member Role/Relationship Status Dates Dr. Scooter Ramirez MD Primary care physician Act salvatore Start: February 04, 2025 Dr. Georges Negrete MD Attending physician Active Start: February 04, 2025 Dr. Georges Negrete MD Referring Provider Active Start: February 04, 2025 Dr. Georges Negrete MD Nurse Practitioner Active Start: February 04, 2025 Team Status: Active Member Role/Relationship Status Dates Dr. Scooter Ramirez MD Primary care physician Act salvatore Start: February 04, 2025 Audrey Campo CONTACT WORKER, CONTACT WORKER-C Attending physician Active Start: February 04, 2025 Team Status: Inactive Member Role/Relationship Status Dates Dr. Scooter Ramirez MD Primary care physician Act salvatore Start: February 07, 2025 End: February 07, 2025 Dr. Georges Negrete MD Attending physician Active Start: February 07, 2025 End: February 07, 2025 Dr. Georges Negrete MD Referring Provider Active Start: February 07, 2025 End: February 07, 2025 Team Status: Inactive Member Role/Relationship Status Dates Dr. Scooter Ramirez MD Primary care physician Act salvatore Start: February 10, 2025 End: February 10, 2025 Dr. Scooter Ramirez MD Referring Provider Active Start: February 10, 2025 End: February 10, 2025 Dr. Saravanan Ibrahim MD Attending physician Active Start: February 10, 2025 End: February 10, 2025 Team Status: Active Member Role/Relationship Status Dates Dr. Scooter Ramirez MD Primary care physician Act salvatore Start: February 17, 2025 Dr. Saravanan Ibrahim MD Attending physician Active Start: February 17, 2025 Dr. Saravanan Ibrahim MD Referring Provider Active Start: February 17, 2025 Dr. Saravanan Ibrahim MD Nurse Practitioner Active Start: February 17, 2025 Team Status: Inactive Member Role/Relationship Status Dates Dr. Scooter Ramirez MD Primary care physician Act salvatore Start: February 17, 2025 End: February 18, 2025 Dr. Saravanan Ibrahim MD Admitting physician Active Start: February 17, 2025 End: February 18, 2025 Dr. Saravanan Ibrahim MD Attending physician Active Start: February 17, 2025 End: February 18, 2025 Dr. Saravanan Ibrahim MD Referring Provider Active Start: February 17, 2025 End: February 18, 2025 Dr. Ame Schwab MD Nurse Practitioner Active Start: February 17, 2025 End: February 18, 2025 Dr. Watson Burnette DO Nurse Practitioner Active Start: February 17, 2025 End: February 18, 2025 Team Status: Active Member Role/Relationship Status Dates Dr. Scooter Ramirez MD Primary care physician Act salvatore Start: February 17, 2025 Dr. Saravanan Ibrahim MD Admitting physician Active Start: February 17, 2025 Dr. Saravanan Ibrahim MD Referring Provider Active Start: February 17, 2025 Dr. Saravanan Ibrahim MD Nurse Practitioner Active Start: February 17, 2025 Dr. Ame Schwab MD Attending physician Active Start: February 17, 2025 Dr. Ame Schwab MD Nurse Practitioner Active Start: February 17, 2025 Team Status: Active Member Role/Relationship Status Dates Dr. Scooter Ramirez MD Primary care physician Act salvatore Start: February 18, 2025 Dr. Saravanan Ibrahim MD Admitting physician Active Start: February 18, 2025 Dr. Saravanan Ibrahim MD Referring Provider Active Start: February 18, 2025 Dr. Saravanan Ibrahim MD Nurse Practitioner Active Start: February 18, 2025 Dr. Ame Schwab MD Nurse Practitioner Active Start: February 18, 2025 Dr. Watson Burnette DO Nurse Practitioner Active Start: February 18, 2025 ROSEANNE Meza Attending physician Active Start: February 18, 2025 Team Status: Inactive Member Role/Relationship Status Dates Dr. Scooter Ramirez MD Primary care physician Act salvatore Start: January 26, 2025 End: January 26, 2025 Dr. Georges Negrete MD Attending physician Active Start: January 26, 2025 End: January 26, 2025 Dr. Georges Negrete MD Referring Provider Active Start: January 26, 2025 End: January 26, 2025 Goals (unrecognized section and content) Goals may be documented in a n alternate sectionGoals may be documented in an alternate sectionGoals may be documented in an alternate section (unrecognized sect ion and content) No Status Records Found INFORMATION SOURCE (unrecogn ized section and content) DATE CREATED AUTHOR 03/09/2025 [facility] FOR RECORDS PERTAINING TO PATIENTS WHO ARE [...] BE BASED ON THE PRIMARY CLINICAL RECORDS. [employer] provides no warranty or guarantee of the accuracy or completeness of information in this document.
== END 2025-04-18 14:28 | disposition home or self-care (01) ==
LOC: SDC 10:54 → AC 10:55
PROVIDERS: PCP Family Medicine; Referring Provider Surgery; Visit Provider Surgery
PROC: (CPT 49591; principal; 2025-04-18 12:15)
DX: K43.2 Incisional hernia without obstruction or gangrene (principal); E11.22 Type 2 diabetes mellitus with diabetic chronic kidney disease; E78.00 Pure hypercholesterolemia, unspecified; N18.2 Chronic kidney disease, stage 2 (mild); I12.9 Hypertensive chronic kidney disease with stage 1 through stage 4 chronic kidney disease, or unspecified chronic kidney disease; Z90.49 Acquired absence of other specified parts of digestive tract; Z95.5 Presence of coronary angioplasty implant and graft; Z79.01 Long term (current) use of anticoagulants; Z79.899 Other long term (current) drug therapy
CPT/HCPCS: 49591; 00832; 82962; 88302; J2405